=== PATIENT | female | born 1940 | race Caucasian/White ===

== ENCOUNTER 2019-04-06 13:19 | Emergency (ER) | payer MEDICARE, SELFPAY ==
[2019-04-06 13:27] VITALS: BP 136/48; PULSE 87; RESP 18; TEMP 36.9; O2SAT 97
--- NOTE | 2019-04-06 13:52 | ED.SKABFB ---
HPI - Skin/Abscess/Foreign Bdy <Lynsey Matias PA-C - Last Filed: 04/06/19 20:56> General Chief complaint: Skin/Abscess/Foreign Body Stated complaint: 'knot' on back of neck and right ankle Time Seen by Provider: 04/06/19 13:47 Source: patient Mode of arrival: ambulatory Limitations: no limitations History of Present Illness HPI narrative: This 79-year-old female comes to ED secondary to insect bites she believes on her neck and ankle. She states that the ankle has been getting gradually more red and swollen and tender. She has had more itching on the bites on the neck. She states that she was out in the garden working on Friday and saw small spiders and some small bugs, no other exposures known but she did notice the redness and swelling after that. She denies any new fever, facial swelling, difficulty swallowing or other new complaints with this. She did apply mupirocin and tried Epsom salt soaks yesterday. She denies any other complaints on systems review Related Data Previous Rx's Medication Instructions Recorded cephalexin [Keflex] 500 mg PO Q6H 7 Days #28 cap 04/06/19 mupirocin calcium 1 applictn TOP BID #30 gram 04/06/19 Allergies Allergy/AdvReac Type Severity Reaction Status Date / Time ciprofloxacin [From Cipro] Allergy Verified 04/06/19 13:30 cyclobenzaprine Allergy Verified 04/06/19 13:30 hydrocodone Allergy Verified 04/06/19 13:30 Iodine and Iodide Containing Allergy Verified 04/06/19 13:30 Produc oxycodone Allergy Verified 04/06/19 13:30 amoxicillin [From Augmentin] AdvReac Mild Verified 04/06/19 14:28 clavulanic acid AdvReac Mild Verified 04/06/19 14:28 [From Augmentin] Review of Systems <Lynsey Matias PA-C - Last Filed: 04/06/19 20:56> Review of Systems ROS Unobtainable: All systems reviewed & are unremarkable except as noted in HPI and below PFSH <Lynsey Matias PA-C - Last Filed: 04/06/19 20:56> Medical History (Updated 04/06/19 @ 14:34 by Lynsey Matias PA-C) Osteoarthritis (Chronic) History of depression (Chronic) History of TIA (transient ischemic attack) (Chronic) Surgical History (Updated 04/06/19 @ 14:34 by Lynsey Matias PA-C) Status post hysterectomy (Resolved) Status post appendectomy (Resolved) Status post bilateral hip replacements (Resolved) Social History (Updated 04/06/19 @ 14:35 by Lynsey Matias PA-C) Smoking Status: Never smoker Social History (Updated 04/06/19 @ 14:35 by Lynsey Matias PA-C) Smoking Status: Never smoker Exam <Lynsey Matias PA-C - Last Filed: 04/06/19 20:56> Narrative Exam Narrative: GENERAL APPEARANCE: Patient sitting comfortably, in no distress. HEENT: PERRL, EOMI, normal oropharynx NECK: Supple LUNGS: Clear to auscultation bilaterally. HEART: Rate and rhythm regular without murmur, normal S1 and S2, no S3 or S4. EXTREMITIES: Mild right foot and ankle pitting, trace on the left, numerous varicosities, no cyanosis DERMATOLOGIC: There is an indurated papule on the posterior neck with some central scab, no erythema or fluctuance, not warm to touch. Mildly tender. There are several erythematous papules on the right lateral ankle, largest 1 over the malleolus is approximately 5 mm in diameter with surrounding erythema over the proximal lateral ankle and lateral midfoot, mildly tender, no fluctuance or drainage Initial Vital Signs Initial Vital Signs: Vital Signs Temperature 98.4 F 04/06/19 13:27 Pulse Rate 87 04/06/19 13:27 Respiratory Rate 18 04/06/19 13:27 Blood Pressure 136/48 L 04/06/19 13:27 Pulse Oximetry 97 04/06/19 13:27 <Raven Corral MD - Last Filed: 04/08/19 08:59> Initial Vital Signs Initial Vital Signs: Vital Signs Temperature 98.4 F 04/06/19 13:27 Pulse Rate 87 04/06/19 13:27 Respiratory Rate 18 04/06/19 13:27 Blood Pressure 136/48 L 04/06/19 13:27 Pulse Oximetry 97 04/06/19 13:27 Course <Lynsey Matias PA-C - Last Filed: 04/06/19 20:56> Orders Ordered: Discontinued Medications Mupirocin (Bactroban Oint) 1 applic TOP BID PRN PRN Reason: skin infection Vital Signs - 8 hr 04/06/19 13:27 04/06/19 14:42 Temperature 98.4 F Pulse Rate 87 77 Respiratory Rate 18 16 Blood Pressure 136/48 L Blood Pressure [Left Arm] 132/80 Pulse Oximetry 97 98 <Raven Corral MD - Last Filed: 04/08/19 08:59> Orders Ordered: Discontinued Medications Mupirocin (Bactroban Oint) 1 applic TOP BID PRN PRN Reason: skin infection Vital Signs - 8 hr 04/06/19 13:27 04/06/19 14:42 Temperature 98.4 F Pulse Rate 87 77 Respiratory Rate 18 16 Blood Pressure 136/48 L Blood Pressure [Left Arm] 132/80 Pulse Oximetry 97 98 Discharge Plan Departure Patient Disposition: Home Clinical Impression: Cellulitis Qualifiers: Site of cellulitis: extremity Site of cellulitis of extremity: lower extremity Laterality: right Qualified Code(s): L03.115 - Cellulitis of right lower limb Insect bites Qualifiers: Encounter type: initial encounter Site of insect bite: unspecified site Qualified Code(s): W57.XXXA - Bitten or stung by nonvenomous insect and other nonvenomous arthropods, initial encounter Discharge Date/Time: 04/06/19 14:44 Interventions: ED Discharge Assessment Last Done: 04/06/19 14:43 Instructions: DI for Cellulitis -- Adult Activity Restrictions/Additional Instructions: I have prescribed an antibiotic called Keflex or cephalexin as the skin on your ankle may be getting infected due to the insect bites. The skin on your neck does not look infected today. Some of the redness on your skin is likely due to the histamine reaction which should peak in the next 24 hours. As we talked about, you should monitor for rapidly spreading redness or streaking, increasing pain or swelling or new symptoms such as fever, and return to the ED if any of these occur. Otherwise, please start the antibiotic as soon as you pick it up and take 4 times daily. It will take a few days to see the response from this. You can continue topical mupirocin if you wish, you can continue Epsom salt soaks and your Celebrex as well. Please call the [facility] here at the hospital when you leave today and let them know you were seen at the emergency department and we would like to have you follow-up with a primary care provider locally, preferably by early next week. Their number is [phone]. Prescriptions: New cephalexin [Keflex] 500 mg capsule 500 mg PO Q6H 7 Days Qty: 28 RF: 0 mupirocin calcium 2 % cream 1 applictn TOP BID Qty: 30 RF: 0
[2019-04-06 14:42] VITALS: BP 132/80; PULSE 77; RESP 16; O2SAT 98
== END 2019-04-06 14:44 | disposition home or self-care (01) ==
PROVIDERS: Emergency Provider Internal Medicine
DX: L03.115 Cellulitis of right lower limb (principal); W57.XXXA Bitten or stung by nonvenomous insect and other nonvenomous arthropods, initial encounter
CPT/HCPCS: 99282

== ENCOUNTER → 2019-04-10 13:14 | Outpatient (CLI) | payer MEDICARE, SELFPAY | PROVIDERS: Visit Provider Physician Assistant | DX: L03.90 Cellulitis, unspecified (principal); L02.91 Cutaneous abscess, unspecified | CPT/HCPCS: 87070; 87075; 87077; 87147; 87185; 87186; 87205 ==

== ENCOUNTER → 2019-05-01 10:29 | Outpatient (CLI) | payer MEDICARE, SELFPAY ==
--- NOTE | 2019-05-01 10:33 | DI.RAD.S_ITS ---
PROCEDURE: XR TIBIA FUBULA RT 2V INDICATIONS: eval for communication to bone, skinulcer over distal fibula TECHNIQUE: 2 views of the tibia and fibula were acquired. COMPARISON: None. FINDINGS: Bones: No fractures or dislocations. No suspicious bony lesions. Soft tissues: Soft tissue irregularity is seen distally. IMPRESSION: Soft tissue irregularity distally, without bony involvement seen. If there is strong suspicion for developing osteomyelitis, please consider a dedicated MRI without and with contrast for further evaluation (assuming that there is no contraindication to MRI). Dictated by: Joshua Whaley M.D. on 05/01/2019 at 10:17 Approved by: Joshua Whaley M.D. on 05/01/2019 at 10:19
[2019-05-01 11:29] LABS: Erythrocyte Sedimentation Rate 18 MM/HR (0-20)
[2019-05-01 11:30] LABS: C-Reactive Protein Quant < 0.5 mg/dL (<1.0)
== END ==
PROVIDERS: Visit Provider Physician Assistant
DX: L98.499 Non-pressure chronic ulcer of skin of other sites with unspecified severity (principal)
CPT/HCPCS: 36415; 73590; 85651; 86140

== ENCOUNTER → 2019-05-19 13:06 | Outpatient (CLI) | payer MEDICARE, SELFPAY | PROVIDERS: PCP Internal Medicine; Referring Provider Physician Assistant; Visit Provider Family Medicine | DX: S91.001A Unspecified open wound, right ankle, initial encounter (principal); R60.0 Localized edema; Z79.2 Long term (current) use of antibiotics | CPT/HCPCS: 11042; 87070; 87075; 87205; 99203 ==

== ENCOUNTER → 2019-05-26 08:38 | Outpatient (CLI) | payer MEDICARE, SELFPAY | PROVIDERS: PCP Internal Medicine; Visit Provider Family Medicine | DX: L97.311 Non-pressure chronic ulcer of right ankle limited to breakdown of skin (principal); R60.0 Localized edema | CPT/HCPCS: 11042 ==

== ENCOUNTER → 2019-05-28 08:36 | Outpatient (CLI) | payer MEDICARE, SELFPAY | PROVIDERS: PCP Internal Medicine; Visit Provider Family Medicine | DX: S91.001A Unspecified open wound, right ankle, initial encounter (principal) | CPT/HCPCS: 29581 ==

== ENCOUNTER → 2019-06-02 14:00 | Outpatient (CLI) | payer MEDICARE, SELFPAY | PROVIDERS: PCP Internal Medicine; Visit Provider Family Medicine | DX: I87.2 Venous insufficiency (chronic) (peripheral) (principal); S91.001A Unspecified open wound, right ankle, initial encounter; I73.9 Peripheral vascular disease, unspecified | CPT/HCPCS: 97597 ==

== ENCOUNTER → 2019-06-09 09:37 | Outpatient (CLI) | payer MEDICARE, SELFPAY | PROVIDERS: PCP Internal Medicine; Visit Provider Family Medicine | DX: I87.2 Venous insufficiency (chronic) (peripheral) (principal); S91.001A Unspecified open wound, right ankle, initial encounter; S11.90XA Unspecified open wound of unspecified part of neck, initial encounter; I73.9 Peripheral vascular disease, unspecified; L08.9 Local infection of the skin and subcutaneous tissue, unspecified | CPT/HCPCS: 11042; 87070; 87077; 87186; 87205; 97597; 99214 ==

== ENCOUNTER → 2019-06-16 08:37 | Outpatient (CLI) | payer MEDICARE, SELFPAY | PROVIDERS: PCP Internal Medicine; Visit Provider Family Medicine | DX: S91.001A Unspecified open wound, right ankle, initial encounter (principal); I87.2 Venous insufficiency (chronic) (peripheral); I73.9 Peripheral vascular disease, unspecified; S11.90XA Unspecified open wound of unspecified part of neck, initial encounter; L08.9 Local infection of the skin and subcutaneous tissue, unspecified; F42.4 Excoriation (skin-picking) disorder | CPT/HCPCS: 29581; 99213 ==

== ENCOUNTER → 2019-06-23 08:31 | Outpatient (CLI) | payer MEDICARE, SELFPAY | PROVIDERS: PCP Internal Medicine; Visit Provider Family Medicine | DX: S91.001A Unspecified open wound, right ankle, initial encounter (principal); I87.2 Venous insufficiency (chronic) (peripheral); I73.9 Peripheral vascular disease, unspecified; S11.90XA Unspecified open wound of unspecified part of neck, initial encounter; L08.9 Local infection of the skin and subcutaneous tissue, unspecified; F42.4 Excoriation (skin-picking) disorder | CPT/HCPCS: 99212 ==

== ENCOUNTER → 2019-06-29 07:16 | Outpatient (CLI) | payer MEDICARE, SELFPAY ==
[2019-06-29 08:10] LABS: Add Manual Diff / Slide Review NO; Basophils Absolute Auto 0 /uL (0-100); Basophils Percent Auto 0.8 % (0-2); Eosinophils Absolute Auto 200 /uL (0-450); Eosinophils Percent Auto 3.4 % (2-4); Hematocrit 40.9 % (36-46); Lymphocytes Absolute Auto 1200 /uL (1100-4500); Lymphocytes Percent Auto 25.5 % (25-40); Mean Corpuscular HGB Conc 34.3 % (30-36); Mean Corpuscular Hemoglobin 29.8 PG (26-34); Monocytes Absolute Auto 500 /uL (0-900); Monocytes Percent Auto 9.8 % (3-14); Neutrophils Absolute Auto 3000 /uL (1500-7000); Neutrophils Percent Auto 60.5 % (50-75); Platelet Count 196 X10^3/uL (150-400); Red Cell Distribution Width 13.9 % (11.6-14.8); White Blood Cell Count 4.9 X10^3/uL (4.5-11.0)
[2019-06-29 08:20] LABS: Alanine Aminotransferase 36 IU/L (9-52); Albumin 4.4 g/dL (3.5-5.0); Albumin Globulin Ratio 1.5 (1.0-2.8); Alkaline Phosphatase 70 U/L (38-126); Aspartate Aminotransferase 36 IU/L (14-36); Bilirubin Total 0.7 mg/dL (0.2-1.3); Blood Urea Nitrogen 18 mg/dL (7-17); Calcium 9.4 mg/dL (8.4-10.2); Carbon Dioxide 30 mmol/L (22-32); Chloride 102 mmol/L (98-107); Cholesterol 162 mg/dL (140-199); Estimated Glomerular Filt Rate > 60.0 mL/min (>60); Globulin 2.9 g/dL (1.7-4.1); Glucose 97 mg/dL (80-110); HDL Cholesterol 60 mg/dL (40-60); HEMOLYSIS < 15 (0-50); LDL Cholesterol Calculated 91 mg/dL (<100); Potassium 4.6 mmol/L (3.4-5.1); Sodium 140 mmol/L (137-145); Total Protein 7.3 g/dL (6.3-8.2); Triglycerides 54 mg/dL (35-150)
[2019-06-29 08:24] LABS: C-Reactive Protein Quant < 0.5 mg/dL (<1.0)
[2019-06-29 08:38] LABS: Erythrocyte Sedimentation Rate 9 MM/HR (0-20)
[2019-06-29 09:05] LABS: TSH w/ Reflex to FT4 1.23 uIU/mL (0.47-4.68)
== END ==
PROVIDERS: PCP Internal Medicine; Visit Provider Internal Medicine
DX: M45.9 Ankylosing spondylitis of unspecified sites in spine (principal); E78.2 Mixed hyperlipidemia
CPT/HCPCS: 36415; 80053; 80061; 84443; 85025; 85651; 86140

== ENCOUNTER → 2019-08-12 09:01 | Outpatient (CLI) | payer MEDICARE, SELFPAY ==
--- NOTE | 2019-08-12 | DI.MG.S_ITS ---
BILATERAL DIGITAL SCREENING MAMMOGRAM 3D/2D WITH CAD: 08/12/2019 CLINICAL: Routine screening. Comparison is made to exam dated: 09/01/2014 mammogram - [facility] [place]. The tissue of both breasts is heterogeneously dense. This may lower the sensitivity of mammography. Current study was also evaluated with a Computer Aided Detection (CAD) system. No significant masses, calcifications, or other findings are seen in either breast. There has been no significant interval change. IMPRESSION: NEGATIVE There is no mammographic evidence of malignancy. A 1 year screening mammogram is recommended. This exam was interpreted at Station ID: [id number]. NOTE: For mammograms, a report in lay terms will be sent to the patient. Approximately 15% of breast malignancies will not be visualized mammographically. In the management of a palpable breast mass, a negative mammogram must not discourage biopsy of a clinically suspicious lesion. Electronically Signed By: Justin forrest/elise:08/12/2019 12:45:30 letter sent: Normal Exam ACR BI-RADS Category 1: Negative [id number]
== END ==
PROVIDERS: PCP Internal Medicine; Visit Provider Internal Medicine
DX: Z12.31 Encounter for screening mammogram for malignant neoplasm of breast (principal)
CPT/HCPCS: 77063; 77067

== ENCOUNTER → 2019-10-11 15:58 | Outpatient (CLI) | payer MEDICARE, SELFPAY ==
[2019-10-11 17:53] LABS: Add Manual Diff / Slide Review NO; Basophils Absolute Auto 0 /uL (0-100); Basophils Percent Auto 0.7 % (0-2); Eosinophils Absolute Auto 200 /uL (0-450); Eosinophils Percent Auto 3.4 % (2-4); Hematocrit 40.9 % (36-46); Hemoglobin 13.9 g/dL (12.0-16.0); Lymphocytes Absolute Auto 1800 /uL (1100-4500); Lymphocytes Percent Auto 34.4 % (25-40); Mean Corpuscular HGB Conc 33.9 % (30-36); Mean Corpuscular Hemoglobin 29.7 PG (26-34); Mean Corpuscular Volume 87.6 fL (80-100); Monocytes Absolute Auto 500 /uL (0-900); Monocytes Percent Auto 9.7 % (3-14); Neutrophils Absolute Auto 2700 /uL (1500-7000); Neutrophils Percent Auto 51.8 % (50-75); Platelet Count 176 X10^3/uL (150-400); Red Blood Cell Count 4.67 X10^6/uL (4.0-5.2); Red Cell Distribution Width 13.4 % (11.6-14.8); White Blood Cell Count 5.2 X10^3/uL (4.5-11.0)
[2019-10-11 18:48] LABS: Erythrocyte Sedimentation Rate 48 MM/HR (0-20)
== END ==
PROVIDERS: PCP Internal Medicine; Visit Provider Ophthalmology
DX: H53.2 Diplopia (principal)
CPT/HCPCS: 36415; 85025; 85651; 86140

== ENCOUNTER → 2020-04-04 19:06 | Outpatient (ROUT) | payer MEDICARE, SELFPAY ==
[2020-04-04 19:44] LABS: Add Manual Diff / Slide Review NO; Basophils Absolute Auto 0 /uL (0-100); Basophils Percent Auto 0.5 % (0-2); Eosinophils Absolute Auto 200 /uL (0-450); Eosinophils Percent Auto 3.1 % (2-4); Hemoglobin 13.6 g/dL (12.0-16.0); Lymphocytes Absolute Auto 1300 /uL (1100-4500); Lymphocytes Percent Auto 22.1 % (25-40); Mean Corpuscular HGB Conc 33.1 % (30-36); Mean Corpuscular Hemoglobin 29.8 PG (26-34); Mean Corpuscular Volume 90.1 fL (80-100); Monocytes Absolute Auto 500 /uL (0-900); Monocytes Percent Auto 8.9 % (3-14); Neutrophils Absolute Auto 3700 /uL (1500-7000); Neutrophils Percent Auto 65.4 % (50-75); Platelet Count 175 X10^3/uL (150-400); Red Blood Cell Count 4.55 X10^6/uL (4.0-5.2); Red Cell Distribution Width 12.9 % (11.6-14.8); White Blood Cell Count 5.7 X10^3/uL (4.5-11.0)
[2020-04-04 19:59] LABS: Aspartate Aminotransferase 30 IU/L (14-36); BUN Creatinine Ratio 24.6 (6-22); Blood Urea Nitrogen 16 mg/dL (7-17); Calcium 9.3 mg/dL (8.4-10.2); Carbon Dioxide 29 mmol/L (22-32); Chloride 103 mmol/L (98-107); Cholesterol 125 mg/dL (140-199); Estimated Glomerular Filt Rate > 60.0 mL/min (>60); Glucose 130 mg/dL (80-110); HDL Cholesterol 50 mg/dL (40-60); HEMOLYSIS < 15 (0-50); LDL Cholesterol Calculated 51 mg/dL (<100); Potassium 4.1 mmol/L (3.4-5.1); Sodium 139 mmol/L (137-145); Triglycerides 119 mg/dL (35-150)
[2020-04-04 20:21] LABS: C-Reactive Protein Quant < 0.5 mg/dL (<1.0)
[2020-04-04 20:23] LABS: Erythrocyte Sedimentation Rate 16 MM/HR (0-20)
== END ==
PROVIDERS: PCP Internal Medicine; Visit Provider Internal Medicine
DX: M35.3 Polymyalgia rheumatica (principal); E78.2 Mixed hyperlipidemia; I67.89 Other cerebrovascular disease
CPT/HCPCS: 80048; 80061; 84450; 85025; 85651; 86140

== ENCOUNTER 2020-08-04 15:41 | Emergency (ER) | payer MEDICARE, SELFPAY ==
[2020-08-04 15:44] VITALS: BP 158/69; PULSE 80; RESP 18; TEMP 36.7; O2SAT 98
--- NOTE | 2020-08-04 15:47 | DI.RAD.S_ITS ---
PROCEDURE: XR FINGER RT MIN 2V INDICATIONS: fall TECHNIQUE: PA view of the hand and two views of the ring finger acquired. COMPARISON: None. FINDINGS: Bones: There is a mildly displaced small avulsion fracture at the dorsal aspect of the 4th middle phalangeal base. There is generalized osteopenia. Scattered degenerative changes are seen in the interphalangeal joints. Soft tissues: No suspicious soft tissue calcifications. Soft tissue edema is seen dorsal to the fourth proximal interphalangeal joint. IMPRESSION: Mildly displaced small avulsion fracture at the base of 4th middle phalanx dorsally with overlying soft tissue edema. Dictated by: King Traylor M.D. on 08/04/2020 at 15:58 Approved by: King Traylor M.D. on 08/04/2020 at 16:02
--- NOTE | 2020-08-04 18:09 | DI.CT.S_ITS ---
PROCEDURE: CT HEAD/BRAIN WO CON INDICATIONS: s/p rolled down 12 feet after tripped during hiking TECHNIQUE: Noncontrast 4.5 mm thick angled axial sections acquired from the foramen magnum to the vertex, with coronal and sagittal reformats. For radiation dose reduction, the following was used: automated exposure control, adjustment of mA and/or kV according to patient size. COMPARISON: None. FINDINGS: Image quality: Excellent. CSF spaces: Basal cisterns are patent. No extra-axial fluid collections. The ventricles are symmetric in size and shape. Brain: No intracranial bleeds or masses. There is cerebral volume loss for age, with resultant ventricular and sulcal prominence. There are periventricular and deep white matter chronic small vessel ischemic changes. There is intracranial internal carotid artery atherosclerosis. Skull and face: Calvarium and visualized facial bones appear intact, without suspicious lesions. Sinuses: Visualized sinuses and mastoids are clear. IMPRESSION: 1. Volume loss and small vessel ischemic disease. 2. No acute process. Dictated by: Jamie Brian M.D. on 08/04/2020 at 18:43 Approved by: Jamie Brian M.D. on 08/04/2020 at 18:44
--- NOTE | 2020-08-04 18:09 | DI.CT.S_ITS ---
PROCEDURE: CT CERVICAL SPINE WO CON INDICATIONS: s/p rolled down 12 feet after tripped during hiking TECHNIQUE: Noncontrast 3 mm thick sections acquired from the skull base to the T4 level. Sagittal and coronal reformats were then constructed. For radiation dose reduction, the following was used: automated exposure control, adjustment of mA and/or kV according to patient size. COMPARISON: None. FINDINGS: Image quality: Excellent. Bones: No fractures or dislocations. Visualized superior ribs are intact. Soft tissues: Prevertebral soft tissues are normal in thickness. No paravertebral hematomas. No apical pneumothoraces. REFERENCE TEXT DELETE FROM FINAL REPORT Craniocervical Injury Classification: Occipital condyle fractures: * Type I: axial loading with minimal displacement; stable. * Type II: skull base fx extending through condyle; stable. * Type III: alar ligament avulsion fx:; unstable. Windsor fractures (Jason): * Type I: posterior arches; stable. * Type II: anterior arch; stable. * Type III: bilat posterior arch with bilateral/unilateral anterior arch (Jason burst); potentially unstable depending on transverse ligament integrity. * Type IV: lateral mass fx; stable. * Type V: transverse anterior arch avulsion fx; stable. Odontoid fractures: * Type I: alar ligament oblique avulsion fx through tip; stable. * Type II: dens-body junction; unstable. Risk factors for non-union: age >50 years, >6 mm displacement, or comminution at fracture site. * Type III: thru cancellous portion of dens body; can cause canal compromise. Hangman fractures: * Type I: hairline fx with <2 mm translation; stable. * Type II: angulation >11 degrees, > 2 mm translation; can be unstable. * Type IIa: severe angulation w/o translation (intact ALL); unstable. * Type III: bilateral facet dislocation; unstable. Atlantoaxial rotatory subluxation and fixation: * Type I: rotatory fixation with dens as pivot point, intact alar & transverse ligaments. * Type II: transverse ligament torn, center of rotation shifts to lateral mass, <5 mm anterior displacement of atlas; unstable. * Type III: transverse and alar ligaments torn, similar to type II but with >5 mm anterior displacement of atlas; unstable. * Type IV: deficient odontoid, with posterior displacement of atlas; unstable. Subaxial Injury Classification: SLIC Scoring System. Morphology: * No abnormality: 0 * Compression: 1 * Burst: 2 * Distraction: 3 (dislocation in the vertical axis, from hyperextension or hyperflexion). Hyperflexion-distraction criteria: facet overlap <50%, facet diastasis > 2mm, posterior disk spac widening with angulation >11 degrees. * Translation or rotation: 4. Rotation criteria: listhesis >3.5 mm but <50% of caudal vertebral body width. Translation criteria: listhesis >3.5 mm and usually >50% of caudal vertebral body width. Discoligamentous complex: electrical helper from abnormal bony relationships on CT. * Intact: 0 * Indeterminate: 1 * Disrupted: 2 Neurologic status: * Intact: 0 * Root injury: 1 * Complete cord injury: 2 * Incomplete cord injury: 3 * Incomplete cord injury with compression: 4 Total SLIC score: 3 or less is non-surgical, 4 is indeterminate, 5 or more is surgical. IMPRESSION: No fracture. Dictated by: Jamie Brian M.D. on 08/04/2020 at 18:51 Approved by: Jamie Brian M.D. on 08/04/2020 at 18:52
--- NOTE | 2020-08-04 18:24 | ED_ITS ---
HPI - Extremity Injury (Upper) <BENEDICTO Johnson - Last Filed: 08/04/20 20:26> General Chief Complaint: Extremity Injury, Upper Stated Complaint: FALL RIGHT HAND RING FINGER INJURY AND RT SHOULDER Time Seen by Provider: 08/04/20 17:35 Source: patient Mode of arrival: Ambulatory Limitations: no limitations History of Present Illness HPI narrative: This is a 80-year-old female, nonsmoker, who has past medical history significant for ankylosing spondylitis, trigger finger on right ring finger and takes Celebrex daily, depression ,hip replacement and low back surgery presents to ED with chief complain of right shoulder, right ring finger pain, swelling, bruise after she fell today. Patient reports intact sensation on right arm and is able to forward flex, abduct, and adduct right arm at her baseline and reports intact sensation distally.. Patient reports deformity on right 4th finger with flexion which she is not able to extend. Patient reports intact sensation distally on affected finger. Patient reports she [place] and tripped on a rock and rolled down about 12 fit. Patient denies losing consciousness, but heard crunching sound on her neck. Initially she felt bilateral upper extremities numbness but this has been resolved. Patient denies significant mid cervical tenderness but reports limited range of motion of her C-spine. Patient denies losing consciousness, vision change, vomiting, or seizure activities after the injury. Patient states she walked out of the trail and came in to ED. Related Data Home Medications Medication Instructions Recorded Confirmed celecoxib 50 mg capsule 50 mg PO BID 04/10/19 05/13/19 venlafaxine 75 mg capsule,extended 150 mg PO DAILY 04/10/19 05/13/19 release 24 hr atorvastatin 20 mg tablet 20 mg PO DAILY 05/13/19 05/13/19 loratadine 10 mg tablet 10 mg PO DAILY PRN 05/13/19 05/13/19 Previous Rx's Medication Instructions Recorded mupirocin 2 % topical ointment 1 applic TOP BID #30 gram 05/11/19 Allergies Allergy/AdvReac Type Severity Reaction Status Date / Time ciprofloxacin [From Cipro] Allergy Severe Severe Verified 05/13/19 10:29 diarrhea cyclobenzaprine Allergy Severe I Verified 05/13/19 10:29 couldn't get out of bed for days Iodine and Iodide Containing Allergy Mild Hives Verified 05/13/19 10:29 Produc hydrocodone Allergy Unknown Patient Verified 05/13/19 10:29 can't remember oxycodone Allergy Unknown Patient Verified 05/13/19 10:29 can't remember alendronate sodium AdvReac Severe Esophageal Verified 05/13/19 10:29 [From Fosamax] ulcer and severe bleeding amoxicillin [From Augmentin] AdvReac Severe Severe Verified 05/13/19 10:29 diarrhea clavulanic acid AdvReac Severe Severe Verified 05/13/19 10:29 [From Augmentin] diarrhea risedronate sodium AdvReac Severe esophageal Verified 05/13/19 10:29 [From Actonel] ulcer and severe bleeding Review of Systems <BENEDICTO Johnson - Last Filed: 08/04/20 20:26> Review of Systems Narrative: General: Denies fever, chills, fatigue, malaise, sweats. HEENT: Denies sinus pain, ear pain, sore throat, difficulty swallowing, dizziness. Respiratory: Denies dyspnea, cough, wheezing, hemoptysis, sputum. Cardiovascular: Denies chest pain, palpitations, orthopnea, edema. Gastrointestinal: Denies nausea, vomiting, abdominal pain, diarrhea, constipation, melena. : Denies dysuria, frequency, incontinence, hematuria, urinary retention. Musculoskeletal: See HPI Skin: Denies rash, skin lesions, or other. Neurologic: Denies weakness, headache, numbness, change in speech, confusion, seizures, incoordination. Psychiatric: No concerning psychosocial issues. 12-point review of systems is negative except for those stated above. Patient History <BENEDICTO Johnson - Last Filed: 08/04/20 20:26> Medical History Allergies (Inactive) Anemia (Inactive) Ankylosing spondylitis (Inactive) Asthma (Inactive) Carpal tunnel syndrome (Inactive) Chicken pox (Resolved) Endometriosis (Inactive ~1984) Esophageal bleeding (Inactive ~2007) GI bleeding (Inactive ~2007) Heavy menstrual period (Inactive ~1984) History of depression (Chronic) History of TIA (transient ischemic attack) (Chronic ~2017) Keratoacanthoma (Inactive ~2012) Osteoarthritis (Chronic) Surgical History Anesthesia (Resolved) History of ulcer disease (Resolved ~2006) Status post appendectomy (Resolved) Status post bilateral hip replacements (Resolved) Status post hysterectomy (Resolved ~1985) Family History Father Skin cancer Mother Diabetes mellitus History of heart disease Hyperlipidemia Brother Diabetes mellitus Hyperlipidemia Grandfather Diabetes mellitus Social History Smoking Status: Never smoker second hand exposure: Yes (only in public places and I was when I was a child.) alcohol intake: former substance use type: does not use Smoking Status: Never smoker Exam <BENEDICTO Johnson - Last Filed: 08/04/20 20:26> Narrative Exam Narrative: GEN: Alert, oriented x 3, well appearing and nourished, and in no acute distress. Head: Normal cephalic, atraumatic. No scalp or temporal tenderness, palpable mass, step-offs or rash. EYES: Pupils are equal, round, and reactive to light and accommodation. Extraocular muscles are intact bilaterally. There is no subconjunctival hemorrhage, exudate and sclera non-icteric. ENT: Bilateral auditory canals and tympanic membranes clear without drainage or hemotympanum. No Mcdaniel signs. Hearing grossly intact. Nose without bleeding, purulent discharge or deviation. Facial sinuses nontender to palpate. Mucous membrane moist, no mucosal lesion. Throat without erythema, tonsillar hypertrophy or exudate. Uvula in midline, airway patent. Neck: Trachea in midline. No JVD, non-tender without lymphadenopathy. No masses or thyroid megaly. Supple, no step-offs, mid cervical tenderness to palpate and no meningeal signs. CARDIAC: Normal regular rate and rhythm without murmurs, gallops, or rubs. No chest wall tenderness. No peripheral edema, cyanosis or pallor. Capillary refill is less than 2 seconds. RESPIRATORY: Lungs are clear to auscultate bilaterally. No cough, wheezes, rales, or rhonchi. No stridor, respiratory distress, increase work of breathing, or accessary muscle used. ABD: Abdomen soft, nontender and non-distended. No guarding or rebound tenderness to palpate. Bowel sounds are normal in all 4 quadrants. There is no palpable masses or organomegaly. SKIN: Warm, dry, normal color for patient. See Extremity exam. BACK: Nontender without deformity or crepitance. No flank tenderness. NEUROLOGICAL: Alert and oriented to place, time and person. Sensation and motor function intact bilaterally. No facial droops, dysphasia. PSYCHIATRIC: Good judgement and reason, without hallucinations, abnormal affect or abnormal behaviors during the examination. Patient is not suicidal. Initial Vital Signs Initial Vital Signs: Vital Signs Temperature 98.1 F 08/04/20 15:44 Pulse Rate 80 08/04/20 15:44 Respiratory Rate 18 08/04/20 15:44 Blood Pressure 158/69 H 08/04/20 15:44 Pulse Oximetry 98 08/04/20 15:44 Extrem Right upper extremity: shoulder/upper arm Details: normal to inspection, tenderness Location: over the coracoid process, axillary nerve sensory function normal and normal ROM; no swelling, no abrasions, no lacerations, no ecchymosis, no deformity and no unusual warmth, elbow/forearm Details: normal to inspection; no tenderness and no swelling and hand Details: abnormal to inspection, neuromotor exam abnormal, tendon exam abnormal Location: function weak (ring finger), tenderness Location: of the 4th digit Location: at the proximal phalanx and at the middle phalanx, vascular exam Details: radial pulse present, abnormal ROM of finger Details: unable to extend, swelling Location: of the 4th digit, ecchymosis Location: of the 4th digit and other (deformity on 4th finger-flexed) <Bulmaro Caba DO - Last Filed: 08/05/20 04:37> Initial Vital Signs Initial Vital Signs: Vital Signs Temperature 98.1 F 08/04/20 15:44 Pulse Rate 80 08/04/20 15:44 Respiratory Rate 18 08/04/20 15:44 Blood Pressure 158/69 H 08/04/20 15:44 Pulse Oximetry 98 08/04/20 15:44 Procedures <BENEDICTO Johnson - Last Filed: 08/04/20 20:26> Orthopedic Fracture Reduction Fracture #1: Time Out Performed: Yes Side: right Fracture Reduction Location: finger (ring finger) Analgesia: nerve block (Lidocaine with bicarb) Technique: direct manipulation and traction/counter-traction Post-reduction vascular exam: intact Splint Applied: Yes Patient Tolerated Procedure: Well Orthopedic Splinting/Casting Injury #1: Side: right Upper Extremity Injury Location: finger (4th finger) Upper Extremity Immobilizer: aluminum form splint Post splinting neuro exam: intact Post splinting vascular exam: intact Placed by: Provider Scores <BENEDICTO Johsnon - Last Filed: 08/04/20 20:26> GCS Magdi coma scale eye opening: Spontaneous Magdi coma scale verbal response: Orientated Magdi coma scale motor response: Obey commands Magdi coma scale total score: 15 Course <Antony BENEDICTO Shetty - Last Filed: 08/04/20 20:26> Orders Ordered: Discontinued Medications Acetaminophen (Tylenol) 650 mg PO NOW ONE Stop: 08/04/20 18:11 Last Admin: 08/04/20 18:50 Dose: Not Given Documented by: WILLIAM Lidocaine/Sodium Bicarbonate (Buffered Lidocaine 10 Ml Syr) 10 ml INJ NOW ONE Stop: 08/04/20 18:11 Last Admin: 08/04/20 18:49 Dose: 10 ml Documented by: WILLIAM Reevaluation(s) Reevaluation #1: Rigid c collar removed after negative C spine CT test. Patient is able to flex and rotate to right side but slightly limited rotation range of motion to left side. No mid cervical tenderness to palpate. Time: 19:04 Vital Signs Vital signs: Vital Signs - 8 hr 08/04/20 15:44 08/04/20 19:05 08/04/20 19:20 Temperature 98.1 F 97.2 F L Pulse Rate 80 70 Respiratory Rate 18 Blood Pressure 158/69 H 150/70 H Pulse Oximetry 98 98 <Bulmaro Caba DO - Last Filed: 08/05/20 04:37> Orders Ordered: Discontinued Medications Acetaminophen (Tylenol) 650 mg PO NOW ONE Stop: 08/04/20 18:11 Last Admin: 08/04/20 18:50 Dose: Not Given Documented by: WILLIAM Lidocaine/Sodium Bicarbonate (Buffered Lidocaine 10 Ml Syr) 10 ml INJ NOW ONE Stop: 08/04/20 18:11 Last Admin: 08/04/20 18:49 Dose: 10 ml Documented by: WILLIAM Vital Signs Vital signs: Vital Signs - 8 hr 08/04/20 15:44 08/04/20 19:05 08/04/20 19:20 Temperature 98.1 F 97.2 F L Pulse Rate 80 70 Respiratory Rate 18 Blood Pressure 158/69 H 150/70 H Pulse Oximetry 98 98 MDM - Extremity Injury (Upper) <BENEDICTO Johnson - Last Filed: 08/04/20 20:26> Differential Diagnosis Differential diagnosis: Likely other (Finger fracture, ligamentous injury on finger, cervical strain, cervical fracture, closed head injury) Medical Records Attestation: I reviewed the patient's medical records. Imaging Data CT scan - head: Radiologist's Impression: Karen Busch 80 F [address] [address] [address] Scan Report Signed Patient: Karen Busch [facility]#: [id number] : 1940Acct:[id number] Age/Sex: 80 / FDate of Service: 08/04/20 Loc: ED Accession Number: [id number] Procedure: CT head/brain wo con Ordering Provider: Antony Shetty PROCEDURE: CT HEAD/BRAIN WO CON INDICATIONS: s/p rolled down 12 feet after tripped during hiking TECHNIQUE: Noncontrast 4.5 mm thick angled axial sections acquired from the foramen magnum to the vertex, with coronal and sagittal reformats. For radiation dose reduction, the following was used: automated exposure control, adjustment of mA and/or kV according to patient size. COMPARISON: None. FINDINGS: Image quality: Excellent. CSF spaces: Basal cisterns are patent. No extra-axial fluid collections. The ventricles are symmetric in size and shape. Brain: No intracranial bleeds or masses. There is cerebral volume loss for age, with resultant ventricular and sulcal prominence. There are periventricular and deep white matter chronic small vessel ischemic changes. There is intracranial internal carotid artery atherosclerosis. Skull and face: Calvarium and visualized facial bones appear intact, without suspicious lesions. Sinuses: Visualized sinuses and mastoids are clear. IMPRESSION: 1. Volume loss and small vessel ischemic disease. 2. No acute process. Dictated by: Jamie Brian M.D. on 08/04/2020 at 18:43 Approved by: Jamie Brian M.D. on 08/04/2020 at 18:44 CT - cervical spine: Radiologist's Impression: [address] [address] [address] Scan Report Signed Patient: Karen Busch [facility]#: [id number] : 1940Acct:[id number] Age/Sex: 80 / FDate of Service: 08/04/20 Loc: ED Accession Number: [id number] Procedure: CT cervical spine wo con Ordering Provider: Antony Shetty PROCEDURE: CT CERVICAL SPINE WO CON INDICATIONS: s/p rolled down 12 feet after tripped during hiking TECHNIQUE: Noncontrast 3 mm thick sections acquired from the skull base to the T4 level. Sagittal and coronal reformats were then constructed. For radiation dose reduction, the following was used: automated exposure control, adjustment of mA and/or kV according to patient size. COMPARISON: None. FINDINGS: Image quality: Excellent. Bones: No fractures or dislocations. Visualized superior ribs are intact. Soft tissues: Prevertebral soft tissues are normal in thickness. No paravertebral hematomas. No apical pneumothoraces. REFERENCE TEXT DELETE FROM FINAL REPORT Craniocervical Injury Classification: Occipital condyle fractures: * Type I: axial loading with minimal displacement; stable. * Type II: skull base fx extending through condyle; stable. * Type III: alar ligament avulsion fx:; unstable. Wittmann fractures (Jason): * Type I: posterior arches; stable. * Type II: anterior arch; stable. * Type III: bilat posterior arch with bilateral/unilateral anterior arch (Jason burst); potentially unstable depending on transverse ligament integrity. * Type IV: lateral mass fx; stable. * Type V: transverse anterior arch avulsion fx; stable. Odontoid fractures: * Type I: alar ligament oblique avulsion fx through tip; stable. * Type II: dens-body junction; unstable. Risk factors for non-union: age >50 years, >6 mm displacement, or comminution at fracture site. * Type III: thru cancellous portion of dens body; can cause canal compromise. Hangman fractures: * Type I: hairline fx with <2 mm translation; stable. * Type II: angulation >11 degrees, > 2 mm translation; can be unstable. * Type IIa: severe angulation w/o translation (intact ALL); unstable. * Type III: bilateral facet dislocation; unstable. Atlantoaxial rotatory subluxation and fixation: * Type I: rotatory fixation with dens as pivot point, intact alar & transverse ligaments. * Type II: transverse ligament torn, center of rotation shifts to lateral mass, <5 mm anterior displacement of atlas; unstable. * Type III: transverse and alar ligaments torn, similar to type II but with >5 mm anterior displacement of atlas; unstable. * Type IV: deficient odontoid, with posterior displacement of atlas; unstable. Subaxial Injury Classification: SLIC Scoring System. Morphology: * No abnormality: 0 * Compression: 1 * Burst: 2 * Distraction: 3 (dislocation in the vertical axis, from hyperextension or hyperflexion). Hyperflexion-distraction criteria: facet overlap <50%, facet diastasis > 2mm, posterior disk spac widening with angulation >11 degrees. * Translation or rotation: 4. Rotation criteria: listhesis >3.5 mm but <50% of caudal vertebral body width. Translation criteria: listhesis >3.5 mm and usually >50% of caudal vertebral body width. Discoligamentous complex: facilities maintenance engineer from abnormal bony relationships on CT. * Intact: 0 * Indeterminate: 1 * Disrupted: 2 Neurologic status: * Intact: 0 * Root injury: 1 * Complete cord injury: 2 * Incomplete cord injury: 3 * Incomplete cord injury with compression: 4 Total SLIC score: 3 or less is non-surgical, 4 is indeterminate, 5 or more is surgical. IMPRESSION: No fracture. Dictated by: Jamie Brian M.D. on 08/04/2020 at 18:51 Approved by: Jamie Brian M.D. on 08/04/2020 at 18:52 XR-[place] RT: Radiologist's Impression: [address] [address] XRay Report Signed Patient: Karen Busch [facility]#: [id number] : 1940Acct:[id number] Age/Sex: 80 / FDate of Service: 08/04/20 Loc: ED Accession Number: [id number] Procedure: XR finger RT min 2V Ordering Provider: Tomas Qiu MD PROCEDURE: XR FINGER RT MIN 2V INDICATIONS: fall TECHNIQUE: PA view of the hand and two views of the ring finger acquired. COMPARISON: None. FINDINGS: Bones: There is a mildly displaced small avulsion fracture at the dorsal aspect of the 4th middle phalangeal base. There is generalized osteopenia. Scattered degenerative changes are seen in the interphalangeal joints. Soft tissues: No suspicious soft tissue calcifications. Soft tissue edema is seen dorsal to the fourth proximal interphalangeal joint. IMPRESSION: Mildly displaced small avulsion fracture at the base of 4th middle phalanx dorsally with overlying soft tissue edema. Dictated by: King Traylor M.D. on 08/04/2020 at 15:58 Approved by: King Traylor M.D. on 08/04/2020 at 16:02 [facility] Narrative Medical decision making narrative: This is a 80-year-old female who presents to ED after she tripped and fall during a [place] and tumbled down about 12 ft. She reports right ring finger pain, swelling, and ecchymosis with a deformity. Patient was not able to flex or extend affected finger. Patient denies loss of consciousness, vision change, seizures, vomiting but mild headache after the injury and heard cracking sounds in her neck during the fall. Upper extremities exam cintron she is neurological intact. CT test of head and C spine are negative for acute findings and rigid cervical c spine had applied after the exam/HPI obtained but removed after the negative C-spine CT. Finger xray indicates mildly displaced small avulsion fracture at the base of 4th middle phalanx dorsally with overlying soft tissue edema. Affected finger was attempted to reduced but no significant improvement on deformity. It is likely she has tendon/ligamentous injury with the avulsion fracture. See procedure note for closed reduction and splint. Patient advised to follow-up with [facility] orthopedist for the finger fracture. Patient advised to use [id number] Tylenol as needed for discomfort, cool packs for next couple of days, and to elevate affected hand above chest level at rest. She is on daily Celebrex so no additional ibuprofen, or NSAIDs ordered. Return precautions were discussed with patient and she verbalized understanding in agreement with the treatment plan. Discharge Plan Departure Patient Disposition: Home Clinical Impression: Finger fracture, right Qualifiers: Encounter type: initial encounter Finger: ring finger Fracture type: closed Phalanx: proximal Fracture alignment: displaced Qualified Code(s): S62.614A - Displaced fracture of proximal phalanx of right ring finger, initial encounter for closed fracture CHI (closed head injury) Qualifiers: Encounter type: initial encounter Qualified Code(s): S09.90XA - Unspecified in jury of head, initial encounter Neck strain Qualifiers: Encounter type: initial encounter Qualified Code(s): S16.1XXA - Strain of muscle, fascia and tendon at neck level, initial encounter Right shoulder strain Qualifiers: Encounter type: initial encounter Qualified Code(s): S46.911A - Strain of unspecified muscle, fascia and tendon at shoulder and upper arm level, right arm, initial encounter Fall Qualifiers: Encounter type: initial encounter Qualified Code(s): W19.XXXA - Unspecified fall, initial encounter Discharge Date/Time: 08/04/20 19:19 Instructions: DI for Finger Fracture, DI for Closed Head Injury, DI for Shoulder Pain, DI for Neck Pain Activity Restrictions/Additional Instructions: You have been diagnosed with [right 4th finger mildly displaced small a virgin fracture of the base of [place] ring finger and likely ligamentous injury with this. Closed head injury, right shoulder contusion, neck strain from a fall]. What to do: *Take your medications as directed. Please add Tylenol 650 mg to 1000 mg up to 3 times a day as needed for pain in addition to your daily medications. Use finger splint to stabilize the fracture. *Follow up with your primary care provider/[facility] in 2-3 days, call for an appointment. Let them know you were seen in the ED and that we asked you to be seen in follow up. *Return to ED if you have any new, worsening, or concerning symptoms, such as [worsening pain, headache, vision change, weakness to extremities, vomiting, seizure-like activities, tingling/numbness/weakness to affected finger, or any acute concerns]. Prescriptions: No Action venlafaxine 75 mg capsule,extended release 24hr 150 mg PO DAILY RF: 0 celecoxib [Celebrex] 50 mg capsule 50 mg PO BID RF: 0 mupirocin 2 % ointment 1 applic TOP BID Qty: 30 RF: 0 atorvastatin 20 mg tablet 20 mg PO DAILY RF: 0 loratadine [Allergy Relief (loratadine)] 10 mg tablet 10 mg PO DAILY PRNRF: 0 Referrals: [facility] [Provider Group] Kotal,Tomas V, MD [Primary Care Provider] - <Bulmaro Caba DO - Last Filed: 08/05/20 04:37> Cosign ED Attending Costraeature Attestation: I was immediately available in the department for consultation. This documentation has been reviewed and I agree with assessment and plan. Supervised by Bulmaro Caba DO
[2020-08-04] MEDS: LIDO 1%/SOD BICARB 8.4% (10ML) 10 ML SYRINGE INJ (18:49)
[2020-08-04 19:05] VITALS: BP 150/70; PULSE 70; O2SAT 98
[2020-08-04 19:20] VITALS: TEMP 36.2
--- NOTE | 2020-08-05 16:25 | PC.NURSE ---
Pt returned to ED and asked to speak with a nurse. Pt had questions about discharge instructions. D/C instructions reviewed w/ verbalized understanding and no further concerns. Encouraged to f/u as needed and indicated and return for any needs or concerns.
== END 2020-08-04 19:19 | disposition home or self-care (01) ==
PROVIDERS: Emergency Provider Nurse Practitioner Family; PCP Internal Medicine
DX: S62.614A Displaced fracture of proximal phalanx of right ring finger, initial encounter for closed fracture (principal); S09.90XA Unspecified injury of head, initial encounter; S16.1XXA Strain of muscle, fascia and tendon at neck level, initial encounter; S46.911A Strain of unspecified muscle, fascia and tendon at shoulder and upper arm level, right arm, initial encounter; R11.10 Vomiting, unspecified; W19.XXXA Unspecified fall, initial encounter
CPT/HCPCS: 26725; 70450; 72125; 73140; 99284

== ENCOUNTER → 2020-08-10 07:23 | Outpatient (CLI) | payer MEDICARE, SELFPAY | PROVIDERS: PCP Internal Medicine; Referring Provider Internal Medicine; Visit Provider Internal Medicine | DX: E78.2 Mixed hyperlipidemia (principal) | CPT/HCPCS: 36415; 80061; 83704 ==

== ENCOUNTER → 2020-09-20 16:39 | Outpatient (CLI) | payer MEDICARE, SELFPAY ==
--- NOTE | 2020-09-20 16:40 | DI.MG.S_ITS ---
BILATERAL DIGITAL SCREENING MAMMOGRAM 3D/2D WITH CAD: 09/20/2020 CLINICAL: Routine screening. Comparison is made to exams dated: 08/12/2019 mammogram - [facility], 10/11/2015 mammogram, and 09/01/2014 mammogram - [facility]. The tissue of both breasts is heterogeneously dense. This may lower the sensitivity of mammography. Current study was also evaluated with a Computer Aided Detection (CAD) system. There are benign vascular calcifications in both breasts. No significant masses, calcifications, or other findings are seen in either breast. There has been no significant interval change. IMPRESSION: BENIGN There is no mammographic evidence of malignancy. A 1 year screening mammogram is recommended. This exam was interpreted at Station ID: [id number]. NOTE: For mammograms, a report in lay terms will be sent to the patient. Approximately 15% of breast malignancies will not be visualized mammographically. In the management of a palpable breast mass, a negative mammogram must not discourage biopsy of a clinically suspicious lesion. Electronically Signed By: Prabhu Garcia acr/penrad:09/21/2020 08:12:55 letter sent: Normal Exam ACR BI-RADS Category 2: Benign Finding(s) 3342F
== END ==
PROVIDERS: PCP Internal Medicine; Referring Provider Internal Medicine; Visit Provider Internal Medicine
DX: Z12.31 Encounter for screening mammogram for malignant neoplasm of breast (principal)
CPT/HCPCS: 77063; 77067

== ENCOUNTER 2020-10-25 12:32 | Emergency (ER) | payer MEDICARE, SELFPAY ==
[2020-10-25] VITALS (13 sets, daily range): BP systolic 164–223; BP diastolic 71–94; PULSE 63–75; RESP 12–22; TEMP 36.4; O2SAT 96–99; BMI 25.0
--- NOTE | 2020-10-25 12:56 | ED_ITS ---
HPI - General Adult General Chief complaint: Hypertension Stated complaint: Blood Pressure elevated says 196 Time Seen by Provider: 10/25/20 12:37 Source: patient Mode of arrival: Ambulatory Limitations: no limitations History of Present Illness HPI narrative: This is a 80-year-old female comes to the emergency department with complaint of hypertension. Patient states she had a headache on Friday. She states that she noted her blood pressure was 202 systolic on that day. She equates this to switching her antidepressants. She had recently been titrating down on her venlafaxine and started sertraline on Friday and 25 mg. On Friday she contacted her physician service and they had her return to her initial venlafaxine dose and she stopped the sertraline. She denies any additional symptoms other than some headache today. She denies any vision change, no chest pain or shortness of breath, she states she did have nausea on Friday but does not at this time and has not had any vomiting. No issues with bowel movements. No new urinary issues she does have some chronic urinary incontinence. No swelling in her extremities. Patient states she had TIAs about 3 years ago with issues with speech. She states she does not take any medication for blood pressure. She takes venlafaxine at [facility] 2 inhibitor, aspirin 81 mg Friday, Friday and Friday and mirtazapine for sleep. She has had total abdominal hysterectomy. Denies tobacco, alcohol or illicit. She follows with Dr. Qiu as her PCP. Related Data Home Medications Medication Instructions Recorded Confirmed celecoxib 50 mg capsule 50 mg PO BID 04/10/19 05/13/19 venlafaxine 75 mg capsule,extended 150 mg PO DAILY 04/10/19 05/13/19 release 24 hr atorvastatin 20 mg tablet 20 mg PO DAILY 05/13/19 05/13/19 loratadine 10 mg tablet 10 mg PO DAILY PRN 05/13/19 05/13/19 Previous Rx's Medication Instructions Recorded mupirocin 2 % topical ointment 1 applic TOP BID #30 gram 05/11/19 hydrochlorothiazide 12.5 mg PO DAILY #10 tab 10/25/20 Allergies Allergy/AdvReac Type Severity Reaction Status Date / Time ciprofloxacin [From Cipro] Allergy Severe Severe Verified 10/25/20 12:42 diarrhea cyclobenzaprine Allergy Severe I Verified 10/25/20 12:42 couldn't get out of bed for days Iodine and Iodide Containing Allergy Mild Hives Verified 10/25/20 12:42 Produc hydrocodone Allergy Unknown Patient Verified 10/25/20 12:42 can't remember oxycodone Allergy Unknown Patient Verified 10/25/20 12:42 can't remember alendronate sodium AdvReac Severe Esophageal Verified 10/25/20 12:42 [From Fosamax] ulcer and severe bleeding amoxicillin [From Augmentin] AdvReac Severe Severe Verified 10/25/20 12:42 diarrhea clavulanic acid AdvReac Severe Severe Verified 10/25/20 12:42 [From Augmentin] diarrhea risedronate sodium AdvReac Severe esophageal Verified 10/25/20 12:42 [From Actonel] ulcer and severe bleeding Review of Systems Review of Systems ROS Unobtainable: All systems reviewed & are unremarkable except as noted in HPI and below Patient History Medical History (Updated 10/25/20 @ 13:37 by Rosalia Moore DO) Allergies Anemia Ankylosing spondylitis Asthma Carpal tunnel syndrome Chicken pox Endometriosis (~1984) Esophageal bleeding (~2007) GI bleeding (~2007) Heavy menstrual period (~1984) History of depression History of TIA (transient ischemic attack) (~2017) Keratoacanthoma (~2012) Osteoarthritis Surgical History Anesthesia History of ulcer disease (~2006) Status post appendectomy Status post bilateral hip replacements Status post hysterectomy (~1985) Family History Father Skin cancer Mother Diabetes mellitus History of heart disease Hyperlipidemia Brother Diabetes mellitus Hyperlipidemia Grandfather Diabetes mellitus Social History Smoking Status: Never smoker second hand exposure: Yes (only in public places and I was when I was a c hild.) alcohol intake: former substance use type: does not use Smoking Status: Never smoker Substance Use Type: does not use Exam Narrative Exam Narrative: GEN: well nourished, well appearing elderly female, alert and oriented x 3, patient appears to be in mild distress. HEENT: Atraumatic, pupils are equal round reactive to light, extraocular movements are intact, nares are clear, TMs are clear with no fluid, there is no conjunctival pallor. Throat is clear without any exudates, erythema, tonsillar enlargement or uvular deviation, no facial droop. HEART: Regular rate and rhythm without murmur, clicks, rubs. Pulses are equal in upper and lower extremities LUNGS:Lungs clear to auscultation, no wheezes, rales, crackles, chest moves symmetrically ABD:bowel sounds normal, soft, non-tender, no guarding, rebound, rigidity, no masses noted, no hepatosplenomegaly :No CVA tenderness MSCL: Non-tender, no muscle atrophy, muscles strength 5/5 upper and lower extremities, full range of motion, normal gait NEURO:CN 2-12 intact, sensation normal, Initial Vital Signs Initial Vital Signs: Vital Signs Pulse Rate 73 10/25/20 12:41 Pulse Oximetry 98 10/25/20 12:41 Course Orders Ordered: ED Orders 10/25/20 13:11 XR chest 1V Stat 10/25/20 13:43 CT head/brain wo con Stat Complete Blood Count AUTO DIFF Stat Comprehensive Metabolic Panel Stat Lipase Stat NT-proBNP (BNP-Adult 18+) Stat Partial Thromboplastin Time Stat Prothrombin Time INR Stat Troponin & CK Cardiac Panel Stat Discontinued Medications Hydrochlorothiazide (Hydrochlorothiazide 12.5 Mg Capsule) 12.5 mg PO NOW ONE Stop: 10/25/20 14:59 Last Admin: 10/25/20 15:15 Dose: 12.5 mg Documented by: PRAKASH Reevaluation(s) Reevaluation #1: Patient BP is 166/80's in the room. Patient and I reviewed labs, imaging and evaluation today. She is quite concerned and with her recent medication changes may have had elevated pressures secondary to titration of medications. We discussed short course of diuretic and to follow-up with her primary care who may not continue this medication. Time: 15:13 Vital Signs Vital signs: Vital Signs - 8 hr 10/25/20 12:41 10/25/20 12:42 10/25/20 13:00 Temperature 97.6 F Pulse Rate 73 75 63 Respiratory Rate 14 16 Blood Pressure 223/94 H Pulse Oximetry 98 97 98 10/25/20 13:01 10/25/20 13:30 10/25/20 13:31 Temperature Pulse Rate 65 67 66 Respiratory Rate 22 18 Blood Pressure 188/77 H 164/74 H Pulse Oximetry 97 96 97 10/25/20 13:58 10/25/20 14:00 10/25/20 14:11 Temperature Pulse Rate 67 68 72 Respiratory Rate 12 20 20 Blood Pressure 169/71 H 197/80 H 188/86 H Pulse Oximetry 97 97 97 10/25/20 14:30 10/25/20 14:31 10/25/20 15:00 Temperature Pulse Rate 67 68 63 Respiratory Rate 16 Blood Pressure 191/75 H Pulse Oximetry 98 99 97 10/25/20 15:01 Temperature Pulse Rate 64 Respiratory Rate 12 Blood Pressure 166/71 H Pulse Oximetry 98 Medical Decision Making Lab Data Lab results reviewed: Yes I reviewed the patient's lab results. Result diagrams: 10/25/20 13:43 10/25/20 13:43 Labs: Lab Results 10/25/20 10/25/20 10/25/20 Range/Units 13:43 13:43 13:43 WBC 5.0 (4.5-11.0) X10^3/uL RBC 4.76 (4.0-5.2) X10^6/uL Hgb 14.1 (12.0-16.0) g/dL Hct 42.7 (36-46) % MCV 89.8 (80-100) fL MCH 29.7 (26-34) PG MCHC 33.1 (30-36) % RDW 13.0 (11.6-14.8) % Plt Count 155 (150-400) X10^3/uL Neut % (Auto) 55.0 (50-75) % Lymph % (Auto) 32.5 (25-40) % [place] % (Auto) 8.8 (3-14) % Eos % (Auto) 2.8 (2-4) % Baso % (Auto) 0.9 (0-2) % Neut # (Auto) 2800 (4002-4004) /uL Lymph # (Auto) 1600 (1516-7749) /uL [place] # (Auto) 400 (0-900) /uL Eos # (Auto) 100 (0-450) /uL Baso # (Auto) 0 (0-100) /uL PT 11.9 (10.1-12.7) SECONDS INR 1.0 (0.9-1.3) APTT 30 (26.4-36.2) SECONDS Sodium 140 (137-145) mmol/L Potassium 3.9 (3.4-5.1) mmol/L Chloride 105 (98-107) mmol/L Carbon Dioxide 33 H (22-32) mmol/L BUN 12 (7-17) mg/dL Creatinine 0.62 (0.52-1.04) mg/dL Estimated GFR > 60.0 (>60) mL/min BUN/Creatinine Ratio 19.4 (6-22) Glucose 82 (80-110) mg/dL Calcium 9.0 (8.4-10.2) mg/dL Total Bilirubin 0.4 (0.2-1.3) mg/dL AST 31 (14-36) IU/L ALT 24 (<35) IU/L Alkaline Phosphatase 75 (38-126) U/L Total Creatine Kinase 58 (30-135) U/L CK-MB (CK-2) TNP CK-MB (CK-2) Rel Index TNP Troponin I < 0.012 (0.01-0.034) ng/mL NT-Pro-B Natriuret Pep 197 (<450) pg/mL Total Protein 7.0 (6.3-8.2) g/dL Albumin 4.1 (3.5-5.0) g/dL Globulin 2.9 (1.7-4.1) g/dL Albumin/Globulin Ratio 1.4 (1.0-2.8) Lipase 67 (23-300) U/L Urine Dip Bedside Urine Glucose Negative Bedside Urine Bilirubin - Negative Bedside Urine Ketone - Negative Urine Specific [place] 1.015 Bedside Urine Occult Blood - Negative Bedside Urine pH 7.0 Bedside Urine Protein - Negative Bedside Urine Urobilinogen - Negative Bedside Urine Nitrite - Negative Bedside Urine Leukocytes - Negative Esterase Point of care testing: Urine Dip Bedside Urine Glucose Negative Bedside Urine Bilirubin - Negative Bedside Urine Ketone - Negative Urine Specific [place] 1.015 Bedside Urine Occult Blood - Negative Bedside Urine pH 7.0 Bedside Urine Protein - Negative Bedside Urine Urobilinogen - Negative Bedside Urine Nitrite - Negative Bedside Urine Leukocytes - Negative Esterase ECG Data Attestation: I personally reviewed and interpreted this ECG as follows: Prior ECG tracings: not available for review Interpretation: Sinus rhythm with a rate of 63, IA 158 QRS of 96 and QTC of 423. Patient does have some motion artifact in lateral leads. I do not appreciate a sinus tachycardia with second-degree AV block. Patient has some nonspecific change related to artifact likely. Patient does not have priors for comparison. MDM Narrative Medical decision making narrative: 80-year-old female who comes in with complaint of hypertension along with headache. Patient's blood pressure is co nsistently elevated in the department although does slowly improve. She has had titration of her antidepressants and then cessation of the new in her depression and return to her old 1 within the last week. Patient does have a history of TIA in the past. She is not normally on antihypertensives. She is quite concerned and has had elevated pressures over the last several days at home and here in the department. No acute end-organ damage is appreciated on imaging, EKG, lab work or on exam. Discussed with patient plan for short course of antihypertensive and a follow-up with her primary care for further evaluation to see if this medication should be continued. Patient does feel comfortable the plan we did discuss if she has any other new or concerning changes or any neurologic changes concerning for stroke to return for evaluation. Discharge Plan Departure Patient Disposition: Home Clinical Impression: Hypertension Instructions: DI for High Blood Pressure Activity Restrictions/Additional Instructions: Follow-up with your physician in the next week. Your hypertension may be related to your recent medication changes. Take medication as prescribed. Your physician may stop this medication if your blood pressure improves over time. Prescription sent to [facility]. Return to the ER for fevers, lightheadedness or passing out, severe headache, new vision changes, chest pain or shortness of breath, persistent vomiting, black or bloody stools, new difficulty with speech, movement, weakness, loss of sensation or other new or concerning symptoms. Prescriptions: New hydrochlorothiazide 12.5 mg tablet 12.5 mg PO DAILY Qty: 10 RF: 0 No Action venlafaxine 75 mg capsule,extended release 24hr 150 mg PO DAILY RF: 0 celecoxib [Celebrex] 50 mg capsule 50 mg PO BID RF: 0 mupirocin 2 % ointment 1 applic TOP BID Qty: 30 RF: 0 atorvastatin 20 mg tablet 20 mg PO DAILY RF: 0 loratadine [Allergy Relief (loratadine)] 10 mg tablet 10 mg PO DAILY PRNRF: 0 Referrals: Tomas Qiu MD [Primary Care Provider] -
--- NOTE | 2020-10-25 13:11 | DI.RAD.S_ITS ---
PROCEDURE: XR CHEST 1V INDICATIONS: hypertension TECHNIQUE: One view of the chest was acquired. COMPARISON: None. FINDINGS: Surgical changes and devices: None. Lungs and pleura: Lungs are clear. No pleural effusions or pneumothorax. Mediastinum: Mediastinal contours appear normal. Cardiomegaly. Bones and chest wall: No suspicious bony lesions. Overlying soft tissues appear unremarkable. IMPRESSION: Cardiomegaly. No evidence acute pulmonary process. Dictated by: Valerio Salazar M.D. on 10/25/2020 at 13:29 Approved by: Valerio Salazar M.D. on 10/25/2020 at 13:29
--- NOTE | 2020-10-25 13:43 | DI.CT.S_ITS ---
PROCEDURE: CT HEAD/BRAIN WO CON INDICATIONS: hypertension, headache TECHNIQUE: Noncontrast 4.5 mm thick angled axial sections acquired from the foramen magnum to the vertex, with coronal and sagittal reformats. For radiation dose reduction, the following was used: automated exposure control, adjustment of mA and/or kV according to patient size. COMPARISON: [facility], CT, CT HEAD/BRAIN WO CON, 08/04/2020, 18:22. FINDINGS: Image quality: Excellent. CSF spaces: Basal cisterns are patent. No extra-axial fluid collections. There is mild cerebral volume loss, with resultant ventricular and sulcal prominence. Brain: No intracranial hemorrhage, mass, or mass effect. There are subcortical, periventricular and deep white matter hypodensities consistent with mild chronic small vessel ischemic changes. There is intracranial internal carotid artery atherosclerosis. Skull and face: Calvarium and visualized facial bones appear intact, without suspicious lesions. Sinuses: Visualized sinuses and mastoids are clear. IMPRESSION: 1. No acute intracranial abnormality. 2. Mild chronic white matter small vessel ischemic changes and cerebral volume loss. Dictated by: Justin Pham M.D. on 10/25/2020 at 14:02 Approved by: Justin Pham M.D. on 10/25/2020 at 14:04
[2020-10-25 14:17] LABS: Add Manual Diff / Slide Review NO; Basophils Absolute Auto 0 /uL (0-100); Basophils Percent Auto 0.9 % (0-2); Eosinophils Absolute Auto 100 /uL (0-450); Eosinophils Percent Auto 2.8 % (2-4); Hematocrit 42.7 % (36-46); Hemoglobin 14.1 g/dL (12.0-16.0); Lymphocytes Absolute Auto 1600 /uL (1100-4500); Lymphocytes Percent Auto 32.5 % (25-40); Mean Corpuscular HGB Conc 33.1 % (30-36); Mean Corpuscular Hemoglobin 29.7 PG (26-34); Mean Corpuscular Volume 89.8 fL (80-100); Monocytes Absolute Auto 400 /uL (0-900); Monocytes Percent Auto 8.8 % (3-14); Neutrophils Absolute Auto 2800 /uL (1500-7000); Platelet Count 155 X10^3/uL (150-400); Red Blood Cell Count 4.76 X10^6/uL (4.0-5.2)
[2020-10-25 14:23] LABS: Alanine Aminotransferase 24 IU/L (<35); Albumin 4.1 g/dL (3.5-5.0); Albumin Globulin Ratio 1.4 (1.0-2.8); Alkaline Phosphatase 75 U/L (38-126); Aspartate Aminotransferase 31 IU/L (14-36); BUN Creatinine Ratio 19.4 (6-22); Bilirubin Total 0.4 mg/dL (0.2-1.3); Blood Urea Nitrogen 12 mg/dL (7-17); Carbon Dioxide 33 mmol/L (22-32); Chloride 105 mmol/L (98-107); Creatine Kinase 58 U/L (30-135); Estimated Glomerular Filt Rate > 60.0 mL/min (>60); Globulin 2.9 g/dL (1.7-4.1); Glucose 82 mg/dL (80-110); HEMOLYSIS < 15 (0-50); Lipase 67 U/L (23-300); Potassium 3.9 mmol/L (3.4-5.1); Sodium 140 mmol/L (137-145)
[2020-10-25 14:34] LABS: NT-proBNP (BNP-Adult 18+) 197 pg/mL (<450); Troponin I < 0.012 ng/mL (0.01-0.034)
[2020-10-25 14:35] LABS: Prothrombin Time 11.9 SECONDS (10.1-12.7)
[2020-10-25 14:37] LABS: PTT Partial Thromboplastin Tim 30 SECONDS (26.4-36.2)
[2020-10-25] MEDS: hydroCHLOROthiazide 12.5 MG CAPSULE PO (15:15)
== END 2020-10-25 15:25 | disposition home or self-care (01) ==
PROVIDERS: Emergency Provider Emergency Medicine; PCP Internal Medicine
DX: I10 Essential (primary) hypertension (principal); R51.9 Headache, unspecified
CPT/HCPCS: 36415; 70450; 71045; 80053; 81003; 82550; 83690; 83880; 84484; 85025; 85610; 85730; 93005; 99283; 99284

== ENCOUNTER 2020-12-06 14:19 | Emergency (ER) | payer MEDICARE, SELFPAY ==
[2020-12-06] VITALS (33 sets, daily range): BP systolic 119–214; BP diastolic 51–90; PULSE 66–79; RESP 9–24; TEMP 37.3; O2SAT 92–97; BMI 25.4
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
[2020-12-06 14:48] LABS: Add Manual Diff / Slide Review NO; Basophils Absolute Auto 0 /uL (0-100); Basophils Percent Auto 0.7 % (0-2); Eosinophils Absolute Auto 200 /uL (0-450); Eosinophils Percent Auto 3.2 % (2-4); Hematocrit 41.2 % (36-46); Lymphocytes Absolute Auto 1400 /uL (1100-4500); Lymphocytes Percent Auto 28.3 % (25-40); Mean Corpuscular Hemoglobin 29.8 PG (26-34); Mean Corpuscular Volume 87.7 fL (80-100); Monocytes Absolute Auto 400 /uL (0-900); Neutrophils Absolute Auto 3000 /uL (1500-7000); Neutrophils Percent Auto 59.8 % (50-75); Platelet Count 158 X10^3/uL (150-400); White Blood Cell Count 5.1 X10^3/uL (4.5-11.0)
[2020-12-06 14:55] LABS: Prothrombin Time 11.5 SECONDS (10.1-12.7)
[2020-12-06 14:57] LABS: PTT Partial Thromboplastin Tim 27 SECONDS (26.4-36.2)
[2020-12-06 14:59] LABS: Alanine Aminotransferase 27 IU/L (<35); Albumin 4.2 g/dL (3.5-5.0); Albumin Globulin Ratio 1.5 (1.0-2.8); Alkaline Phosphatase 79 U/L (38-126); Aspartate Aminotransferase 34 IU/L (14-36); BUN Creatinine Ratio 19.7 (6-22); Bilirubin Total 0.5 mg/dL (0.2-1.3); Blood Urea Nitrogen 12 mg/dL (7-17); Calcium 9.1 mg/dL (8.4-10.2); Carbon Dioxide 29 mmol/L (22-32); Chloride 104 mmol/L (98-107); Creatine Kinase 75 U/L (30-135); Estimated Glomerular Filt Rate > 60.0 mL/min (>60); Globulin 2.8 g/dL (1.7-4.1); Glucose 90 mg/dL (80-110); HEMOLYSIS < 15 (0-50); Potassium 3.5 mmol/L (3.4-5.1); Sodium 139 mmol/L (137-145)
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
[2020-12-06 15:11] LABS: Troponin I < 0.012 ng/mL (0.01-0.034)
[2020-12-06 15:22] LABS: Appearance Urine UA CLEAR; Bilirubin Urine UA NEGATIVE (NEGATIVE); Color Urine UA YELLOW; Glucose Urine UA NEGATIVE (Negative); Ketones Urine UA NEGATIVE (NEGATIVE); Leukocyte Esterase Urine UA NEGATIVE (NEGATIVE); Nitrite Urine UA NEGATIVE (Negative); Occult Blood Urine UA TRACE-INTACT (Negative); Protein Urine UA NEGATIVE (Negative); Specific Gravity Urine UA 1.015 (1.000-1.035); Urobilinogen Urine UA 0.2 E.U./dL (0.2)
[2020-12-06 15:30] LABS: Ur Creatinine Normal (Normal); Ur Specific Gravity Normal (Normal); Urine Tetrahydrocannabinol Negative (Negative); Urine pH Normal (Normal)
[2020-12-06 15:31] LABS: UR Morphine/Opiate cutoff 300 Negative (Negative); Urine Amphetamines Negative (Negative); Urine Barbiturates Negative (Negative); Urine Benzodiazepines Negative (Negative); Urine Cocaine Negative (Negative); Urine MDMA Negative (Negative); Urine Methadone Negative (Negative); Urine Methamphetamines Negative (Negative); Urine Oxycodone Negative (Negative); Urine Phencyclidine Negative (Negative); Urine Tricyclic Antidepressant Negative (Negative)
[2020-12-06] MEDS: NICARDIPINE 25 MG in SODIUM CHLORIDE 0.9% 240 ML 30 ML IV (16:08)
[2020-12-06 17:13] LABS: COVID19 -Nasal RAPID Negative (Negative)
[2020-12-06] MEDS: ACETAMINOPHEN 325 MG TABLET 650 MG PO (17:30)
--- NOTE | 2020-12-06 18:11 | DI.CT.S_ITS ---
PROCEDURE: CT HEAD/BRAIN WO CON INDICATIONS: repeat head CT for SAH and subdural bleed TECHNIQUE: Noncontrast 4.5 mm thick angled axial sections acquired from the foramen magnum to the vertex, with coronal and sagittal reformats. For radiation dose reduction, the following was used: automated exposure control, adjustment of mA and/or kV according to patient size. COMPARISON: [facility], CT, CT HEAD/BRAIN WO CON, 12/06/2020, 14:56. FINDINGS: Image quality: Excellent. CSF spaces: Basal cisterns are patent. No extra-axial fluid collections. The ventricles are symmetric in size and shape. Brain: No intracranial bleeds or masses. There is cerebral volume loss for age, with resultant ventricular and sulcal prominence. There are periventricular and deep white matter chronic small vessel ischemic changes. There is intracranial internal carotid artery atherosclerosis. Skull and face: Calvarium and visualized facial bones appear intact, without suspicious lesions. Sinuses: Visualized sinuses and mastoids are clear. IMPRESSION: No acute intracranial abnormality. Dictated by: Jamie Brian M.D. on 12/06/2020 at 18:42 Approved by: Jamie Brian M.D. on 12/06/2020 at 18:43
== END 2020-12-06 19:57 | disposition home or self-care (01) ==
PROVIDERS: Emergency Provider Nurse Practitioner Family; PCP Internal Medicine
DX: S06.350A Traumatic hemorrhage of left cerebrum without loss of consciousness, initial encounter (principal); R41.0 Disorientation, unspecified; Z20.822 Contact with and (suspected) exposure to COVID-19; I10 Essential (primary) hypertension
CPT/HCPCS: 36415; 70450; 80053; 80305; 81003; 82550; 84484; 85025; 85610; 85730; 87635; 93005; 96365; 99283; 99284; C9803

== ENCOUNTER → 2020-12-22 19:11 | Outpatient (ROUT) | payer MEDICARE, SELFPAY ==
[2020-12-22 19:32] LABS: BUN Creatinine Ratio 32.1 (6-22); Blood Urea Nitrogen 27 mg/dL (7-17); Calcium 9.6 mg/dL (8.4-10.2); Carbon Dioxide 30 mmol/L (22-32); Chloride 100 mmol/L (98-107); Estimated Glomerular Filt Rate > 60.0 mL/min (>60); Glucose 106 mg/dL (80-110); HEMOLYSIS < 15 (0-50); Potassium 4.7 mmol/L (3.4-5.1); Sodium 137 mmol/L (137-145)
== END ==
PROVIDERS: PCP Internal Medicine; Visit Provider Internal Medicine
DX: I10 Essential (primary) hypertension (principal)
CPT/HCPCS: 80048

== ENCOUNTER → 2021-03-14 09:22 | Outpatient (CLI) | payer MEDICARE, SELFPAY ==
--- NOTE | 2021-03-14 09:24 | DI.RAD.S_ITS ---
PROCEDURE: XR CLAVICLE LT INDICATIONS: pain in clavicle and ant-/posterior shoulder, s/p fall TECHNIQUE: 2 views of the clavicle were acquired. COMPARISON: None. FINDINGS: Bones: No dislocations. No suspicious bony lesions. There is a distal clavicular fracture that is diagonal, without visualized humeral head fracture or neck fracture. AC joint osteoarthritis is mild. Glenohumeral joint osteoarthritis is moderately severe. Soft tissues: No suspicious soft tissue calcifications. IMPRESSION: Osteoarthritic changes as discussed, with superimposed acute diagonal distal left clavicular fracture. Dictated by: Adilson Gramajo M.D. on 03/14/2021 at 9:46 Approved by: Adilson Gramajo M.D. on 03/14/2021 at 9:47
--- NOTE | 2021-03-14 09:24 | DI.RAD.S_ITS ---
PROCEDURE: XR SHOULDER LT MIN 2V INDICATIONS: left shoulder pain TECHNIQUE: 3 views of the shoulder were acquired. COMPARISON: None. FINDINGS: Bones: No dislocations. No suspicious bony lesions. Visualized ribs appear intact. There is a previously identified distal clavicular diagonal fracture, minimally displaced, and no additional fractures seen over the left shoulder. Osteoarthritis is moderate at the glenohumeral joint and mild at the AC joint. No rib fracture found. Soft tissues: No suspicious soft tissue calcifications. IMPRESSION: Distal clavicular fracture previously identified, no new fracture found. Osteoarthritic shoulder changes are most prominent at the glenohumeral joint. Dictated by: Adilson Gramajo M.D. on 03/14/2021 at 9:47 Approved by: Adilson Gramajo M.D. on 03/14/2021 at 9:48
== END ==
PROVIDERS: PCP Family Medicine; Referring Provider Nurse Practitioner Family; Visit Provider Nurse Practitioner Family
DX: M25.512 Pain in left shoulder (principal); S42.032A Displaced fracture of lateral end of left clavicle, initial encounter for closed fracture; M19.012 Primary osteoarthritis, left shoulder; W19.XXXA Unspecified fall, initial encounter
CPT/HCPCS: 73000; 73030

== ENCOUNTER → 2021-04-12 08:36 | Outpatient (CLI) | payer MEDICARE, SELFPAY ==
--- NOTE | 2021-04-12 08:40 | DI.MRI.S_ITS ---
PROCEDURE: MR SHOULDER LT WO CON INDICATIONS: Fall and left shoulder injury. TECHNIQUE: Noncontrast oblique coronal T2 fast spin echo with fat saturation, oblique sagittal T1 spin echo and T2 fast spin echo with fat saturation, axial T1 spin echo and T2 fast spin echo with fat saturation through the shoulder. COMPARISON: [facility], CR, XR SHOULDER LT MIN 2V, 03/14/2021, 9:30. FINDINGS: Image quality: Excellent. Rotator cuff: Mild T2 signal elevation throughout the supraspinatus and infraspinatus tendons at the humeral insertion site. No rotator cuff tear. No rotator cuff atrophy. Bones and bursae: Linear low T1 signal intensity traverses the distal clavicle with severe surrounding ill-defined T2 marrow and soft tissue signal elevation. Mild bony displacement involves the distal clavicle. Moderate periarticular osteophyte formation at the acromioclavicular joint. Moderate degenerative marrow edema within the bony glenoid. The acromion demonstrates conventional anatomy, without an os acromiale. Mild degenerative marrow edema within the humeral head posteriorly. Moderate periarticular osteophyte formation at the glenohumeral joint. No pathologic subacromial-subdeltoid or subcoracoid bursal fluid is present. Capsule and soft tissues: Diffuse glenoid labral tearing. Moderate glenohumeral joint effusion. Mild The long head of the biceps tendon demonstrates normal location and split type tearing, with moderate surrounding fluid. The rotator interval appears normal, without fibrosis. The coracohumeral ligament is normal in thickness. IMPRESSION: 1. Mildly displaced fracture of the distal clavicle with surrounding contusion and soft tissue edema. 2. Osteoarthritis of the acromioclavicular and glenohumeral joint with associated glenohumeral joint effusion. 3. Diffuse glenoid labral tearing. 4. Supraspinatus and infraspinatus tendinopathy. No rotator cuff tear. 5. Split type tearing of biceps tendon. Bicipital tendinitis. Dictated by: Jamie Brian M.D. on 04/12/2021 at 11:05 Approved by: Jamie Brian M.D. on 04/12/2021 at 11:08
== END ==
PROVIDERS: PCP Family Medicine; Referring Provider Orthopaedic Surgery; Visit Provider Family Medicine
DX: S42.032A Displaced fracture of lateral end of left clavicle, initial encounter for closed fracture (principal); M25.512 Pain in left shoulder; M19.012 Primary osteoarthritis, left shoulder; M75.22 Bicipital tendinitis, left shoulder; S43.492A Other sprain of left shoulder joint, initial encounter; S46.112A Strain of muscle, fascia and tendon of long head of biceps, left arm, initial encounter; W19.XXXA Unspecified fall, initial encounter
CPT/HCPCS: 73221

== ENCOUNTER → 2021-05-08 07:59 | Outpatient (CLI) | payer MEDICARE, SELFPAY ==
[2021-05-08 08:24] LABS: COVID19 -Nasal RAPID Negative (Negative)
== END ==
PROVIDERS: PCP Family Medicine; Visit Provider Nurse Practitioner
DX: Z20.822 Contact with and (suspected) exposure to COVID-19 (principal); R05 Cough
CPT/HCPCS: 87635

== ENCOUNTER → 2021-06-08 14:20 | Outpatient (CLI) | payer MEDICARE, SELFPAY ==
[2021-06-08 15:08] LABS: COVID19 -Nasal RAPID Negative (Negative)
[2021-06-08 16:06] LABS: Microalbumin Urine Random < 0.6 mg/dL (0-1.6)
[2021-06-08 16:07] LABS: Creatinine Urine Random 96.2 mg/dL
== END ==
PROVIDERS: PCP Family Medicine; Visit Provider Family Medicine
DX: Z20.822 Contact with and (suspected) exposure to COVID-19 (principal); F32.9 Major depressive disorder, single episode, unspecified; E78.5 Hyperlipidemia, unspecified; I10 Essential (primary) hypertension; E55.9 Vitamin D deficiency, unspecified
CPT/HCPCS: 82043; 82570; 87635

== ENCOUNTER → 2021-06-08 14:41 | Outpatient (CLI) | payer MEDICARE, SELFPAY ==
--- NOTE | 2021-06-08 14:44 | DI.RAD.S_ITS ---
PROCEDURE: XR CHEST 2V INDICATIONS: chronic cough TECHNIQUE: 2 views of the chest were acquired. COMPARISON: [facility], CR, XR CHEST 1V, 10/25/2020, 13:15. FINDINGS: Surgical changes and devices: None. Lungs and pleura: Increased bronchovascular markings in bilateral hilar region are seen with mild bronchial wall thickening. No focal infiltrate. No pleural effusions or pneumothorax. Mediastinum: Mediastinal contours are normal. Heart size is normal. Bones and chest wall: No suspicious bony abnormalities. Soft tissues appear unremarkable. IMPRESSION: Finding is suggestive of reactive airway disease such as bronchitis or asthma. No focal infiltrate. No pleural effusion or pneumothorax. Dictated by: Mumtaz Craig M.D. on 06/08/2021 at 15:06 Approved by: Mumtaz Craig M.D. on 06/08/2021 at 15:14
== END ==
PROVIDERS: PCP Family Medicine; Referring Provider Family Medicine; Visit Provider Family Medicine
DX: R05 Cough (principal); Z20.822 Contact with and (suspected) exposure to COVID-19; F32.9 Major depressive disorder, single episode, unspecified; E78.5 Hyperlipidemia, unspecified; I10 Essential (primary) hypertension; E55.9 Vitamin D deficiency, unspecified
CPT/HCPCS: 71046; 82043; 82570; 87635

== ENCOUNTER → 2021-07-03 12:01 | Outpatient (CLI) | payer MEDICARE, SELFPAY ==
[2021-07-03 13:51] LABS: COVID19 -Nasal RAPID Negative (Negative)
== END ==
PROVIDERS: PCP Family Medicine; Referring Provider Nurse Practitioner Family; Visit Provider Nurse Practitioner Family
DX: Z01.812 Encounter for preprocedural laboratory examination (principal); Z20.822 Contact with and (suspected) exposure to COVID-19
CPT/HCPCS: 87635; C9803

== ENCOUNTER 2021-07-04 08:54 | Day surgery (SDC) | payer MEDICARE, SELFPAY ==
[2021-07-04] VITALS (9 sets, daily range): BP systolic 107–159; BP diastolic 48–74; PULSE 71–86; RESP 12–17; TEMP 36.6–37.6; O2SAT 95–100; BMI 25.0
--- NOTE | 2021-07-04 | PATH_ITS ---
[facility] Accession Number: [id number] . 01 Material submitted: . colon - RANDOM COLON BIOPSIES . 01 Clinical history: . [facility] FULL INCONTINENCE OF FECES GASTRO-ESOPHAGEAL REFLUX DISEASE WITHOUT ESOPHAGIT . 02 Diagnosis: Random Colon, Biopsies: Colonic mucosa with no diagnostic abnormality. Negative for active, chronic, and microscopic colitis. Negative for dysplasia and malignancy. . MRV 07/06/2021 1357 Local . 02 Electronically signed: . Charo Valentin MD, Pathologist NPI- [id number] . 01 Gross description: . RANDOM COLON BIOPSIES: Received in formalin are 4 fragment(s) of mckeon, soft tissue measuring 0.3 x 0.3 x 0.1 cm to 0.2 x 0.2 x 0.1 cm submitted entirely in 1 cassette(s) /MAYA 07/05/2021 0539 Local . 02 Pathologist provided ICD-10: R15.9 . 02 CPT . 160414 Performed at: 01 [facility] [address] [facility] [place], [place], [place] [id number] MD Justin Sweet MD Phone: [phone] Performed at: 02 [facility] [address] [place], [place] [id number] MD Charo Valentin MD Phone: [phone]
--- NOTE | 2021-07-04 09:35 | PM.HP.1 ---
History of Present Illness History of Present Illness Date Patient Seen: 07/04/21 Chief complaint: SDC Narrative: Full fecal incontinence and history of GERD. Patient History Medical History (Updated 06/07/21 @ 10:24 by Justin Arevalo MD) Allergies Anemia Ankylosing spondylitis Asthma Carpal tunnel syndrome Chicken pox Cough Depression Dermatitis Difficulty swallowing liquids Endometriosis (~1984) Esophageal bleeding (~2007) Fractures (~2018) Gastric ulcer (~2000) GI bleeding (~2007) Headache Heavy menstrual period (~1984) History of depression History of TIA (transient ischemic attack) (~2017) Hyperlipidemia (~1962) Keratoacanthoma (~2012) Osteoarthritis Skin cancer (~2000) Subarachnoid hemorrhage Surgical History Anesthesia History of ulcer disease (~2006) History of umbilical hernia repair Status post appendectomy Status post bilateral hip replacements (~2001) Status post hysterectomy (~1985) Family & Social History Family History Father Skin cancer Mother Diabetes mellitus History of heart disease Hyperlipidemia Brother Diabetes mellitus Hyperlipidemia Grandfather Diabetes mellitus Social History: household members friend(s) Tobacco & Substance use: Smoking Status Never smoker alcohol intake former Substance Use Type does not use Meds Home Medications and Allergies Home Medications Medication Instructions Recorded Confirmed Type celecoxib 200 mg capsule (Celebrex) 200 mg PO DAILY #90 cap 02/05/21 06/08/21 Rx venlafaxine 150 mg tablet,extended 150 mg PO DAILY #90 tab 02/05/21 06/08/21 Rx release 24 hr Allergies Allergy/AdvReac Type Severity Reaction Status Date / Time ciprofloxacin [From Cipro] Allergy Severe Severe Verified 07/04/21 09:11 diarrhea cyclobenzaprine Allergy Severe I Verified 07/04/21 09:11 couldn't get out of bed for days Iodine and Iodide Containing Allergy Mild Hives Verified 07/04/21 09:11 Produc hydrocodone Allergy Unknown Patient Verified 07/04/21 09:11 can't remember oxycodone Allergy Unknown Patient Verified 07/04/21 09:11 can't remember alendronate sodium AdvReac Severe Esophageal Verified 07/04/21 09:11 [From Fosamax] ulcer and severe bleeding amoxicillin [From Augmentin] AdvReac Severe Severe Verified 07/04/21 09:11 diarrhea clavulanic acid AdvReac Severe Severe Verified 07/04/21 09:11 [From Augmentin] diarrhea risedronate sodium AdvReac Severe esophageal Verified 07/04/21 09:11 [From Actonel] ulcer and severe bleeding sulfamethoxazole AdvReac Verified 07/04/21 09:12 [From Bactrim] trimethoprim [From Bactrim] AdvReac Verified 07/04/21 09:12 Exam Vital Signs (past 8 hours): - 07/04/21 09:10 Temperature 98 F Pulse Rate 86 Respiratory Rate 16 Blood Pressure 124/68 Pulse Oximetry 97 Oxygen Delivery Method Room Air Narrative Exam Narrative: Oropharynx free of lesions Chest clear to auscultation percussion Cardiac exam reveals no S3 or murmur Assessment & Plan Assessment & Plan narrative: Fecal incontinence and history of GERD. Need for EGD and colonoscopy. Risks, benefits, alternatives have been explained. Time Spent With Patient Critical Care time: I spent a total of [] minutes of critical care time on this patient's care today; this time is exclusive of procedural time.
[2021-07-04] MEDS: SODIUM CHLORIDE 0.9% 1,000 ML 84 ML IV (09:36)
--- NOTE | 2021-07-04 09:36 | P.OP.EGD&C_ITS ---
Operative Date/Time/Diagnoses Date of procedure: 07/04/21 Pre-op diagnosis: See indication Procedure & Clinicians Study performed: EGD and colonoscopy Indications: Fecal incontinence and GERD Surgeon: Dave Hatfield Procedure Notes Procedure in detail: After informed consent was obtained the patient was placed in left lateral decubitus position. The video upper scope was placed into the oropharynx and with the patient's help swallowed into the esophagus. The esophagus stomach duodenum were carefully examined. On withdrawal retroflexed view the GE junction was performed. The scope was removed. The patient tolerated procedure well. At this point the colonoscope substituted the patient turned. The scope was introduced the rectum slowly advanced to the cecum. Preparation was good. On slow withdrawal mucosa was carefully examined. Scope was removed. The patient tolerated procedure well. Blood loss none Complications none Sedation mac Findings EGD 1. Moderately severe esophagitis with 2 columns of ulceration beginning at 33 cm and extending down to the squamocolumnar junction at 38 cm. A 3rd column began between these 2 levels for LA classification C esophagitis. At the squamocolumnar junction there was a confluent superficial ulceration 1 x 3 cm. 2. 3 cm hiatal hernia from 38-41 cm 3. Patchy gastric erythema not biopsied 4. Normal duodenal bulb and sweep Colonoscopy 1. Extensive sigmoid diverticulosis 2. Otherwise negative colonoscopy to cecum. This included a very normal afua earing rectum with a normal palpated sphincter tone. Random biopsies were taken throughout the colon to rule out microscopic colitis I doubt we will find anything on biopsies to really explain her symptoms and she has more solid stool incontinence than liquid. We should go ahead and start arranging for a video defecograhy (without MRI) at [facility] with subsequent FU with me. As concerns for reflux she needs to be on pantoprazole 40 mg daily for 8-12 weeks before repeat endoscopy at [facility]
--- NOTE | 2021-07-04 10:34 | SUR.PHASEI ---
received to PACU at 1016. Report from SAÚL Flores and STEFANIE Hernandez.
== END 2021-07-04 12:04 | disposition home or self-care (01) ==
PROVIDERS: PCP Family Medicine; Referring Provider Internal Medicine Gastroenterology; Visit Provider Internal Medicine Gastroenterology
PROC: 0DJ08ZZ Inspection of Upper Intestinal Tract, Via Natural or Artificial Opening Endoscopic (ICD-10-PCS; CPT 43235; principal; 2021-07-04 10:00)
PROC: 0DJD8ZZ Inspection of Lower Intestinal Tract, Via Natural or Artificial Opening Endoscopic (ICD-10-PCS; CPT 45378; 2021-07-04 10:00)
DX: R15.9 Full incontinence of feces (principal); K21.00 Gastro-esophageal reflux disease with esophagitis, without bleeding; K44.9 Diaphragmatic hernia without obstruction or gangrene; K57.30 Diverticulosis of large intestine without perforation or abscess without bleeding; Z86.73 Personal history of transient ischemic attack (TIA), and cerebral infarction without residual deficits
CPT/HCPCS: 45380; 43235; J2704

== ENCOUNTER → 2021-09-20 10:40 | Outpatient (CLI) | payer MEDICARE, SELFPAY ==
[2021-09-20 12:25] LABS: Appearance Urine UA CLEAR; Bilirubin Urine UA NEGATIVE (NEGATIVE); Color Urine UA YELLOW; Glucose Urine UA NEGATIVE (Negative); Ketones Urine UA NEGATIVE (NEGATIVE); Leukocyte Esterase Urine UA NEGATIVE (NEGATIVE); Nitrite Urine UA NEGATIVE (Negative); Occult Blood Urine UA NEGATIVE (Negative); Protein Urine UA NEGATIVE (Negative); Specific Gravity Urine UA 1.015 (1.000-1.035); Urobilinogen Urine UA 0.2 E.U./dL (0.2); pH Urine UA 6.5 (4.5-8.0)
[2021-09-20 12:37] LABS: Bacteria Urine None Seen; Culture Indicated Urine Cult Not Indicated; RBC Urine None Seen (0-5/HPF); Squamous Epithelial Cell Urine None Seen (0-5/HPF); WBC Urine None Seen (0-5/HPF)
== END ==
PROVIDERS: PCP Family Medicine; Referring Provider Family Medicine; Visit Provider Family Medicine
DX: R05.9 Cough, unspecified (principal); R30.0 Dysuria
CPT/HCPCS: 81001

== ENCOUNTER 2021-12-07 10:41 | Emergency (ER) | payer MEDICARE, SELFPAY ==
[2021-12-07] VITALS (11 sets, daily range): BP systolic 127–170; BP diastolic 60–74; PULSE 63–70; RESP 14–18; TEMP 36.1; O2SAT 96–99
--- NOTE | 2021-12-07 10:53 | DI.CT.S_ITS ---
PROCEDURE: CT HEAD/BRAIN WO CON INDICATIONS: transient left side weakness = 2 falls TECHNIQUE: Noncontrast 4.5 mm thick angled axial sections acquired from the foramen magnum to the vertex, with coronal and sagittal reformats. For radiation dose reduction, the following was used: automated exposure control, adjustment of mA and/or kV according to patient size. COMPARISON: None. FINDINGS: Image quality: Excellent. CSF spaces: Basal cisterns are patent. No extra-axial fluid collections. The ventricles are symmetric in size and shape. Brain: No intracranial bleeds or masses. There is cerebral volume loss for age, with resultant ventricular and sulcal prominence. There are periventricular and deep white matter chronic small vessel ischemic changes. There is intracranial internal carotid artery atherosclerosis. Skull and face: Calvarium and visualized facial bones appear intact, without suspicious lesions. Sinuses: Visualized sinuses and mastoids are clear. IMPRESSION: No acute intracranial abnormality. Dictated by: Erick Theodore M.D. on 12/07/2021 at 11:55 Approved by: Erick Theodore M.D. on 12/07/2021 at 12:02
--- NOTE | 2021-12-07 12:13 | ED.FALL ---
HPI - Fall <Mike Guzman PA-C - Last Filed: 12/07/21 19:55> General Chief Complaint: Fall Stated Complaint: numerous falls Time Seen by Provider: 12/07/21 12:13 Source: patient Mode of arrival: Ambulatory Related Data Home Medications Medication Instructions Recorded Confirmed folic acid 400 mcg tablet 0.4 mg PO DAILY 09/19/21 10/11/21 methotrexate sodium 2.5 mg tablet 10 mg PO QWEEK tab 09/19/21 10/11/21 Previous Rx's Medication Instructions Recorded celecoxib 200 mg capsule (Celebrex) 200 mg PO DAILY #90 cap 02/05/21 venlafaxine 150 mg tablet,extended 150 mg PO DAILY #90 tab 02/05/21 release 24 hr Allergies Allergy/AdvReac Type Severity Reaction Status Date / Time ciprofloxacin [From Cipro] Allergy Severe Severe Verified 10/11/21 10:24 diarrhea cyclobenzaprine Allergy Severe I Verified 10/11/21 10:24 couldn't get out of bed for days Iodine and Iodide Containing Allergy Mild Hives Verified 10/11/21 10:24 Produc hydrocodone Allergy Unknown Patient Verified 10/11/21 10:24 can't remember oxycodone Allergy Unknown Patient Verified 10/11/21 10:24 can't remember alendronate sodium AdvReac Severe Esophageal Verified 10/11/21 10:24 [From Fosamax] ulcer and severe bleeding amoxicillin [From Augmentin] AdvReac Severe Severe Verified 10/11/21 10:24 diarrhea clavulanic acid AdvReac Severe Severe Verified 10/11/21 10:24 [From Augmentin] diarrhea risedronate sodium AdvReac Severe esophageal Verified 10/11/21 10:24 [From Actonel] ulcer and severe bleeding sulfamethoxazole AdvReac Verified 10/11/21 10:24 [From Bactrim] trimethoprim [From Bactrim] AdvReac Verified 10/11/21 10:24 <Jenny Marte DO - Last Filed: 12/10/21 09:03> History of Present Illness HPI Narrative: Patient is a yaritza 81-year-old female who has a history of SAH, hypertension, depression enrolled in [facility], who presents today with falling over. Patient says that twice this week she has bent over she feels some pressure on the left side and then falls to the right. She says this happened to her twice in 2 different scenarios. She does not pass out or lose consciousness. She is not endorsing chest pain or discomfort. She has no palpitations. She has no nausea or vomiting. She says that she is having a little bit more trouble walking this week been she has normally. She denies any dizziness or lightheadedness. She has not had any fever chills or. <Jenny Marte DO - Last Filed: 12/10/21 09:03> Review of Systems Narrative: GENERAL: Denies chills, fatigue, malaise, fever, sweats, travel HEENT: Denies sinus pain, ear pain, sore throat, difficulty swallowing, neck pain RESPIRATORY: Denies dyspnea, cough, wheezing, hemoptysis, sputum. CARDIOVASCULAR: Denies chest pain, palpitations, orthopnea, edema GASTROINTESTINAL: Denies nausea, vomiting, abdominal pain, diarrhea, constipation, melena. : Denies dysuria, frequency, incontinence, hematuria, urinary retention, flank pain. MUSCULOSKELETAL: Denies weakness, joint pain, or bony pain SKIN: No rash, no erythema, no pruritus NEUROLOGIC: See HPI PSYCHIATRIC: No concerning psychosocial issues. 12 point review of systems is negative except for those stated above and HPI Patient History <Mike Guzman PA-C - Last Filed: 12/07/21 19:55> Medical History Allergies Anemia Ankylosing spondylitis Asthma Carpal tunnel syndrome Chicken pox Cough Depression Dermatitis Difficulty swallowing liquids Endometriosis (~1984) Esophageal bleeding (~2007) Fractures (~2018) Gastric ulcer (~2000) GI bleeding (~2007) Headache Heavy menstrual period (~1984) History of depression History of TIA (transient ischemic attack) (~2017) Hyperlipidemia (~1962) Keratoacanthoma (~2012) Lichen sclerosus Osteoarthritis Skin cancer (~2000) Stress incontinence of urine Subarachnoid hemorrhage Surgical History Anesthesia History of ulcer disease (~2006) History of umbilical hernia repair Status post appendectomy Status post bilateral hip replacements (~2001) Status post hysterectomy (~1985) Family History Father Skin cancer Mother Diabetes mellitus History of heart disease Hyperlipidemia Brother Diabetes mellitus Hyperlipidemia Grandfather Diabetes mellitus Social History household members: friend(s) Smoking Status: Never smoker second hand exposure: Yes (only in public places and I was when I was a child.) alcohol intake: former substance use type: does not use Smoking Status: Never smoker alcohol intake frequency: 0-2 drinks per day Substance Use Type: does not use Exam <Mike Guzman PA-C - Last Filed: 12/07/21 19:55> Initial Vital Signs Initial Vital Signs: Vital Signs Temperature 97.0 F L 12/07/21 10:47 Pulse Rate 69 12/07/21 10:47 Respiratory Rate 14 12/07/21 10:47 Blood Pressure 136/64 12/07/21 10:47 Pulse Oximetry 99 12/07/21 10:47 <Jenny Marte DO - Last Filed: 12/10/21 09:03> Initial Vital Signs Initial Vital Signs: Vital Signs Temperature 97.0 F L 12/07/21 10:47 Pulse Rate 69 12/07/21 10:47 Respiratory Rate 14 12/07/21 10:47 Blood Pressure 136/64 12/07/21 10:47 Pulse Oximetry 99 12/07/21 10:47 GENERAL: Alert well-appearing 81-year-old female in no acute distress in no acute distress. HEENT: Head atraumatic,EOMI, pupils reactive, face symmetric, moist mucous membranes CARDIOVASCULAR: Regular rate and rhythm without murmurs, rubs or gallops. RESPIRATORY: Breath sounds equal bilaterally, no wheezes rales or rhonchi. ABDOMEN: Soft, nontender. Normoactive bowel sounds all 4 quadrants. No guarding or rebound. EXTREMITIES: Normal range of motion, no clubbing or edema. Neurovascularly intact NEUROLOGICAL: Alert and oriented x4.Normal gait and speech. Cranial nerves II through XII grossly intact. Good [id number], good [id number], strength equal bilaterally, no dysarthria or aphasia, sensation in tact to soft touch bilaterally, no visual changes, no facial droop SKIN: Warm, dry, no laceration, no petechiae, no rashes or lesions. Course <Mike Guzman PA-C - Last Filed: 12/07/21 19:55> Orders Ordered: Discontinued Medications Sodium Chloride (Normal Saline 0.9%) 1,000 mls @ 1,000 mls/hr IV BOLUS ONE Stop: 12/07/21 15:53 Last Infusion: 12/07/21 16:33 Dose: 0 mls/hr Documented by: Admin: 12/07/21 15:06 Dose: 1,000 mls/hr Documented by: ELIZABETH Vital Signs Vital signs: Vital Signs - 8 hr 12/07/21 12:30 12/07/21 12:31 12/07/21 13:00 Pulse Rate 68 68 63 Respiratory Rate 18 Blood Pressure 170/74 H Pulse Oximetry 98 99 97 12/07/21 13:30 12/07/21 14:00 12/07/21 14:30 Pulse Rate 70 65 67 Respiratory Rate Blood Pressure Pulse Oximetry 99 96 99 12/07/21 15:00 12/07/21 15:18 12/07/21 15:30 Pulse Rate 70 65 68 Respiratory Rate Blood Pressure 127/60 151/65 H Pulse Oximetry 98 99 97 12/07/21 16:00 Pulse Rate 68 Respiratory Rate Blood Pressure 144/67 H Pulse Oximetry 99 <Jenny Marte, DO - Last Filed: 12/10/21 09:03> Orders Ordered: Discontinued Medications Sodium Chloride (Normal Saline 0.9%) 1,000 mls @ 1,000 mls/hr IV BOLUS ONE Stop: 12/07/21 15:53 Last Infusion: 12/07/21 16:33 Dose: 0 mls/hr Documented by: Admin: 12/07/21 15:06 Dose: 1,000 mls/hr Documented by: ELIZABETH Vital Signs Vital signs: Vital Signs - 8 hr 12/07/21 12:30 12/07/21 12:31 12/07/21 13:00 Pulse Rate 68 68 63 Respiratory Rate 18 Blood Pressure 170/74 H Pulse Oximetry 98 99 97 12/07/21 13:30 12/07/21 14:00 12/07/21 14:30 Pulse Rate 70 65 67 Respiratory Rate Blood Pressure Pulse Oximetry 99 96 99 12/07/21 15:00 12/07/21 15:18 12/07/21 15:30 Pulse Rate 70 65 68 Respiratory Rate Blood Pressure 127/60 151/65 H Pulse Oximetry 98 99 97 12/07/21 16:00 Pulse Rate 68 Respiratory Rate Blood Pressure 144/67 H Pulse Oximetry 99 MDM - Fall <Mike Guzman PA-C - Last Filed: 12/07/21 19:55> Lab Data Result diagrams: 12/07/21 13:07 12/07/21 13:07 Labs: Lab Results 12/07/21 12/07/21 12/07/21 Range/Units 13:07 13:07 13:07 WBC 4.6 (4.5-11.0) X10^3/uL RBC 4.31 (4.0-5.2) X10^6/uL Hgb 13.1 (12.0-16.0) g/dL Hct 38.2 (36-46) % MCV 88.7 (80-100) fL MCH 30.3 (26-34) PG MCHC 34.2 (30-36) % RDW 14.4 (11.6-14.8) % Plt Count 180 (150-400) X10^3/uL Neut % (Auto) 59.7 (50-75) % Lymph % (Auto) 25.9 (25-40) % [place] % (Auto) 10.2 (3-14) % Eos % (Auto) 3.2 (2-4) % Baso % (Auto) 1.0 (0-2) % Neut # (Auto) 2700 (4524-1509) /uL Lymph # (Auto) 1200 (7931-9950) /uL [place] # (Auto) 500 (0-900) /uL Eos # (Auto) 100 (0-450) /uL Baso # (Auto) 0 (0-100) /uL PT 12.0 (10.1-12.7) SECONDS INR 1.1 (0.9-1.3) Sodium 137 (137-145) mmol/L Potassium 4.7 (3.4-5.1) mmol/L Chloride 105 (98-107) mmol/L Carbon Dioxide 30 (22-32) mmol/L BUN 15 (7-17) mg/dL Creatinine 0.67 (0.52-1.04) mg/dL Estimated GFR > 60.0 (>60) mL/min BUN/Creatinine Ratio 22.4 H (6-22) Glucose 93 (80-110) mg/dL Calcium 9.0 (8.4-10.2) mg/dL Total Bilirubin 0.6 (0.2-1.3) mg/dL AST 27 (14-36) IU/L ALT 16 (<35) IU/L Alkaline Phosphatase 72 (38-126) U/L Total Creatine Kinase (30-135) U/L CK-MB (CK-2) CK-MB (CK-2) Rel Index Troponin I (0.01-0.034) ng/mL Total Protein 6.8 (6.3-8.2) g/dL Albumin 4.0 (3.5-5.0) g/dL Globulin 2.8 (1.7-4.1) g/dL Albumin/Globulin Ratio 1.4 (1.0-2.8) 12/07/21 Range/Units 13:07 WBC (4.5-11.0) X10^3/uL RBC (4.0-5.2) X10^6/uL Hgb (12.0-16.0) g/dL Hct (36-46) % MCV (80-100) fL MCH (26-34) PG MCHC (30-36) % RDW (11.6-14.8) % Plt Count (150-400) X10^3/uL Neut % (Auto) (50-75) % Lymph % (Auto) (25-40) % [place] % (Auto) (3-14) % Eos % (Auto) (2-4) % Baso % (Auto) (0-2) % Neut # (Auto) (0035-9533) /uL Lymph # (Auto) (0756-5845) /uL [place] # (Auto) (0-900) /uL Eos # (Auto) (0-450) /uL Baso # (Auto) (0-100) /uL PT (10.1-12.7) SECONDS INR (0.9-1.3) Sodium (137-145) mmol/L Potassium (3.4-5.1) mmol/L Chloride (98-107) mmol/L Carbon Dioxide (22-32) mmol/L BUN (7-17) mg/dL Creatinine (0.52-1.04) mg/dL Estimated GFR (>60) mL/min BUN/Creatinine Ratio (6-22) Glucose (80-110) mg/dL Calcium (8.4-10.2) mg/dL Total Bilirubin (0.2-1.3) mg/dL AST (14-36) IU/L ALT (<35) IU/L Alkaline Phosphatase (38-126) U/L Total Creatine Kinase 73 (30-135) U/L CK-MB (CK-2) TNP CK-MB (CK-2) Rel Index TNP Troponin I < 0.012 (0.01-0.034) ng/mL Total Protein (6.3-8.2) g/dL Albumin (3.5-5.0) g/dL Globulin (1.7-4.1) g/dL Albumin/Globulin Ratio (1.0-2.8) Urine Dip Bedside Urine Glucose Negative Bedside Urine Bilirubin - Negative Bedside Urine Ketone - Negative Urine Specific [place] 1.015 Bedside Urine Occult Blood - Negative Bedside Urine pH 6.0 Bedside Urine Protein - Negative Bedside Urine Urobilinogen - Negative Bedside Urine Nitrite - Negative Bedside Urine Leukocytes - Negative Esterase MDM Narrative Medical decision making narrative: Addendum: Note was mistakenly opened in myself, Mike Guzman's name. Entirety of encounter was performed by Dr. Estuardo DO. <Jenny Marte DO - Last Filed: 12/10/21 09:03> Lab Data Labs: Lab Results 12/07/21 12/07/21 12/07/21 Range/Units 13:07 13:07 13:07 WBC 4.6 (4.5-11.0) X10^3/uL RBC 4.31 (4.0-5.2) X10^6/uL Hgb 13.1 (12.0-16.0) g/dL Hct 38.2 (36-46) % MCV 88.7 (80-100) fL MCH 30.3 (26-34) PG MCHC 34.2 (30-36) % RDW 14.4 (11.6-14.8) % Plt Count 180 (150-400) X10^3/uL Neut % (Auto) 59.7 (50-75) % Lymph % (Auto) 25.9 (25-40) % [place] % (Auto) 10.2 (3-14) % Eos % (Auto) 3.2 (2-4) % Baso % (Auto) 1.0 (0-2) % Neut # (Auto) 2700 (0371-5362) /uL Lymph # (Auto) 1200 (7734-2845) /uL [place] # (Auto) 500 (0-900) /uL Eos # (Auto) 100 (0-450) /uL Baso # (Auto) 0 (0-100) /uL PT 12.0 (10.1-12.7) SECONDS INR 1.1 (0.9-1.3) Sodium 137 (137-145) mmol/L Potassium 4.7 (3.4-5.1) mmol/L Chloride 105 (98-107) mmol/L Carbon Dioxide 30 (22-32) mmol/L BUN 15 (7-17) mg/dL Creatinine 0.67 (0.52-1.04) mg/dL Estimated GFR > 60.0 (>60) mL/min BUN/Creatinine Ratio 22.4 H (6-22) Glucose 93 (80-110) mg/dL Calcium 9.0 (8.4-10.2) mg/dL Total Bilirubin 0.6 (0.2-1.3) mg/dL AST 27 (14-36) IU/L ALT 16 (<35) IU/L Alkaline Phosphatase 72 (38-126) U/L Total Creatine Kinase (30-135) U/L CK-MB (CK-2) CK-MB (CK-2) Rel Index Troponin I (0.01-0.034) ng/mL Total Protein 6.8 (6.3-8.2) g/dL Albumin 4.0 (3.5-5.0) g/dL Globulin 2.8 (1.7-4.1) g/dL Albumin/Globulin Ratio 1.4 (1.0-2.8) 12/07/21 Range/Units 13:07 WBC (4.5-11.0) X10^3/uL RBC (4.0-5.2) X10^6/uL Hgb (12.0-16.0) g/dL Hct (36-46) % MCV (80-100) fL MCH (26-34) PG MCHC (30-36) % RDW (11.6-14.8) % Plt Count (150-400) X10^3/uL Neut % (Auto) (50-75) % Lymph % (Auto) (25-40) % [place] % (Auto) (3-14) % Eos % (Auto) (2-4) % Baso % (Auto) (0-2) % Neut # (Auto) (5955-1162) /uL Lymph # (Auto) (0926-3888) /uL [place] # (Auto) (0-900) /uL Eos # (Auto) (0-450) /uL Baso # (Auto) (0-100) /uL PT (10.1-12.7) SECONDS INR (0.9-1.3) Sodium (137-145) mmol/L Potassium (3.4-5.1) mmol/L Chloride (98-107) mmol/L Carbon Dioxide (22-32) mmol/L BUN (7-17) mg/dL Creatinine (0.52-1.04) mg/dL Estimated GFR (>60) mL/min BUN/Creatinine Ratio (6-22) Glucose (80-110) mg/dL Calcium (8.4-10.2) mg/dL Total Bilirubin (0.2-1.3) mg/dL AST (14-36) IU/L ALT (<35) IU/L Alkaline Phosphatase (38-126) U/L Total Creatine Kinase 73 (30-135) U/L CK-MB (CK-2) TNP CK-MB (CK-2) Rel Index TNP Troponin I < 0.012 (0.01-0.034) ng/mL Total Protein (6.3-8.2) g/dL Albumin (3.5-5.0) g/dL Globulin (1.7-4.1) g/dL Albumin/Globulin Ratio (1.0-2.8) Urine Dip Bedside Urine Glucose Negative Bedside Urine Bilirubin - Negative Bedside Urine Ketone - Negative Urine Specific [place] 1.015 Bedside Urine Occult Blood - Negative Bedside Urine pH 6.0 Bedside Urine Protein - Negative Bedside Urine Urobilinogen - Negative Bedside Urine Nitrite - Negative Bedside Urine Leukocytes - Negative Esterase Discharge Plan Departure Patient Disposition: Home Clinical Impression: Fall Instructions: How to Prevent Falls Activity Restrictions/Additional Instructions: *You have been diagnosed with fall *What to do: Please continue to be careful. If you need a walker or cane please use it. Increase your fluid intake. *Continue to take medications as directed *Follow up with your primary care provider in 2-3 days or call [phone] *Return to ER if you should have recurrent falls chest discomfort weakness numbness tingling or any new, worsening or concerning symptoms Prescriptions: No Action folic acid 400 mcg tablet 0.4 mg PO DAILY 0RF methotrexate sodium 2.5 mg tablet 10 mg PO QWEEK 0RF celecoxib [Celebrex] 200 mg capsule 200 mg PO DAILY Qty: 90 3RF venlafaxine 150 mg tablet extended release 24hr 150 mg PO DAILY Qty: 90 3RF Referrals: Justin Arevalo MD [Primary Care Provider] -
[2021-12-07 13:18] LABS: Add Manual Diff / Slide Review NO; Basophils Absolute Auto 0 /uL (0-100); Eosinophils Absolute Auto 100 /uL (0-450); Eosinophils Percent Auto 3.2 % (2-4); Hematocrit 38.2 % (36-46); Hemoglobin 13.1 g/dL (12.0-16.0); Lymphocytes Absolute Auto 1200 /uL (1100-4500); Lymphocytes Percent Auto 25.9 % (25-40); Mean Corpuscular HGB Conc 34.2 % (30-36); Mean Corpuscular Hemoglobin 30.3 PG (26-34); Mean Corpuscular Volume 88.7 fL (80-100); Monocytes Absolute Auto 500 /uL (0-900); Monocytes Percent Auto 10.2 % (3-14); Neutrophils Absolute Auto 2700 /uL (1500-7000); Neutrophils Percent Auto 59.7 % (50-75); Platelet Count 180 X10^3/uL (150-400); Red Blood Cell Count 4.31 X10^6/uL (4.0-5.2); Red Cell Distribution Width 14.4 % (11.6-14.8); White Blood Cell Count 4.6 X10^3/uL (4.5-11.0)
[2021-12-07 13:25] LABS: INR 1.1 (0.9-1.3)
[2021-12-07 13:37] LABS: Creatine Kinase 73 U/L (30-135)
[2021-12-07 13:39] LABS: Alanine Aminotransferase 16 IU/L (<35); Albumin Globulin Ratio 1.4 (1.0-2.8); Alkaline Phosphatase 72 U/L (38-126); Aspartate Aminotransferase 27 IU/L (14-36); BUN Creatinine Ratio 22.4 (6-22); Bilirubin Total 0.6 mg/dL (0.2-1.3); Blood Urea Nitrogen 15 mg/dL (7-17); Carbon Dioxide 30 mmol/L (22-32); Chloride 105 mmol/L (98-107); Estimated Glomerular Filt Rate > 60.0 mL/min (>60); Globulin 2.8 g/dL (1.7-4.1); Glucose 93 mg/dL (80-110); HEMOLYSIS 15 (0-50); Potassium 4.7 mmol/L (3.4-5.1); Sodium 137 mmol/L (137-145); Total Protein 6.8 g/dL (6.3-8.2)
[2021-12-07 13:49] LABS: Troponin I < 0.012 ng/mL (0.01-0.034)
[2021-12-07] MEDS: SODIUM CHLORIDE 0.9% 1,000 ML 1000 ML IV (15:06)
== END 2021-12-07 17:17 | disposition home or self-care (01) ==
PROVIDERS: Emergency Provider Emergency Medicine; PCP Family Medicine
DX: R29.6 Repeated falls (principal)
CPT/HCPCS: 36415; 70450; 80053; 81003; 82550; 84484; 85025; 85610; 96360; 99284

== ENCOUNTER → 2021-12-26 08:44 | Outpatient (CLI) | payer MEDICARE, SELFPAY ==
[2021-12-26 10:41] LABS: Add Manual Diff / Slide Review NO; Basophils Absolute Auto 0 /uL (0-100); Basophils Percent Auto 0.8 % (0-2); Eosinophils Absolute Auto 100 /uL (0-450); Hematocrit 40.4 % (36-46); Hemoglobin 13.5 g/dL (12.0-16.0); Lymphocytes Absolute Auto 900 /uL (1100-4500); Lymphocytes Percent Auto 22.4 % (25-40); Mean Corpuscular HGB Conc 33.5 % (30-36); Mean Corpuscular Hemoglobin 30.4 PG (26-34); Mean Corpuscular Volume 90.7 fL (80-100); Monocytes Absolute Auto 300 /uL (0-900); Monocytes Percent Auto 8.2 % (3-14); Neutrophils Absolute Auto 2600 /uL (1500-7000); Neutrophils Percent Auto 65.6 % (50-75); Platelet Count 190 X10^3/uL (150-400); Red Blood Cell Count 4.45 X10^6/uL (4.0-5.2); Red Cell Distribution Width 14.4 % (11.6-14.8); White Blood Cell Count 3.9 X10^3/uL (4.5-11.0)
[2021-12-26 11:21] LABS: Alanine Aminotransferase 20 IU/L (<35); Albumin Globulin Ratio 1.5 (1.0-2.8); Alkaline Phosphatase 72 U/L (38-126); Aspartate Aminotransferase 31 IU/L (14-36); BUN Creatinine Ratio 17.6 (6-22); Bilirubin Total 1.1 mg/dL (0.2-1.3); Blood Urea Nitrogen 13 mg/dL (7-17); Calcium 9.3 mg/dL (8.4-10.2); Carbon Dioxide 29 mmol/L (22-32); Chloride 106 mmol/L (98-107); Cholesterol 212 mg/dL (140-199); Estimated Glomerular Filt Rate > 60.0 mL/min (>60); Globulin 2.7 g/dL (1.7-4.1); Glucose 92 mg/dL (80-110); HDL Cholesterol 65 mg/dL (40-60); HEMOLYSIS < 15 (0-50); LDL Cholesterol Calculated 131 mg/dL (<100); Sodium 139 mmol/L (137-145); Total Protein 6.7 g/dL (6.3-8.2); Triglycerides 78 mg/dL (35-150)
[2021-12-26 15:53] LABS: Vitamin D 25 Hydroxy (D3) 25.8 ng/mL (30.0-100.0)
== END ==
PROVIDERS: PCP Family Medicine; Referring Provider Family Medicine; Visit Provider Family Medicine
DX: E55.9 Vitamin D deficiency, unspecified (principal); E78.5 Hyperlipidemia, unspecified; F32.9 Major depressive disorder, single episode, unspecified; I10 Essential (primary) hypertension; Z86.73 Personal history of transient ischemic attack (TIA), and cerebral infarction without residual deficits
CPT/HCPCS: 36415; 80053; 80061; 82306; 85025

== ENCOUNTER 2021-12-26 16:00 | Observation (INO) | payer MEDICARE, SELFPAY ==
[2021-12-26] VITALS (14 sets, daily range): BP systolic 120–165; BP diastolic 57–72; PULSE 68–75; RESP 11–22; TEMP 36.6–37; O2SAT 91–99; BMI 25.0
--- NOTE | 2021-12-26 16:25 | ED_ITS ---
HPI - Neuro Symptoms/Deficit <Hebert Hernández MD - Last Filed: 12/27/21 07:31> General Chief Complaint: Neuro Symptoms/Deficit Stated Complaint: falls, thinks she has had strokes Time Seen by Provider: 12/26/21 16:16 Source: patient Mode of arrival: Ambulatory History of Present Illness HPI Narrative: Patient with history of TIA/intracranial hemorrhage in the past. Brain bleed in the past due to medications according the patient. Patient is not on any blood thinners. Patient states similar symptoms with mini strokes, she got dizzy yesterday and weak on the right side while she was trying to take out the trash. Had a hard time getting back up. Denies any injury from falling. Patient recently seen here on December [address] head without contrast. Patient denies any symptoms at this time. No recent echocardiogram. On Anticoagulants: No Related Data Home Medications Medication Instructions Recorded Confirmed folic acid 400 mcg tablet 0.4 mg PO BEDTIME 09/19/21 12/26/21 methotrexate sodium 2.5 mg tablet 10 mg PO QWEEK tab 09/19/21 12/26/21 celecoxib 200 mg capsule (Celebrex) 200 mg PO BEDTIME 12/26/21 12/26/21 pantoprazole 40 mg tablet,delayed 40 mg PO BEDTIME 12/26/21 12/26/21 release venlafaxine 150 mg tablet,extended 150 mg PO BEDTIME 12/26/21 12/26/21 release 24 hr Allergies Allergy/AdvReac Type Severity Reaction Status Date / Time ciprofloxacin [From Cipro] Allergy Severe Severe Verified 10/11/21 10:24 diarrhea cyclobenzaprine Allergy Severe I Verified 10/11/21 10:24 couldn't get out of bed for days Iodine and Iodide Containing Allergy Mild Hives Verified 10/11/21 10:24 Produc hydrocodone Allergy Unknown Patient Verified 10/11/21 10:24 can't remember oxycodone Allergy Unknown Patient Verified 10/11/21 10:24 can't remember alendronate sodium AdvReac Severe Esophageal Verified 10/11/21 10:24 [From Fosamax] ulcer and severe bleeding amoxicillin [From Augmentin] AdvReac Severe Severe Verified 10/11/21 10:24 diarrhea clavulanic acid AdvReac Severe Severe Verified 10/11/21 10:24 [From Augmentin] diarrhea risedronate sodium AdvReac Severe esophageal Verified 10/11/21 10:24 [From Actonel] ulcer and severe bleeding sulfamethoxazole AdvReac Verified 10/11/21 10:24 [From Bactrim] trimethoprim [From Bactrim] AdvReac Verified 10/11/21 10:24 Review of Systems <Hebert Hernández MD - Last Filed: 12/27/21 07:31> Review of Systems Narrative: GENERAL: Denies chills, fatigue, malaise, fever, sweats. HEENT: Denies sinus pain, ear pain, sore throat RESPIRATORY: Denies dyspnea, cough CARDIOVASCULAR: Denies chest pain, palpitations GASTROINTESTINAL: Denies nausea, vomiting, abdominal pain : Denies dysuria, frequency, hematuria MUSCULOSKELETAL: denies muscle or bony pain SKIN: Denies rash, skin lesions NEUROLOGIC: Positive for weakness and dizziness, negative for aphasia/numbness ROS Unobtainable: All systems reviewed & are unremarkable except as noted in HPI and below Hematologic/Lymphatic On Anticoagulants: No Patient History <Hebert Hernández MD - Last Filed: 12/27/21 07:31> Medical History Allergies Anemia Ankylosing spondylitis Asthma Carpal tunnel syndrome Chicken pox Cough Depression Dermatitis Difficulty swallowing liquids Endometriosis (~1984) Esophageal bleeding (~2007) Fractures (~2018) Gastric ulcer (~2000) GI bleeding (~2007) Headache Heavy menstrual period (~1984) History of depression History of TIA (transient ischemic attack) (~2017) Hyperlipidemia (~1962) Keratoacanthoma (~2012) Lichen sclerosus Osteoarthritis Skin cancer (~2000) Stress incontinence of urine Subarachnoid hemorrhage Surgical History Anesthesia History of ulcer disease (~2006) History of umbilical hernia repair Status post appendectomy Status post bilateral hip replacements (~2001) Status post hysterectomy (~1985) Family History Father Skin cancer Mother Diabetes mellitus History of heart disease Hyperlipidemia Brother Diabetes mellitus Hyperlipidemia Grandfather Diabetes mellitus Social History household members: none Smoking Status: Never smoker second hand exposure: Yes (only in public places and I was when I was a child.) alcohol intake: former substance use type: does not use Smoking Status: Never smoker alcohol intake frequency: 0-2 drinks per day Substance Use Type: does not use Exam <Hebert Hernández MD - Last Filed: 12/27/21 07:31> Narrative Exam Narrative: GENERAL: in no distress, not toxic not dyspneic HEAD: Normocephalic. EYES: Pupils equal round No scleral icterus. ENT: Mucous membranes moist. NECK: Trachea midline. CARDIOVASCULAR: Regular rate and rhythm without murmurs RESPIRATORY: Clear to auscultation. Breath sounds equal bilaterally. No wheezes, rales, or rhonchi. GASTROINTESTINAL: Abdomen soft, non-tender EXTREMITIES: No gross deformities. BACK: No flank tenderness. NEURO: AOx4. Clear speech no facial droop. Light touch intact to bilateral face hands and feet. Strong equal guide escort bilaterally and ankle flexion hip flex ion and knee flexion. Strong bilateral patellar reflexes. No pronator drift. SKIN: Warm and dry PSYCH: Not anxious, is cooperative Initial Vital Signs Initial Vital Signs: Vital Signs Temperature 98.6 F 12/26/21 16:11 Pulse Rate 75 12/26/21 16:11 Respiratory Rate 16 12/26/21 16:11 Blood Pressure 145/64 H 12/26/21 16:11 Pulse Oximetry 97 12/26/21 16:11 <Andie Elias MD - Last Filed: 12/27/21 03:41> Initial Vital Signs Initial Vital Signs: Vital Signs Temperature 98.6 F 12/26/21 16:11 Pulse Rate 75 12/26/21 16:11 Respiratory Rate 16 12/26/21 16:11 Blood Pressure 145/64 H 12/26/21 16:11 Pulse Oximetry 97 12/26/21 16:11 Scores <Hebert Hernández MD - Last Filed: 12/27/21 07:31> NIH Stroke Scale Level of Conciousness: Alert, keenly responsive Ask month/age: Answers both questions correctly. Open/close eyes, close hand: Performs both tasks correctly Best gaze horizontal: Normal Visual ortiz: No visual loss Facial palsy: Normal symetrical movement Left arm drift: No drift for full 10 sec Right arm drift: No drift for full 10 sec Left leg drift: No drift for full 5 sec Right leg drift: No drift for full 5 sec Limb ataxia: Absent Sensory on face/arms/legs: Normal, no sensory loss Best language: No aphasia, normal Dysarthria: Normal Extinction or inattention: No abnormality Total NIH Stroke scale score: 0 <Andie Elias MD - Last Filed: 12/27/21 03:41> NIH Stroke Scale Total NIH Stroke scale score: 0 Course <Hebert Hernández MD - Last Filed: 12/27/21 07:31> Orders Ordered: Acetaminophen (Acetaminophen 325 Mg Tablet) 650 mg PO Q6HR PRN PRN Reason: pain Last Admin: 12/26/21 21:15 Dose: 650 mg Documented by: DANE Folic Acid (Folic Acid 0.4 Mg Tablet) 0.4 mg PO BEDTIME LC Ondansetron HCl (Ondansetron 4 Mg/2 Ml Inj) 4 mg IV Q8HR PRN PRN Reason: Nausea And Vomiting Sodium Chloride (Sodium Chloride 0.9% Flush) 10 ml IV PRN PRN PRN Reason: Flush Last Admin: 12/26/21 22:55 Dose: 10 ml Documented by: HAMMAD Sodium Chloride (Sodium Chloride 0.9% Flush) 10 ml IV BID LC Venlafaxine HCl (Venlafaxine Er 75 Mg Cap) 150 mg PO BEDTIME LC Verapamil HCl (Verapamil Sr 120 Mg Tablet) 120 mg PO DAILY LC Discontinued Medications Atorvastatin Calcium (Atorvastatin 20 Mg Tablet) 40 mg PO BEDTIME LC Last Admin: 12/26/21 21:16 Dose: Not Given Documented by: DANE Reevaluation(s) Reevaluation #1: Reviewed results with patient. Informed at this time MRI is pending results. However but not changed admission for echocardiogram and observation. She agrees for admit Time: 18:19 Consultations Consultation #1: Spoke with hospitalist, Dr. Ugalde, will admit Time: 18:19 Vital Signs Vital signs: Vital Signs - 8 hr 12/26/21 20:00 Pulse Rate 68 Respiratory Rate 11 L Blood Pressure 143/64 H Pulse Oximetry 99 <Andie Elias MD - Last Filed: 12/27/21 03:41> Orders Ordered: Acetaminophen (Acetaminophen 325 Mg Tablet) 650 mg PO Q6HR PRN PRN Reason: pain Last Admin: 03/30/22 21:15 Dose: 650 mg Documented by: DANE Folic Acid (Folic Acid 0.4 Mg Tablet) 0.4 mg PO BEDTIME LC Ondansetron HCl (Ondansetron 4 Mg/2 Ml Inj) 4 mg IV Q8HR PRN PRN Reason: Nausea And Vomiting Sodium Chloride (Sodium Chloride 0.9% Flush) 10 ml IV PRN PRN PRN Reason: Flush Last Admin: 12/26/21 22:55 Dose: 10 ml Documented by: HAMMAD Sodium Chloride (Sodium Chloride 0.9% Flush) 10 ml IV BID LC Venlafaxine HCl (Venlafaxine Er 75 Mg Cap) 150 mg PO BEDTIME LC Verapamil HCl (Verapamil Sr 120 Mg Tablet) 120 mg PO DAILY LC Discontinued Medications Atorvastatin Calcium (Atorvastatin 20 Mg Tablet) 40 mg PO BEDTIME LC Last Admin: 12/26/21 21:16 Dose: Not Given Documented by: DANE Vital Signs Vital signs: Vital Signs - 8 hr 12/26/21 20:00 Pulse Rate 68 Respiratory Rate 11 L Blood Pressure 143/64 H Pulse Oximetry 99 MDM - Neuro Symptoms/Deficit <Hebert Hernández MD - Last Filed: 12/27/21 07:31> Differential Diagnosis Differential diagnosis: Likely subarachnoid hemorrhage, cerebrovascular accident and transient cerebral ischemia Lab Data Result diagrams: 12/26/21 16:20 Labs: Lab Results 12/26/21 12/26/21 12/26/21 Range/Units 16:20 16:20 16:20 WBC 5.7 (4.5-11.0) X10^3/uL RBC 4.29 (4.0-5.2) X10^6/uL Hgb 12.8 (12.0-16.0) g/dL Hct 38.5 (36-46) % MCV 89.8 (80-100) fL MCH 29.8 (26-34) PG MCHC 33.1 (30-36) % RDW 14.2 (11.6-14.8) % Plt Count 196 (150-400) X10^3/uL Neut % (Auto) 68.1 (50-75) % Lymph % (Auto) 19.4 L (25-40) % [place] % (Auto) 9.5 (3-14) % Eos % (Auto) 2.3 (2-4) % Baso % (Auto) 0.7 (0-2) % Neut # (Auto) 3900 (1249-6028) /uL Lymph # (Auto) 1100 (4692-1306) /uL [place] # (Auto) 500 (0-900) /uL Eos # (Auto) 100 (0-450) /uL Baso # (Auto) 0 (0-100) /uL PT 11.3 (10.1-12.7) SECONDS INR 1.0 (0.9-1.3) APTT 29 (26.4-36.2) SECONDS Hemoglobin A1c (4.0-6.0) % Urine RBC (0-5/HPF) Urine WBC (0-5/HPF) Ur Squamous Epith Cells (0-5/HPF) Urine Bacteria (None) Ur Culture Indicated? SARS-CoV-2 (PCR) Negative (Negative) 12/26/21 12/26/21 Range/Units 16:20 16:45 WBC (4.5-11.0) X10^3/uL RBC (4.0-5.2) X10^6/uL Hgb (12.0-16.0) g/dL Hct (36-46) % MCV (80-100) fL MCH (26-34) PG MCHC (30-36) % RDW (11.6-14.8) % Plt Count (150-400) X10^3/uL Neut % (Auto) (50-75) % Lymph % (Auto) (25-40) % [place] % (Auto) (3-14) % Eos % (Auto) (2-4) % Baso % (Auto) (0-2) % Neut # (Auto) (9745-0368) /uL Lymph # (Auto) (6834-9180) /uL [place] # (Auto) (0-900) /uL Eos # (Auto) (0-450) /uL Baso # (Auto) (0-100) /uL PT (10.1-12.7) SECONDS INR (0.9-1.3) APTT (26.4-36.2) SECONDS Hemoglobin A1c 5.3 (4.0-6.0) % Urine RBC None seen (0-5/HPF) Urine WBC None seen (0-5/HPF) Ur Squamous Epith Cells 0-1 /hpf (0-5/HPF) Urine Bacteria None seen (None) Ur Culture Indicated? Cult not indicated SARS-CoV-2 (PCR) (Negative) Point of Care Testing Glucose POC 98 Urine Dip Bedside Urine Glucose Negative Bedside Urine Bilirubin - Negative Bedside Urine Ketone - Negative Urine Specific [place] 1.020 Bedside Urine Occult Blood - Negative Bedside Urine pH 6.0 Bedside Urine Protein - Negative Bedside Urine Urobilinogen +/- 1mg Bedside Urine Nitrite - Negative Bedside Urine Leukocytes - Negative Esterase Imaging Data CT scan - head: Radiologist's Impression: [address] [address] [address] Scan Report Signed Patient: Karen Busch MR#: [id number] : 1940 Acct:[id number] Age/Sex: 81 / F Date of Service: 12/26/21 Loc: ED Accession Number: [id number] ?? Procedure: CT head/brain wo con Ordering Provider: Hebert Hernández MD PROCEDURE:? CT HEAD/BRAIN WO CON ? INDICATIONS:? Right-sided weakness/ataxia ? TECHNIQUE:? Noncontrast 4.5 mm thick angled axial sections acquired from the foramen magnum to the vertex, with coronal and sagittal reformats.? For radiation dose reduction, the following was used:? automated exposure control, adjustment of mA and/or kV according to patient size.? ? COMPARISON:? [facility], CT, CT HEAD/BRAIN WO CON, 12/07/2021, 11:05. ? FINDINGS:? Image quality:? Excellent.? ? CSF spaces:? Basal cisterns are patent.? No extra-axial fluid collections.? The ventricles are symmetric in size and shape.? ? Brain:? No intracranial bleeds or masses.? There is cerebral volume loss for age, with resultant ventricular and sulcal prominence.? There are periventricular and deep white matter chronic small vessel ischemic changes.? There is intracranial internal carotid artery atherosclerosis.? ? Skull and face:? Calvarium and visualized facial bones appear intact, without suspicious lesions.? ? Sinuses:? Visualized sinuses and mastoids are clear.? ? IMPRESSION:? 1. Volume loss and small vessel ischemic disease. 2. No acute process.? ? ? Dictated by: Jamie Brian M.D. on 12/26/2021 at 16:42 ? ? Approved by: Jamie Brian M.D. on 12/26/2021 at 16:43 ? ECG Data Interpretation: Normal sinus rhythm rate [address] elevation or depression MDM Narrative Medical decision making narrative: Appropriate for admission for TIA workup. At this time patient outside window for any intervention. Patient has contrast dye allergy. MRI was completed here. Hospitalist will admit. No consult with Neurology indicated this time. Will not oil changer. <Andie Elias MD - Last Filed: 12/27/21 03:41> Lab Data Labs: Lab Results 12/26/21 12/26/21 12/26/21 Range/Units 16:20 16:20 16:20 WBC 5.7 (4.5-11.0) X10^3/uL RBC 4.29 (4.0-5.2) X10^6/uL Hgb 12.8 (12.0-16.0) g/dL Hct 38.5 (36-46) % MCV 89.8 (80-100) fL MCH 29.8 (26-34) PG MCHC 33.1 (30-36) % RDW 14.2 (11.6-14.8) % Plt Count 196 (150-400) X10^3/uL Neut % (Auto) 68.1 (50-75) % Lymph % (Auto) 19.4 L (25-40) % [place] % (Auto) 9.5 (3-14) % Eos % (Auto) 2.3 (2-4) % Baso % (Auto) 0.7 (0-2) % Neut # (Auto) 3900 (9191-4416) /uL Lymph # (Auto) 1100 (9145-5677) /uL [place] # (Auto) 500 (0-900) /uL Eos # (Auto) 100 (0-450) /uL Baso # (Auto) 0 (0-100) /uL PT 11.3 (10.1-12.7) SECONDS INR 1.0 (0.9-1.3) APTT 29 (26.4-36.2) SECONDS Hemoglobin A1c (4.0-6.0) % Urine RBC (0-5/HPF) Urine WBC (0-5/HPF) Ur Squamous Epith Cells (0-5/HPF) Urine Bacteria (None) Ur Culture Indicated? SARS-CoV-2 (PCR) Negative (Negative) 12/26/21 12/26/21 Range/Units 16:20 16:45 WBC (4.5-11.0) X10^3/uL RBC (4.0-5.2) X10^6/uL Hgb (12.0-16.0) g/dL Hct (36-46) % MCV (80-100) fL MCH (26-34) PG MCHC (30-36) % RDW (11.6-14.8) % Plt Count (150-400) X10^3/uL Neut % (Auto) (50-75) % Lymph % (Auto) (25-40) % [place] % (Auto) (3-14) % Eos % (Auto) (2-4) % Baso % (Auto) (0-2) % Neut # (Auto) (1197-1638) /uL Lymph # (Auto) (5349-0017) /uL [place] # (Auto) (0-900) /uL Eos # (Auto) (0-450) /uL Baso # (Auto) (0-100) /uL PT (10.1-12.7) SECONDS INR (0.9-1.3) APTT (26.4-36.2) SECONDS Hemoglobin A1c 5.3 (4.0-6.0) % Urine RBC None seen (0-5/HPF) Urine WBC None seen (0-5/HPF) Ur Squamous Epith Cells 0-1 /hpf (0-5/HPF) Urine Bacteria None seen (None) Ur Culture Indicated? Cult not indicated SARS-CoV-2 (PCR) (Negative) Point of Care Testing Glucose POC 98 Urine Dip Bedside Urine Glucose Negative Bedside Urine Bilirubin - Negative Bedside Urine Ketone - Negative Urine Specific [place] 1.020 Bedside Urine Occult Blood - Negative Bedside Urine pH 6.0 Bedside Urine Protein - Negative Bedside Urine Urobilinogen +/- 1mg Bedside Urine Nitrite - Negative Bedside Urine Leukocytes - Negative Esterase Discharge Plan Departure Patient Disposition: Admitted as Observation Clinical Impression: Transient cerebral ischemia Admit Date/Time: 12/26/21 20:29 Admit Provider: Joni Ray
--- NOTE | 2021-12-26 16:29 | DI.CT.S_ITS ---
PROCEDURE: CT HEAD/BRAIN WO CON INDICATIONS: Right-sided weakness/ataxia TECHNIQUE: Noncontrast 4.5 mm thick angled axial sections acquired from the foramen magnum to the vertex, with coronal and sagittal reformats. For radiation dose reduction, the following was used: automated exposure control, adjustment of mA and/or kV according to patient size. COMPARISON: [facility], CT, CT HEAD/BRAIN WO CON, 12/07/2021, 11:05. FINDINGS: Image quality: Excellent. CSF spaces: Basal cisterns are patent. No extra-axial fluid collections. The ventricles are symmetric in size and shape. Brain: No intracranial bleeds or masses. There is cerebral volume loss for age, with resultant ventricular and sulcal prominence. There are periventricular and deep white matter chronic small vessel ischemic changes. There is intracranial internal carotid artery atherosclerosis. Skull and face: Calvarium and visualized facial bones appear intact, without suspicious lesions. Sinuses: Visualized sinuses and mastoids are clear. IMPRESSION: 1. Volume loss and small vessel ischemic disease. 2. No acute process. Dictated by: Jamie Brian M.D. on 12/26/2021 at 16:42 Approved by: Jamie Brian M.D. on 12/26/2021 at 16:43
--- NOTE | 2021-12-26 16:29 | DI.MRI.S_ITS ---
PROCEDURE: MR STROKE Pre- and post-contrast brain MRI, non-contrast brain MR angiogram, pre- and postcontrast neck MR angiogram INDICATIONS: Right-sided weakness TECHNIQUE: Brain: Noncontrast axial T1 spin echo, axial T2 fast spin echo, sagittal and axial FLAIR, coronal T2 fast spin echo, axial gradient echo, axial diffusion and ADC through the brain. After the administration of contrast, axial 3D VIBE of the cranial vasculature and brain. Brain MRA: Non-contrast 3-D time of flight MR angiogram, with multiple yacaukd-mivituuri-gnzrbglqkw (MIP) reformats performed. Neck MRA: Axial and sagittal TruFISP through the neck. Coronal dynamic MR angiogram during administration of contrast in the arterial and venous phases, with 3-dimenstional hzrarst-ypmyqgrnc-sdtuwbrfrc (MIP) reformats constructed from subtraction images. COMPARISON: [facility], CT, CT HEAD/BRAIN WO CON, 12/06/2020, 14:56. FINDINGS: Image quality: Excellent. BRAIN: CSF spaces: Ventricles are normal in size and shape. Basal cisterns are patent. No extra-axial fluid collections. Brain: Moderate atrophy and multifocal white matter chronic ischemic change noted. No intracranial bleeds or mass effects. [place]-white matter interface is normal. Diffusion weighted images show no acute ischemic insults. Brainstem appears normal. Normal intravascular flow voids are present. No abnormal intracranial enhancement. Gradient sequence shows superficial siderosis in the left frontal and high right parietal lobe, consistent with prior subarachnoid hemorrhage Skull and face: Calvarial marrow signal is normal. Bilateral intraocular lens replacements noted. Sinuses: Sinuses and mastoids are clear. BRAIN MR ANGIOGRAM: Anterior circulation: Intracranial internal carotid arteries are normal in size and enhancement. The flow within the paired anterior cerebral arteries is normal and symmetric. The flow within the middle cerebral arteries is normal and symmetric. The anterior communicating artery is seen. No stenoses, occlusions, or aneurysms. Posterior circulation: The visualized portions of the vertebral arteries demonstrate normal caliber, and join to form a normal appearing basilar artery. The flow within the posterior cerebral arteries is normal and symmetric. No stenoses, occlusions, or aneurysms. NECK MR ANGIOGRAM: Carotids: Great vessels demonstrate a conventional anatomy as they arise from the aortic arch. The origins of the common carotid arteries appear patent. The calibers and courses of both common carotid arteries are normal. The bifurcation regions appear normal bilaterally. The internal carotid arteries demonstrate normal course and caliber. Posterior circulation: The origins of the vertebral arteries appear patent. More superior portions of both vertebral arteries demonstrate normal course and caliber, and join to form a normal appearing basilar artery. Miscellaneous: Subclavian arteries appear patent. Pre-contrast images through the neck show no soft tissue abnormalities. IMPRESSION: 1. Atrophy and chronic ischemic change without acute hemorrhage, infarct or mass lesion. 2. Superficial siderosis noted involving the left frontal and high right parietal lobes consistent with sequelae of prior subarachnoid hemorrhage. 3. No intracranial large vessel occlusion, aneurysm or vascular malformation. 4. Both proximal ICA widely patent without stenosis Approved by: Jeyson Sam M.D. on 12/26/2021 at 17:40
[2021-12-26 16:32] LABS: Add Manual Diff / Slide Review NO; Basophils Absolute Auto 0 /uL (0-100); Basophils Percent Auto 0.7 % (0-2); Eosinophils Absolute Auto 100 /uL (0-450); Eosinophils Percent Auto 2.3 % (2-4); Hematocrit 38.5 % (36-46); Hemoglobin 12.8 g/dL (12.0-16.0); Lymphocytes Absolute Auto 1100 /uL (1100-4500); Lymphocytes Percent Auto 19.4 % (25-40); Mean Corpuscular HGB Conc 33.1 % (30-36); Mean Corpuscular Hemoglobin 29.8 PG (26-34); Mean Corpuscular Volume 89.8 fL (80-100); Monocytes Absolute Auto 500 /uL (0-900); Monocytes Percent Auto 9.5 % (3-14); Neutrophils Absolute Auto 3900 /uL (1500-7000); Neutrophils Percent Auto 68.1 % (50-75); Platelet Count 196 X10^3/uL (150-400); Red Blood Cell Count 4.29 X10^6/uL (4.0-5.2); Red Cell Distribution Width 14.2 % (11.6-14.8); White Blood Cell Count 5.7 X10^3/uL (4.5-11.0)
[2021-12-26 16:42] LABS: Prothrombin Time 11.3 SECONDS (10.1-12.7)
[2021-12-26 16:45] LABS: PTT Partial Thromboplastin Tim 29 SECONDS (26.4-36.2)
[2021-12-26 17:15] LABS: COVID19 -Nasal RAPID Negative (Negative)
[2021-12-26 17:29] LABS: Bacteria Urine None Seen; Culture Indicated Urine Cult Not Indicated; RBC Urine None Seen (0-5/HPF); Squamous Epithelial Cell Urine 0-1 /HPF (0-5/HPF); WBC Urine None Seen (0-5/HPF)
--- NOTE | 2021-12-26 20:35 | DI.ECHO.S_ITS ---
[facility]---------+ [facility] +---------+ : : [address] : : : : [id number] : : : : Phone: [phone] Echocardiogram Report + + :Name: ELLIS FIELDS Study Date: 12/27/2021 Height: 65 in : :[facility] ReadingLocation: Weight: 150 lb : : Gender: Female BSA: 1.8 m2 : :: 1940 Age: 81 yrs BP: 143/64 mmHg: :Reason For Study: TIA : :Ordering Physician: VANDANA, : :DARLIN Performed By: Sara Hernandez : :Referring: DARLIN ROSS : + + Interpretation Summary The ejection fraction is estimated to be 60-65%. There is mild mitral regurgitation. There is mild tricuspid regurgitation. The right ventricular systolic pressure is estimated to be at least 31 mmHg based on an estimated right atrial pressure of 3 mm Hg. There is mild to moderate aortic regurgitation. There is no Doppler evidence for an interatrial shunt. Procedure: A two-dimensional transthoracic echocardiogram with color flow and Doppler was performed. The study quality was technically adequate. There is no prior echocardiogram noted for this patient. The patient was in sinus rhythm with heart rates between 73-76 bpm during the exam. Left Ventricle: The left ventricle is normal in size and wall thickness. Proximal septal thickening is noted. The ejection fraction is estimated to be 60-65%. Left ventricular wall motion is normal. Right Ventricle: The right ventricle is normal in size and function. Atria: The left atrial size is normal. Right atrial size is normal. There is no Doppler evidence for an interatrial shunt. Mitral Valve: The mitral valve leaflets appear normal. There is no evidence of stenosis, fluttering, or prolapse. There is mild mitral annular calcification. There is mild mitral regurgitation. Aortic Valve: The aortic valve is trileaflet. The aortic valve opens well. There is no aortic valve stenosis. There is mild to moderate aortic regurgitation. Tricuspid Valve: The tricuspid valve is normal in structure and function. There is mild tricuspid regurgitation. The right ventricular systolic pressure is estimated to be at least 31 mmHg based on an estimated right atrial pressure of 3 mm Hg. Pulmonic Valve: The pulmonic valve is not well visualized. There is mild pulmonic regurgitation. Great Vessels: The aortic root is normal size. The dimensions of the ascending aorta are normal. The IVC is of normal diameter and collapses greater than 50% with a sniff. This suggests a low right atrial pressure of 3 mm Hg. Pericardium/ Pleura There is no pericardial effusion. There is no pleural effusion. MMode/2D Measurements & Calculations LVIDd: 4.5 cm LVOT diam: 2.3 cm LVIDs: 2.8 cm Ao root diam: 3.1 cm FS: 36.5 % asc Aorta Diam: 3.1 cm IVSd: 0.80 cm Ao Arch Diam (Prox Trans): 2.7 cm LVPWd: 0.88 cm LV ellis. diameter/BSA (cm/m^2): 2.6 LV sys. diameter/BSA (cm/m^2): 1.6 LA A2 area: 18.3 cm2 RA long axis: 5.5 cm LA A4 area: 16.6 cm2 RA area: 15.6 cm2 LA length (vol): 5.0 cm RA vol: 37.4 ml LA vol: 51.1 ml RA : 21.4 ml/m2 LA vol index: 29.2 ml/m2 IVC diam: 1.4 cm RVD1 (basal): 3.1 cm TAPSE: 2.1 cm Doppler Measurements & Calculations Ao V2 max: 137.8 cm/sec LVOT Max Milo: 118.6 cm/sec Ao V2 mean: 93.8 cm/sec LV V1 max P.6 mmHg Ao max P.6 mmHg LV V1 VTI: 29.6 cm Ao mean P.0 mmHg MAYA(I,D): 3.6 cm2 Ao V2 VTI: 36.1 cm MAYA(V,D): 3.7 cm2 sev ratio: 0.82 MAYA indexed to BSA (cm^2/m^2): 2.0 MV E max milo: 91.7 cm/sec TR max milo: 263.8 cm/sec MV A max milo: 104.2 cm/sec TR max P.8 mmHg MV E/A: 0.88 PA V2 max: 91.1 cm/sec Med Peak E' Milo: 4.2 cm/sec PA V2 mean: 63.3 cm/sec E/E' med: 21.9 PA mean P.8 mmHg Lat Peak E' Milo: 6.4 cm/sec E/E' lat: 14.3 E/e' average: 18.1 MV dec time: 0.25 sec SV(LVOT): 128.4 ml Reading Physician:11:37 AM
[2021-12-26] MEDS: ACETAMINOPHEN 325 MG TABLET 650 MG PO (21:15)
--- NOTE | 2021-12-26 21:49 | P.HP_ITS ---
History of Present Illness History of Present Illness Date Patient Seen: 12/26/21 Time Patient Seen: 21:00 Chief complaint: falls, thinks she has had strokes Narrative: Ms. Busch is an 81W with PMH lacunar CVA, ICH, ankylosing spondylitis, history of TIA who presents with multiple falls and leg weakness. She says she used to be on aspirin but this has been stopped due to an episode of ICH one year ago. She has also taken atorvastatin and pravastatin in the past but had muscle weakness secondary to this. She has noticed increasingly frequent auras, which she has seen neurology for, and been diagnosed with migraine with aura. In the past she has not had other symptoms of headaches, or focal deficits with her auras. Yesterday she noted having aura and had along with this what felt to be right sided leg weakness. Her symptoms have all resolved. After her ICH, she has had speech difficulty, but but has not noted any changes in the last day. She has no blurry vision, headaches, new swallowing difficulties, no new sensory deficits. No chest pain, palpitations, shortness of breath, fevers/chills. In the ED workup was done, vitals notable for blood pressure being slightly elevated 145/64. NIH 0. Labs notable for WBC 5.7, hgb 12.8, plts 196, INR 1.0, creatinine 0.74. Cholesterol 212, LDL 131. UA negative. CT head with no acute process. MRI with no acute process with MRA showing no large vessel thrombus/occlusion. She was admitted for further treatment. Family history: Brother with MS Patient History Medical History Allergies Anemia Ankylosing spondylitis Asthma Carpal tunnel syndrome Chicken pox Cough Depression Dermatitis Difficulty swallowing liquids Endometriosis (~1984) Esophageal bleeding (~2007) Fractures (~2018) Gastric ulcer (~2000) GI bleeding (~2007) Headache Heavy menstrual period (~1984) History of depression History of TIA (transient ischemic attack) (~2017) Hyperlipidemia (~1962) Keratoacanthoma (~2012) Lichen sclerosus Osteoarthritis Skin cancer (~2000) Stress incontinence of urine Subarachnoid hemorrhage Surgical History Anesthesia History of ulcer disease (~2006) History of umbilical hernia repair Status post appendectomy Status post bilateral hip replacements (~2001) Status post hysterectomy (~1985) Family & Social History Family History Father Skin cancer Mother Diabetes mellitus History of heart disease Hyperlipidemia Brother Diabetes mellitus Hyperlipidemia Grandfather Diabetes mellitus Social History: household members none Prior Living Arrangements House Safety & Behavioral: Feels Safe in Current Yes Environment Been Physically Hurt or No Threatened By a Person Suicidal Ideation Description None Tobacco & Substance use: Smoking Status Never smoker alcohol intake former alcohol intake frequency 0-2 drinks per day Substance Use Type does not use Meds Home Medications and Allergies Home Medications Medication Instructions Recorded Confirmed Type folic acid 400 mcg tablet 0.4 mg PO BEDTIME 09/19/21 12/26/21 History methotrexate sodium 2.5 mg tablet 10 mg PO QWEEK tab 09/19/21 12/26/21 History celecoxib 200 mg capsule (Celebrex) 200 mg PO BEDTIME 12/26/21 12/26/21 History pantoprazole 40 mg tablet,delayed 40 mg PO BEDTIME 12/26/21 12/26/21 History release venlafaxine 150 mg tablet,extended 150 mg PO BEDTIME 12/26/21 12/26/21 History release 24 hr Allergies Allergy/AdvReac Type Severity Reaction Status Date / Time ciprofloxacin [From Cipro] Allergy Severe Severe Verified 10/11/21 10:24 diarrhea cyclobenzaprine Allergy Severe I Verified 10/11/21 10:24 couldn't get out of bed for days Iodine and Iodide Containing Allergy Mild Hives Verified 10/11/21 10:24 Produc hydrocodone Allergy Unknown Patient Verified 10/11/21 10:24 can't remember oxycodone Allergy Unknown Patient Verified 10/11/21 10:24 can't remember alendronate sodium AdvReac Severe Esophageal Verified 10/11/21 10:24 [From Fosamax] ulcer and severe bleeding amoxicillin [From Augmentin] AdvReac Severe Severe Verified 10/11/21 10:24 diarrhea clavulanic acid AdvReac Severe Severe Verified 10/11/21 10:24 [From Augmentin] diarrhea risedronate sodium AdvReac Severe esophageal Verified 10/11/21 10:24 [From Actonel] ulcer and severe bleeding sulfamethoxazole AdvReac Verified 10/11/21 10:24 [From Bactrim] trimethoprim [From Bactrim] AdvReac Verified 10/11/21 10:24 Review of Systems Review of Systems Narrative: 14 systems reviewed and negative aside from what is noted in HPI Exam Vital Signs (past 8 hours): - 12/26/21 16:11 12/26/21 16:23 12/26/21 16:53 Temperature 98.6 F Pulse Rate 75 71 75 Respiratory Rate 16 22 Blood Pressure 145/64 H 142/62 H Pulse Oximetry 97 97 91 12/26/21 16:55 12/26/21 17:00 12/26/21 18:16 Temperature Pulse Rate 75 70 72 Respiratory Rate 16 Blood Pressure 120/60 124/58 L Pulse Oximetry 97 99 98 12/26/21 18:18 12/26/21 18:22 12/26/21 18:30 Temperature Pulse Rate 70 71 73 Respiratory Rate 18 18 Blood Pressure 165/72 H 134/64 137/61 Pulse Oximetry 97 98 99 12/26/21 19:00 12/26/21 19:30 12/26/21 20:00 Temperature Pulse Rate 71 68 68 Respiratory Rate 16 16 11 L Blood Pressure 146/67 H 133/61 143/64 H Pulse Oximetry 99 98 99 12/26/21 20:33 Temperature 98.0 F Pulse Rate 71 Respiratory Rate 16 Blood Pressure 151/57 H Pulse Oximetry 99 Oxygen Delivery Method Room Air Oxygen Flow Rate 0 Narrative Exam Narrative: GEN: no acute distress HEENT: moist mucous membranes, PERRL NECK: trachea midline, no JVD CV: regular rate and rhythm, no murmurs PULM: clear bilaterally, no wheezes, rhonchi, rales ABD: soft, nontender, nondistended, no organomegaly EXT: warm and well perfused with no edema NEURO: halting speech (patient says this is chronic), no facial droop, 5/5 str ength bilaterally, no sensory deficits PSYCH: pleasant, cooperative Objective Labs Result Diagrams: 12/26/21 16:20 Labs: Laboratory Results - last 24 hr 12/26/21 12/26/21 12/26/21 16:20 16:20 16:20 WBC 5.7 RBC 4.29 Hgb 12.8 Hct 38.5 MCV 89.8 MCH 29.8 MCHC 33.1 RDW 14.2 Plt Count 196 Neut % (Auto) 68.1 Lymph % (Auto) 19.4 L [place] % (Auto) 9.5 Eos % (Auto) 2.3 Baso % (Auto) 0.7 Neut # (Auto) 3900 Lymph # (Auto) 1100 [place] # (Auto) 500 Eos # (Auto) 100 Baso # (Auto) 0 PT 11.3 INR 1.0 APTT 29 Urine RBC Urine WBC Ur Squamous Epith Cells Urine Bacteria Ur Culture Indicated? SARS-CoV-2 (PCR) Negative 12/26/21 16:45 WBC RBC Hgb Hct MCV MCH MCHC RDW Plt Count Neut % (Auto) Lymph % (Auto) [place] % (Auto) Eos % (Auto) Baso % (Auto) Neut # (Auto) Lymph # (Auto) [place] # (Auto) Eos # (Auto) Baso # (Auto) PT INR APTT Urine RBC None seen Urine WBC None seen Ur Squamous Epith Cells 0-1 /hpf Urine Bacteria None seen Ur Culture Indicated? Cult not indicated SARS-CoV-2 (PCR) Assessment & Plan Assessment & Plan narrative: Ms. Busch is an 81W with PMH ICH, lacunar CVA, migraine with auras, ankylosing spondilitis who was admitted with transient neurologic changes with right leg weakness. 1. Right leg weakness -CT head and MRI head with no acute process -most likely etiology is complex migraine, but possibly a TIA as well -order NIH q shift -order echo -lipids mildly elevated -check a1c -order PT/OT and speech therapy -will hold on aspirin administration currently given ICH last year -will hold on statin currently given side effects of weakness described by patient, and she is already having frequent falls 2. Ankylosing spondilitis -continue methotrecate as outpatient 3. History of GI bleeding -continue PPI 4. Depression -continue venlafaxine CODE: DNR Proxy: Tosin Busch, daughter I have utilized all available resources to reconcile the patient's home medications. Time Spent With Patient Critical Care time: I spent a total of [] minutes of critical care time on this patient's care today; this time is exclusive of procedural time. Quality MIPS - Admit I confirm the patient?s Advance Care Plan is present, Code status is documented, Surrogate decision maker is in patient?s record [If Yes, STOP here]: Yes
[2021-12-26] MEDS: SODIUM CHLORIDE 0.9% FLUSH 10 ML IV (22:55)
[2021-12-26 23:38] LABS: Hemoglobin A1C% w Est Avg Glu 5.3 % (4.0-6.0)
[2021-12-27 05:37] VITALS: BP 122/52; PULSE 57; RESP 16; TEMP 36.2; O2SAT 96
[2021-12-27 09:11] VITALS: BP 143/62; PULSE 74; RESP 15; TEMP 36.5; O2SAT 96
--- NOTE | 2021-12-27 09:18 | DI.RAD.S_ITS ---
PROCEDURE: XR LUMBAR SPINE 2-3V INDICATIONS: Back pain TECHNIQUE: 2 views of the lumbar spine were acquired. COMPARISON: None. FINDINGS: Bones: 5 [id number] vertebrae are present. There is grade 1 anterolisthesis of L4 on L5. Degenerative endplate changes are noted throughout lumbar spine. No vertebral body compression fractures. No suspicious bony lesions. Patient is status post bilateral total hip arthroplasty. Soft tissues: Overlying bowel gas pattern is normal. No suspicious soft tissue calcifications. IMPRESSION: Grade 1 anterolisthesis of L4 on L5. No acute lumbar spine compression fracture. Degenerative disc disease throughout lumbar spine. Dictated by: Mumtaz Craig M.D. on 12/27/2021 at 10:08 Approved by: Mumtaz Craig M.D. on 12/27/2021 at 10:08
--- NOTE | 2021-12-27 09:19 | DI.RAD.S_ITS ---
PROCEDURE: XR CERVICAL SPINE 2V OR 3V INDICATIONS: Back pain TECHNIQUE: 2 view(s) of the cervical spine were acquired. COMPARISON: [facility], CR, XR CLAVICLE LT, 03/14/2021, 9:30. FINDINGS: Bones: No fractures or dislocations to the C7-T1 level. Grade 1 anterolisthesis of C4 on C5 and C3 on C4 is seen. Degenerative endplate changes and loss of disc height with bilateral facet hypertrophic changes are noted throughout cervical spine. The lateral masses of C1 appear intact on the odontoid view. No suspicious bony lesions. Soft tissues: No prevertebral soft tissue swelling. IMPRESSION: Degenerative disc disease throughout cervical spine. No acute fracture or dislocation. Dictated by: Mumtaz Craig M.D. on 12/27/2021 at 10:00 Approved by: Mumtaz Craig M.D. on 12/27/2021 at 10:07
--- NOTE | 2021-12-27 09:19 | DI.RAD.S_ITS ---
PROCEDURE: XR THORACIC SPINE 2V INDICATIONS: Back pain TECHNIQUE: 2 views of the thoracic spine were acquired. COMPARISON: None. FINDINGS: Bones: No acute fractures or dislocations. Mild levoscoliosis of lower thoracic spine centered at T10 level is seen. Chronic appearing anterior wedge compression deformity involving T7 and T8 vertebral bodies are seen. Degenerative disc disease throughout thoracic spine. No suspicious bony lesions. 12 pairs of ribs are noted, and appear intact where visualized. Soft tissues: No paravertebral stripe thickening. IMPRESSION: Mild scoliosis. Chronic appearing anterior wedge compression deformity involving T7 and T8 vertebral bodies. No acute compression fracture or spondylolisthesis. Degenerative disc disease throughout thoracic spine. Dictated by: Mumtaz Craig M.D. on 12/27/2021 at 10:08 Approved by: Mumtaz Craig M.D. on 12/27/2021 at 10:12
[2021-12-27] MEDS: VERAPAMIL SR 120 MG TABLET PO (09:40)
--- NOTE | 2021-12-27 09:40 | CM.DANOTE ---
Discharge Assmt Note: Patient is 81yo Female admitted for stroke r/o secondary to weakness and falls w/o explanation. Patient resides at home alone and is fully independent at baseline with no adaptive devices. Patient anticipates discharging home today with no identified discharge planning needs. PCP Irina SANDERSON Medicare [employer] Discharge Planning/Care Management Advanced directive, confirm from FAMILY Start: 12/26/21 21:06 Freq: Q24H Status: Active Protocol: Document 12/26/21 22:51 MP (Rec: 12/26/21 22:52 MP [id number]) Advance Directive, confirm on record Time 22:50 Person contacted Pt. Copy received No Copy received No Advanced directive available on record No CM Discharge Assessment Start: 12/27/21 09:30 Freq: Status: Active Protocol: Document 12/27/21 09:31 (Rec: 12/27/21 09:40 [id number]) Discharge Planning Assessment Assigned Packaging Designer Carlos Douglas [employer]OCKSTITCH [employer]UP [employer]TER DPOA/Assigned Designee Name Tosin Busch daughter Contact Information [phone] Advance Directives? Yes Advance Directives on File No History Provided By Patient,Medical Record Has Patient been admitted in last 30 No days? Prior Living Arrangements House Household Members none Type of transporation used prior to Drives own vehicle admit Independent with ADL's Yes Is patient alert and oriented? Yes Caregiver for Another No Barriers to Discharge No Discharge Plan Home Transportation Arrangement friend via POV Referrals Initiated None needed Whiteboard Updated in Patient Room with Yes name and ext. # of Packaging Designer Review Status In Process Next Review Type Continued Stay Review
[2021-12-27] MEDS: SODIUM CHLORIDE 0.9% FLUSH 10 ML IV (09:41)
--- NOTE | 2021-12-27 09:42 | PM.PN.1 ---
Subjective Subjective Interval history: The patient denies any issues with her speech or memory. She denies ever being prescribed a Holter monitor in the past to look for any potentially contributing arrhythmias. 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 She's been told she has ankylosing spondylitis in the past. She is unsure if she's ever been worked-up for myasthenia gravis, but she says her neurologist has looked at everything. She does complain of back pain, after her fall, and is requesting X-rays. Exam Vital Signs (past 8 hours): - 12/27/21 05:37 12/27/21 09:11 Temperature 97.1 F L 97.7 F Pulse Rate 57 L 74 Respiratory Rate 16 15 Blood Pressure 122/52 L 143/62 H Pulse Oximetry 96 96 Oxygen Delivery Method Room Air Oxygen Flow Rate 0 Const Other: Patient laying in bed comfortably upon my entering the room, in no apparent acute distress Eyes Other: No scleral icterus noted Resp Other: Lungs clear to auscultation bilaterally Cardio Other: RRR, S1 and S2 heart sounds normal, with no extra heart sounds or murmurs appreciated GI Other: Soft, non-distended, non-tender, bowel sounds present Back/Spine/Pelvis Other: No focal spinous tenderness elicited, with slight paraspinal muscle tenderness with palpation Skin Other: No grossly abnormal skin lesions noted Neuro Other: CN II-XII grossly intact, no focal neurological deficits appreciated grossly Extrem Other: Palpable dorsalis pedis pulses bilaterally Objective Labs Result Diagrams: 12/26/21 16:20 Labs: Laboratory Results - last 24 hr 12/26/21 12/26/21 12/26/21 16:20 16:20 16:20 WBC 5.7 RBC 4.29 Hgb 12.8 Hct 38.5 MCV 89.8 MCH 29.8 MCHC 33.1 RDW 14.2 Plt Count 196 Neut % (Auto) 68.1 Lymph % (Auto) 19.4 L [place] % (Auto) 9.5 Eos % (Auto) 2.3 Baso % (Auto) 0.7 Neut # (Auto) 3900 Lymph # (Auto) 1100 [place] # (Auto) 500 Eos # (Auto) 100 Baso # (Auto) 0 PT 11.3 INR 1.0 APTT 29 Hemoglobin A1c Urine RBC Urine WBC Ur Squamous Epith Cells Urine Bacteria Ur Culture Indicated? SARS-CoV-2 (PCR) Negative 12/26/21 12/26/21 16:20 16:45 WBC RBC Hgb Hct MCV MCH MCHC RDW Plt Count Neut % (Auto) Lymph % (Auto) [place] % (Auto) Eos % (Auto) Baso % (Auto) Neut # (Auto) Lymph # (Auto) [place] # (Auto) Eos # (Auto) Baso # (Auto) PT INR APTT Hemoglobin A1c 5.3 Urine RBC None seen Urine WBC None seen Ur Squamous Epith Cells 0-1 /hpf Urine Bacteria None seen Ur Culture Indicated? Cult not indicated SARS-CoV-2 (PCR) PFSH Medical History Allergies Anemia Ankylosing spondylitis Asthma Carpal tunnel syndrome Chicken pox Cough Depression Dermatitis Difficulty swallowing liquids Endometriosis (~1984) Esophageal bleeding (~2007) Fractures (~2018) Gastric ulcer (~2000) GI bleeding (~2007) Headache Heavy menstrual period (~1984) History of depression History of TIA (transient ischemic attack) (~2017) Hyperlipidemia (~1962) Keratoacanthoma (~2012) Lichen sclerosus Osteoarthritis Skin cancer (~2000) Stress incontinence of urine Subarachnoid hemorrhage Surgical History Anesthesia History of ulcer disease (~2006) History of umbilical hernia repair Status post appendectomy Status post bilateral hip replacements (~2001) Status post hysterectomy (~1985) Family History Father Skin cancer Mother Diabetes mellitus History of heart disease Hyperlipidemia Brother Diabetes mellitus Hyperlipidemia Grandfather Diabetes mellitus Social History household members: none Smoking Status: Never smoker second hand exposure: Yes (only in public places and I was when I was a child.) alcohol intake: former substance use type: does not use Assessment & Plan Assessment & Plan narrative: Ms. Busch is an 81W with a hx of ICH, lacunar CVA, migraine with auras, ankylosing spondilitis who was admitted with transient neurologic changes with right leg weakness. 1. Right leg weakness - CT head and MRI head with no acute process - Most likely etiology is complex migraine, but possibly a TIA as well - Pending echocardiogram with bubble study - Holding aspirin given recent hx of ICH, and holding statin due to hx of myalgias 2. Ankylosing spondilitis - Contiue methotrexate as outpatient 3. History of GI bleeding - Continue home PPI 4. Depression - Continue home venlafaxine Code: DNR Proxy: Tosin Busch, daughter I have utilized all available immediate resources to update, review, or confirm the patient's current medications. Time Spent With Patient Critical Care time: I spent a total of [] minutes of critical care time on this patient's care today; this time is exclusive of procedural time. Quality MIPS - Admit I confirm the patient?s Advance Care Plan is present, Code status is documented, Surrogate decision maker is in patient?s record [If Yes, STOP here]: Yes
[2021-12-27 09:44] VITALS: O2SAT 96
[2021-12-27 10:00] VITALS: O2SAT 96
--- NOTE | 2021-12-27 11:35 | OT.IP.EVAL ---
Past Medical History (Last Reviewed 12/26/21 @ 21:50 by Joni Ray MD) Allergies Anemia Ankylosing spondylitis Asthma Carpal tunnel syndrome Chicken pox Cough Depression Dermatitis Difficulty swallowing liquids Endometriosis (~1984) Esophageal bleeding (~2007) Fractures (~2018) Gastric ulcer (~2000) GI bleeding (~2007) Headache Heavy menstrual period (~1984) History of depression History of TIA (transient ischemic attack) (~2017) History of umbilical hernia repair Hyperlipidemia (~1962) Keratoacanthoma (~2012) Lichen sclerosus Osteoarthritis Skin cancer (~2000) Status post appendectomy Status post bilateral hip replacements (~2001) Status post hysterectomy (~1985) Stress incontinence of urine Subarachnoid hemorrhage Surgical History (Last Reviewed 12/26/21 @ 21:50 by Joni Ray MD) Anesthesia History of ulcer disease (~2006) History of umbilical hernia repair Status post appendectomy Status post bilateral hip replacements (~2001) Status post hysterectomy (~1985) Occupational Therapy Inpatient Evaluation/Re-Eval M1 PT/OT-IP Prior Functional Status Start: 12/27/21 12:37 Freq: NEEDED Status: Discharge Protocol: Document 12/27/21 11:41 AB (Rec: 12/27/21 12:53 [id number]) Medical Review Prior Functional Status Medical History Reviewed Yes Communication able to make needs known Mobility and Gait pt stated that she is independent with all mobilities and ambulation without AD. Pt stated that she is very active and walks ~ 3 miles a day. 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 also stated aura like vision prior to falling Social History Household Members none Living Arrangements House Number of Floors (Floors) Two Floors Number of Stairs To Enter/Railing? pt stays on main level of the house 2 steps without rails to enter with R side wall Home Environment Standard Height Toilet,Walk in Shower,Built-In Shower Seat Home Equipment Hand Held Shower Employment Status Retired M1 PT/OT-IP Prior Functional Status Start: 12/27/21 17:05 Freq: NEEDED Status: Active Protocol: Document 12/27/21 10:30 [facility] (Rec: 12/27/21 17:24 [facility] [id number]) Medical Review Prior Functional Status Medical History Reviewed Yes Communication able to make needs known Mobility and Gait pt stated that she is independent with all mobilities and ambulation without AD. pt stated that she is very active and walks ~ 3 miles a day. 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 Prior Functional Level (Other details) pt stated that she had 3 falls in a day with RLE giving out. also stated aura like vision prior to falling Social History Household Members none Living Arrangements House Number of Floors (Floors) Two Floors Number of Stairs To Enter/Railing? pt stays on main level of the house 2 steps without rails to enter with R side wall Home Environment Standard Height Toilet,Walk in Shower,Built-In Shower Seat Home Equipment Hand Held Shower Employment Status Retired M2 OT-IP Current Condition Start: 12/27/21 17:05 Freq: Status: Active Protocol: Document 12/27/21 10:30 [facility] (Rec: 12/27/21 17:24 [facility] [id number]) Occupational Therapy Current Condition Current Condition Evaluation Date 12/27/21 Treatment Diagnosis RLE weakness due to complex migraines Diagnosis Onset Date 12/26/21 M3 OT- IP Subjective and Pain Start: 12/27/21 17:05 Freq: Status: Active Protocol: Document 12/27/21 10:30 [facility] (Rec: 12/27/21 17:24 [facility] [id number]) OT- Subjective Occupational Therapy Visit Type Type Initial Evaluation Visit Start Time 10:30 Visit Stop Time 11:35 Total Visit Minutes 65 Occupational Therapy Visit Comments Patient Comments Pt agreed to work with OT. Patient/Caregiver Goals TO go home. OT Pain Assessment Pain When Pain Assessed At Rest Pain Present Pain Present Denied Pain M4 OT- IP ADL's Start: 12/27/21 17:05 Freq: Status: Active Protocol: Document 12/27/21 10:30 [facility] (Rec: 12/27/21 17:24 [facility] [id number]) OT ADL-Grooming General Evaluation Grooming Ability Independent OT ADL-Oral Care General Eval Oral Care Ability Independent OT ADL-Dressing General Eval Lower Body Dressing Ability Standby Assistance Comments OT Dressing Comments Increased time to bend over to luis/off her socks while seated. OT ADL-Toileting General Evaluation Toileting Ability Independent OT ADL-Bathing Comments OT Bathing Comments At this time best for pt to use a shower chair for safety for showering needs. M5 OT- IP IADL's Start: 12/27/21 17:05 Freq: Status: Active Protocol: Document 12/27/21 10:30 [facility] (Rec: 12/27/21 17:24 [facility] [id number]) OT-Instrumental Activities of Daily Living Home Safety Awareness Home Safety Comments Pt a times a bit forgetful and needing assist for problem solving and would be best at this time to have / available assist to assist with her needs- especially for chores, driving, medications, and finance needs. M6 OT- IP Functional Cognition Start: 12/27/21 17:05 Freq: Status: Active Protocol: Document 12/27/21 10:30 [facility] (Rec: 12/27/21 17:24 [facility] [id number]) Cognitive Factors Limiting Selfcare Function Cognitive Ability Level of Alertness Alert Patient Orientation Name,Age,Birthday,Month,Date, Year,Day of Week,Place, Situation Attention Span Ability Capable of Focused Attention, Capable of Sustained Attention Ability to Follow Commands Able to Follow One Step Commands Memory Description Short Term Impaired,Working Impaired Problem Solving Ability Needs Assist to Identify Solutions Executive Function Ability Unable to Make Plans,Unable to Organize Plans,Unable to Remember Details Cognitive Comments Cognitive Assessment Comments Pt scored 185 seconds on [place] [employer] which implies per [employer] a greater risk for car accident. Pt's score implies severe impairments for executive problem solving, speed of processing, task switching, mental flexibility, and visual attention. Pt states prior considered giving up driving as she often drives to [place] to see her family. It was strongly suggested that pt not drive at this time. Pt also states that she has been trying to get the direct support professional caregiver completed in her home since April and has been sleeping on the couch for sometime now. Pt states is now considering staying the day light basement of her daughter's house in [place]. Pt has trouble to figure out a 4 variable chart for 9 Hole Peg Test to figure out her percentile for right and left hands and needing assist to understand the chart. Pt admits that is the past year that she has memory and thinking issues and at times hard to get the words out. Pt also has history of lacunar CVA. OT- Vision and Hearing OT- Hearing Assessment OT- Hearing Assessment WFL M7 OT- IP Mobility and Balance Start: 12/27/21 17:05 Freq: Status: Active Protocol: Document 12/27/21 10:30 [facility] (Rec: 12/27/21 17:24 [facility] [id number]) OT- Bed Mobility Assessment Rolling Type of Rolling Roll to Left Supine to Sit Supine to Sit Assist Standby Assistance Scooting Scooting to Edge of Bed Standby Assistance Scooting Up and Down in Bed Standby Assistance OT-Transfer Assessment Sit to and From Stand Sit to and from Stand Standby Assistance Transfers Transfer Ability Standby Assistance Technique Transfer Destination Bed,Chair,Toilet Transfer Technique Stand Step Pivot Devices Transfer Assistive Devices Gait Belt Comments Mobility Comments close SBA OT- Balance Assessment Sitting Balance and Reactions Static Sitting Balance Ability Good Dynamic Sitting Balance Ability Fair Standing Balance and Reactions Static Standing Balance Ability Fair Dynamic Standing Balance Ability Fair M8 OT- IP Objective Assessments Start: 12/27/21 17:05 Freq: Status: Active Protocol: Document 12/27/21 10:30 [facility] (Rec: 12/27/21 17:24 [facility] [id number]) OT Gross Range of Motion Upper Extremity Range of Motion ROM Impairments grossly WFL OT Strength Upper Extremity Strength Assessment Bilaterally Impaired OT- Coordination Assessment Comments Coordination Comments Pt scored at 75% for left hand and above 50% for right hand for 9 hole peg test. OT-Muscle Tone Assessment Muscle Tone WNL Yes M9 OT- IP Assessment and Plan Start: 12/27/21 17:05 Freq: Status: Active Protocol: Document 12/27/21 10:30 [facility] (Rec: 12/27/21 17:24 [facility] [id number]) OT Summary Assessment and Plan Potential Rehabilitation Potential Good Analytic Complexity at Evaluation Low Summary OT Impairments Pain,Range of Motion,Balance, Functional Cognition, Functional Mobility,Dressing, Toileting,Bathing,Activity Tolerance Progress Towards Goals Progressing Toward Goals Assessment Summary Pt low complexity and main barriers are decreased executive thinking, a little unsteady on her feet, and at this time would be best to have 24/7 available assist to help her with medications, finances, and driving needs. Pt now considering going to stay with her daughter in [place]. Goals Self-Feeding Goal Independent Grooming Goal Independent Dressing Goal Independent Toileting Goal Independent Bathing Goal Independent Toilet Transfer Goal Independent Shower Transfer Goal Independent Days to Meet Goals 5 Frequency of Treatment Frequency Of Treatment Once a Day Treatment Plan OT Treatment Plan ADL Training,Functional Cognition Training,Functional Mobility,Patient/Family Education,Discharge Planning Discharge Recommendations OT Discharge Recommendations Home with 24/7 Assist Available,Home Health Home Equipment Needs shower chair Transportation Needs at Discharge Private Vehicle
--- NOTE | 2021-12-27 11:41 | PT.IIE ---
Surgical History (Last Reviewed 12/26/21 @ 21:50 by Joni Ray MD) Anesthesia History of ulcer disease (~2006) Medical History (Last Reviewed 12/26/21 @ 21:50 by Joni Ray MD) Allergies Anemia Ankylosing spondylitis Asthma Carpal tunnel syndrome Chicken pox Cough Depression Dermatitis Difficulty swallowing liquids Endometriosis (~1984) Esophageal bleeding (~2007) Fractures (~2018) Gastric ulcer (~2000) GI bleeding (~2007) Headache Heavy menstrual period (~1984) History of depression History of TIA (transient ischemic attack) (~2017) Hyperlipidemia (~1962) Keratoacanthoma (~2012) Lichen sclerosus Osteoarthritis Skin cancer (~2000) Stress incontinence of urine Subarachnoid hemorrhage Physical Therapy Inpatient Evaluation/Re-Eval M1 PT/OT-IP Prior Functional Status Start: 12/27/21 12:37 Freq: NEEDED Status: Active Protocol: Document 12/27/21 11:41 AB (Rec: 12/27/21 12:53 AB [id number]) Medical Review Prior Functional Status Medical History Reviewed Yes Communication able to make needs known Mobility and Gait pt stated that she is independent with all mobilities and ambulation without AD. pt stated that she is very active and walks ~ 3 miles a day. 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 also stated aura like vision prior to falling Social History Household Members none Living Arrangements House Number of Floors (Floors) Two Floors Number of Stairs To Enter/Railing? pt stays on main level of the house 2 steps without rails to enterwith R side wall Home Environment Standard Height Toilet,Walk in Shower,Built-In Shower Seat Home Equipment Hand Held Shower Employment Status Retired M2 PT-IP Current Condition Start: 12/27/21 12:37 Freq: NEEDED Status: Active Protocol: Document 12/27/21 11:41 AB (Rec: 12/27/21 12:53 AB [id number]) Physical Therapy Current Condition Current Condition Evaluation Date 12/27/21 Treatment Diagnosis TIA; difficulty in walking Onset Date 12/26/20 M3 PT-IP Subjective Start: 12/27/21 12:37 Freq: NEEDED Status: Active Protocol: Document 12/27/21 11:41 AB (Rec: 12/27/21 12:53 AB [id number]) Subjective Physical Therapy Visit Type Type Initial Evaluation Visit Start Time 11:41 Visit Stop Time 12:25 Total Visit Minutes 44 Number of LIBRARY ATTENDANT Visits 0 Physical Therapy Visit Comments Patient Comments agreeable to do PT Therapy Pain Assessment Pain When Pain Assessed At Rest Pain Present Pain Present Pain Reported Location Lower Back Intensity 4 Scale Used Numeric (0 - 10) Pain Management Techniques Modification of Treatment,Re- positioning M4 PT-IP Mobility and Gait Start: 12/27/21 12:37 Freq: NEEDED Status: Active Protocol: Document 12/27/21 11:41 AB (Rec: 12/27/21 12:53 [id number]) PT-Bed Mobility Assessment Rolling Type of Rolling Log Rolling Level of Assist Standby Assistance Supine to Sit Supine to Sit Standby Assistance Sit to Supine Sit to Supine Standby Assistance PT-Transfer Assessment Sit to and From Stand Sit to and from Stand Standby Assistance,1 Person Assistance Equipment Transfer Assistive Device None,Gait Belt Orthotic/Prosthetic Devices or Brace: No Transfers Transfer Destination Bed,Chair Transfer Technique ambulated Transfer Ability Level of Assist Standby Assistance,Contact Guard Assistance Comments Mobility Comments pt sitting on chair and agreed to do PT. BP in sittin /69. completed sit to stand SBA and able to stand without AD CGA. BP in standin/50 . pt able to tolerate a few more minutes of standing and BP checked again: 119/46. ambulated in room without AD initial CGA but SBA after a few feet of walking. completed ~ 50 ft. sat on EOB. BP checked: 125/56. completed bed mobility SBA. educated pt on safety, pacing and pausing in between change in position (supine to sit to stand). pt understood. pt completed step transfer to chair without AD SBA. rested. agreed to do steps. completed up/down step stool touching R wall for balance and completed min A and cues. pt educated on stair cliimbing techniques. completed again and completed CGA. pt sat back on chair. positioned on chair. set up for lunch. call light within reach. Gait Assessment Gait Gait Assistance Required: Standby Assistance,Contact Guard Assist Distance (Feet) 50 Able to Maintain Weight Bearing Status Yes During Gait Assistive Devices Assistive Device None,Gait Belt Orthotic/Prosthetic Devices or Brace: No Gait Deviations General Gait Pattern Decreased Stride Length, Decreased Feet Clearance Factors Limiting Gait Function Factors Limiting Gait Function Decreased Activity Tolerance, Pain Stair Climbing Assessment Evaluation Level of Assist On Stairs Contact Guard Assistance, Minimal Assistance Technique/Endurance Stair Climbing Direction Ascend and Descend Stair Climbing Technique Step to Step Number of Steps Climbed 1 Query Text: Stair Climbing Set # Repetitions (reps) 3 PT-Balance Assessment Sitting Balance and Reactions Static Sitting Balance Ability Normal Dynamic Sitting Balance Ability Normal Standing Balance and Reactions Static Standing Balance Ability Good Dynamic Standing Balance Ability Good Device Used without AD M5 PT-IP Objective Assessments Start: 12/27/21 12:37 Freq: NEEDED Status: Active Protocol: Document 12/27/21 11:41 AB (Rec: 12/27/21 12:53 AB [id number]) Orientation Orientation/Cognition Level of Alertness Alert Orientation Name,Age,Birthday,Month,Date, Year,Day of Week,Place, Situation Language Function Ability No Deficits Noted Safety Awareness Understands Safety Issues Memory Description No Deficits Noted Gross Range of Motion Lower Extremity ROM Assessment Within Functional Limits Strength Lower Extremity Strength Assessment Within Functional Limits Sensation Assessment Sensation Gross Sensation WNL Muscle Tone Muscle Tone WNL Yes M6 PT-IP Treatment Start: 12/27/21 12:37 Freq: NEEDED Status: Active Protocol: Document 12/27/21 11:41 AB (Rec: 12/27/21 12:53 AB [id number]) Physical Therapy Treatment Education Education Provided Safety M7 PT-IP Assessment and Plan Start: 12/27/21 12:37 Freq: NEEDED Status: Active Protocol: Document 12/27/21 11:41 AB (Rec: 12/27/21 12:[email or web address] [facility] PT Summary Assessment and Plan Potential Rehabilitation Potential Good Status of Condition at Evaluation Stable Summary Impairments Transfers,Gait,Activity Tolerance Assessment Summary pt requiring SBA with mobility without AD. presents with decrease activity tolerance and c/o low back pain with recent GLF. Pt lives alone and educated on safety and pacing self. also recommending life alert. pt understood and agreed. Goals Bed Mobility Goal Independent Transfer Goal Independent Gait Goal Independent Gait Distance 200 Other Goals up/down 2 steps without rails mod I Days to Meet Goals 5 Frequency of Treatment Frequency Of Treatment Once a Day Treatment Plan Physical Therapy Treatment Plan Bed Mobility Training,Transfer Training,Gait Training, Therapeutic Exercise,Balance Retraining,Discharge Planning, Hot or Cold Pack,Neuromuscular Re-ed,Coordination Retraining Recommendations To Nursing Amount of Assist Needed 1 Person Assist Discharge Recommendations PT Discharge Recommendations Home with Assistance Transportation Needs at Discharge Private Vehicle
--- NOTE | 2021-12-27 12:25 | PM.DS.1 ---
History of Present Illness History of Present Illness Chief complaint: falls, thinks she has had strokes Narrative: Ms. Busch is an 81W with PMH lacunar CVA, ICH, ankylosing spondylitis, history of TIA who presents with multiple falls and leg weakness. She says she used to be on aspirin but this has been stopped due to an episode of ICH one year ago. She has also taken atorvastatin and pravastatin in the past but had muscle weakness secondary to this. She has noticed increasingly frequent auras, which she has seen neurology for, and been diagnosed with migraine with aura. In the past she has not had other symptoms of headaches, or focal deficits with her auras. Yesterday she noted having aura and had along with this what felt to be right sided leg weakness. Her symptoms have all resolved. After her ICH, she has had speech difficulty, but but has not noted any changes in the last day. She has no blurry vision, headaches, new swallowing difficulties, no new sensory deficits. No chest pain, palpitations, shortness of breath, fevers/chills. In the ED workup was done, vitals notable for blood pressure being slightly elevated 145/64. NIH 0. Labs notable for WBC 5.7, hgb 12.8, plts 196, INR 1.0, creatinine 0.74. Cholesterol 212, LDL 131. UA negative. CT head with no acute process. MRI with no acute process with MRA showing no large vessel thrombus/occlusion. She was admitted for further treatment. Family history: Brother with MS Written by admitting provider. Discharge Providers Provider Date of admission: 12/26/21 20:29 Discharge Date: 12/27/21 Primary care physician: Justin Arevalo MD Consults: 12/26/21 20:34 Consult to Discharge Planning Routine Comment: Consult to Occupational Therapy Evaluate & Treat Comment: Physician Instructions: Evaluate and treat Consult to Physical Therapy Evaluate & Treat Comment: Physician Instructions: Evaluate and Treat Consult to Speech Therapy Evaluate & Treat Comment: Physician Instructions: Evaluate and treat Discharge provider: Hillary Ugalde MD Summary Hospital Course Discharge Diagnosis: Ms. Busch is an 81W with a hx of ICH, lacunar CVA, migraine with auras, ankylosing spondilitis who was admitted with transient neurologic changes with right leg weakness. 1. Right leg weakness, likely due to complex migraine - CT head and MRI head with no acute process - Most likely etiology is complex migraine, but possibly a TIA as well - Holding aspirin given recent hx of ICH, and holding statin due to hx of myalgias - Echocardiogram fairly unremarkable, with negative PFO 2. Ankylosing spondilitis - Contiue methotrexate as outpatient 3. History of GI bleeding - Continue home PPI 4. Depression - Continue home venlafaxine Exam Vital Signs (past 8 hours): - 12/27/21 05:37 12/27/21 09:11 12/27/21 09:44 Temperature 97.1 F L 97.7 F Pulse Rate 57 L 74 Respiratory Rate 16 15 Blood Pressure 122/52 L 143/62 H Pulse Oximetry 96 96 96 12/27/21 10:00 Temperature Pulse Rate Respiratory Rate Blood Pressure Pulse Oximetry 96 Oxygen Delivery Method Room Air Oxygen Flow Rate 0 Objective Labs Result Diagrams: 12/26/21 16:20 Labs: Laboratory Results - last 24 hr 12/26/21 12/26/21 12/26/21 16:20 16:20 16:20 WBC 5.7 RBC 4.29 Hgb 12.8 Hct 38.5 MCV 89.8 MCH 29.8 MCHC 33.1 RDW 14.2 Plt Count 196 Neut % (Auto) 68.1 Lymph % (Auto) 19.4 L [place] % (Auto) 9.5 Eos % (Auto) 2.3 Baso % (Auto) 0.7 Neut # (Auto) 3900 Lymph # (Auto) 1100 [place] # (Auto) 500 Eos # (Auto) 100 Baso # (Auto) 0 PT 11.3 INR 1.0 APTT 29 Hemoglobin A1c Urine RBC Urine WBC Ur Squamous Epith Cells Urine Bacteria Ur Culture Indicated? SARS-CoV-2 (PCR) Negative 12/26/21 12/26/21 16:20 16:45 WBC RBC Hgb Hct MCV MCH MCHC RDW Plt Count Neut % (Auto) Lymph % (Auto) [place] % (Auto) Eos % (Auto) Baso % (Auto) Neut # (Auto) Lymph # (Auto) [place] # (Auto) Eos # (Auto) Baso # (Auto) PT INR APTT Hemoglobin A1c 5.3 Urine RBC None seen Urine WBC None seen Ur Squamous Epith Cells 0-1 /hpf Urine Bacteria None seen Ur Culture Indicated? Cult not indicated SARS-CoV-2 (PCR) [facility] Medical History Allergies Anemia Ankylosing spondylitis Asthma Carpal tunnel syndrome Chicken pox Cough Depression Dermatitis Difficulty swallowing liquids Endometriosis (~1984) Esophageal bleeding (~2007) Fractures (~2018) Gastric ulcer (~2000) GI bleeding (~2007) Headache Heavy menstrual period (~1984) History of depression History of TIA (transient ischemic attack) (~2017) Hyperlipidemia (~1962) Keratoacanthoma (~2012) Lichen sclerosus Osteoarthritis Skin cancer (~2000) Stress incontinence of urine Subarachnoid hemorrhage Surgical History Anesthesia History of ulcer disease (~2006) History of umbilical hernia repair Status post appendectomy Status post bilateral hip replacements (~2001) Status post hysterectomy (~1985) Family History Father Skin cancer Mother Diabetes mellitus History of heart disease Hyperlipidemia Brother Diabetes mellitus Hyperlipidemia Grandfather Diabetes mellitus Social History household members: none Smoking Status: Never smoker second hand exposure: Yes (only in public places and I was when I was a child.) alcohol intake: former substance use type: does not use Discharge Assessment & Plan Assessment and Plan Assessment: Ms. Busch is an 81W with a hx of ICH, lacunar CVA, migraine with auras, ankylosing spondilitis who was admitted with transient neurologic changes with right leg weakness. 1. Right leg weakness, likely due to complex migraine - CT head and MRI head with no acute process - Most likely etiology is complex migraine, but possibly a TIA as well - Holding aspirin given recent hx of ICH, and holding statin due to hx of myalgias - Echocardiogram fairly unremarkable, with negative PFO 2. Ankylosing spondilitis - Contiue methotrexate as outpatient 3. History of GI bleeding - Continue home PPI 4. Depression - Continue home venlafaxine Discharge Plan Discharge Plan Patient Disposition: Home Discharge orders & Medications Prescriptions: Continued folic acid 400 mcg tablet 0.4 mg PO BEDTIME 0RF methotrexate sodium 2.5 mg tablet 10 mg PO QWEEK 0RF pantoprazole 40 mg tablet,delayed release (DR/EC) 40 mg PO BEDTIME 0RF Label Comments: TAKE ONE TABLET BY MOUTH ONE TIME DAILY celecoxib [Celebrex] 200 mg capsule 200 mg PO BEDTIME 0RF venlafaxine 150 mg tablet extended release 24 hr 150 mg PO BEDTIME 0RF Follow up/Referrals: Justin Arevalo MD [Primary Care Provider] - Discharge Data Primary Care Provider: Justin Arevalo Attending Provider: Joni Ray
[2021-12-27 13:00] VITALS: RESP 18
--- NOTE | 2021-12-27 13:27 | PC.NURSE ---
Pt denies any discomfort . Had x-rays of spine ECHO completed Orders for D/C received. Tele & SL discontinued intact. Home instructions given w/understanding. Pt escorted by staff via W/C to private vehicle per MD RUIZ.
== END 2021-12-27 13:06 | disposition home or self-care (01) ==
LOC: ED 18:21 → AC 20:30
PROVIDERS: Admitting Provider Internal Medicine; Emergency Provider Emergency Medicine; PCP Family Medicine; Referring Provider Emergency Medicine; Visit Provider Internal Medicine
DX: R42 Dizziness and giddiness (principal); R53.1 Weakness; W18.39XA Other fall on same level, initial encounter; G43.109 Migraine with aura, not intractable, without status migrainosus; Z91.81 History of falling; R29.700 NIHSS score 0; Z86.73 Personal history of transient ischemic attack (TIA), and cerebral infarction without residual deficits; M45.9 Ankylosing spondylitis of unspecified sites in spine; F32.9 Major depressive disorder, single episode, unspecified; Z20.822 Contact with and (suspected) exposure to COVID-19; E55.9 Vitamin D deficiency, unspecified; E78.5 Hyperlipidemia, unspecified; I10 Essential (primary) hypertension
CPT/HCPCS: 36415; 70450; 70548; 70553; 72040; 72070; 72100; 80053; 80061; 81003; 81015; 82306; 82962; 83036; 85025; 85610; 85730; 87635; 93005; 93306; 94760; 97116; 97161; 97165; 97530; 99285; C9803; G0378; A9579

== ENCOUNTER → 2021-12-31 13:48 | Outpatient (CLI) | payer MEDICARE, SELFPAY ==
[2021-12-26 20:41] VITALS: BMI 25.0
[2021-12-31 14:55] LABS: COVID19 -Nasal RAPID Negative (Negative)
== END ==
PROVIDERS: PCP Family Medicine; Visit Provider Family Medicine Sleep Medicine
DX: Z20.822 Contact with and (suspected) exposure to COVID-19 (principal)
CPT/HCPCS: 87635; C9803

== ENCOUNTER 2022-01-02 07:49 | Day surgery (SDC) | payer MEDICARE, SELFPAY ==
[2021-12-26 20:41] VITALS: BMI 25.0
[2022-01-02 08:08] VITALS: BP 132/73; PULSE 58; RESP 16; TEMP 36.2; O2SAT 100; BMI 25.0
[2022-01-02] MEDS: SODIUM CHLORIDE 0.9% 1,000 ML 84 ML IV (08:18)
--- NOTE | 2022-01-02 08:25 | PM.HP.1 ---
History of Present Illness History of Present Illness Date Patient Seen: 01/02/22 Chief complaint: SDC Narrative: History of severe esophagitis now on medications for 12 weeks need to check for complete healing. Patient History Medical History Allergies Anemia Ankylosing spondylitis Asthma Carpal tunnel syndrome Chicken pox Cough Depression Dermatitis Difficulty swallowing liquids Endometriosis (~1984) Esophageal bleeding (~2007) Fractures (~2018) Gastric ulcer (~2000) GI bleeding (~2007) Headache Heavy menstrual period (~1984) History of depression History of TIA (transient ischemic attack) (~2017) Hyperlipidemia (~1962) Keratoacanthoma (~2012) Lichen sclerosus Osteoarthritis Skin cancer (~2000) Stress incontinence of urine Subarachnoid hemorrhage Surgical History Anesthesia History of ulcer disease (~2006) History of umbilical hernia repair Status post appendectomy Status post bilateral hip replacements (~2001) Status post hysterectomy (~1985) Family & Social History Family History Father Skin cancer Mother Diabetes mellitus History of heart disease Hyperlipidemia Brother Diabetes mellitus Hyperlipidemia Grandfather Diabetes mellitus Social History: household members none Tobacco & Substance use: Smoking Status Never smoker alcohol intake current alcohol intake frequency holiday/special occasion Substance Use Type does not use Meds Home Medications and Allergies Home Medications Medication Instructions Recorded Confirmed Type folic acid 400 mcg tablet 0.4 mg PO BEDTIME 09/19/21 01/02/22 History methotrexate sodium 2.5 mg tablet 10 mg PO QWEEK tab 09/19/21 01/02/22 History celecoxib 200 mg capsule (Celebrex) 200 mg PO BEDTIME 12/26/21 01/02/22 History pantoprazole 40 mg tablet,delayed 40 mg PO BEDTIME 12/26/21 01/02/22 History release venlafaxine 150 mg tablet,extended 150 mg PO BEDTIME 12/26/21 01/02/22 History release 24 hr Allergies Allergy/AdvReac Type Severity Reaction Status Date / Time ciprofloxacin [From Cipro] Allergy Severe Severe Verified 10/11/21 10:24 diarrhea cyclobenzaprine Allergy Severe I Verified 10/11/21 10:24 couldn't get out of bed for days Iodine and Iodide Containing Allergy Mild Hives Verified 10/11/21 10:24 Produc hydrocodone Allergy Unknown Patient Verified 10/11/21 10:24 can't remember oxycodone Allergy Unknown Patient Verified 10/11/21 10:24 can't remember alendronate sodium AdvReac Severe Esophageal Verified 10/11/21 10:24 [From Fosamax] ulcer and severe bleeding amoxicillin [From Augmentin] AdvReac Severe Severe Verified 10/11/21 10:24 diarrhea clavulanic acid AdvReac Severe Severe Verified 10/11/21 10:24 [From Augmentin] diarrhea risedronate sodium AdvReac Severe esophageal Verified 10/11/21 10:24 [From Actonel] ulcer and severe bleeding sulfamethoxazole AdvReac Verified 10/11/21 10:24 [From Bactrim] trimethoprim [From Bactrim] AdvReac Verified 10/11/21 10:24 Exam Vital Signs (past 8 hours): - 01/02/22 08:08 Temperature 97.1 F L Pulse Rate 58 L Respiratory Rate 16 Blood Pressure 132/73 Pulse Oximetry 100 Oxygen Delivery Method Room Air Narrative Exam Narrative: Oropharynx free of lesions Chest clear to auscultation percussion Cardiac exam reveals no S3 or murmur Assessment & Plan Assessment & Plan narrative: History of severe esophagitis need to check for complete healing. Risks, benefits, alternatives have been explained for EGD. Further recommendations for medication adjustment will follow-up results of the study. Time Spent With Patient Critical Care time: I spent a total of [] minutes of critical care time on this patient's care today; this time is exclusive of procedural time.
--- NOTE | 2022-01-02 08:27 | PM.OP.EGD ---
Operative Date/Time/Diagnoses Date of procedure: 01/02/22 Pre-op diagnosis: See indication and findings Procedure & Clinicians Study performed: EGD Indications: Severe esophagitis to check for complete healing Surgeon: Dave Hatfield Procedure Notes Procedure in detail: After informed consent was obtained the patient was placed in left lateral decubitus position. The video upper scope placed into the oropharynx and with the patient's help swelled into the esophagus. The esophagus stomach and duodenum were carefully examined. On withdrawal, retroflexed view the GE junction was performed. The scope was removed. The patient tolerated procedure well. Blood loss none Complications none Sedation mac Findings 1. Severe esophagitis grade C to D beginning at 33 cm to 35 cm. There were hence of erythema and possible early erosions between 31 and 33 cm. 2. 3 cm hiatal hernia from 35-38 cm 3. Striped gastric erythema previously biopsied in the antrum 4. Normal duodenal bulb and sweep Karen is a on a in just pantoprazole once per day. This is made apparently no difference at all it and her esophageal endoscopic findings. I suggest we increase her pantoprazole to 40 mg b.i.d. and take famotidine 40 mg p.o. q.h.s.. We then should repeat another upper endoscopy in 8-12 weeks.
[2022-01-02 09:25] VITALS: BP 100/49; PULSE 70; RESP 16; TEMP 36.6; O2SAT 97
[2022-01-02 09:30] VITALS: BP 103/46; PULSE 70; RESP 14
[2022-01-02 09:35] VITALS: BP 138/78; PULSE 70; RESP 16; O2SAT 97
[2022-01-02 09:40] VITALS: BP 138/74; PULSE 70; RESP 16; O2SAT 97
[2022-01-02 09:45] VITALS: BP 101/59; PULSE 70; RESP 16; TEMP 36.6; O2SAT 97
== END 2022-01-02 09:56 | disposition home or self-care (01) ==
PROVIDERS: PCP Family Medicine; Referring Provider Internal Medicine Gastroenterology; Visit Provider Internal Medicine Gastroenterology
PROC: 0DJ08ZZ Inspection of Upper Intestinal Tract, Via Natural or Artificial Opening Endoscopic (ICD-10-PCS; CPT 43235; principal; 2022-01-02 09:00)
DX: K20.80 Other esophagitis without bleeding (principal); K44.9 Diaphragmatic hernia without obstruction or gangrene
CPT/HCPCS: 43235; J2704

== ENCOUNTER 2022-01-03 09:50 | Emergency (ER) | payer MEDICARE, SELFPAY ==
[2021-12-26 20:41] VITALS: BMI 25.0
[2022-01-03 10:13] VITALS: BP 117/56; PULSE 76; RESP 18; TEMP 36.6; O2SAT 98; BMI 207.9
[2022-01-03 10:53] LABS: Add Manual Diff / Slide Review NO; Basophils Absolute Auto 0 /uL (0-100); Basophils Percent Auto 0.9 % (0-2); Eosinophils Absolute Auto 100 /uL (0-450); Eosinophils Percent Auto 2.6 % (2-4); Hematocrit 38.3 % (36-46); Hemoglobin 13.3 g/dL (12.0-16.0); Lymphocytes Absolute Auto 900 /uL (1100-4500); Lymphocytes Percent Auto 18.5 % (25-40); Mean Corpuscular HGB Conc 34.7 % (30-36); Mean Corpuscular Hemoglobin 30.6 PG (26-34); Mean Corpuscular Volume 88.2 fL (80-100); Monocytes Absolute Auto 400 /uL (0-900); Monocytes Percent Auto 7.9 % (3-14); Neutrophils Absolute Auto 3400 /uL (1500-7000); Neutrophils Percent Auto 70.1 % (50-75); Platelet Count 198 X10^3/uL (150-400); Red Blood Cell Count 4.35 X10^6/uL (4.0-5.2); Red Cell Distribution Width 14.1 % (11.6-14.8); White Blood Cell Count 4.8 X10^3/uL (4.5-11.0)
--- NOTE | 2022-01-03 11:01 | ED.ABDPAIN ---
HPI - Abdominal Pain General Chief Complaint: Abdominal Pain Stated Complaint: Has not had a bowel movement in a week Time Seen by Provider: 01/03/22 11:01 Source: patient Mode of arrival: Ambulatory History of Present Illness HPI narrative: Patient is a yaritza 81-year-old female with history of SAH, hypertension, depression, recent TIA presenting today with abdominal pain. She says she has not had a bowel movement in over 5 days she has taken MiraLax and saline enemas at home without any relief. She feels nauseous and has a decrease in appetite. She has not had any fever or chills. She denies any chest pain. She was admitted December 26 for TIA and discharged the following day. She has not had any fall since then. She denies any new medication Related Data Home Medications Medication Instructions Recorded Confirmed folic acid 400 mcg tablet 0.4 mg PO BEDTIME 09/19/21 01/02/22 methotrexate sodium 2.5 mg tablet 10 mg PO QWEEK tab 09/19/21 01/02/22 celecoxib 200 mg capsule (Celebrex) 200 mg PO BEDTIME 12/26/21 01/02/22 pantoprazole 40 mg tablet,delayed 40 mg PO BEDTIME 12/26/21 01/02/22 release venlafaxine 150 mg tablet,extended 150 mg PO BEDTIME 12/26/21 01/02/22 release 24 hr Previous Rx's Medication Instructions Recorded lactulose 10 gram/15 mL oral 10 g (15 mL) PO DAILY PRN #237 ml 01/03/22 solution Allergies Allergy/AdvReac Type Severity Reaction Status Date / Time ciprofloxacin [From Cipro] Allergy Severe Severe Verified 10/11/21 10:24 diarrhea cyclobenzaprine Allergy Severe I Verified 10/11/21 10:24 couldn't get out of bed for days Iodine and Iodide Containing Allergy Mild Hives Verified 10/11/21 10:24 Produc hydrocodone Allergy Unknown Patient Verified 10/11/21 10:24 can't remember oxycodone Allergy Unknown Patient Verified 10/11/21 10:24 can't remember alendronate sodium AdvReac Severe Esophageal Verified 10/11/21 10:24 [From Fosamax] ulcer and severe bleeding amoxicillin [From Augmentin] AdvReac Severe Severe Verified 10/11/21 10:24 diarrhea clavulanic acid AdvReac Severe Severe Verified 10/11/21 10:24 [From Augmentin] diarrhea risedronate sodium AdvReac Severe esophageal Verified 10/11/21 10:24 [From Actonel] ulcer and severe bleeding sulfamethoxazole AdvReac Verified 10/11/21 10:24 [From Bactrim] trimethoprim [From Bactrim] AdvReac Verified 10/11/21 10:24 Review of Systems Review of Systems Narrative: GENERAL: Denies chills, fatigue, malaise, fever, sweats, travel HEENT: Denies sinus pain, ear pain, sore throat, difficulty swallowing, neck pain RESPIRATORY: Denies dyspnea, cough, wheezing, hemoptysis, sputum. CARDIOVASCULAR: Denies chest pain, palpitations, orthopnea, edema GASTROINTESTINAL: See HPI : Denies dysuria, frequency, incontinence, hematuria, urinary retention, flank pain. MUSCULOSKELETAL: Denies weakness, joint pain, or bony pain SKIN: No rash, no erythema, no pruritus NEUROLOGIC: Denies weakness, dizziness, headache, numbness, change in speech, confusion PSYCHIATRIC: No concerning psychosocial issues. 12 point review of systems is negative except for those stated above and HPI Patient History Medical History Allergies Anemia Ankylosing spondylitis Asthma Carpal tunnel syndrome Chicken pox Cough Depression Dermatitis Difficulty swallowing liquids Endometriosis (~1984) Esophageal bleeding (~2007) Fractures (~2018) Gastric ulcer (~2000) GI bleeding (~2007) Headache Heavy menstrual period (~1984) History of depression History of TIA (transient ischemic attack) (~2017) Hyperlipidemia (~1962) Keratoacanthoma (~2012) Lichen sclerosus Osteoarthritis Skin cancer (~2000) Stress incontinence of urine Subarachnoid hemorrhage Surgical History Anesthesia History of ulcer disease (~2006) History of umbilical hernia repair Status post appendectomy Status post bilateral hip replacements (~2001) Status post hysterectomy (~1985) Family History Father Skin cancer Mother Diabetes mellitus History of heart disease Hyperlipidemia Brother Diabetes mellitus Hyperlipidemia Grandfather Diabetes mellitus Social History household members: none Smoking Status: Never smoker second hand exposure: Yes (only in public places and I was when I was a child.) alcohol intake: current substance use type: does not use Smoking Status: Never smoker alcohol intake frequency: holidays/special occasions only Substance Use Type: does not use Exam Initial Vital Signs Initial Vital Signs: Vital Signs Temperature 97.9 F 01/03/22 10:13 Pulse Rate 76 01/03/22 10:13 Respiratory Rate 18 01/03/22 10:13 Blood Pressure 117/56 L 01/03/22 10:13 Pulse Oximetry 98 01/03/22 10:13 GENERAL: Alert pleasant 81-year-old female HEENT: Head atraumatic,EOMI, pupils reactive, face symmetric, moist mucous membranes CARDIOVASCULAR: Regular rate and rhythm without murmurs, rubs or gallops. RESPIRATORY: Breath sounds equal bilaterally, no wheezes rales or rhonchi. ABDOMEN: Soft, nontender. Some mild periumbilical pain no distension no guarding no rebound EXTREMITIES: Normal range of motion, no clubbing or edema. Neurovascularly intact NEUROLOGICAL: Alert and oriented x4.Normal gait and speech. SKIN: Warm, dry, no laceration, no petechiae, no rashes or lesions. Course Orders Ordered: ED Orders 01/03/22 10:19 EKG-12 Lead Stat 01/03/22 10:46 Alpha Fetoprotein Stat CEA [Carcinoembryonic Antigen] Stat Complete Blood Count AUTO DIFF Stat Comprehensive Metabolic Panel Stat Lipase Stat 01/03/22 11:25 CT abdomen pelvis w con Stat Vital Signs Vital signs: Vital Signs - 8 hr 01/03/22 11:55 01/03/22 11:58 01/03/22 12:00 Pulse Rate 72 71 70 Respiratory Rate 21 24 Blood Pressure 142/65 H 133/60 Pulse Oximetry 98 99 01/03/22 12:30 Pulse Rate 70 Respiratory Rate 24 Blood Pressure 152/67 H Pulse Oximetry 96 MDM - Abdominal Pain Lab Data Result diagrams: 01/03/22 10:46 01/03/22 10:46 Labs: Lab Results 01/03/22 01/03/22 01/03/22 Range/Units 10:46 10:46 10:46 WBC 4.8 (4.5-11.0) X10^3/uL RBC 4.35 (4.0-5.2) X10^6/uL Hgb 13.3 (12.0-16.0) g/dL Hct 38.3 (36-46) % MCV 88.2 (80-100) fL MCH 30.6 (26-34) PG MCHC 34.7 (30-36) % RDW 14.1 (11.6-14.8) % Plt Count 198 (150-400) X10^3/uL Neut % (Auto) 70.1 (50-75) % Lymph % (Auto) 18.5 L (25-40) % [place] % (Auto) 7.9 (3-14) % Eos % (Auto) 2.6 (2-4) % Baso % (Auto) 0.9 (0-2) % Neut # (Auto) 3400 (2620-0708) /uL Lymph # (Auto) 900 L (0646-1438) /uL [place] # (Auto) 400 (0-900) /uL Eos # (Auto) 100 (0-450) /uL Baso # (Auto) 0 (0-100) /uL Sodium 137 (137-145) mmol/L Potassium 4.4 (3.4-5.1) mmol/L Chloride 106 (98-107) mmol/L Carbon Dioxide 24 (22-32) mmol/L BUN 11 (7-17) mg/dL Creatinine 0.64 (0.52-1.04) mg/dL Estimated GFR > 60.0 (>60) mL/min BUN/Creatinine Ratio 17.2 (6-22) Glucose 89 (80-110) mg/dL Calcium 8.8 (8.4-10.2) mg/dL Total Bilirubin 0.6 (0.2-1.3) mg/dL AST 24 (14-36) IU/L ALT 16 (<35) IU/L Alkaline Phosphatase 73 (38-126) U/L Total Protein 7.2 (6.3-8.2) g/dL Albumin 4.2 (3.5-5.0) g/dL Globulin 3.0 (1.7-4.1) g/dL Albumin/Globulin Ratio 1.4 (1.0-2.8) Lipase 37 (23-300) U/L Carcinoembryonic Ag 1.0 (0.1-3.0) ng/mL Point of care testing: Urine Dip Bedside Urine Glucose Negative Bedside Urine Bilirubin - Negative Bedside Urine Ketone - Negative Urine Specific [place] 1.010 Bedside Urine Occult Blood - Negative Bedside Urine pH 6.5 Bedside Urine Protein - Negative Bedside Urine Urobilinogen +/- 1mg Bedside Urine Nitrite - Negative Bedside Urine Leukocytes - Negative Esterase Imaging Data CT scan - abdomen/pelvis: Radiologist's Impression: PROCEDURE:? CT ABDOMEN PELVIS W CON ? INDICATIONS:? pain no BM nausous ? TECHNIQUE:? After the administration of oral and intravenous contrast, axial sections were acquired from the lung bases to the pubic symphysis.? Coronal and sagittal reformats were performed.? For radiation dose reduction, the following was used:? automated exposure control, adjustment of mA and/or kV according to patient size.? ? COMPARISON:[facility], CR, XR LUMBAR SPINE 2-3V, 12/27/2021, 9:28. ? FINDINGS:? Image quality:? Excellent.? ? Lung bases:? Unremarkable.? ? Heart:? No significant findings. ? ? ABDOMEN: Liver:? The liver has innumerable tiny cysts, consistent with polycystic liver.? Cannot exclude an ill-defined infiltrative mass at the hepatic dome along segment 7 of the posterior segment of the right lobe of the liver.? This area measures approximately 3.5 cm.? Reference image 13/2, image 30/5, and image 57/6.? ? Gallbladder:? Unremarkable. Biliary ducts:? Unremarkable.? ? Pancreas:? Unremarkable.? ? Spleen:? Normal size.? Calcified splenic granulomata. Adrenal Glands:? Unremarkable.? ? Kidneys and Ureters:? Unremarkable.? ? ? Stomach and Bowel:? Stomach, small bowel loops, and colon are unremarkable.? Large fecal load.? Sigmoid diverticulosis. Peritoneum:? No abnormal intraperitoneal fluid.? No free air.? ? Ventral Wall: ? No hernia.? Abdominal Nodes:? No retroperitoneal or mesenteric adenopathy by size criteria.? Vessels:? Aorta and inferior vena cava are normal in size.? ? PELVIS: Pelvic Organs:? Unremarkable.? ? Bladder:? Unremarkable.? ? Pelvic Nodes: No enlarged lymph nodes.? Miscellaneous: No inguinal hernias are seen. ? ? ? Bones:? Lumbar degenerative change.? No lytic or blastic bony lesions.? There is a mild superior endplate compression fracture of L1, which may potentially be subacute.? There is canal stenosis at L4-L5.? Bilateral total hip arthroplasties result in significant metallic artifact in the pelvis. ? IMPRESSION:? ? 1. Polycystic liver. ? 2. Cannot exclude a ill-defined infiltrative mass at the hepatic dome in segment 7 of the right lobe of the liver. ? 3. Large fecal load.? Sigmoid diverticulosis.? ? 4. A superior endplate compression fracture of L1 may potentially be subacute. ? Comment:? Recommend multiphase liver MRI to exclude a infiltrative right lobe liver mass. ?Consider lumbar spine MRI if clinically suspect a subacute symptomatic compression fracture of L1.? ? Dictated by: Valerio Salazar M.D. on 01/03/2022 at 11:46 ? ? MDM Narrative Medical decision making narrative: The patient initially complaining of constipation and no bowel movement over the last [address] does confirm large amount of fecal loading but does also show a a liver mass. Possible cancer. I did discuss with her primary care provider Dr. Arevalo, about the liver mass. He will be sure to have her follow up. Patient has tried multiple [id number] medications for constipation without any success. Will give her prescription for lactulose to use as an as needed basis. Discharge Plan Departure Patient Disposition: Home Clinical Impression: Constipation Instructions: DI for Constipation Activity Restrictions/Additional Instructions: *You have been diagnosed with constipation *What to do: At this time you do have constipation blood work is overall reassuring. I recommend that you increase vegetables fruits and water along with movement. Light walking will help move your bowels. You were also found to have a mass on your liver, please follow up with Dr. Arevalo for further evaluation *Continue to take medications as directed--> SENT TO [facility] [place] Lactulose 15 mL once a day to help with constipation. 1 to have a bowel movement you do not need to take any longer *Follow up with your primary care provider in 2-3 days or call [phone] *Return to ER if you should have [such as] [or] any new, worsening or concerning symptoms Prescriptions: New lactulose 10 gram/15 mL solution 10 g PO DAILY PRN (Reason: constipation) Qty: 237 0RF No Action folic acid 400 mcg tablet 0.4 mg PO BEDTIME 0RF methotrexate sodium 2.5 mg tablet 10 mg PO QWEEK 0RF pantoprazole 40 mg tablet,delayed release (DR/EC) 40 mg PO BEDTIME 0RF Label Comments: TAKE ONE TABLET BY MOUTH ONE TIME DAILY celecoxib [Celebrex] 200 mg capsule 200 mg PO BEDTIME 0RF venlafaxine 150 mg tablet extended release 24 hr 150 mg PO BEDTIME 0RF Referrals: Justin Arevalo MD [Primary Care Provider] -
[2022-01-03 11:05] LABS: Alanine Aminotransferase 16 IU/L (<35); Albumin 4.2 g/dL (3.5-5.0); Albumin Globulin Ratio 1.4 (1.0-2.8); Alkaline Phosphatase 73 U/L (38-126); Aspartate Aminotransferase 24 IU/L (14-36); BUN Creatinine Ratio 17.2 (6-22); Bilirubin Total 0.6 mg/dL (0.2-1.3); Blood Urea Nitrogen 11 mg/dL (7-17); Calcium 8.8 mg/dL (8.4-10.2); Carbon Dioxide 24 mmol/L (22-32); Chloride 106 mmol/L (98-107); Estimated Glomerular Filt Rate > 60.0 mL/min (>60); Glucose 89 mg/dL (80-110); HEMOLYSIS < 15 (0-50); Lipase 37 U/L (23-300); Potassium 4.4 mmol/L (3.4-5.1); Sodium 137 mmol/L (137-145); Total Protein 7.2 g/dL (6.3-8.2)
--- NOTE | 2022-01-03 11:25 | DI.CT.S_ITS ---
PROCEDURE: CT ABDOMEN PELVIS W CON INDICATIONS: pain no BM nausous TECHNIQUE: After the administration of oral and intravenous contrast, axial sections were acquired from the lung bases to the pubic symphysis. Coronal and sagittal reformats were performed. For radiation dose reduction, the following was used: automated exposure control, adjustment of mA and/or kV according to patient size. COMPARISON:[facility], CR, XR LUMBAR SPINE 2-3V, 12/27/2021, 9:28. FINDINGS: Image quality: Excellent. Lung bases: Unremarkable. Heart: No significant findings. ABDOMEN: Liver: The liver has innumerable tiny cysts, consistent with polycystic liver. Cannot exclude an ill-defined infiltrative mass at the hepatic dome along segment 7 of the posterior segment of the right lobe of the liver. This area measures approximately 3.5 cm. Reference image 13/2, image 30/5, and image 57/6. Gallbladder: Unremarkable. Biliary ducts: Unremarkable. Pancreas: Unremarkable. Spleen: Normal size. Calcified splenic granulomata. Adrenal Glands: Unremarkable. Kidneys and Ureters: Unremarkable. Stomach and Bowel: Stomach, small bowel loops, and colon are unremarkable. Large fecal load. Sigmoid diverticulosis. Peritoneum: No abnormal intraperitoneal fluid. No free air. Ventral Wall: No hernia. Abdominal Nodes: No retroperitoneal or mesenteric adenopathy by size criteria. Vessels: Aorta and inferior vena cava are normal in size. PELVIS: Pelvic Organs: Unremarkable. Bladder: Unremarkable. Pelvic Nodes: No enlarged lymph nodes. Miscellaneous: No inguinal hernias are seen. Bones: Lumbar degenerative change. No lytic or blastic bony lesions. There is a mild superior endplate compression fracture of L1, which may potentially be subacute. There is canal stenosis at L4-L5. Bilateral total hip arthroplasties result in significant metallic artifact in the pelvis. IMPRESSION: 1. Polycystic liver. 2. Cannot exclude a ill-defined infiltrative mass at the hepatic dome in segment 7 of the right lobe of the liver. 3. Large fecal load. Sigmoid diverticulosis. 4. A superior endplate compression fracture of L1 may potentially be subacute. Comment: Recommend multiphase liver MRI to exclude a infiltrative right lobe liver mass. Consider lumbar spine MRI if clinically suspect a subacute symptomatic compression fracture of L1. Dictated by: Valerio Salazar M.D. on 01/03/2022 at 11:46 Approved by: Valerio Salazar M.D. on 01/03/2022 at 11:59
[2022-01-03 11:55] VITALS: PULSE 72; RESP 21
[2022-01-03 11:58] VITALS: BP 142/65; PULSE 71; O2SAT 98
[2022-01-03 12:00] VITALS: BP 133/60; PULSE 70; RESP 24; O2SAT 99
[2022-01-03 12:30] VITALS: BP 152/67; PULSE 70; RESP 24; O2SAT 96
[2022-01-04 06:15] LABS: Alpha Fetoprotein 3.1 ng/mL (0.0-8.7)
== END 2022-01-03 13:08 | disposition home or self-care (01) ==
PROVIDERS: Emergency Provider Emergency Medicine; PCP Family Medicine
DX: K59.00 Constipation, unspecified (principal)
CPT/HCPCS: 36415; 74177; 80053; 81003; 82105; 82378; 83690; 85025; 99283; 99284

== ENCOUNTER → 2022-01-05 12:26 | Outpatient (CLI) | payer MEDICARE, SELFPAY ==
[2021-12-26 20:41] VITALS: BMI 25.0
--- NOTE | 2022-01-05 12:27 | DI.MRI.S_ITS ---
PROCEDURE: MR ABDOMEN WO/W CON INDICATIONS: liver mass TECHNIQUE: Coronal HASTE, axial 2D FLASH in- and [id number]; axial breath-hold T2 FSE. Dynamic axial VIBE during the administration of contrast; post-contrast coronal VIBE or 2D FLASH with fat saturation from the hepatic dome to the iliac crests. Optional diffusion weighted imaging and ADC may be performed. COMPARISON: [facility], CR, XR LUMBAR SPINE 2-3V, 12/27/2021, 9:28. [facility], CT, CT ABDOMEN PELVIS W CON, 01/03/2022, 11:28. FINDINGS: Image quality: Excellent. Lung bases: No basal pleural effusions. Heart size is normal. Solid organs: Liver is within normal limits in size. There are innumerable small T2 hyperintense hepatic cysts. No suspicious enhancement or restricted diffusion. There are a few larger hepatic cysts. A larger cyst in the right lobe of the liver measures 5.6 cm. A larger cyst in segment 4 measures 3.3 cm. Gallbladder is not distended. No gallstones seen. Biliary system is non dilated. Pancreas is normal in morphology. Spleen is normal in size and enhancement. No adrenal nodules. Both kidneys demonstrate normal size and enhancement, without hydronephrosis. No significant renal cysts. Nodes and vessels: No retroperitoneal or mesenteric adenopathy by size criteria. Aorta and inferior vena cava are normal in size. Bowel and peritoneum: Unenhanced bowel loops are normal in caliber. No free fluid. Bones and soft tissues: No ventral hernias. Mild scoliosis. Prior L1 compression fractures better seen on prior CT. No edema signal appreciated on the coronal T2 images. Bone marrow is normal in overall signal. IMPRESSION: 1. Innumerable small hepatic cysts. These could represent biliary hamartomas/[place] complexes. No suspicious enhancement or restricted diffusion to suggest underlying neoplasm. 2. Several additional benign hepatic cysts. Largest measuring 5.6 cm in the right lobe of the liver. 3. No biliary ductal dilatation. 4. No edema signal appreciated at the prior L1 compression fracture Dictated by: Adolph Mojica M.D. on 01/07/2022 at 8:19 Approved by: Adolph Mojica M.D. on 01/07/2022 at 8:31
== END ==
PROVIDERS: PCP Family Medicine; Referring Provider Family Medicine; Visit Provider Family Medicine
DX: K76.89 Other specified diseases of liver (principal); R16.0 Hepatomegaly, not elsewhere classified
CPT/HCPCS: 74183

== ENCOUNTER 2022-01-17 18:50 | Emergency (ER) | payer MEDICARE, SELFPAY ==
[2021-12-26 20:41] VITALS: BMI 25.0
[2022-01-17 18:59] VITALS: BP 155/68; PULSE 79; RESP 16; TEMP 36; O2SAT 97; BMI 25.7
[2022-01-17 19:36] LABS: Add Manual Diff / Slide Review NO; Basophils Absolute Auto 100 /uL (0-100); Eosinophils Absolute Auto 200 /uL (0-450); Eosinophils Percent Auto 4.6 % (2-4); Hematocrit 39.1 % (36-46); Hemoglobin 13.3 g/dL (12.0-16.0); Lymphocytes Absolute Auto 1500 /uL (1100-4500); Lymphocytes Percent Auto 30.9 % (25-40); Mean Corpuscular HGB Conc 34.1 % (30-36); Mean Corpuscular Hemoglobin 30.4 PG (26-34); Mean Corpuscular Volume 89.1 fL (80-100); Monocytes Absolute Auto 500 /uL (0-900); Monocytes Percent Auto 9.4 % (3-14); Neutrophils Absolute Auto 2700 /uL (1500-7000); Neutrophils Percent Auto 54.1 % (50-75); Platelet Count 232 X10^3/uL (150-400); Red Blood Cell Count 4.39 X10^6/uL (4.0-5.2); Red Cell Distribution Width 14.2 % (11.6-14.8)
[2022-01-17 19:51] LABS: Alanine Aminotransferase 16 IU/L (<35); Albumin 4.1 g/dL (3.5-5.0); Albumin Globulin Ratio 1.3 (1.0-2.8); Alkaline Phosphatase 92 U/L (38-126); Aspartate Aminotransferase 23 IU/L (14-36); BUN Creatinine Ratio 20.6 (6-22); Bilirubin Total 0.4 mg/dL (0.2-1.3); Blood Urea Nitrogen 14 mg/dL (7-17); Calcium 8.9 mg/dL (8.4-10.2); Carbon Dioxide 26 mmol/L (22-32); Chloride 103 mmol/L (98-107); Estimated Glomerular Filt Rate > 60 mL/min (>60); Globulin 3.1 g/dL (1.7-4.1); Glucose 110 mg/dL (80-110); HEMOLYSIS 16 (0-50); Lipase 63 U/L (23-300); Potassium 4.4 mmol/L (3.4-5.1); Sodium 139 mmol/L (137-145); Total Protein 7.2 g/dL (6.3-8.2)
--- NOTE | 2022-01-17 21:30 | PC.NURSE ---
pt c/o lower back pain since 12/03 has been told in the past she has a compression fx, but the pain has continued.
--- NOTE | 2022-01-17 22:55 | ED.GENADULT ---
HPI - General Adult General Chief complaint: Abdominal Pain Stated complaint: back pain s/p fall 2 weeks ago Time Seen by Provider: 01/17/22 22:20 Source: patient Mode of arrival: Ambulatory History of Present Illness HPI narrative: Patient is a 82-year-old female here for evaluation of 2 issues. She states she is having back discomfort. Over the course of the past month or so she has had multiple falls and after having his CT scan has a known compression fracture of the L1 vertebrae. She is not currently on any pain medication for this. She states she does not want to take pain medication although she states she continues to be in fairly extreme discomfort. She states she was told that she needs to go see physical therapy but she feels like she is strong and does not need physical therapy. There has been no discussion about a follow-up with Orthopedics. She was told that she potentially needs a MRI of her spine. She is also here for which she states is constipation. She has had constipation issues in the past. She is on MiraLax and Dulcolax. She feels like her abdomen is distended. She is still passing flatus. She is concerned that the compression of the L1 vertebrae in the discomfort that she is having is causing neurologic issues which in turn is causing her to have constipation. Related Data Home Medications Medication Instructions Recorded Confirmed folic acid 400 mcg tablet 0.4 mg PO BEDTIME 09/19/21 01/10/22 methotrexate sodium 2.5 mg tablet 10 mg PO QWEEK tab 09/19/21 01/10/22 celecoxib 200 mg capsule (Celebrex) 200 mg PO BEDTIME 12/26/21 01/10/22 pantoprazole 40 mg tablet,delayed 40 mg PO BEDTIME 12/26/21 01/10/22 release venlafaxine 150 mg tablet,extended 150 mg PO BEDTIME 12/26/21 01/10/22 release 24 hr Previous Rx's Medication Instructions Recorded lactulose 10 gram/15 mL oral 10 g (15 mL) PO DAILY PRN #237 ml 01/10/22 solution Allergies Allergy/AdvReac Type Severity Reaction Status Date / Time ciprofloxacin [From Cipro] Allergy Severe Severe Verified 10/11/21 10:24 diarrhea cyclobenzaprine Allergy Severe I Verified 10/11/21 10:24 couldn't get out of bed for days Iodine and Iodide Containing Allergy Mild Hives Verified 10/11/21 10:24 Produc hydrocodone Allergy Unknown Patient Verified 10/11/21 10:24 can't remember oxycodone Allergy Unknown Patient Verified 10/11/21 10:24 can't remember alendronate sodium AdvReac Severe Esophageal Verified 10/11/21 10:24 [From Fosamax] ulcer and severe bleeding amoxicillin [From Augmentin] AdvReac Severe Severe Verified 10/11/21 10:24 diarrhea clavulanic acid AdvReac Severe Severe Verified 10/11/21 10:24 [From Augmentin] diarrhea risedronate sodium AdvReac Severe esophageal Verified 10/11/21 10:24 [From Actonel] ulcer and severe bleeding sulfamethoxazole AdvReac Verified 10/11/21 10:24 [From Bactrim] trimethoprim [From Bactrim] AdvReac Verified 10/11/21 10:24 Review of Systems Constitutional Constitutional: Denies fever(s) Gastrointestinal Gastrointestinal: Reports as per HPI and Reports system reviewed and no additional complaints, except as documented Genitourinary Genitourinary: Reports system reviewed and no additional complaints, except as documented Musculoskeletal Musculoskeletal: Reports system reviewed and no additional complaints, except as documented and Reports as per HPI Neurologic Neurologic: Reports system reviewed and no additional complaints, except as documented Hematologic/Lymphatic On Anticoagulants: No Patient History Medical History Allergies Anemia Ankylosing spondylitis Asthma Carpal tunnel syndrome Chicken pox Cough Depression Dermatitis Difficulty swallowing liquids Endometriosis (~1984) Esophageal bleeding (~2007) Fractures (~2018) Gastric ulcer (~2000) GI bleeding (~2007) Headache Heavy menstrual period (~1984) History of depression History of TIA (transient ischemic attack) (~2017) Hyperlipidemia (~1962) Keratoacanthoma (~2012) Lichen sclerosus Osteoarthritis Skin cancer (~2000) Stress incontinence of urine Subarachnoid hemorrhage Surgical History (Updated 01/10/22 @ 12:48 by Justin Arevalo MD) Anesthesia History of ulcer disease (~2006) History of umbilical hernia repair Status post appendectomy Status post bilateral hip replacements (~2001) Family History Father Skin cancer Mother Diabetes mellitus History of heart disease Hyperlipidemia Brother Diabetes mellitus Hyperlipidemia Grandfather Diabetes mellitus Social History household members: none Smoking Status: Never smoker second hand exposure: Yes (only in public places and I was when I was a child.) alcohol intake: current substance use type: does not use Smoking Status: Never smoker alcohol intake frequency: holidays/special occasions only Substance Use Type: does not use Exam Initial Vital Signs Initial Vital Signs: Vital Signs Temperature 96.8 F L 01/17/22 18:59 Pulse Rate 79 01/17/22 18:59 Respiratory Rate 16 01/17/22 18:59 Blood Pressure 155/68 H 01/17/22 18:59 Pulse Oximetry 97 01/17/22 18:59 HENMT Head: normal to inspection and normocephalic Resp Effort & Inspection: normal respiratory effort Cardio Rate: regular rate GI Inspection: non-distended Neuro General: patient alert and patient awake Gait: normal gait Motor: muscle tone normal throughout Extrem General: normal to inspection and capillary refill normal Course Orders Ordered: ED Orders 01/17/22 19:12 EKG-12 Lead Stat 01/17/22 19:20 Complete Blood Count AUTO DIFF Stat Comprehensive Metabolic Panel Stat Lipase Stat Vital Signs Vital signs: Vital Signs - 8 hr 01/17/22 18:59 Temperature 96.8 F L Pulse Rate 79 Respiratory Rate 16 Blood Pressure 155/68 H Pulse Oximetry 97 Medical Decision Making Lab Data Result diagrams: 01/17/22 19:20 01/17/22 19:20 Labs: Lab Results 01/17/22 01/17/22 Range/Units 19:20 19:20 WBC 5.0 (4.5-11.0) X10^3/uL RBC 4.39 (4.0-5.2) X10^6/uL Hgb 13.3 (12.0-16.0) g/dL Hct 39.1 (36-46) % MCV 89.1 (80-100) fL MCH 30.4 (26-34) PG MCHC 34.1 (30-36) % RDW 14.2 (11.6-14.8) % Plt Count 232 (150-400) X10^3/uL Neut % (Auto) 54.1 (50-75) % Lymph % (Auto) 30.9 (25-40) % Divide % (Auto) 9.4 (3-14) % Eos % (Auto) 4.6 H (2-4) % Baso % (Auto) 1.0 (0-2) % Neut # (Auto) 2700 (1319-4466) /uL Lymph # (Auto) 1500 (3916-1018) /uL Divide # (Auto) 500 (0-900) /uL Eos # (Auto) 200 (0-450) /uL Baso # (Auto) 100 (0-100) /uL Sodium 139 (137-145) mmol/L Potassium 4.4 (3.4-5.1) mmol/L Chloride 103 (98-107) mmol/L Carbon Dioxide 26 (22-32) mmol/L BUN 14 (7-17) mg/dL Creatinine 0.68 (0.52-1.04) mg/dL Estimated GFR > 60 (>60) mL/min BUN/Creatinine Ratio 20.6 (6-22) Glucose 110 (80-110) mg/dL Calcium 8.9 (8.4-10.2) mg/dL Total Bilirubin 0.4 (0.2-1.3) mg/dL AST 23 (14-36) IU/L ALT 16 (<35) IU/L Alkaline Phosphatase 92 (38-126) U/L Total Protein 7.2 (6.3-8.2) g/dL Albumin 4.1 (3.5-5.0) g/dL Globulin 3.1 (1.7-4.1) g/dL Albumin/Globulin Ratio 1.3 (1.0-2.8) Lipase 63 (23-300) U/L [facility] Narrative Medical decision making narrative: I do not think that the L1 compression fracture is directly causing that her constipation issues. She is not on any opioids and states she does not want any opioids and does not want to take Tylenol and ibuprofen despite having the discomfort in her back. I did inform her that physical therapy is most likely the next step in her workup of this. Informed her that physical therapy or potentially even Orthopedics could order a special brace for her back which unfortunately would not be able to obtain here out of the emergency department. She was given information that she can contact the local spine surgeon to discuss her fracture. Regard to her constipation she has been having constipation in the past. I discussed radiologic studies to further evaluate her constipation however the patient declined. I do not feel that an enema would be helpful as she states she does not feel like there is stool in the rectum. I did discuss her current bowel regiment. Former that she could try another form of laxative such as magnesium citrate to see if this does not work better for her. Patient did seem upset about not being able to obtain an MRI here in the emergency department however I do not feel that this is necessary based on her presentation today. I have no doubt that she is having back discomfort as she does have tenderness over the area where the fracture is located however patient does not want to take any pain medication despite saying that she is having a difficult time ambulating and getting around. Unsure what more we could provide for her out of the emergency department she is declined both pain medication and also radiologic studies of her abdomen issues. Will discharge home with instructions for laxatives and also information for specialist follow-up. She was given return precautions. She expressed understanding and agreement. Discharge Plan Departure Patient Disposition: Home Clinical Impression: Back pain, Constipation Instructions: Low Back Pain, DI for Constipation Activity Restrictions/Additional Instructions: Continue to take all of your medications as directed. You can try other laxatives that she can purchase [id number] to include magnesium citrate and Fleet's. Please take them as directed. You can contact the orthopedic providers at the number provided below. Contact your primary doctor for a follow-up. Prescriptions: No Action folic acid 400 mcg tablet 0.4 mg PO BEDTIME 0RF methotrexate sodium 2.5 mg tablet 10 mg PO QWEEK 0RF lactulose 10 gram/15 mL solution 10 g PO DAILY PRN (Reason: constipation) Qty: 237 0RF pantoprazole 40 mg tablet,delayed release (DR/EC) 40 mg PO BEDTIME 0RF Label Comments: TAKE ONE TABLET BY MOUTH ONE TIME DAILY celecoxib [Celebrex] 200 mg capsule 200 mg PO BEDTIME 0RF venlafaxine 150 mg tablet extended release 24 hr 150 mg PO BEDTIME 0RF Referrals: Justin Arevalo MD [Primary Care Provider] - Hebert Ya MD [Physician] -
== END 2022-01-17 23:06 | disposition home or self-care (01) ==
PROVIDERS: Emergency Provider Emergency Medicine; PCP Family Medicine
DX: M54.9 Dorsalgia, unspecified (principal); K59.00 Constipation, unspecified
CPT/HCPCS: 80053; 83690; 85025; 99281; 99283

== ENCOUNTER → 2022-02-04 15:30 | Outpatient (CLI) | payer MEDICARE, SELFPAY ==
[2021-12-26 20:41] VITALS: BMI 25.0
--- NOTE | 2022-02-04 15:33 | DI.MRI.S_ITS ---
PROCEDURE: MR LUMBAR SPINE WO CON INDICATIONS: back pain, fall, lumbar fracture TECHNIQUE: Noncontrast sagittal T1 spin echo and T2 fast echo, sagittal STIR, and T2 fast spin echo through the lumbar spine. In cases with scoliosis, additional coronal T2 fast spin echo may be performed. COMPARISON: [facility], CT, CT ABDOMEN PELVIS W CON, 01/03/2022, 11:28. FINDINGS: Image quality: Excellent. Alignment and Curvature: Mild straightening of normal lumbar lordosis is seen. 6 mm anterolisthesis of L4 on L5 is seen. Bone Marrow: Subacute appearing compression fracture involving L1 vertebral body is again noted with up to 40 percent loss of L1 vertebral body height anteriorly not significantly changed from prior study. Slight retropulsion of posterior wall of L1 is seen causing [id number] central canal stenosis at this level. No new area of marrow signal abnormality. Spinal Cord: Conus medullaris terminates at the L1-2 level. Visualized cord demonstrates normal signal and size. Paraspinous Soft Tissues: No paravertebral masses. T12-L1: There is loss of disc height and disc signal. Mild diffuse disc bulge is seen. No significant canal stenosis or neural foraminal narrowing. L1-L2: There is loss of disc signal and disc height. Mild disc bulge and bilateral facet arthrosis is seen, no significant central canal stenosis or neural foraminal narrowing.. L2-L3: There is loss of disc height and disc signal. Broad-based disc bulge and bilateral facet arthrosis is seen. There is mild central canal stenosis and left worse than right bilateral neural foraminal narrowing. L3-L4: Loss of disc height and disc signal is seen. Broad-based disc bulge and bilateral facet arthrosis with hypertrophy of ligamentum flavum is seen causing moderate central canal stenosis and moderate to severe bilateral neural foraminal narrowing worse on the left side. Bulging disc likely contacting exiting bilateral L3 nerve roots. L4-L5: There is loss of disc height and disc signal. Broad-based disc bulge and bilateral facet arthrosis with hypertrophy of ligamentum flavum is seen with moderate central canal stenosis and moderate right worse than left bilateral neural foraminal narrowing. Bulging disc is seen contacting bilateral L4 and L5 nerve roots. L5-S1: Loss of disc height and disc signal is seen. Mild diffuse disc bulge and bilateral facet arthrosis is noted. No significant canal stenosis or neural foraminal narrowing. IMPRESSION: 1. Subacute appearing anterior wedge compression deformity at L1 level with up to 40 percent loss of L1 vertebral body height anteriorly. There is slight retropulsion of L1 posterior wall causing moderate central canal stenosis at this level. 2. 6 mm anterolisthesis of L4 on L5. No other compression fracture or marrow edema. 3. Degenerative disc bulge and bilateral facet arthrosis throughout lumbar spine more prominent at L3-4 and L4-5 levels as described above. Dictated by: Mumtaz Craig M.D. on 02/04/2022 at 16:48 Approved by: Mumtaz Craig M.D. on 02/04/2022 at 17:10
== END ==
PROVIDERS: PCP Family Medicine; Referring Provider Family Medicine; Visit Provider Family Medicine
DX: M48.061 Spinal stenosis, lumbar region without neurogenic claudication (principal); M48.56XA Collapsed vertebra, not elsewhere classified, lumbar region, initial encounter for fracture; M47.816 Spondylosis without myelopathy or radiculopathy, lumbar region; M43.16 Spondylolisthesis, lumbar region; M51.36 Other intervertebral disc degeneration, lumbar region; M54.50 Low back pain, unspecified
CPT/HCPCS: 72148

== ENCOUNTER 2022-03-27 12:15 | Emergency (ER) | payer MEDICARE, SELFPAY ==
[2021-12-26 20:41] VITALS: BMI 25.0
[2022-03-27 12:19] VITALS: BP 152/65; PULSE 75; RESP 15; TEMP 36.3; O2SAT 98; BMI 24.7
--- NOTE | 2022-03-27 12:22 | DI.RAD.S_ITS ---
PROCEDURE: XR RIBS RT MIN 3V W CXR 1V INDICATIONS: fall with rib pain TECHNIQUE: 2 views of the right ribs were acquired, along with a single view chest. COMPARISON: None. FINDINGS: Surgical changes and devices: None. Bones and chest wall: Mildly displaced right 6th rib fracture. No suspicious bony lesions. Overlying soft tissues appear unremarkable. Lungs and pleura: No pleural effusions or pneumothorax. Interstitial prominence. Mediastinum: Mediastinal contours appear normal. Heart size is normal. IMPRESSION: Mildly displaced right 6th rib fracture. Dictated by: Tomi Vegas M.D. on 03/27/2022 at 12:55 Approved by: Tomi Vegas M.D. on 03/27/2022 at 12:57
[2022-03-27] MEDS: ACETAMINOPHEN 325 MG TABLET 650 MG PO (13:39)
[2022-03-27] MEDS: LIDOCAINE PATCH 1 EACH ADH..PATCH TOP (13:40)
--- NOTE | 2022-03-27 13:46 | ED_ITS ---
HPI - Fall <Charo Gabriele Lazo [facility] - Last Filed: 03/27/22 13:54> General Chief Complaint: Fall Stated Complaint: FALL HARD TO BREATH Time Seen by Provider: 03/27/22 13:31 Source: patient Mode of arrival: Wheelchair History of Present Illness HPI Narrative: This is an 82-year-old female who presents to the emergency department after she states she had a sleep walking episode last night which is happened and she fell down onto her right side and states that it is painful when she takes a deep breath, painful when she pushes over the area on her right middle rib space. Patient denies any shortness of breath or chest tightness, states that it is painful when she takes a deep breath, if she coughs, moves, and most movements. She denies any wound, denies being on any anticoagulants, states she has a physical therapy appointment at 1400 hours for an L1 injury in her back. She states that she has supposed to be wearing a TLSO brace but it is too painful to put on due to her rib pain at this time. Patient denies hitting her head, denies any headache, complains of pain in her ribs but denies any other injury or pain. Related Data Home Medications Medication Instructions Recorded Confirmed folic acid 400 mcg tablet 0.4 mg PO BEDTIME 09/19/21 01/10/22 methotrexate sodium 2.5 mg tablet 10 mg PO QWEEK 09/19/21 01/10/22 celecoxib 200 mg capsule (Celebrex) 200 mg PO BEDTIME 12/26/21 01/10/22 pantoprazole 40 mg tablet,delayed 40 mg PO BEDTIME 12/26/21 01/10/22 release Previous Rx's Medication Instructions Recorded lactulose 10 gram/15 mL oral 10 g (15 mL) PO DAILY PRN 01/10/22 solution constipation #237 mL venlafaxine 150 mg See Rx Instructions .Route 02/11/22 capsule,extended release 24 hr .COMPLEX #90 caps Oral Appliance for Mild RUSS #1 ea 03/06/22 diclofenac sodium 1 % topical gel 2 g topical QID PRN pain #100 grams 03/27/22 lidocaine 5 % topical patch 1 patch topical DAILY PRN pain #15 03/27/22 (Lidoderm) ea Allergies Allergy/AdvReac Type Severity Reaction Status Date / Time ciprofloxacin [From Cipro] Allergy Severe Severe Verified 03/27/22 12:19 diarrhea cyclobenzaprine Allergy Severe I Verified 03/27/22 12:19 couldn't get out of bed for days Iodine and Iodide Containing Allergy Mild Hives Verified 03/27/22 12:19 Produc hydrocodone Allergy Unknown Patient Verified 03/27/22 12:19 can't remember oxycodone Allergy Unknown Patient Verified 03/27/22 12:19 can't remember alendronate sodium AdvReac Severe Esophageal Verified 03/27/22 12:19 [From Fosamax] ulcer and severe bleeding amoxicillin [From Augmentin] AdvReac Severe Severe Verified 03/27/22 12:19 diarrhea clavulanic acid AdvReac Severe Severe Verified 03/27/22 12:19 [From Augmentin] diarrhea risedronate sodium AdvReac Severe esophageal Verified 03/27/22 12:19 [From Actonel] ulcer and severe bleeding sulfamethoxazole AdvReac Verified 03/27/22 12:19 [From Bactrim] trimethoprim [From Bactrim] AdvReac Verified 03/27/22 12:19 Review of Systems <BENEDICTO Amaro - Last Filed: 03/27/22 13:54> Review of Systems Narrative: General: denies fever, chills, malaise, sweats, fatigue Head/Neck: denies headache, neck pain, dizziness Eyes: denies visual changes, eye pain Cardio: denies chest pain, palpitations, edema Respiratory: denies dyspnea, cough, orthopnea, endorses right-sided mid rib pain on the lateral aspect GI: denies abdominal pain, nausea, vomiting, or diarrhea : denies dysuria, hematuria, urinary retention, frequency or incontinence MSK: denies joint pain, muscle weakness Skin: denies rash, itching, skin lesions or other Neuro: denies numbness, tingling Patient History <BENEDICTO Amaro - Last Filed: 03/27/22 13:54> Medical History Allergies Anemia Ankylosing spondylitis Asthma Carpal tunnel syndrome Chicken pox Cough Depression Dermatitis Difficulty swallowing liquids Endometriosis (~1984) Esophageal bleeding (~2007) Fractures (~2018) Gastric ulcer (~2000) GI bleeding (~2007) Headache Heavy menstrual period (~1984) History of depression History of TIA (transient ischemic attack) (~2017) Hyperlipidemia (~1962) Keratoacanthoma (~2012) Lichen sclerosus Osteoarthritis Skin cancer (~2000) Stress incontinence of urine Subarachnoid hemorrhage Surgical History Anesthesia History of ulcer disease (~2006) History of umbilical hernia repair Status post appendectomy Status post bilateral hip replacements (~2001) Family History Father Skin cancer Mother Diabetes mellitus History of heart disease Hyperlipidemia Brother Diabetes mellitus Hyperlipidemia Grandfather Diabetes mellitus Social History household members: none Smoking Status: Never smoker second hand exposure: Yes (only in public places and I was when I was a child.) alcohol intake: current substance use type: does not use Smoking Status: Never smoker alcohol intake frequency: holidays/special occasions only Substance Use Type: does not use Exam <BENEDICTO Amaro - Last Filed: 03/27/22 13:54> Narrative Exam Narrative: Independently reviewed vitals signs and nursing notes. General: cooperative, comfortable, in no acute distress, well groomed Head: atraumatic, symmetrical facial expressions Neck: supple Eyes: equal round and reactive, EOMI, conjunctiva normal Nose: nares patent, no rhinorrhea Mouth/Throat: moist mucus membranes Cardiovascular: regular rate and rhythm, no peripheral edema, warm extremities Respiratory: normal effort, able to speak in complete sentences, no audible wheezing, stridor, or rales. No retractions or tachypnea. Mild guarding with deep inspiration, incentive spirometry was thought and patient tolerated well pulling 2000 volumes for >five breaths. No diminished breath sounds on the right, no tachypnea, no crepitus. GI: abdomen soft, nontender to palpation, nondistended, no masses, no exquisite tenderness with exam, without guarding or rebound. MSK: moves all extremities, neurovascularly intact, no weakness, normal tone Skin: brisk capillary refill, no rash, no erythema Neuro: normal speech and cognition, A&O x3 Psych: mental status is grossly normal, congruent mood, normal affect, pleasant and cooperative Initial Vital Signs Initial Vital Signs: Vital Signs Temperature 97.3 F L 03/27/22 12:19 Pulse Rate 75 03/27/22 12:19 Respiratory Rate 15 03/27/22 12:19 Blood Pressure 152/65 H 03/27/22 12:19 Pulse Oximetry 98 03/27/22 12:19 Oxygen Delivery Method 03/27/22 12:19 <Jenny Marte DO - Last Filed: 03/28/22 07:07> Initial Vital Signs Initial Vital Signs: Vital Signs Temperature 97.3 F L 03/27/22 12:19 Pulse Rate 75 03/27/22 12:19 Respiratory Rate 15 03/27/22 12:19 Blood Pressure 152/65 H 03/27/22 12:19 Pulse Oximetry 98 03/27/22 12:19 Oxygen Delivery Method 03/27/22 12:19 Course <EMERY AmaroP - Last Filed: 03/27/22 13:54> Orders Ordered: Discontinued Medications Acetaminophen (Acetaminophen 325 Mg Tablet) 650 mg PO NOW ONE Stop: 03/27/22 13:35 Last Admin: 03/27/22 13:39 Dose: 650 mg Documented By: SANDY Ibuprofen (Ibuprofen 400 Mg Tablet) 400 mg PO NOW ONE Stop: 03/27/22 13:28 Last Admin: 03/27/22 13:33 Dose: Not Given Documented By: SANDY Lidocaine (Lidocaine Patch 1 Each Adh..Patch) 1 each TOP NOW ONE Stop: 03/27/22 13:39 Last Admin: 03/27/22 13:40 Dose: 1 each Documented By: SANDY Vital Signs Vital signs: Vital Signs - 8 hr 03/27/22 12:19 Temperature 97.3 F L Pulse Rate 75 Respiratory Rate 15 Blood Pressure 152/65 H Pulse Oximetry 98 Oxygen Delivery Method Room Air <Jenny Marte DO - Last Filed: 03/28/22 07:07> Orders Ordered: Discontinued Medications Acetaminophen (Acetaminophen 325 Mg Tablet) 650 mg PO NOW ONE Stop: 03/27/22 13:35 Last Admin: 03/27/22 13:39 Dose: 650 mg Documented By: SANDY Ibuprofen (Ibuprofen 400 Mg Tablet) 400 mg PO NOW ONE Stop: 03/27/22 13:28 Last Admin: 03/27/22 13:33 Dose: Not Given Documented By: SANDY Lidocaine (Lidocaine Patch 1 Each Adh..Patch) 1 each TOP NOW ONE Stop: 03/27/22 13:39 Last Admin: 03/27/22 13:40 Dose: 1 each Documented By: SANDY Vital Signs Vital signs: Vital Signs - 8 hr 03/27/22 12:19 Temperature 97.3 F L Pulse Rate 75 Respiratory Rate 15 Blood Pressure 152/65 H Pulse Oximetry 98 Oxygen Delivery Method Room Air MDM - Fall <Charo Lazo, [facility] - Last Filed: 03/27/22 13:54> Imaging Data Chest x-ray: Radiologist's Impression: PROCEDURE:? XR RIBS RT MIN 3V W CXR 1V ? INDICATIONS:? fall with rib pain ? TECHNIQUE:? 2 views of the right ribs were acquired, along with a single view chest.? ? COMPARISON:? None. ? FINDINGS:? ? Surgical changes and devices:? None.? ? Bones and chest wall:? Mildly displaced right 6th rib fracture.? No suspicious bony lesions.? Overlying soft tissues appear unremarkable.? ? Lungs and pleura:? No pleural effusions or pneumothorax.? Interstitial prominence.? ? Mediastinum:? Mediastinal contours appear normal.? Heart size is normal.? ? IMPRESSION:? Mildly displaced right 6th rib fracture. ? ? Dictated by: Tomi Vegas M.D. on 03/27/2022 at 12:55 ? ? Approved by: Tomi Vegas M.D. on 03/27/2022 at 12:57 ? [facility] Narrative Medical decision making narrative: This is a pleasant 82-year-old female presents emergency department complaining of right-sided rib pain after she fell last night during a sleep working incident. Patient states she has a history of this in the past but denies having a fall with rib pain in the past. Patient denies being on anticoagulants, denies any headache, vision changes, head injury, neck pain, pain anywhere other than her right anterior/lateral rib space. Right rib three- view x-ray shows mildly displaced right 6th rib fracture. Breath sounds are clear throughout all ortiz without any diminished areas, x-ray does not show any pleural effusion or pneumothorax, patient was given an incentive spirometer, educated on how to use it, she was pulling volumes of 2000 and showing how to use it appropriately. She was also given a walker and taught how to ambulate with it for safety at home with this new injury. She has a previous L1 fracture and was supposed to be wearing a TLSO brace but states that it is too painful over her rib space to wear this time. She has a physical therapy appointment in 15 minutes, we have discharged her [place] time for her to make it to this appointment with a copy of her x-ray so that she has exercises to help herself at home with this new injury. Patient was alert and oriented without any neuro deficits, ambulatory steadily with a walker, did not have any vision changes, speech changes, neuro deficits of any kind on my exam. She did not have any tachypnea, lightheadedness, difficulty breathing, or shortness of breath. She was given lidocaine patch, 650 mg of Tylenol, prescribed Voltaren gel and lidocaine patches and encouraged to follow-up with her primary care provider as needed, go to her physical therapy appointment, return to the emergency department for any worsening of her symptoms, shortness of breath, chest pain, difficulty breathing or other concern. Patient is appropriate and amenable to discharge home. Vital signs are stable on repeat examination is unremarkable. Patient has been informed of results. Patient has been given strict return to ER precautions for any new or worsening symptoms. Patient understands to follow up closely with outpatient providers as instructed. Patient understands plan and agrees to discharge home. All questions and concerns answered at this time. Discharge Plan Departure Patient Disposition: Home Clinical Impression: Fall Qualifiers: Encounter type: initial encounter Qualified Code(s): W19.XXXA - Unspecified fall, initial encounter Closed rib fracture Qualifiers: Encounter type: initial encounter Rib fracture type: single rib Laterality: right Qualified Code(s): S22.31XA - Fracture of one rib, right side, initial encounter for closed fracture Instructions: DI for Rib Fracture Activity Restrictions/Additional Instructions: *You have been diagnosed with a fall from a sleep walking incident and a right 6th rib fracture which is mildly displaced. There is no pneumothorax or pleural effusion. Please follow-up at physical therapy at 1400 hours today for supportive exercises and help with this new injury for you. His practice your incentive spirometer every hour while awake at least two or three inhalers. Please take Tylenol 650 mg every 6-8 hours during the daytime as needed for pain, you may apply lidocaine patch every 12 hours and changes, you can use topical Voltaren gel if you are not allergic to it, follow-up with Dr. Fowler as needed and return to the emergency department if you have any worsening shortness of breath, pain, or difficulty breathing. You may use a pillow to hug while coughing or using the incentive spirometer if this helps with pain. *What to do: *Please continue to take your regular medications as directed. [x ] New medication prescriptions sent to your pharmacy: [ [facility]] [ ] New medication written as a paper prescription [ ] No new medications given *Please follow up with your primary care provider in 2-3 days, call for an appointment. Let them know you were seen in the Emergency Department and that we asked that you be seen for follow-up. We will electronically transmit a record of today's note if your PCP is in our system *If you do not have a primary care provider please contact [phone] to establish care with one of the [facility] primary care providers. *Return to Emergency Department if you should have any new, worsening or concerning symptoms, such as [fever greater than 101F, chills, worsening pain, persistent vomiting or other bothersome symptoms] Prescriptions: New lidocaine [Lidoderm] 5 % adhesive patch,medicated 1 patch topical DAILY PRN (Reason: pain) Qty: 15 0RF Rx Instructions: leave on most painful area for up to 12 hrs diclofenac sodium 1 % gel 2 g topical QID PRN (Reason: pain) Qty: 100 0RF Rx Instructions: apply to single elbow, wrist or hand; for hand includes palm/fingers/back of hand No Action venlafaxine 150 mg capsule,extended release 24hr See Rx Instructions .ROUTE .COMPLEX Qty: 90 1RF Dose Instruction: TAKE ONE CAPSULE BY MOUTH ONE TIME DAILY Rx Instructions: TAKE ONE CAPSULE BY MOUTH ONE TIME DAILY (DME) Oral Appliance for Mild RUSS See Rx Instructions .Route .MEDSUPPLY Qty: 1 0RF Rx Instructions: As directed folic acid 400 mcg tablet 0.4 mg PO BEDTIME methotrexate sodium 2.5 mg tablet 10 mg PO QWEEK lactulose 10 gram/15 mL solution 10 g PO DAILY PRN (Reason: constipation) Qty: 237 0RF pantoprazole 40 mg tablet,delayed release (DR/EC) 40 mg PO BEDTIME Label Comments: TAKE ONE TABLET BY MOUTH ONE TIME DAILY celecoxib [Celebrex] 200 mg capsule 200 mg PO BEDTIME Referrals: Justin Arevalo MD [Primary Care Provider] - Visit Report Forms: Patient Portal/API <Jenny Marte DO - Last Filed: 03/28/22 07:07> Cosign ED Attending Lyndsey Attestation: I was immediately available in the department for consultation. Documentation has been reviewed. I agree with assessment and plan.
[2022-03-27 13:49] VITALS: BP 157/70; PULSE 70; RESP 20; O2SAT 98
== END 2022-03-27 13:47 | disposition home or self-care (01) ==
PROVIDERS: Emergency Provider Nurse Practitioner Critical Care Medicine; PCP Family Medicine
DX: S22.31XA Fracture of one rib, right side, initial encounter for closed fracture (principal); W19.XXXA Unspecified fall, initial encounter
CPT/HCPCS: 71101; 99283; 99284

== ENCOUNTER 2022-04-09 10:30 | Emergency (ER) | payer MEDICARE, SELFPAY ==
[2021-12-26 20:41] VITALS: BMI 25.0
[2022-04-09 10:36] VITALS: BP 149/70; PULSE 70; RESP 15; TEMP 36.6; O2SAT 97
--- NOTE | 2022-04-09 10:41 | DI.RAD.S_ITS ---
PROCEDURE: XR SHOULDER LT MIN 2V INDICATIONS: shoulder pain TECHNIQUE: Three views of the shoulder were acquired. COMPARISON: [facility], CR, XR SHOULDER LT MIN 2V, 03/14/2021, 9:30. FINDINGS: Bones: Decreased mineralization. There is been interval healing of the distal clavicle fracture and widening of the acromioclavicular joint up to 8 mm. The coracoclavicular interval is normal. There is probable glenohumeral joint space loss and a large marginal spur along the inferior humeral head. No acute fractures or dislocations. No suspicious bony lesions. Visualized ribs appear intact. Soft tissues: No suspicious soft tissue calcifications. IMPRESSION: 1. Advanced osteoarthritic change in the glenohumeral joint. 1. Healed distal clavicle fracture with slight AC joint widening. Dictated by: Reva Owusu M.D. on 04/09/2022 at 11:43 Approved by: Reva Owusu M.D. on 04/09/2022 at 11:45
--- NOTE | 2022-04-09 12:20 | ED.EXTPRO ---
HPI - Extremity Problem <Charo Lazo, [facility] [place] - Last Filed: 04/09/22 13:26> General Chief complaint: Extremity Injury, Upper Stated complaint: Possible dislocated shoulder- left Time Seen by Provider: 04/09/22 12:04 Source: patient Mode of arrival: Ambulatory History of Present Illness HPI Narrative: This is an 82-year-old female with history of osteopenia, osteoarthritis, TIA with a mechanical fall two weeks ago with reported rib fracture on the right side and chief complaint today of waking up with left shoulder pain. She denies any recent trauma other than her fall two weeks ago. She endorses a history of arthritis in her left shoulder, states that she took Tylenol this morning and it did not improve her pain. She states that Tylenol usually works best for her, she otherwise take Celebrex, methotrexate, venlafaxine, and Protonix daily. Patient endorses she also use a lidocaine patch this morning and it has not fully improved her pain. She states that she is had a muscle relaxer long going states that she can get out of bed for days. She endorses quite sensitive to medications states she is never tried tramadol in the past. States that hydrocodone and oxycodone never really worked well for her. Patient denies being allergic to morphine. Patient states that it hurts constantly, the pain is dull, she denies any other associated symptoms including numbness and tingling, reduce strength, states that usually when she moves her shoulder it is clicking and popping but now it is just painful when she moves it. She denies any rib pain, chest pain, back pain, shortness of breath, dizziness, altered balance, dysuria, abdominal pain, recent fever or other symptoms. Related Data Home Medications Medication Instructions Recorded Confirmed folic acid 400 mcg tablet 0.4 mg PO BEDTIME 09/19/21 01/10/22 methotrexate sodium 2.5 mg tablet 10 mg PO QWEEK 09/19/21 01/10/22 celecoxib 200 mg capsule (Celebrex) 200 mg PO BEDTIME 12/26/21 01/10/22 pantoprazole 40 mg tablet,delayed 40 mg PO BEDTIME 12/26/21 01/10/22 release Previous Rx's Medication Instructions Recorded lactulose 10 gram/15 mL oral 10 g (15 mL) PO DAILY PRN 01/10/22 solution constipation #237 mL venlafaxine 150 mg See Rx Instructions .Route 02/11/22 capsule,extended release 24 hr .COMPLEX #90 caps Oral Appliance for Mild RUSS #1 ea 03/06/22 diclofenac sodium 1 % topical gel 2 g topical QID PRN pain #100 grams 03/27/22 lidocaine 5 % topical patch 1 patch topical DAILY PRN pain #15 03/27/22 (Lidoderm) ea methocarbamol 500 mg tablet 250 mg PO BEDTIME PRN muscle spasm 04/09/22 #10 tabs tramadol 50 mg tablet 50 mg PO DAILY PRN pain #12 tabs 04/09/22 Allergies Allergy/AdvReac Type Severity Reaction Status Date / Time ciprofloxacin [From Cipro] Allergy Severe Severe Verified 04/09/22 10:42 diarrhea cyclobenzaprine Allergy Severe I Verified 04/09/22 10:42 couldn't get out of bed for days Iodine and Iodide Containing Allergy Mild Hives Verified 04/09/22 10:42 Produc hydrocodone Allergy Unknown Patient Verified 04/09/22 10:42 can't remember oxycodone Allergy Unknown Patient Verified 04/09/22 10:42 can't remember alendronate sodium AdvReac Severe Esophageal Verified 04/09/22 10:42 [From Fosamax] ulcer and severe bleeding amoxicillin [From Augmentin] AdvReac Severe Severe Verified 04/09/22 10:42 diarrhea clavulanic acid AdvReac Severe Severe Verified 04/09/22 10:42 [From Augmentin] diarrhea risedronate sodium AdvReac Severe esophageal Verified 04/09/22 10:42 [From Actonel] ulcer and severe bleeding sulfamethoxazole AdvReac Verified 04/09/22 10:42 [From Bactrim] trimethoprim [From Bactrim] AdvReac Verified 04/09/22 10:42 Review of Systems <Charo Lazo [employer] - Last Filed: 04/09/22 13:26> Review of Systems Narrative: General: denies fever, chills, malaise, sweats, fatigue Head/Neck: denies headache, neck pain, dizziness Eyes: denies visual changes, eye pain Cardio: denies chest pain, palpitations, edema Respiratory: denies dyspnea, cough, orthopnea GI: denies abdominal pain, nausea, vomiting, or diarrhea : denies dysuria, hematuria, urinary retention, frequency or incontinence MSK: denies joint pain, muscle weakness Skin: denies rash, itching, skin lesions or other Neuro: denies numbness, tingling Patient History <BENEDICTO Amaro - Last Filed: 04/09/22 13:26> Medical History Allergies Anemia Ankylosing spondylitis Asthma Carpal tunnel syndrome Chicken pox Cough Depression Dermatitis Difficulty swallowing liquids Endometriosis (~1984) Esophageal bleeding (~2007) Fractures (~2018) Gastric ulcer (~2000) GI bleeding (~2007) Headache Heavy menstrual period (~1984) History of depression History of TIA (transient ischemic attack) (~2017) Hyperlipidemia (~1962) Keratoacanthoma (~2012) Lichen sclerosus Osteoarthritis Skin cancer (~2000) Stress incontinence of urine Subarachnoid hemorrhage Surgical History Anesthesia History of ulcer disease (~2006) History of umbilical hernia repair Status post appendectomy Status post bilateral hip replacements (~2001) Family History Father Skin cancer Mother Diabetes mellitus History of heart disease Hyperlipidemia Brother Diabetes mellitus Hyperlipidemia Grandfather Diabetes mellitus Social History household members: none Smoking Status: Never smoker second hand exposure: Yes (only in public places and I was when I was a child.) alcohol intake: current substance use type: does not use Smoking Status: Never smoker alcohol intake frequency: holidays/special occasions only Substance Use Type: does not use Exam <BENEDICTO Amaro - Last Filed: 04/09/22 13:26> Narrative Exam Narrative: Independently reviewed vitals signs and nursing notes. General: Awake, alert, nontoxic, no cardiorespiratory distress, lying on right side complaining of left shoulder pain with a pillow underneath it Head/Neck: Atraumatic, neck supple Eyes: EOMI, conjunctiva normal Nose: nares patent, no rhinorrhea Mouth/Throat: moist mucus membranes Cardio: Regular rate and rhythm, no peripheral edema, WARM EXTREMITIES Respiratory: respirations unlabored without wheezing, stridor, or rales. No retractions, hypoxia or tachypnea GI: Abdomen soft, nontender, no guarding or rebound tenderness MSK: Moves all extremities, neurovascularly intact, range of motion without deficit, HER PAIN IMPROVED ON RE-EVALUATION, FULL RANGE OF MOTION OF HER LEFT SHOULDER, NEUROVASCULARLY INTACT, RADIAL PULSE IS 2 +, HAND IS WARM, Skin: Normal capillary refill, no rash Neuro: Normal speech and cognition, normal gait Initial Vital Signs Initial Vital Signs: Vital Signs Temperature 97.8 F 04/09/22 10:36 Pulse Rate 70 04/09/22 10:36 Respiratory Rate 15 04/09/22 10:36 Blood Pressure 149/70 H 04/09/22 10:36 Pulse Oximetry 97 04/09/22 10:36 Oxygen Delivery Method 04/09/22 10:36 <Jenny Marte DO - Last Filed: 04/15/22 09:01> Initial Vital Signs Initial Vital Signs: Vital Signs Temperature 97.8 F 04/09/22 10:36 Pulse Rate 70 04/09/22 10:36 Respiratory Rate 15 04/09/22 10:36 Blood Pressure 149/70 H 04/09/22 10:36 Pulse Oximetry 97 04/09/22 10:36 Oxygen Delivery Method 04/09/22 10:36 Procedures <BENEDICTO Amaro - Last Filed: 04/09/22 13:26> Orthopedic Splinting/Casting Injury #1: Side: left Upper Extremity Injury Location: shoulder Upper Extremity Immobilizer: sling/shoulder immobilizer Post splinting neuro exam: intact Post splinting vascular exam: intact Placed by: Nursing Course <BENEDICTO Amaro - Last Filed: 04/09/22 13:26> Orders Ordered: Discontinued Medications Diclofenac Sodium (Diclofenac 1% Gel 100 Gm) 1 applic TOP NOW ONE Stop: 04/09/22 12:21 Last Admin: 04/09/22 12:43 Dose: 1 applic Documented By: CANDY Methocarbamol (Methocarbamol 500 Mg Tablet) 250 mg PO NOW ONE Stop: 04/09/22 12:17 Last Admin: 04/09/22 12:42 Dose: 250 mg Documented By: CANDY Tramadol HCl (Tramadol 50 Mg Tablet) 50 mg PO NOW ONE Stop: 04/09/22 12:17 Last Admin: 04/09/22 12:43 Dose: 50 mg Documented By: CANDY Vital Signs Vital signs: Vital Signs - 8 hr 04/09/22 10:36 Temperature 97.8 F Pulse Rate 70 Respiratory Rate 15 Blood Pressure 149/70 H Pulse Oximetry 97 Oxygen Delivery Method Room Air <Jenny aMrte DO - Last Filed: 04/15/22 09:01> Orders Ordered: Discontinued Medications Diclofenac Sodium (Diclofenac 1% Gel 100 Gm) 1 applic TOP NOW ONE Stop: 04/09/22 12:21 Last Admin: 04/09/22 12:43 Dose: 1 applic Documented By: CANDY Methocarbamol (Methocarbamol 500 Mg Tablet) 250 mg PO NOW ONE Stop: 04/09/22 12:17 Last Admin: 04/09/22 12:42 Dose: 250 mg Documented By: CANDY Tramadol HCl (Tramadol 50 Mg Tablet) 50 mg PO NOW ONE Stop: 04/09/22 12:17 Last Admin: 04/09/22 12:43 Dose: 50 mg Documented By: CANDY Vital Signs Vital signs: Vital Signs - 8 hr 04/09/22 10:36 Temperature 97.8 F Pulse Rate 70 Respiratory Rate 15 Blood Pressure 149/70 H Pulse Oximetry 97 Oxygen Delivery Method Room Air MDM - Extremity (Nontraumatic) <Charo Lazo [facility] [place] - Last Filed: 04/09/22 13:26> Imaging Data Extremity x-ray #1: Radiologist's Impression: PROCEDURE:? XR SHOULDER LT MIN 2V ? INDICATIONS:? shoulder pain ? TECHNIQUE:? Three views of the shoulder were acquired.? ? COMPARISON:? [facility], CR, XR SHOULDER LT MIN 2V, 03/14/2021, 9:30. ? FINDINGS:? ? Bones:? Decreased mineralization.? There is been interval healing of the distal clavicle fracture and widening of the acromioclavicular joint up to 8 mm.? The coracoclavicular interval is normal.? There is probable glenohumeral joint space loss and a large marginal spur along the inferior humeral head.? No acute fractures or dislocations.? No suspicious bony lesions.? Visualized ribs appear intact.? ? Soft tissues:? No suspicious soft tissue calcifications.? ? IMPRESSION:? ? 1. Advanced osteoarthritic change in the glenohumeral joint. ? 1. Healed distal clavicle fracture with slight AC joint widening.? ? ? Dictated by: Reva Owusu M.D. on 04/09/2022 at 11:43 ? ? Approved by: Reva Owusu M.D. on 04/09/2022 at 11:45 ? MDM Narrative Medical decision making narrative: 82-YEAR-OLD FEMALE PRESENTS TO EMERGENCY DEPARTMENT COMPLAINING OF LEFT SHOULDER PAIN THAT SHE WOKE UP WITH TODAY WITHOUT ANY RECENT INJURY. X-RAY OF HER LEFT SHOULDER SHOWS ADVANCED OSTEOARTHRITIC CHANGES IN THE GLENOHUMERAL JOINT, A HEALED DISTAL CLAVICLE FRACTURE WITH SLIGHT AC JOINT WIDENING. SHE HAS A HISTORY OF OSTEOARTHRITIS, OSTEOPENIA, HAD A FALL TWO WEEKS AGO AND SUSTAINED A 6TH RIB FRACTURE ON THE RIGHT BUT DENIES ANY NEW PAIN RELATED TO THIS, SHORTNESS OF BREATH, CHEST PAIN, OR ANY NEW INJURY. Patient states that she ambulates at home without any assistive devices, she is in an otherwise good state of health. No tenderness to shoulder, no limited flexion and abduction of shoulder secondary to pain, rotator cuff tests negative, able to touch opposite shoulder, neurovascularly intact with good sensation, distal pulses and cap refill. No scapular tenderness she sensation no pain or limitation to range of motion of elbow, wrist intact motor distal but limited range of motion of the shoulder due to pain. Encouraged patient to follow-up with Dr. Arevalo, she was given a prescription of tramadol and Robaxin. Encouraged to use the tramadol for daytime pain, and 1/2 of the Robaxin at night for muscle spasm. She was given a sling in the emergency department, tramadol and this same dosing of tramadol Robaxin with a lidocaine patch and topical diclofenac gel and she reports good improvement in her pain, and she states she is ready to go home. Patient is appropriate and amenable to discharge home. Vital signs are stable on repeat examination is unremarkable. Patient has been informed of results. Patient has been given strict return to ER precautions for any new or worsening symptoms. Patient understands to follow up closely with outpatient providers as instructed. Patient understands plan and agrees to discharge home. All questions and concerns answered at this time. Discharge Plan Departure Patient Disposition: Home Clinical Impression: Left shoulder strain Qualifiers: Encounter type: initial encounter Qualified Code(s): S46.912A - Strain of unspecified muscle, fascia and tendon at shoulder and upper arm level, left arm, initial encounter Arthralgia Qualifiers: Joint pain location: shoulder Laterality: left Qualified Code(s): M25.512 - Pain in left shoulder Instructions: DI for Osteoarthritis, DI for Arthralgia, DI for Shoulder Pain Activity Restrictions/Additional Instructions: *You have been diagnosed with advanced osteoarthritic changes in your left shoulder joint, the clavicle fracture has healed and shows some joint widening which may be related to arthritic changes as well. This is quite painful and long healing injury. Please continue to ice it when it flares up, use the topical diclofenac gel up to 4 times daily for pain in this area or in other arthritic areas. Take your Tylenol, 650 mg every 6 hours as needed for pain, drink plenty of water, if you need additional pain medicine, please take one tramadol. I also prescribed you some muscle relaxers called methocarbamol. Please try half a tab before bed because they will make you sleepy. Please use the sling while you are out walking or out of the house if it improves her pain. Please follow-up with Dr. Arevalo about this pain if it does not improve. I hope you feel better soon *What to do: *Please continue to take your regular medications as directed. [x ] New medication prescriptions sent to your pharmacy: [ [facility]] [ ] New medication written as a paper prescription [ ] No new medications given *Please follow up with your primary care provider in 2-3 days, call for an appointment. Let them know you were seen in the Emergency Department and that we asked that you be seen for follow-up. We will electronically transmit a record of today's note if your PCP is in our system *If you do not have a primary care provider please contact [phone] to establish care with one of [facility] primary care providers. *Return to Emergency Department if you should have any new, worsening or concerning symptoms, such as [fever greater than 101F, chills, worsening pain, persistent vomiting or other bothersome symptoms] Prescriptions: New tramadol 50 mg tablet 50 mg PO DAILY PRN (Reason: pain) Qty: 12 0RF methocarbamol 500 mg tablet 250 mg PO BEDTIME PRN (Reason: muscle spasm) Qty: 10 0RF No Action venlafaxine 150 mg capsule,extended release 24hr See Rx Instructions .ROUTE .COMPLEX Qty: 90 1RF Dose Instruction: TAKE ONE CAPSULE BY MOUTH ONE TIME DAILY Rx Instructions: TAKE ONE CAPSULE BY MOUTH ONE TIME DAILY (DME) Oral Appliance for Mild RUSS See Rx Instructions .Route .MEDSUPPLY Qty: 1 0RF Rx Instructions: As directed folic acid 400 mcg tablet 0.4 mg PO BEDTIME methotrexate sodium 2.5 mg tablet 10 mg PO QWEEK lactulose 10 gram/15 mL solution 10 g PO DAILY PRN (Reason: constipation) Qty: 237 0RF pantoprazole 40 mg tablet,delayed release (DR/EC) 40 mg PO BEDTIME Label Comments: TAKE ONE TABLET BY MOUTH ONE TIME DAILY celecoxib [Celebrex] 200 mg capsule 200 mg PO BEDTIME lidocaine [Lidoderm] 5 % adhesive patch,medicated 1 patch topical DAILY PRN (Reason: pain) Qty: 15 0RF Rx Instructions: leave on most painful area for up to 12 hrs diclofenac sodium 1 % gel 2 g topical QID PRN (Reason: pain) Qty: 100 0RF Rx Instructions: apply to single elbow, wrist or hand; for hand includes palm/fingers/back of hand Referrals: Justin Arevalo MD [Primary Care Provider] - Visit Report Forms: Patient Portal/API <Jenny Marte DO - Last Filed: 04/15/22 09:01> Cosign ED Attending Costraeature Attestation: I was immediately available in the department for consultation. Documentation has been reviewed. I agree with assessment and plan.
[2022-04-09] MEDS: methocarbamoL 500 MG TABLET 250 MG PO (12:42)
[2022-04-09] MEDS: DICLOFENAC 1% GEL 100 GM 1 APPLIC TOP (12:43)
[2022-04-09] MEDS: TRAMADOL 50 MG TABLET PO (12:43)
[2022-04-09 13:26] VITALS: BP 138/63; PULSE 76; O2SAT 97
== END 2022-04-09 13:26 | disposition home or self-care (01) ==
PROVIDERS: Emergency Provider Nurse Practitioner Critical Care Medicine; PCP Family Medicine
DX: S46.912A Strain of unspecified muscle, fascia and tendon at shoulder and upper arm level, left arm, initial encounter (principal); M25.512 Pain in left shoulder
CPT/HCPCS: 73030; 99283

== ENCOUNTER → 2022-06-18 10:59 | Outpatient (CLI) | payer MEDICARE, SELFPAY ==
[2021-12-26 20:41] VITALS: BMI 25.0
[2022-06-18 12:28] LABS: Add Manual Diff / Slide Review NO; Basophils Absolute Auto 0 /uL (0-100); Basophils Percent Auto 0.7 % (0-2); Eosinophils Absolute Auto 100 /uL (0-450); Eosinophils Percent Auto 2.2 % (2-4); Hematocrit 40.2 % (36-46); Lymphocytes Absolute Auto 1200 /uL (1100-4500); Lymphocytes Percent Auto 27.1 % (25-40); Mean Corpuscular HGB Conc 34.8 % (30-36); Mean Corpuscular Hemoglobin 30.8 PG (26-34); Mean Corpuscular Volume 88.7 fL (80-100); Monocytes Absolute Auto 400 /uL (0-900); Neutrophils Absolute Auto 2600 /uL (1500-7000); Platelet Count 179 X10^3/uL (150-400); Red Blood Cell Count 4.53 X10^6/uL (4.0-5.2); Red Cell Distribution Width 14.6 % (11.6-14.8); White Blood Cell Count 4.3 X10^3/uL (4.5-11.0)
[2022-06-18 12:40] LABS: PTT Partial Thromboplastin Tim 29 SECONDS (26-36)
== END ==
PROVIDERS: PCP Family Medicine; Referring Provider Family Medicine; Visit Provider Family Medicine
DX: T14.8XXA Other injury of unspecified body region, initial encounter (principal)
CPT/HCPCS: 36415; 85025; 85610; 85730

== ENCOUNTER → 2022-06-20 14:24 | Outpatient (CLI) | payer MEDICARE, SELFPAY ==
[2021-12-26 20:41] VITALS: BMI 25.0
--- NOTE | 2022-06-20 14:42 | DI.MG.S_ITS ---
At the request of: RICARDO MARTINEZ Procedure: MM screening mammo BI BILATERAL DIGITAL SCREENING MAMMOGRAM 3D/2D WITH CAD: 06/20/2022 CLINICAL: Routine screening. Comparison is made to exams dated: 09/20/2020 mammogram, 08/12/2019 mammogram - [facility], and 10/11/2015 mammogram - [facility]. Both breasts are heterogeneously dense, which may obscure small masses (category c / 51-75% glandular tissue). Current study was also evaluated with a Computer Aided Detection (CAD) system. There are benign vascular calcifications in both breasts. No significant masses, calcifications, or other findings are seen in either breast. There has been no significant interval change. IMPRESSION: BENIGN There is no mammographic evidence of malignancy. A 1 year screening mammogram is recommended. Based on the Tyrer Cuzick model (a risk assessment model) the patient?s lifetime risk is 0.7% and her 10 year risk is 0.0%. According to the ACR, ACS, and NCCN guidelines, an annual breast MRI exam along with mammogram is recommended if the patient?s lifetime risk is 20% or greate This exam was interpreted at Station ID: [id number]. Continued Report - Page 2 of 2 Patient Name: ELLIS FIELDS date: 1940 Sex: F Attending Physician: Irina Indications: Date: 06/20/2022 14:38 At the request of: RICARDO MARTINEZ Procedure: MM screening mammo BI NOTE: For mammograms, a report in lay terms will be sent to the patient. Approximately 15% of breast malignancies will not be visualized mammographically. In the management of a palpable breast mass, a negative mammogram must not discourage biopsy of a clinically suspicious lesion. Electronically Signed By: Erick Theodore M.D., jr/elise:06/20/2022 15:01:02 letter sent: Normal Exam ACR BI-RADS Category 2: Benign Finding(s) 3342F
== END ==
PROVIDERS: PCP Family Medicine; Referring Provider Family Medicine; Visit Provider Family Medicine
DX: Z12.31 Encounter for screening mammogram for malignant neoplasm of breast (principal); Z78.0 Asymptomatic menopausal state; Z13.820 Encounter for screening for osteoporosis; M85.88 Other specified disorders of bone density and structure, other site; Z90.710 Acquired absence of both cervix and uterus
CPT/HCPCS: 77063; 77067; 77080; 77081

== ENCOUNTER → 2022-11-21 15:52 | Outpatient (CLI) | payer MEDICARE, SELFPAY ==
[2021-12-26 20:41] VITALS: BMI 25.0
[2022-11-21 17:11] LABS: Add Manual Diff / Slide Review NO; Basophils Absolute Auto 0 /uL (0-100); Basophils Percent Auto 0.8 % (0-2); Eosinophils Absolute Auto 100 /uL (0-450); Eosinophils Percent Auto 2.6 % (2-4); Hematocrit 40.2 % (36-46); Hemoglobin 13.3 g/dL (12.0-16.0); Lymphocytes Absolute Auto 1500 /uL (1100-4500); Lymphocytes Percent Auto 28.3 % (25-40); Mean Corpuscular HGB Conc 33.1 % (30-36); Mean Corpuscular Hemoglobin 29.2 PG (26-34); Mean Corpuscular Volume 88.4 fL (80-100); Monocytes Absolute Auto 600 /uL (0-900); Monocytes Percent Auto 10.3 % (3-14); Neutrophils Absolute Auto 3200 /uL (1500-7000); Platelet Count 212 X10^3/uL (150-400); Red Blood Cell Count 4.55 X10^6/uL (4.0-5.2); Red Cell Distribution Width 14.4 % (11.6-14.8); White Blood Cell Count 5.5 X10^3/uL (4.5-11.0)
[2022-11-21 17:52] LABS: Alanine Aminotransferase 22 IU/L (<35); Albumin 4.3 g/dL (3.5-5.0); Albumin Globulin Ratio 1.3 (1.0-2.8); Alkaline Phosphatase 85 U/L (38-126); Aspartate Aminotransferase 27 IU/L (14-36); BUN Creatinine Ratio 19.5 (6-22); Bilirubin Total 0.4 mg/dL (0.2-1.3); Blood Urea Nitrogen 15 mg/dL (7-17); Calcium 9.2 mg/dL (8.4-10.2); Carbon Dioxide 30 mmol/L (22-32); Chloride 102 mmol/L (98-107); Estimated Glomerular Filt Rate > 60 mL/min (>60); Globulin 3.3 g/dL (1.7-4.1); Glucose 95 mg/dL (80-110); HEMOLYSIS < 15 (0-50); Potassium 4.5 mmol/L (3.4-5.1); Sodium 141 mmol/L (137-145); Total Protein 7.6 g/dL (6.3-8.2)
== END ==
PROVIDERS: PCP Family Medicine; Referring Provider Dermatology; Visit Provider Dermatology
DX: L28.0 Lichen simplex chronicus (principal); L30.9 Dermatitis, unspecified; Z79.899 Other long term (current) drug therapy
CPT/HCPCS: 36415; 80053; 85025

== ENCOUNTER → 2023-01-21 15:03 | Outpatient (CLI) | payer MEDICARE, SELFPAY ==
[2021-12-26 20:41] VITALS: BMI 25.0
[2023-01-21 17:10] LABS: Vitamin B12 281 pg/mL (239-931)
== END ==
PROVIDERS: Family Provider Family Medicine; PCP Family Medicine; Referring Provider Family Medicine; Visit Provider Family Medicine
DX: E53.8 Deficiency of other specified B group vitamins (principal)
CPT/HCPCS: 36415; 82607

== ENCOUNTER → 2023-02-20 09:17 | Outpatient (CLI) | payer MEDICARE, SELFPAY ==
[2021-12-26 20:41] VITALS: BMI 25.0
[2023-02-20 10:25] LABS: Alanine Aminotransferase 23 IU/L (<35); Albumin 4.1 g/dL (3.5-5.0); Albumin Globulin Ratio 1.4 (1.0-2.8); Alkaline Phosphatase 92 U/L (38-126); Aspartate Aminotransferase 24 IU/L (14-36); BUN Creatinine Ratio 21.1 (6-22); Bilirubin Total 0.7 mg/dL (0.2-1.3); Blood Urea Nitrogen 15 mg/dL (7-17); Calcium 9.3 mg/dL (8.4-10.2); Carbon Dioxide 29 mmol/L (22-32); Chloride 102 mmol/L (98-107); Estimated Glomerular Filt Rate > 60 mL/min (>60); Globulin 2.9 g/dL (1.7-4.1); Glucose 94 mg/dL (80-110); HEMOLYSIS < 15 (0-50); Potassium 4.7 mmol/L (3.4-5.1); Sodium 135 mmol/L (137-145)
[2023-02-20 10:26] LABS: Add Manual Diff / Slide Review NO; Basophils Absolute Auto 0 /uL (0-100); Basophils Percent Auto 0.8 % (0-2); Eosinophils Absolute Auto 200 /uL (0-450); Eosinophils Percent Auto 2.8 % (2-4); Hematocrit 39.2 % (36-46); Hemoglobin 13.1 g/dL (12.0-16.0); Lymphocytes Absolute Auto 1300 /uL (1100-4500); Lymphocytes Percent Auto 23.7 % (25-40); Mean Corpuscular HGB Conc 33.3 % (30-36); Mean Corpuscular Hemoglobin 30.5 PG (26-34); Mean Corpuscular Volume 91.6 fL (80-100); Monocytes Absolute Auto 400 /uL (0-900); Monocytes Percent Auto 8.3 % (3-14); Neutrophils Absolute Auto 3400 /uL (1500-7000); Neutrophils Percent Auto 64.4 % (50-75); Platelet Count 200 X10^3/uL (150-400); Red Blood Cell Count 4.28 X10^6/uL (4.0-5.2); Red Cell Distribution Width 16.6 % (11.6-14.8); White Blood Cell Count 5.3 X10^3/uL (4.5-11.0)
== END ==
PROVIDERS: Family Provider Family Medicine; PCP Family Medicine; Referring Provider Massage Therapist; Visit Provider Dermatology
DX: Z79.899 Other long term (current) drug therapy (principal); L30.9 Dermatitis, unspecified; L28.0 Lichen simplex chronicus
CPT/HCPCS: 36415; 80053; 85025

== ENCOUNTER → 2023-03-03 14:33 | Outpatient (CLI) | payer MEDICARE, SELFPAY ==
[2021-12-26 20:41] VITALS: BMI 25.0
--- NOTE | 2023-03-03 14:34 | DI.RAD.S_ITS ---
PROCEDURE: XR LUMBAR SPINE 2-3V INDICATIONS: Back pain, fall TECHNIQUE: 3 views of the lumbar spine were acquired. COMPARISON: [facility], CR, XR LUMBAR SPINE WITH FLEXION EXTENSION 5 VIEWS, 02/06/2022, 10:08. Located Within [facility], MR, MR LUMBAR SPINE WO CON, 02/04/2022, 15:35. Located Within [facility], CR, XR LUMBAR SPINE 2-3V, 12/27/2021, 9:28. FINDINGS: Bones: 5 [id number] vertebrae are present. Mild scoliosis. There is normal bony alignment. No vertebral body compression fractures. No suspicious bony lesions. Grade 1 anterolisthesis of L4 on L5. Degenerative disc disease, moderate at L4-L5 and L5-S1, mild at other levels. Moderate facet arthropathy at L3-L4, L4-L5 and L5-S1. Bilateral hip arthroplasties. Soft tissues: Overlying bowel gas pattern is normal. No suspicious soft tissue calcifications. IMPRESSION: 1. Degenerative disc and facet disease as described. Dictated by: Tomi Vegas M.D. on 03/03/2023 at 17:19 Approved by: Tomi Vegas M.D. on 03/03/2023 at 17:20
== END ==
PROVIDERS: Family Provider Family Medicine; PCP Family Medicine; Referring Provider Family Medicine; Visit Provider Family Medicine
DX: M51.37 Other intervertebral disc degeneration, lumbosacral region (principal); M51.36 Other intervertebral disc degeneration, lumbar region; M47.816 Spondylosis without myelopathy or radiculopathy, lumbar region; M47.817 Spondylosis without myelopathy or radiculopathy, lumbosacral region; M54.50 Low back pain, unspecified; M85.80 Other specified disorders of bone density and structure, unspecified site; Z96.643 Presence of artificial hip joint, bilateral
CPT/HCPCS: 72100

== ENCOUNTER → 2023-03-14 12:30 | Outpatient (CLI) | payer MEDICARE, SELFPAY ==
[2021-12-26 20:41] VITALS: BMI 25.0
--- NOTE | 2023-03-14 | DI.RAD.S_ITS ---
PROCEDURE: XR LUMBAR SPINE 2-3V INDICATIONS: LUMBAR COMPRESSION FRACTURE TECHNIQUE: 2 views of the lumbar spine were acquired. COMPARISON: [facility], MR, MR LUMBAR SPINE WO CON, 02/04/2022, 15:35. [facility], CR, XR LUMBAR SPINE WITH FLEXION EXTENSION 5 VIEWS, 02/06/2022, 10:08. [facility], CR, XR LUMBAR SPINE 2-3V, 03/03/2023, 14:31. FINDINGS: Bones: 5 [id number] vertebrae are present. Unchanged chronic L1 compression fracture. No other compression fractures noted. Anterolisthesis of L4 on L5 measures 7 mm. Lower lumbar facet arthropathy. No suspicious bony lesions. Soft tissues: Overlying bowel gas pattern is normal. No suspicious soft tissue calcifications. IMPRESSION: 1. Old L1 compression fracture. 2. Degenerative change. Dictated by: Valerio Salazar M.D. on 03/14/2023 at 14:36 Approved by: Valerio Salazar M.D. on 03/14/2023 at 14:38
--- NOTE | 2023-03-14 12:35 | DI.RAD.S_ITS ---
PROCEDURE: XR SHOULDER LT MIN 2V INDICATIONS: left shoulder pain after fall TECHNIQUE: 3 views of the shoulder were acquired. COMPARISON: [facility], CR, XR SHOULDER LT MIN 2V, 04/09/2022, 10:45. FINDINGS: Bones: Expected appearance of left shoulder arthroplasty. No evidence of hardware failure or loosening. No fractures or dislocations. No suspicious bony lesions. Visualized ribs appear intact. Soft tissues: No suspicious soft tissue calcifications. IMPRESSION: Expected appearance of left shoulder arthroplasty. No evidence acute bony abnormality. Dictated by: Valerio Salazar M.D. on 03/14/2023 at 14:28 Approved by: Valerio Salazar M.D. on 03/14/2023 at 14:29
--- NOTE | 2023-03-14 12:35 | DI.RAD.S_ITS ---
PROCEDURE: XR CHEST 2V INDICATIONS: fall and left-chest wall pain TECHNIQUE: 2 views of the chest were acquired. COMPARISON: [facility], , XR CHEST 2V, 06/08/2021, 14:43. FINDINGS: Surgical changes and devices: Left shoulder arthroplasty Lungs and pleura: Lungs are clear. No pleural effusions or pneumothorax. Mediastinum: Mediastinal contours are normal. Heart size is normal. Bones and chest wall: No suspicious bony abnormalities. Soft tissues appear unremarkable. IMPRESSION: No evidence acute pulmonary process. Dictated by: Valerio Salazar M.D. on 03/14/2023 at 14:27 Approved by: Valerio Salazar M.D. on 03/14/2023 at 14:28
== END ==
PROVIDERS: Family Provider Family Medicine; PCP Family Medicine; Referring Provider Neurological Surgery; Visit Provider Family Medicine
DX: S32.011A Stable burst fracture of first lumbar vertebra, initial encounter for closed fracture (principal); R07.89 Other chest pain; M25.512 Pain in left shoulder; W19.XXXA Unspecified fall, initial encounter; Z96.612 Presence of left artificial shoulder joint; M47.816 Spondylosis without myelopathy or radiculopathy, lumbar region
CPT/HCPCS: 71046; 72100; 73030

== ENCOUNTER 2023-04-14 12:46 | Emergency (ER) | payer MEDICARE, SELFPAY ==
[2021-12-26 20:41] VITALS: BMI 25.0
[2023-04-14] VITALS (8 sets, daily range): BP systolic 124–134; BP diastolic 59–60; PULSE 64–85; RESP 12–24; TEMP 36.9; O2SAT 91–97; BMI 25.0
--- NOTE | 2023-04-14 12:59 | DI.RAD.S_ITS ---
PROCEDURE: XR RIBS LT MIN 3V W CXR1V INDICATIONS: fall onto left side TECHNIQUE: 2 views of the left ribs were acquired, along with a single view chest. COMPARISON: None. FINDINGS: Surgical changes and devices: Remote left shoulder arthroplasty. Bones and chest wall: Question nondisplaced fracture of the posterior lateral left 6th rib. However, this is at a distance from the marker. No suspicious bony lesions. Overlying soft tissues appear unremarkable. Lungs and pleura: No pleural effusions or pneumothorax. Lungs appear clear. Mediastinum: Mediastinal contours appear normal. Heart size is normal. IMPRESSION: Question posterior lateral left 6th rib fracture. No acute pulmonary process. Dictated by: Valerio Salazar M.D. on 04/14/2023 at 14:07 Approved by: Valerio Salazar M.D. on 04/14/2023 at 14:17
--- NOTE | 2023-04-14 13:00 | DI.RAD.S_ITS ---
PROCEDURE: XR SHOULDER LT MIN 2V INDICATIONS: fall onto left side TECHNIQUE: 3 views of the shoulder were acquired. COMPARISON: [facility], CR, XR SHOULDER LT MIN 2V, 03/14/2023, 12:44. FINDINGS: Bones: Expected appearance of left shoulder arthroplasty. No evidence of hardware failure or loosening. No fractures or dislocations. No suspicious bony lesions. Visualized ribs appear intact. Soft tissues: No suspicious soft tissue calcifications. IMPRESSION: Expected appearance of left shoulder arthroplasty. No acute bony abnormality. Dictated by: Valerio Salazar M.D. on 04/14/2023 at 14:17 Approved by: Valerio Salazar M.D. on 04/14/2023 at 14:18
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
--- NOTE | 2023-04-14 13:16 | PC.NURSE ---
Lung sounds clear bilaterally. Pt denies SOB. Ecchymoses noted on L abdomen/flank and L arm
--- NOTE | 2023-04-14 14:48 | PC.NURSE ---
Provided incentive spirometer and education. Gave ice water. Pt. continues to decline pain medication.
== END 2023-04-14 14:54 | disposition home or self-care (01) ==
PROVIDERS: Emergency Provider Emergency Medicine; Family Provider Family Medicine; PCP Family Medicine
DX: S22.32XA Fracture of one rib, left side, initial encounter for closed fracture (principal); W18.00XA Striking against unspecified object with subsequent fall, initial encounter
CPT/HCPCS: 71101; 73030; 99283

== ENCOUNTER 2023-04-17 09:45 | Emergency (ER) | payer MEDICARE, SELFPAY ==
[2021-12-26 20:41] VITALS: BMI 25.0
[2023-04-17 09:47] VITALS: BP 149/65; PULSE 80; RESP 15; TEMP 37.4; O2SAT 96; BMI 25.0
--- NOTE | 2023-04-17 09:59 | DI.RAD.S_ITS ---
PROCEDURE: XR RIBS LT MIN 3V W CXR1V INDICATIONS: pain post fall, known rib fx X 1 TECHNIQUE: 2 views of the left ribs were acquired, along with a single view chest. COMPARISON: [facility], CR, XR RIBS LT MIN 3V W CXR1V, 04/14/2023, 13:09. FINDINGS: Surgical changes and devices: None. Bones and chest wall: Similar left posterior 6th rib fracture. Lungs and pleura: No pleural effusions or pneumothorax. Lungs appear clear. Mediastinum: Mediastinal contours appear normal. Heart size is normal. IMPRESSION: Similar left posterior 6th rib fracture. No pneumothorax. Dictated by: Jeremiah Light M.D. on 04/17/2023 at 10:26 Approved by: Jeremiah Light M.D. on 04/17/2023 at 10:27
--- NOTE | 2023-04-17 09:59 | DI.RAD.S_ITS ---
PROCEDURE: XR THORACIC SPINE 2V INDICATIONS: increased L rib pain TECHNIQUE: 2 views of the thoracic spine were acquired. COMPARISON: None. FINDINGS: Bones: Age indeterminate compression deformities of the T8 and L1 vertebral bodies, without endplate retropulsion. No suspicious bony lesions. 12 pairs of ribs are noted, and appear intact where visualized. Soft tissues: No paravertebral stripe thickening. IMPRESSION: Age indeterminate compression deformities of the T8 and L1 vertebral bodies. Dictated by: Jeremiah Light M.D. on 04/17/2023 at 10:24 Approved by: Jeremiah Light M.D. on 04/17/2023 at 10:25
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
[2023-04-17] MEDS: LIDOCAINE PATCH 1 EACH ADH..PATCH TOP (10:20)
[2023-04-17] MEDS: IBUPROFEN 400 MG TABLET PO (10:20)
== END 2023-04-17 12:18 | disposition home or self-care (01) ==
PROVIDERS: Emergency Provider Emergency Medicine; Family Provider Family Medicine; PCP Family Medicine
DX: S22.32XA Fracture of one rib, left side, initial encounter for closed fracture (principal); R29.6 Repeated falls; W18.30XA Fall on same level, unspecified, initial encounter
CPT/HCPCS: 71101; 72070; 99283; 99284

== ENCOUNTER → 2023-05-12 18:40 | Outpatient (CLI) | payer MEDICARE, SELFPAY ==
[2021-12-26 20:41] VITALS: BMI 25.0
--- NOTE | 2023-05-12 18:42 | DI.MRI.S_ITS ---
PROCEDURE: MR LUMBAR SPINE WO CON INDICATIONS: pain s/p fall and incontinence/fecal TECHNIQUE: Noncontrast sagittal T1 spin echo and T2 fast echo, sagittal STIR, and T2 fast spin echo through the lumbar spine. In cases with scoliosis, additional coronal T2 fast spin echo may be performed. COMPARISON: [facility], CR, XR LUMBAR SPINE 2-3V, 03/03/2023, 14:31. [facility], CR, XR CHEST 2V, 03/14/2023, 12:41. [facility], MR, MR LUMBAR SPINE WO CON, 02/04/2022, 15:35. [facility], CR, XR LUMBAR SPINE 2-3V, 03/14/2023, 13:20. FINDINGS: Image quality: Excellent. Alignment and Curvature: Mild grade 1 anterolisthesis can be seen at the L4-L5 level. No associated pars defects are seen. Minimal retrolisthesis can be seen at L5-S1. Mild dextroconvex scoliotic curvature is seen. Bone Marrow: Marrow is of normal overall signal. No acute vertebral body compression fractures. There is an L1 compression deformity again seen, with approximately 50% loss of height anteriorly, which appears slightly progressed compared to the 02/04/2022 examination. The previously seen vertebral body edema has resolved. Note is made of fatty metaplasia within the sacrum and the iliac bones. Spinal Cord: Conus medullaris terminates at the L1 level. Visualized cord demonstrates normal signal and size. Paraspinous Soft Tissues: No paravertebral masses. T12-L1: The disc height is well-preserved. Loss of disc signal is seen at this level. No significant disc bulge is seen. Mild facet joint hypertrophy is seen. Moderate bilateral neural foraminal narrowing is seen. Mild central canal narrowing is seen. When comparison is made with the prior images, these findings are similar. L1-L2: The disc height and disk signal are relatively well-preserved. Mild generalized disc bulge is seen. Mild facet joint hypertrophy is seen. There is [id number] right-sided and moderate left-sided neural foraminal narrowing. No central canal narrowing is seen. When comparison is made with the prior images, these findings are similar. L2-L3: The disc height is well-preserved. Loss of disc signal is seen at this level. Reactive marrow endplate changes are seen which are hypointense on T1-weighted imaging and hyperintense on T2 weighted imaging posteriorly, which is most consistent with edema (Modic type I changes). Moderate disc bulge is seen, which is eccentric to the left. There is a superimposed central disc protrusion. Mild to moderate facet hypertrophy can be seen. There is moderate right-sided and moderate to severe left-sided neural foraminal narrowing. There is a degree of compression seen upon the exiting left L2 nerve root. Moderate central canal narrowing is seen. These imaging findings have progressed compared to the prior study. L3-L4: Moderate loss of disc height is seen. Loss of disc signal is seen. Moderate disc bulge is seen at this level. There is a superimposed central disc protrusion. Moderate facet joint hypertrophy is seen. There is at least moderate left-sided and moderate right-sided neural foraminal narrowing. Moderate central canal narrowing is seen. When comparison is made with the prior images, these findings are similar. L4-L5: Moderate loss of disc height is seen. Loss of disc signal is seen. Moderate generalized disc bulge is seen, which is eccentric to the right. There is a superimposed central disc protrusion. Moderate facet joint hypertrophy is seen. Associated hypertrophy of the ligamentum flavum can be seen. There is at least moderate right-sided and moderate left-sided neural foraminal narrowing. Moderate central canal narrowing is seen. When comparison is made with the prior images, these findings are similar. L5-S1: At least moderate loss of disc height and disc signal can be seen. Moderate generalized disc bulge is seen. Moderate facet joint hypertrophy is seen. Mild to moderate bilateral neural foraminal narrowing is seen. No central canal narrowing can be seen. When comparison is made with the prior images, these findings are similar. IMPRESSION: Multiple levels of significant lumbar spine degenerative change can be seen, which are similar to the 2021 examination, although slightly progressed at the L2-L3 level. Remote L1 anterior wedge deformity, with slight progression in the degree of compression, now 50% anteriorly. Dictated by: Joshua Whaley M.D. on 05/13/2023 at 11:46 Approved by: Joshua Whaley M.D. on 05/13/2023 at 11:53
== END ==
PROVIDERS: Family Provider Family Medicine; PCP Family Medicine; Referring Provider Family Medicine; Visit Provider Family Medicine
DX: M47.816 Spondylosis without myelopathy or radiculopathy, lumbar region (principal); M47.817 Spondylosis without myelopathy or radiculopathy, lumbosacral region; M54.50 Low back pain, unspecified; R15.9 Full incontinence of feces; M43.8X6 Other specified deforming dorsopathies, lumbar region
CPT/HCPCS: 72148

== ENCOUNTER 2023-07-15 14:58 | Emergency (ER) | payer MEDICARE, SELFPAY ==
[2021-12-26 20:41] VITALS: BMI 25.0
[2023-07-15 15:32] VITALS: BP 132/62; PULSE 75; RESP 18; TEMP 36.8; O2SAT 97; BMI 25.7
--- NOTE | 2023-07-15 15:37 | DI.RAD.S_ITS ---
PROCEDURE: XR HIP W PEL IF DONE RT 2V INDICATIONS: Fall with right hip injury. TECHNIQUE: AP pelvis with lateral view(s) of the right hip(s). COMPARISON: [facility], CR, XR LUMBAR SPINE 2-3V, 03/03/2023, 14:31. FINDINGS: Bones: Status post bilateral total hip arthroplasties in grossly stable alignment. No evidence for hardware failure or loosening. No definite fractures or dislocations. Pelvic ring appears intact. No suspicious bony lesions. Soft tissues: The visualized bowel gas pattern is normal. No suspicious soft tissue calcifications. IMPRESSION: Status post bilateral total hip arthroplasties without evidence for hardware complication. No definite fracture or dislocation identified. If there is persistent clinical concern for occult fracture given adequate mechanism of injury, consider repeat imaging in 10-14 days versus cross-sectional imaging. Dictated by: Gilmar Badillo M.D. on 07/15/2023 at 17:07 Approved by: Gilmar Badillo M.D. on 07/15/2023 at 17:11
[2023-07-15 17:50] VITALS: BP 140/63; PULSE 77; RESP 18; TEMP 36.7; O2SAT 98
--- NOTE | 2023-07-15 17:59 | ED.LOWEXIN ---
HPI - Extremity Injury (Lower) <Ramesh Viera PA-C - Last Filed: 07/15/23 18:37> General Chief Complaint: Extremity Injury, Lower Stated Complaint: fell/rt hip pain Time Seen by Provider: 07/15/23 17:49 Source: patient Mode of arrival: Ambulatory History of Present Illness HPI Narrative: 83-year-old female with past medical history hypertension, hyperlipidemia, osteopenia, tinnitus, glaucoma, osteoarthritis presents to the ED status post a mechanical fall sustained just prior to arrival. Patient states that she slipped on some gravel falling forward. Patient complains of right elbow and right hip pain. Patient denies numbness, tingling, weakness. Patient states she has found it too difficult to bear weight and walk on the right hip. Patient is status post bilateral hip arthroplasties. Related Data Home Medications Medication Instructions Recorded Confirmed folic acid 400 mcg tablet 0.4 mg PO BEDTIME 09/19/21 07/15/23 methotrexate sodium 2.5 mg tablet 10 mg PO QWEEK 09/19/21 07/15/23 famotidine 20 mg tablet 20 mg PO DAILY 06/10/23 07/15/23 Previous Rx's Medication Instructions Recorded diclofenac sodium 1 % topical gel 2 g topical QID PRN pain #100 grams 03/27/22 mupirocin 2 % topical ointment 1 applic topical BID #22 grams 05/30/22 cyanocobalamin (vitamin B-12) 1,000 mcg IM QWEEK #1 mL 03/13/23 1,000 mcg/mL injection solution lidocaine 5 % topical patch 1 patch topical DAILY #15 ea 04/17/23 venlafaxine 150 mg 150 mg PO BEDTIME #90 caps 04/28/23 capsule,extended release 24 hr venlafaxine 37.5 mg 37.5 mg PO BEDTIME #90 caps 06/12/23 capsule,extended release 24 hr Allergies Allergy/AdvReac Type Severity Reaction Status Date / Time ciprofloxacin [From Cipro] Allergy Severe Severe Verified 07/15/23 15:32 diarrhea cyclobenzaprine Allergy Severe I Verified 07/15/23 15:32 couldn't get out of bed for days hydrocodone Allergy Unknown Patient Verified 07/15/23 15:32 can't remember oxycodone Allergy Unknown Patient Verified 07/15/23 15:32 can't remember alendronate sodium AdvReac Severe Esophageal Verified 07/15/23 15:32 [From Fosamax] ulcer and severe bleeding amoxicillin [From Augmentin] AdvReac Severe Severe Verified 07/15/23 15:32 diarrhea clavulanic acid AdvReac Severe Severe Verified 07/15/23 15:32 [From Augmentin] diarrhea risedronate sodium AdvReac Severe esophageal Verified 07/15/23 15:32 [From Actonel] ulcer and severe bleeding sulfamethoxazole AdvReac Verified 07/15/23 15:32 [From Bactrim] trimethoprim [From Bactrim] AdvReac Verified 07/15/23 15:32 Review of Systems <Ramesh Viera PA-C - Last Filed: 07/15/23 18:37> Constitutional Constitutional: Denies chills, Denies fatigue, Denies fever(s), Denies frequent falls, Denies lethargy and Denies weakness Eyes Eyes: Denies change in vision, Denies eye discharge, Denies irritation and Denies loss of vision ENT Ears, Nose, Mouth, and Throat: Denies change in voice, Denies dizziness, Denies neck pain, Denies sore throat and Denies throat swelling Cardiovascular Cardiovascular: Denies chest pain, Denies irregular heart rhythm, Denies lightheadedness, Denies palpitations, Denies dyspnea, Denies dyspnea on exertion and Denies orthopnea Respiratory Respiratory: Denies cough, Denies dyspnea, Denies dyspnea on exertion and Denies wheezing Gastrointestinal Gastrointestinal: Denies abdominal pain, Denies change in bowel habits, Denies diarrhea, Denies nausea and Denies vomiting Musculoskeletal Musculoskeletal: Denies neck pain and Denies numbness Comments: Right hip pain, right elbow pain Integumentary/Breasts Skin/Breast: Denies pruritus, Denies erythema, Denies rash and Denies wounds Neurologic Neurologic: Denies behavioral changes, Denies confusion, Denies dizziness, Denies frequent falls, Denies loss of vision, Denies numbness and Denies weakness Psychiatric Psychiatric: Denies anxiety, Denies behavioral changes, Denies confusion, Denies depression, Denies homicidal ideation and Denies suicidal ideation Endocrine Endocrine: Denies fatigue, Denies flushing and Denies palpitations Hematologic/Lymphatic Hematologic/Lymphatic: Denies easy bruising Allergic/Immunologic Allergic/Immunologic: Denies urticaria, Denies throat swelling and Denies wheezing Patient History <Ramesh Viera PA-C - Last Filed: 07/15/23 18:37> Medical History Lumbar degenerative disc disease Lumbar facet arthropathy Lumbar spondylosis Obstructive sleep apnea Stress incontinence of urine Lichen sclerosus Cough Difficulty swallowing liquids Dermatitis Headache Fractures (~2018) Gastric ulcer (~2000) Skin cancer (~2000) Subarachnoid hemorrhage Hyperlipidemia (~1962) Depression Ankylosing spondylitis Asthma Allergies Carpal tunnel syndrome Chicken pox Anemia Heavy menstrual period (~1984) Endometriosis (~1984) Esophageal bleeding (~2007) GI bleeding (~2007) Keratoacanthoma (~2012) Osteoarthritis History of depression History of TIA (transient ischemic attack) (~2017) Surgical History History of umbilical hernia repair Anesthesia History of ulcer disease (~2006) Status post appendectomy Status post bilateral hip replacements (~2001) Family History Father Skin cancer Mother Diabetes mellitus History of heart disease Hyperlipidemia Brother Diabetes mellitus Hyperlipidemia Grandfather Diabetes mellitus Social History household members: none Smoking Status: Never smoker second hand exposure: Yes (only in public places and I was when I was a child.) alcohol intake: current substance use type: does not use Smoking Status: Never smoker alcohol intake frequency: holidays/special occasions only Substance Use Type: does not use Exam <Ramesh Viera PA-C - Last Filed: 07/15/23 18:37> Narrative Exam Narrative: Const General:?cooperative, healthy appearing and comfortable [facility] Head:?normal to inspection Ears:?hearing grossly normal bilaterally Nose:?external nose normal Face and sinus:?normal facial exam and sinuses nontender Mouth:?oral mucosae normal Throat:?posterior oropharynx normal Eyes General:?appearance normal, both eyes and all related structures Neck Neck:?normal visual inspection and no lymphadenopathy noted Resp Effort & Inspection:?normal respiratory effort Auscultation:?clear to auscultation bilaterally Cardio Rate:?regular rate Rhythm:?regular rhythm Musculoskeletal No deformities. Patient unable to bear weight and walk due to pain. Right elbow with small abrasion but no deformities or tenderness to palpation. Neuro General:?patient alert, patient awake and patient oriented x3 Initial Vital Signs Initial Vital Signs: Vital Signs Temperature 98.2 F 07/15/23 15:32 Pulse Rate 75 07/15/23 15:32 Respiratory Rate 18 07/15/23 15:32 Blood Pressure 132/62 07/15/23 15:32 Pulse Oximetry 97 07/15/23 15:32 Oxygen Delivery Method Room Air 07/15/23 15:32 <Hebert Hernández MD - Last Filed: 07/16/23 08:10> Initial Vital Signs Initial Vital Signs: Vital Signs Temperature 98.2 F 07/15/23 15:32 Pulse Rate 75 07/15/23 15:32 Respiratory Rate 18 07/15/23 15:32 Blood Pressure 132/62 07/15/23 15:32 Pulse Oximetry 97 07/15/23 15:32 Oxygen Delivery Method Room Air 07/15/23 15:32 Course <Ramesh Viera PA-C - Last Filed: 07/15/23 18:37> Orders Ordered: ED Orders 07/15/23 15:37 XR hip w pel if done RT 2V Stat Vital Signs Vital signs: Vital Signs - 8 hr 07/15/23 15:32 07/15/23 17:50 Temperature 98.2 F 98.1 F Pulse Rate 75 77 Respiratory Rate 18 18 Blood Pressure 132/62 140/63 Pulse Oximetry 97 98 Oxygen Delivery Method Room Air Room Air <Hebert Hernández MD - Last Filed: 07/16/23 08:10> Orders Ordered: ED Orders 07/15/23 15:37 XR hip w pel if done RT 2V Stat Vital Signs Vital signs: Vital Signs - 8 hr 07/15/23 15:32 07/15/23 17:50 Temperature 98.2 F 98.1 F Pulse Rate 75 77 Respiratory Rate 18 18 Blood Pressure 132/62 140/63 Pulse Oximetry 97 98 Oxygen Delivery Method Room Air Room Air MDM - Extremity Injury (Lower) <Ramesh Viera PA-C - Last Filed: 07/15/23 18:37> MDM Narrative Medical decision making narrative: 83-year-old female with past medical history hypertension, hyperlipidemia, osteopenia, tinnitus, glaucoma, osteoarthritis presents to the ED status post a mechanical fall sustained just prior to arrival. Concern for fracture/dislocation versus musculoskeletal sprain/strain versus other. Obtained hip x-ray which showed no fractures or dislocations. Patient's symptoms likely due to a musculoskeletal sprain/strain. Recommend supportive care with rest, ice, heat packs, topical numbing creams, lidocaine patches, Tylenol. Recommend follow-up with PCP as soon as possible. ED return precautions discussed with patient. Patient verbalized understanding. Medical records reviewed: Yes Discharge Plan Departure Patient Disposition: Home Clinical Impression: Hip pain Qualifiers: Laterality: right Qualified Code(s): M25.551 - Pain in right hip Instructions: DI for Hip Pain Activity Restrictions/Additional Instructions: You were evaluated in the ED for hip pain. Your xray did not show any fractures or dislocations. Your symptoms are likely due to a sprain/strain. You may apply lidocaine patches, numbing cream, ice, heat packs, take Tylenol for your symptoms. Please follow-up with your PCP as soon as possible. Return to the ED if you experience worsening symptoms, numbness, tingling, weakness. Prescriptions: No Action venlafaxine 150 mg capsule,extended release 24hr 150 mg PO BEDTIME Qty: 90 1RF venlafaxine 37.5 mg capsule,extended release 24hr 37.5 mg PO BEDTIME Qty: 90 1RF Rx Instructions: take with 150mg folic acid 400 mcg tablet 0.4 mg PO BEDTIME methotrexate sodium 2.5 mg tablet 10 mg PO QWEEK mupirocin 2 % ointment 1 applic topical BID Qty: 22 1RF cyanocobalamin (vitamin B-12) 1,000 mcg/mL solution 1,000 mcg IM QWEEK Qty: 1 0RF diclofenac sodium 1 % gel 2 g topical QID PRN (Reason: pain) Qty: 100 0RF Rx Instructions: apply to single elbow, wrist or hand; for hand includes palm/fingers/back of hand lidocaine 5 % adhesive patch,medicated 1 patch topical DAILY Qty: 15 1RF Rx Instructions: leave on most painful area for up to 12 hrs famotidine 20 mg tablet 20 mg PO DAILY Referrals: Justin Arevalo MD [Primary Care Provider] - Stand Alone Forms: Patient Portal/API ED Sign-out <Hebert Hernández MD - Last Filed: 07/16/23 08:10> Cosign ED Attending Cosignature Attestation: I was immediately available in the department for consultation. ?This documentation has been reviewed and I agree with assessment and plan. Supervised by Hebert Hernández MD
== END 2023-07-15 18:41 | disposition home or self-care (01) ==
PROVIDERS: Emergency Provider Student in an Organized Health Care Education/Training Program; Family Provider Family Medicine; PCP Family Medicine
DX: M25.551 Pain in right hip (principal); M25.521 Pain in right elbow; W01.0XXA Fall on same level from slipping, tripping and stumbling without subsequent striking against object, initial encounter
CPT/HCPCS: 73502; 99281; 99283

== ENCOUNTER → 2023-07-22 16:25 | Outpatient (CLI) | payer MEDICARE, SELFPAY ==
[2021-12-26 20:41] VITALS: BMI 25.0
--- NOTE | 2023-07-22 16:32 | DI.RAD.S_ITS ---
PROCEDURE: XR HIP W PEL IF DONE RT 2V INDICATIONS: Worsening severe R hip pain TECHNIQUE: Two views of the hip were acquired. COMPARISON: [facility], [facility], XR HIP W PEL IF DONE RT 2V, 07/15/2023, 15:39. FINDINGS: Bones: A subtle radiolucency is present at the greater trochanter of the right femur. This appears new when compared with the prior plain film dated July 15, 2023. No other fracture or dislocation. Soft tissues: No suspicious soft tissue calcifications or masses. IMPRESSION: Findings suspicious for minimally displaced fracture at the right greater trochanter. Dictated by: Ailyn Lal M.D. on 07/22/2023 at 17:31 Approved by: Ailyn Lal M.D. on 07/22/2023 at 17:37
== END ==
PROVIDERS: Family Provider Family Medicine; PCP Family Medicine; Referring Provider Family Medicine; Visit Provider Family Medicine
DX: M25.551 Pain in right hip (principal)
CPT/HCPCS: 73502

== ENCOUNTER → 2023-08-16 09:53 | Outpatient (CLI) | payer MEDICARE, SELFPAY ==
[2021-12-26 20:41] VITALS: BMI 25.0
--- NOTE | 2023-08-16 09:55 | DI.CT.S_ITS ---
PROCEDURE: CT FEMUR RIGHT WITHOUT CON INDICATIONS: PERIPROSTHETIC FRACTURE OF HIP TECHNIQUE: Noncontrast 3 mm axial sections acquired of the right femur , with coronal and sagittal reformats. COMPARISON: [facility], CT, CT HIP RIGHT WITHOUT CON, 08/16/2023, 10:01. FINDINGS: Image quality: Excellent. Bones: Unchanged alignment of mildly comminuted greater trochanteric fracture with fracture lines extending to the intertrochanteric region. Mild periosteal reaction and osseous bridging suggestive of interval healing. Bilateral hip prosthesis. Soft tissues: Prominent stool otherwise normal appearance of the visualized abdominal pelvic organs. IMPRESSION: Evidence of healing comminuted right trochanteric fracture involving the right hip prosthesis. Dictated by: Hebert Theodore M.D. on 08/16/2023 at 10:10 Approved by: Hebert Theodore M.D. on 08/16/2023 at 10:13
--- NOTE | 2023-08-16 09:56 | DI.CT.S_ITS ---
PROCEDURE: CT HIP RIGHT WITHOUT CON INDICATIONS: PERIPROSTHETIC FRACTURE OF HIP TECHNIQUE: Noncontrast 3 mm axial sections acquired through the bony pelvis. Additional 3 mm axial sections acquired through the symptomatic hip joint, with coronal and sagittal reformats. COMPARISON: [facility], RG, CT PELVIS W/O CONTRAST, 07/24/2023, 15:57. [facility], CT, CT FEMUR RIGHT WITHOUT CON, 08/16/2023, 10:01. FINDINGS: Image quality: Excellent. Bones: Bilateral hip prostheses. Sequela of prior comminuted fracture of the right femur extending along the greater trochanter to the intertrochanteric region. There is some periosteal reaction and osseous bridging indicating interval healing Soft tissues: Prominent stool throughout the visualized colon. The remaining visualized abdominal pelvic structures are otherwise unremarkable. IMPRESSION: Healing left greater trochanteric fracture with right hip prosthesis. Dictated by: Hebert Theodore M.D. on 08/16/2023 at 10:04 Approved by: Hebert Theodore M.D. on 08/16/2023 at 10:10
== END ==
PROVIDERS: Family Provider Family Medicine; PCP Family Medicine; Referring Provider Family Medicine; Visit Provider Family Medicine
DX: S72.111D Displaced fracture of greater trochanter of right femur, subsequent encounter for closed fracture with routine healing (principal); M97.01XD Periprosthetic fracture around internal prosthetic right hip joint, subsequent encounter; Z96.643 Presence of artificial hip joint, bilateral
CPT/HCPCS: 73700; 73701

== ENCOUNTER → 2023-09-02 14:57 | Outpatient (CLI) | payer MEDICARE, SELFPAY ==
[2021-12-26 20:41] VITALS: BMI 25.0
[2023-09-02 16:25] LABS: Vitamin D 25 Hydroxy (D3) 93.7 ng/mL (30.0-100.0)
== END ==
PROVIDERS: Family Provider Family Medicine; PCP Family Medicine; Referring Provider Physician Assistant; Visit Provider Physician Assistant
DX: K22.70 Barrett's esophagus without dysplasia (principal); E55.9 Vitamin D deficiency, unspecified
CPT/HCPCS: 36415; 82306

== ENCOUNTER → 2023-10-10 17:17 | Outpatient (CLI) | payer MEDICARE, SELFPAY ==
[2021-12-26 20:41] VITALS: BMI 25.0
--- NOTE | 2023-10-10 17:18 | DI.MG.S_ITS ---
BILATERAL DIGITAL SCREENING MAMMOGRAM 3D/2D WITH CAD: 10/10/2023 CLINICAL: Routine screening. Comparison is made to exams dated: 06/20/2022 mammogram, 09/20/2020 mammogram, and 08/12/2019 mammogram - [facility]. Both breasts are heterogeneously dense, which may obscure small masses (category c / 51-75% glandular tissue). Current study was also evaluated with a Computer Aided Detection (CAD) system. There is a developing irregular asymmetry with an indistinct margin and punctate calcifications in the right breast at 12 o'clock posterior depth. There is architectural distortion associated with the asymmetry. No other significant masses, calcifications, or other findings are seen in either breast. IMPRESSION: INCOMPLETE: NEEDS ADDITIONAL IMAGING EVALUATION The developing irregular asymmetry in the right breast is indeterminate. Additional views with possible ultrasound are recommended. Based on the Tyrer Cuzick model (a risk assessment model) the patient's lifetime risk is 0.5% and her 10 year risk is 0.0%. According to the ACR, ACS, and NCCN guidelines, an annual breast MRI exam along with mammogram is recommended if the patient's lifetime risk is 20% or greater. This exam was interpreted at Station ID: [id number]. NOTE: For mammograms, a report in lay terms will be sent to the patient. Approximately 15% of breast malignancies will not be visualized mammographically. In the management of a palpable breast mass, a negative mammogram must not discourage biopsy of a clinically suspicious lesion. Electronically Signed By: Reva clements/elise:10/13/2023 09:20:12 letter sent: Additional Imaging Needed ACR BI-RADS Category 0: Incomplete 3340F
== END ==
PROVIDERS: Family Provider Family Medicine; PCP Family Medicine; Referring Provider Family Medicine; Visit Provider Family Medicine
DX: Z12.31 Encounter for screening mammogram for malignant neoplasm of breast (principal); R92.333 Mammographic heterogeneous density, bilateral breasts
CPT/HCPCS: 77063; 77067

== ENCOUNTER → 2023-10-29 10:34 | Outpatient (CLI) | payer MEDICARE, SELFPAY ==
[2023-10-13 15:21] VITALS: BMI 25.0
[2023-10-29 11:01] LABS: Add Manual Diff / Slide Review NO; Basophils Absolute Auto 100 /uL (0-100); Eosinophils Absolute Auto 100 /uL (0-450); Eosinophils Percent Auto 2.2 % (2-4); Hematocrit 38.5 % (36-46); Hemoglobin 12.9 g/dL (12.0-16.0); Lymphocytes Absolute Auto 1100 /uL (1100-4500); Lymphocytes Percent Auto 19.9 % (25-40); Mean Corpuscular HGB Conc 33.5 % (30-36); Mean Corpuscular Hemoglobin 28.3 PG (26-34); Mean Corpuscular Volume 84.3 fL (80-100); Monocytes Absolute Auto 400 /uL (0-900); Monocytes Percent Auto 7.5 % (3-14); Neutrophils Absolute Auto 3700 /uL (1500-7000); Neutrophils Percent Auto 69.4 % (50-75); Platelet Count 199 X10^3/uL (150-400); Red Blood Cell Count 4.56 X10^6/uL (4.0-5.2); Red Cell Distribution Width 15.4 % (11.6-14.8); White Blood Cell Count 5.4 X10^3/uL (4.5-11.0)
[2023-10-29 11:21] LABS: Alanine Aminotransferase 19 IU/L (<35); Albumin 3.9 g/dL (3.5-5.0); Albumin Globulin Ratio 1.3 (1.0-2.8); Alkaline Phosphatase 85 U/L (38-126); Aspartate Aminotransferase 25 IU/L (14-36); BUN Creatinine Ratio 14.7 (6-22); Bilirubin Total 0.9 mg/dL (0.2-1.3); Blood Urea Nitrogen 10 mg/dL (7-17); Calcium 8.9 mg/dL (8.4-10.2); Carbon Dioxide 24 mmol/L (22-32); Chloride 106 mmol/L (98-107); Cholesterol 193 mg/dL (140-199); Estimated Glomerular Filt Rate > 60 mL/min (>60); Glucose 94 mg/dL (80-110); HDL Cholesterol 63 mg/dL (40-60); HEMOLYSIS < 15 (0-50); LDL Cholesterol Calculated 112 mg/dL (<100); Magnesium 1.9 mg/dL (1.6-2.3); Potassium 4.1 mmol/L (3.4-5.1); Sodium 138 mmol/L (137-145); Total Protein 6.9 g/dL (6.3-8.2); Triglycerides 89 mg/dL (35-150)
[2023-10-30 08:55] LABS: Apolipoprotein B 79 mg/dL (<90)
== END ==
PROVIDERS: Family Provider Family Medicine; PCP Family Medicine; Referring Provider Family Medicine; Visit Provider Family Medicine
DX: K22.70 Barrett's esophagus without dysplasia (principal); I10 Essential (primary) hypertension; K59.00 Constipation, unspecified; K22.10 Ulcer of esophagus without bleeding; E55.9 Vitamin D deficiency, unspecified; E78.5 Hyperlipidemia, unspecified
CPT/HCPCS: 36415; 80053; 80061; 82172; 83735; 85025

== ENCOUNTER → 2023-10-31 | Outpatient (CLI) | payer MEDICARE, SELFPAY ==
[2023-10-13 15:21] VITALS: BMI 25.0
--- NOTE | 2023-10-31 | DI.MG.S_ITS ---
UNILATERAL RIGHT DIGITAL DIAGNOSTIC MAMMOGRAM 3D/2D WITH ADDITIONAL VIEWS: 10/31/2023 CLINICAL: Additional evaluation requested from prior study. Comparison is made to exams dated: 10/10/2023 mammogram, 06/20/2022 mammogram, and 09/20/2020 mammogram - [facility]. The right breast is heterogeneously dense, which may obscure small masses (category c / 51-75% glandular tissue). There is a 0.7 cm irregular mass with a spiculated margin in the right breast at 12 o'clock posterior depth. There is a closely adjacent 0.3 cm spiculated mass located 0.8 cm anterolateral. Total mammographic span is 1.5 cm mediolaterally. These findings correspond to focal asymmetry on recent screening mammogram. No other significant masses or calcifications are seen in the breast. IMPRESSION: INCOMPLETE: NEEDS ADDITIONAL IMAGING EVALUATION Right breast adjacent spiculated masses measuring 0.7 and 0.3 cm at 12 o'clock posterior depth. Total mammographic span 1.5 cm mediolaterally. An ultrasound is recommended for further evaluation and is scheduled to immediately follow this examination. Based on the Tyrer Cuzick model (a risk assessment model) the patient's lifetime risk is 0.5% and her 10 year risk is 0.0%. According to the ACR, ACS, and NCCN guidelines, an annual breast MRI exam along with mammogram is recommended if the patient's lifetime risk is 20% or greater. This exam was interpreted at Station ID: [id number]. NOTE: For mammograms, a report in lay terms will be sent to the patient. Approximately 15% of breast malignancies will not be visualized mammographically. In the management of a palpable breast mass, a negative mammogram must not discourage biopsy of a clinically suspicious lesion. Electronically Signed By: Annalisa Berger M.D., PH.D eb/:10/31/2023 23:58:30 ACR BI-RADS Category 0: Incomplete 3340F
--- NOTE | 2023-10-31 12:19 | DI.US.S_ITS ---
LIMITED ULTRASOUND OF RIGHT BREAST AND AXILLA: 10/31/2023 CLINICAL: Patient returns today to evaluate a focal asymmetry in the right breast. Comparison is made to exams dated: 10/31/2023 mammogram, 10/10/2023 mammogram, 06/20/2022 mammogram, and 09/20/2020 mammogram - [facility]. Color flow and real-time ultrasound of the right breast 11-12 o'clock, and axilla regions were performed. There is a 0.7 cm x 0.4 cm x 0.4 cm irregular mass with a spiculated margin in the right breast at 12 o'clock, 8 cm from the nipple. There is a closely adjacent 0.4 cm spiculated mass located 0.8 cm laterally at 11:30 o'clock, 8 cm from the nipple. This correlates with mammography findings. No abnormal lymph nodes are seen in the right axilla. IMPRESSION: SUSPICIOUS OF MALIGNANCY Right breast 0.7 cm spiculated mass at 12 o'clock and 0.4 cm closely adjacent spiculated mass at 11:30 o'clock. Total sonographic span is 1.7 cm, similar to mammographic span. Findings are suspicious. Recommend ultrasound guided biopsy of 12 o'clock mass. Findings and recommendations were discussed with the patient by Dr. Vegas at time of imaging completion. This exam was interpreted at Station ID: [id number]. Electronically Signed By: Annalisa Berger M.D., PH.D eb/:11/01/2023 01:17:09 letter sent: Biopsy Required Ultrasound BI-RADS: 4 Suspicious for malignancy
== END ==
LOC: MAMMO 12:19
PROVIDERS: Family Provider Family Medicine; PCP Family Medicine; Referring Provider Family Medicine; Visit Provider Family Medicine
DX: R92.8 Other abnormal and inconclusive findings on diagnostic imaging of breast (principal); N63.15 Unspecified lump in the right breast, overlapping quadrants; R92.331 Mammographic heterogeneous density, right breast; N63.11 Unspecified lump in the right breast, upper outer quadrant
CPT/HCPCS: 76642; 77065; G0279

== ENCOUNTER → 2023-11-13 07:36 | Outpatient (CLI) | payer MEDICARE, SELFPAY ==
[2023-10-13 15:21] VITALS: BMI 25.0
--- NOTE | 2023-11-13 | PATH_ITS ---
[facility] Accession Number: [id number] No. of containers..01 Tissue . 01 Material submitted: . breast - RIGHT BREAST MASS 12:00 8 CMFN . 01 Diagnosis: RIGHT BREAST, 12 O'CLOCK, 8 CM FROM NIPPLE, IMAGE-GUIDED CORE BIOPSY: Invasive ductal carcinoma, well-differentiated. - [place] score: 5 out of 9 possible (histologic=2, nuclear=2, mitotic rate=1). - In situ carcinoma: Not identified. - Lymphovascular invasion: Not identified. - Microcalcifications: Present, associated with carcinoma. - Greatest linear extent of invasive carcinoma: 3 mm, as measured from the glass slide. - Predictive markers: Estrogen and progesterone receptors and HER2 by immunohistochemistry pending (reported as an addendum). MRV 11/17/2023 1251 Local . 01 Comment: The results of this case are verbally provided by Dr. Weeks to Nurse Samanta Shahid on 11/17/2023 at 12:30 p.m. . 01 Electronically signed: . Karen Weeks MD, Pathologist NPI- [id number] . 01 Gross description: . Received one formalin-filled container labeled with the patient's name labeled right breast 12 o'clock 8 cm FN, are multiple fragments of tissue and blood which range in size from less than 0.1 cm to 0.8 x 0.2 x 0.2 cm. All fragments are totally submitted in cassette A1. Possible collection date and time per requisition 11/13/2023 at 0900 hours. Total fixation time approximately 18 hours. ([id number]) /REDD 11/14/2023 0537 Local . 01 Pathologist provided ICD-10: C50.911 . 01 CPT . 736930, 766843, [id number], [id number] Specimen Comment: A courtesy copy of this report has been sent to [facility] Performed at: 01 [facility] Cyt[facility] [address] [place] [id number] MD Justin Sweet MD Phone: [phone]
--- NOTE | 2023-11-13 07:38 | DI.MG.S_ITS ---
UNILATERAL RIGHT DIGITAL DIAGNOSTIC MAMMOGRAM 3D/2D - RIGHT BREAST POST-PROCEDURE IMAGING FOR MARKER PLACEMENT: 11/13/2023 CLINICAL: Post right breast ultrasound biopsy, clip placement imaging. Comparison is made to exams dated: 10/31/2023 ultrasound, 10/31/2023 mammogram, 10/10/2023 mammogram, 06/20/2022 mammogram, and 09/20/2020 mammogram - [facility]. The right breast is heterogeneously dense, which may obscure small masses (category c / 51-75% glandular tissue). There is a biopsy marker in the area of biospy. IMPRESSION: POST PROCEDURE MAMMOGRAM FOR MARKER PLACEMENT The biopsy marker is in the area of biospy. This exam was interpreted at Station ID: [id number]. NOTE: For mammograms, a report in lay terms will be sent to the patient. Approximately 15% of breast malignancies will not be visualized mammographically. In the management of a palpable breast mass, a negative mammogram must not discourage biopsy of a clinically suspicious lesion. Electronically Signed By: Tomi Vegas M.D. fx/:11/13/2023 14:26:21 ACR BI-RADS Category Post-procedure mammogram for marker placement
--- NOTE | 2023-11-13 07:39 | DI.US.S_ITS ---
ULTRASOUND GUIDED BIOPSY RIGHT BREAST USING VACUUM DEVICE WITH POST MAMMOGRAPHIC AND ULTRASOUND IMAGIN11/13/2023 CLINICAL: Right breast mass. PATIENT CONSENT: Risks (minor bleeding, infection, vasovagal reaction and repeat procedure), benefits and alternatives were explained to the patient and written informed consent was obtained. Correlation is made to exams dated: 11/13/2023 mammogram, 10/31/2023 ultrasound, 10/31/2023 mammogram, 10/10/2023 mammogram, 06/20/2022 mammogram, and 09/20/2020 mammogram - . An ultrasound guided biopsy using real-time ultrasound was performed for the oval mass located in the right breast at 12 o'clock posterior depth 8 cm from the nipple. This was described on the previous ultrasound report. The skin was prepped in the usual manner. Local anesthetic was administered to the access site. The abnormality was approached from the lateral aspect. A 13 gauge biopsy needle was placed adjacent to the abnormality under ultrasound guidance. Once the needle was documented to be in the correct location, five specimens were obtained using the Mammotome biopsy system. Post procedure mammographic and ultrasound imaging demonstrates the clip at the targeted area. The specimens were sent to the laboratory for pathological analysis. IMPRESSION: ULTRASOUND GUIDED BIOPSY MALIGNANT Ultrasound guided biopsy of the mass in the right breast posterior depth was successful. Pathology indicates malignant invasive ductal carcinoma (ID). Pathology results are concordant with imaging findings. A surgical/oncologic consultation is recommended. This exam was interpreted at Station ID: [id number]. Tomi Mojica M.D. fx,slc/:11/20/2023 10:20:42
== END ==
PROVIDERS: Family Provider Family Medicine; PCP Family Medicine; Referring Provider Family Medicine; Visit Provider Family Medicine
DX: C50.811 Malignant neoplasm of overlapping sites of right female breast (principal)
CPT/HCPCS: 19083; 77065

== ENCOUNTER → 2024-02-17 11:02 | Outpatient (RCR) | payer MEDICARE, SELFPAY ==
[2021-12-26 20:41] VITALS: BMI 25.0
--- NOTE | 2022-12-13 14:29 | ST.OPIE ---
Visit Care Team Role Provider Type Justin Arevalo MD Attending Provider Physician Family Provider Primary Care Provider Referring Provider Specialty: Family Practice Address: [address] [place] [address], [facility] Email: [email or web address] Speech-Language Pathology Initial Evaluation LEAF STRIPPER Adult Cognitive Linguistic Eval Start: 12/13/22 09:27 Freq: Status: Active Protocol: Document 12/13/22 13:26 CG (Rec: 12/13/22 14:29 CG [id number]) Adult Cognitive Linguistic Evaluation Session Time Visit Start Time 10:30 Visit Stop Time 11:15 Total Visit Minutes 45 Visit Information Visit Number 1 Plan of Care Dates POC to begin after MBSS completion Referral Referring Provider Justin Arevalo Reason for Referral dysphagia and aphasia Setting Assessment Location Outpatient Care Visit Type Note Type Initial evaluation Next Note Type Next Note Type Treatment Note Patient Information Identification Type Name Patient History Karen Busch is a pleasant, independently mobile 82-year- old female with an educational history of a PhD in 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 She was referred to this clinic due to difficulty with word-finding and occasional coughing/ choking on saliva. 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 Additionally, she has a history of GI bleed in the upper GI tract (pt describes this as a throat bleed) and upper endoscopy that revealed moderate damage to the upper GI tract. She was on a PPI, but states she discontinued it because she felt it made her condition worse. She now takes Pepsid 40mg one time/day . She states she previously went to speech therapy to treat dysphagia, years ago in [place]. Karen states that since her RCVS, she has felt that her word-finding abilities have progressively declined. She states that this affects her ability to have conversations, and causes her embarassment. She most frequently has difficulty remembering names. In the past, she has tried making language flashcards of problem words. She feels that her memory skills are decreasing and that she now must write down information/ appointments in order to remember their exact dates. Additionally, the patient states that she has episodes of aspiration about once per day, usually on her saliva when she is not eating or drinking and is not expecting it. She denies history of aspiration pneumonia. Language(s) Spoken in the Home Slovenian Education Level PhD Occupation Status Retired Hearing Hearing Level Normal Previous Therapy Previous Speech-Language Therapy Yes: For dysphagia History of Therapy Pt states she had previous speech therapy for dysphagia and learned to utilize a chin tuck to reduce coughing/ choking. She notes that this therapy occured before her recent RCVS episodes and hospitalization. Subjective Patient Report Pt is independently ambulatory , alert, oriented, and cooperative. She answered all LEAF STRIPPER questions appropriately throughout the evaluation. Mental Status Alert,Responsive,Cooperative Assessment Oral Motor Examination Completed Yes: WFL Results Labial ROM was WFL. Labial coordination was mildly impaired during pucker-smile exercise, in which pt demonstrated decreased rate ( though not abnormal for age). Lingual elevation, protrusion , and lateralization were intact. Mandibular strength and coordination were intact. Pt has all original dentition which is in good condition. She states she does not have any sores or lesions in her mouth. Pt reports occasional mild anterior labial spillage from the right side due to scar tissue from a fall from long ago. Mild wheeze was observed upon inhalation. Informal Assessment Receptive Language Normal Yes Receptive Language Impairment(s) Comprehension of simple yes/no questions,Comprehension of complex yes/no questions, Following 1-step commands, Following 2-step commands Expressive Language Normal Yes: Functional but causing distress Expressive Language Impairment(s) Confrontation naming Pragmatic Language Normal Yes Speech Normal Yes Cognition Normal Yes Formal Assessment Standardized Test/Screener Type [facility] Mental Status (UMS) Administration Complete Results LEAF STRIPPER administered both the [facility] Mental Status Examination (SLUMS) and the [place] Naming Test (BNT). SLUMS: 28/30 - Normal. BNT: 56/60 Correct. Norms are only listed up to age 79. However, pt scored greater than one standard deviation above the mean for the oldest age group available (70-79), indicating her expressive language skills are well within functional limits. Findings/Results Language Function Within functional limits Cognitive Function Within normal limits Findings The patient presented with cognitive and language skills within normal limits for her age during this evaluation. She did present with difficulty recalling certain higher-level vocabulary words during the [place] Naming Test; however, she scored well within normal limits for her age. The pt does inidicate that her word-finding difficulties, although mild, do cause her distress and embarassment. She stated she would be interested in learning memory and word- finding strategies. Cognitive Communication Deficits Self-awareness of Cognitive- Predictive awareness (able to Communication Deficits predict problem; impact of impairments) Impact on Functioning Activity Limits/Particip.Rest. Mild: Interpersonal Interactions Community Prognosis Prognosis Good Based on Cognitive status Plan of Care Speech-Language Treatment Yes Frequency 1x/week Duration 4 weeks, beginning after MBSS completion Patient/Caregiver Education Described results of evaluation,Patient expressed understanding of evaluation, Patient expressed agreement with goals and treatment plans ,Patient requires further education/training Short Term Goals Pt will benefit from education regarding compensatory strategies for word-finding. Pt will benefit from education regarding compensatory strategies for memory. [facility] Goals Pt will demonstrate accurate understanding and use of compensatory strategies for word-finding and memory in 80% of trials. Discharge Recommendations Home LEAF STRIPPER Clinical Swallow Evaluation Start: 12/13/22 09:27 Freq: Status: Active Protocol: Document 12/13/22 13:26 CG (Rec: 12/13/22 14:29 CG [id number]) Clinical Swallow Evaluation Session Time Visit Start Time 11:15 Visit Stop Time 11:45 Total Visit Minutes 30 Visit Information Visit Number 1 Plan of Care Dates POC to begin after MBSS completion Referral Referring Provider Justin Arevalo Reason for Referral dysphagia and aphasia Setting Assessment Location Outpatient Care Visit Type Note Type Initial evaluation Next Note Type Next Note Type Treatment Note Patient Information Identification Type Name History Karen Busch is a pleasant, independently mobile 82-year- old female with an educational history of a PhD in 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 She was referred to this clinic due to difficulty with word-finding and occasional coughing/ choking on saliva. 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 Additionally, she has a history of GI bleed in the upper GI tract (pt describes this as a throat bleed) and upper endoscopy that revealed moderate damage to the upper GI tract. She was on a PPI, but states she discontinued it because she felt it made her condition worse. She now takes Pepsid 40mg one time/day . She states she previously went to speech therapy to treat dysphagia, years ago in [place]. Karen states that since her RCVS, she has felt that her word-finding abilities have progressively declined. She states that this affects her ability to have conversations, and causes her embarassment. She most frequently has difficulty remembering names. In the past, she has tried making language flashcards of problem words. She feels that her memory skills are decreasing and that she now must write down information/ appointments in order to remember their exact dates. Additionally, the patient states that she has episodes of aspiration about once per day, usually on her saliva when she is not eating or drinking and is not expecting it. She denies history of aspiration pneumonia. Subjective Observations Pt is independently ambulatory , alert, oriented, and cooperative. She answered all LEAF STRIPPER questions appropriately throughout the evaluation. Reported by Patient Other Symptoms Coughing Comment Pt states she occasionally experiences feeling like she is aspirating on saliva/post- nasal secretions. She denies any coughing/choking on foods, and states she usually does not have difficulty drinking liquids. She states that these coughing/choking events only happen when she is not expecting them (not actively eating/drinking). Current Diet Regular,Thin liquids Baseline Feeding Method Independent in self-feeding Patient Questionnaire No Objective Assessment Mental Status Alert,Responsive,Cooperative Oral Integrity WFL Dentition Within normal limits Lip Function Mild impairment Observation of Lips at Rest Symmetrical Pucker Within normal limits Lip Retraction Within normal limits Alternating Pucker/Lip Retraction Incoordination Tongue Function Within normal limits Observations of Tongue at Rest Within normal limits Tongue Protrusion Within normal limits Tongue Retraction Within normal limits Tongue Lateralization Within normal limits Jaw Function Within normal limits Observations of Jaw at Rest Within normal limits Jaw Opening Within normal limits Jaw Closing Within normal limits Jaw Lateralization Within normal limits Hard/Soft Palate Function Within normal limits Observations of Hard/Soft Palate Within normal limits Nasality Within normal limits Phonation Within normal limits Respiratory Sufficiency Within normal limits,Mild impairment Comment Labial ROM was WFL. Labial coordination was mildly impaired during pucker-smile exercise, in which pt demonstrated decreased rate ( though not abnormal for age). Lingual elevation, protrusion , and lateralization were intact. Mandibular strength and coordination were intact. Pt has all original dentition which is in good condition. She states she does not have any sores or lesions in her mouth. Pt reports occasional mild anterior labial spillage from the right side due to scar tissue from a fall from long ago. Mild wheeze was observed upon inhalation. Food and Liquid Trials Position During Assessment Upright (90 degrees) Liquids Trialed Thin Administration Type Cup consecutive sips Oral Impairment Within normal limits Oral Phase Comments Note: solids not assessed due to pt stating no difficulty with solids. Pharyngeal Impairment Within normal limits Pharyngeal Phase Comments Note: solids not assessed due to pt stating no difficulty with solids. Fatigue/Endurance Endurance WNL [place] Swallow Protocol Yes Results Patient passed [place] Protocol/ 3oz water challenge. Findings Swallowing Function Within functional limits Swallowing Function Comments No overt s/s dysphagia this date, but pt states hx aspirating saliva Severity of Swallow Impairment Within functional limits Prognosis Good Based on Cognitive status Impact on Safety and Functioning No limitations Recommendations Instrumental Assessment Yes Swallowing Treatment Yes Frequency POC to be determined after MBSS Duration POC to be determined after MBSS Recommended Solids Regular Recommended Liquids Thin Other Recommendations LEAF STRIPPER Recommends: 1. Order and complete MBSS to determine what physiological deficits may be present and contributing to frequent aspiration on saliva/ secretions. Patient should come in for ST treatment following MBSS so that effective treatment plan can be developed based on results of imaging. 2. Consider referral to GI to follow up on upper GI tract status. 3. Consider discussing post- nasal secretions to determine if pt is appropriate for medication. 4. Consider assessing lung function due to mild wheeze noted on inhalation and pt reporting hx of scarring of the lungs. Safety Precautions/Swallowing Upright position at least 30 Recommendations minutes after meals Medication Recommendations As Tolerated Discharge Recommendations Home Referrals Recommended Referrals Gastroenterology,Pulmonology Education Patient/Caregiver Education Described results of evaluation,Patient expressed understanding of evaluation, Patient expressed agreement with goals & treatment plans, Patient requires further education/training Goals Short-term Goals 1. Pt will benefit from MBSS to objectively assess for physiological deficits r/t dysphagia. 2. Swallowing exercise plan will be developed as needed given results of MBSS. 3. Pt will benefit from education regarding compensatory strategies/ precautions for swallowing. Long-term Goals 1. Pt will complete swallowing exercises as prescribed with 80% accuracy independently. 2. Pt will demonstrate understanding and recall of compensatory strategies/ precautions for swallowing as assessed by LEAF STRIPPER.
--- NOTE | 2022-12-13 14:30 | ST.OPPOC ---
Physical, Occupational & Speech Therapy At [facility] Visit Care Team Role Provider Type Justin Arevalo MD Attending Provider Physician Family Provider Primary Care Provider Referring Provider Address: [address] [place] [address], [id number] Speech Pathology Plan of Care Plan of Care Dates POC to begin after MBSS completion Referring Provider Justin Arevalo Patient History Karen Busch is a pleasant, independently mobile 82-year-old female with an educational history of a PhD in 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 She was referred to this clinic due to difficulty with word-finding and occasional coughing/choking on saliva. 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 Additionally, she has a history of GI bleed in the upper GI tract (pt describes this as a throat bleed) and upper endoscopy that revealed moderate damage to the upper GI tract. She was on a PPI, but states she discontinued it because she felt it made her condition worse. She now takes Pepsid 40mg one time/day. She states she previously went to speech therapy to treat dysphagia, years ago in [place]. Karen states that since her RCVS, she has felt that her word-finding abilities have progressively declined. She states that this affects her ability to have conversations, and causes her embarassment. She most frequently has difficulty remembering names. In the past, she has tried making language flashcards of problem words. She feels that her memory skills are decreasing and that she now must write down information/appointments in order to remember their exact dates. Additionally, the patient states that she has episodes of aspiration about once per day, usually on her saliva when she is not eating or drinking and is not expecting it. She denies history of aspiration pneumonia. Self-awareness of Cognitive- Predictive awareness (abl Communication Deficits Interpersonal Interactions Mild Community Mild Short Term Goals Pt will benefit from education regarding compensatory strategies for word-finding. Pt will benefit from education regarding compensatory strategies for memory. Short-term Goals 1. Pt will benefit from MBSS to objectively assess for physiological deficits r/t dysphagia. 2. Swallowing exercise plan will be developed as needed given results of MBSS. 3. Pt will benefit from education regarding compensatory strategies/precautions for swallowing. [facility] Goals Pt will demonstrate accurate understanding and use of compensatory strategies for word-finding and memory in 80% of trials. Long-term Goals 1. Pt will complete swallowing exercises as prescribed with 80% accuracy independently. 2. Pt will demonstrate understanding and recall of compensatory strategies/precautions for swallowing as assessed by CIVIL PROCESS SERVER. Comment: Electronically Signed by: YANA Lou 12/13/22 0168 If you are in agreement with this Plan of Care, please return a signed and dated copy. Please note CIVIL PROCESS SERVER recommendations for referrals/orders listed on initial evaluation. I have reviewed this Plan of Care and certify that the skilled therapy services above are required to meet the patient?s needs. Physician Signature Date Printed Name and Credentials Clinical Instructor Signature Printed Name and Credentials
--- NOTE | 2024-02-16 12:00 | ST.OPDS ---
Visit Care Team Role Provider Type Justin Arevalo MD Attending Provider Physician Family Provider Primary Care Provider Referring Provider Address: [address] [place] [address], [id number] TEXTILE STYLIST Discharge Summary TEXTILE STYLIST Discharge Summary Start: 02/16/24 11:54 Freq: Status: Active Protocol: Document 02/16/24 11:54 CG (Rec: 02/16/24 11:59 CG [id number]) Speech Pathology Treatment Note Visit Information Plan of Care Dates POC was to begin after MBSS completion Setting Treatment Setting Outpatient Care Visit Type Note Type Discharge Summary Next Note Type Next Note Type Treatment Note General Information Patient History Karen Busch is a pleasant, independently mobile 82-year- old female with an educational history of a PhD in 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 She was referred to this clinic due to difficulty with word-finding and occasional coughing/ choking on saliva. 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 Additionally, she has a history of GI bleed in the upper GI tract (pt describes this as a throat bleed) and upper endoscopy that revealed moderate damage to the upper GI tract. She was on a PPI, but states she discontinued it because she felt it made her condition worse. She now takes Pepsid 40mg one time/day . She states she previously went to speech therapy to treat dysphagia, years ago in [place]. Karen states that since her RCVS, she has felt that her word-finding abilities have progressively declined. She states that this affects her ability to have conversations, and causes her embarassment. She most frequently has difficulty remembering names. In the past, she has tried making language flashcards of problem words. She feels that her memory skills are decreasing and that she now must write down information/ appointments in order to remember their exact dates. Additionally, the patient states that she has episodes of aspiration about once per day, usually on her saliva when she is not eating or drinking and is not expecting it. She denies history of aspiration pneumonia. Objective Short Term Goals Pt will benefit from education regarding compensatory strategies for word-finding. Pt will benefit from education regarding compensatory strategies for memory. Pt will benefit from MBSS to objectively assess for physiological deficits r/t dysphagia. Swallowing exercise plan will be developed as needed given results of MBSS. Pt will benefit from education regarding compensatory strategies/precautions for swallowing. Coat Baster Goals Pt will demonstrate accurate understanding and use of compensatory strategies for word-finding and memory in 80% of trials. Pt will complete swallowing exercises as prescribed with 80% accuracy independently. Pt will demonstrate understanding and recall of compensatory strategies/ precautions for swallowing as assessed by TEXTILE STYLIST. Treatment Activities Tx was not initiated. Pt was to follow up with tx after completing a Modified Barium Swallow Study. However, unable to find record of this being completed at this hospital and pt did not follow up after initial evaluation. Discharge account due to inactivity. Assessment Assessment of Improvement N/A, tx did not continue after initial evaluation. D/c acct due to inactivity.
== END | disposition home or self-care (01) ==
LOC: SP 12-13 09:02
PROVIDERS: Family Provider Family Medicine; PCP Family Medicine; Referring Provider Family Medicine; Visit Provider Family Medicine
DX: R13.10 Dysphagia, unspecified (principal); K21.9 Gastro-esophageal reflux disease without esophagitis; R47.89 Other speech disturbances
CPT/HCPCS: 92610; 96105

== ENCOUNTER → 2024-04-21 13:37 | Outpatient (CLI) | payer MEDICARE, SELFPAY ==
[2023-10-13 15:21] VITALS: BMI 25.0
[2024-04-21 14:17] LABS: Add Manual Diff / Slide Review NO; Basophils Absolute Auto 0 /uL (0-100); Basophils Percent Auto 0.9 % (0-2); Eosinophils Absolute Auto 200 /uL (0-450); Eosinophils Percent Auto 3.8 % (2-4); Hematocrit 37.2 % (36-46); Hemoglobin 12.4 g/dL (12.0-16.0); Lymphocytes Absolute Auto 1000 /uL (1100-4500); Lymphocytes Percent Auto 24.6 % (25-40); Mean Corpuscular HGB Conc 33.3 % (30-36); Mean Corpuscular Hemoglobin 27.8 PG (26-34); Mean Corpuscular Volume 83.4 fL (80-100); Monocytes Absolute Auto 400 /uL (0-900); Monocytes Percent Auto 10.6 % (3-14); Neutrophils Absolute Auto 2500 /uL (1500-7000); Neutrophils Percent Auto 60.1 % (50-75); Platelet Count 182 X10^3/uL (150-400); Red Blood Cell Count 4.45 X10^6/uL (4.0-5.2); White Blood Cell Count 4.2 X10^3/uL (4.5-11.0)
[2024-04-21 14:40] LABS: Alanine Aminotransferase 23 IU/L (<35); Albumin 3.9 g/dL (3.5-5.0); Albumin Globulin Ratio 1.6 (1.0-2.8); Alkaline Phosphatase 71 U/L (38-126); Aspartate Aminotransferase 26 IU/L (14-36); BUN Creatinine Ratio 17.6 (6-22); Bilirubin Total 0.5 mg/dL (0.2-1.3); Blood Urea Nitrogen 15 mg/dL (7-17); Calcium 8.8 mg/dL (8.4-10.2); Carbon Dioxide 26 mmol/L (22-32); Chloride 106 mmol/L (98-107); Estimated Glomerular Filt Rate > 60 mL/min (>60); Globulin 2.5 g/dL (1.7-4.1); Glucose 104 mg/dL (80-110); HEMOLYSIS < 15 (0-50); Potassium 4.4 mmol/L (3.4-5.1); Sodium 137 mmol/L (137-145); Total Protein 6.4 g/dL (6.3-8.2)
[2024-04-21 14:43] LABS: Appearance Urine UA CLEAR; Bilirubin Urine UA NEGATIVE (NEGATIVE); Color Urine UA YELLOW; Glucose Urine UA NEGATIVE (Negative); Ketones Urine UA NEGATIVE (NEGATIVE); Leukocyte Esterase Urine UA NEGATIVE (NEGATIVE); Nitrite Urine UA NEGATIVE (Negative); Occult Blood Urine UA NEGATIVE (Negative); Protein Urine UA NEGATIVE (Negative); Specific Gravity Urine UA 1.015 (1.000-1.035); Urobilinogen Urine UA 0.2 E.U./dL (0.2)
[2024-04-21 14:44] LABS: pH Urine UA 5.5 (4.5-8.0)
[2024-04-21 14:47] LABS: Bacteria Urine None Seen; Culture Indicated Urine Cult Not Indicated; RBC Urine None Seen (0-5/HPF); Squamous Epithelial Cell Urine None Seen (0-5/HPF); Urine Volume 10mL (spun); WBC Urine None Seen (0-5/HPF)
[2024-04-21 15:06] LABS: TSH w/ Reflex to FT4 0.73 uIU/mL (0.47-4.68)
== END ==
PROVIDERS: Family Provider Family Medicine; PCP Family Medicine; Referring Provider Family Medicine; Visit Provider Family Medicine
DX: R35.0 Frequency of micturition (principal); K59.00 Constipation, unspecified; M54.50 Low back pain, unspecified; G89.29 Other chronic pain; I10 Essential (primary) hypertension; E78.5 Hyperlipidemia, unspecified; K31.84 Gastroparesis
CPT/HCPCS: 36415; 80053; 81001; 84443; 85025

== ENCOUNTER → 2024-06-09 16:49 | Outpatient (CLI) | payer MEDICARE, SELFPAY ==
[2023-10-13 15:21] VITALS: BMI 25.0
[2024-06-09 23:52] LABS: MRSA (Nasal) PCR NOT DETECTED (Not Detect)
== END ==
PROVIDERS: Family Provider Family Medicine; PCP Family Medicine; Visit Provider Physician Assistant
DX: A49.02 Methicillin resistant Staphylococcus aureus infection, unspecified site (principal); S20.412A Abrasion of left back wall of thorax, initial encounter; S20.411A Abrasion of right back wall of thorax, initial encounter; T07.XXXA Unspecified multiple injuries, initial encounter
CPT/HCPCS: 87070; 87075; 87077; 87147; 87205; 87797

== ENCOUNTER → 2024-07-30 07:54 | Outpatient (CLI) | payer MEDICARE, SELFPAY ==
[2023-10-13 15:21] VITALS: BMI 25.0
== END ==
LOC: WC 09:15
PROVIDERS: Family Provider Family Medicine; PCP Family Medicine; Referring Provider Family Medicine; Visit Provider Surgery
DX: L98.8 Other specified disorders of the skin and subcutaneous tissue (principal); R21 Rash and other nonspecific skin eruption; L53.9 Erythematous condition, unspecified; L29.89 Other pruritus; G62.9 Polyneuropathy, unspecified
CPT/HCPCS: 11042; 87070; 87075; 87205; 99204; 99213

== ENCOUNTER → 2024-08-06 08:54 | Outpatient (CLI) | payer MEDICARE, SELFPAY ==
[2023-10-13 15:21] VITALS: BMI 25.0
== END ==
PROVIDERS: Family Provider Family Medicine; PCP Family Medicine; Referring Provider Physician Assistant; Visit Provider Surgery
DX: Z85.3 Personal history of malignant neoplasm of breast (principal); L30.9 Dermatitis, unspecified; G63 Polyneuropathy in diseases classified elsewhere; L53.8 Other specified erythematous conditions; R23.4 Changes in skin texture; L98.8 Other specified disorders of the skin and subcutaneous tissue; S31.000A Unspecified open wound of lower back and pelvis without penetration into retroperitoneum, initial encounter; L53.9 Erythematous condition, unspecified; R21 Rash and other nonspecific skin eruption
CPT/HCPCS: 97597

== ENCOUNTER → 2024-08-13 08:42 | Outpatient (CLI) | payer MEDICARE, SELFPAY ==
[2024-08-11 15:35] VITALS: BMI 25.0
== END ==
PROVIDERS: Family Provider Family Medicine; PCP Family Medicine; Referring Provider Family Medicine; Visit Provider Physician Assistant
DX: L29.9 Pruritus, unspecified (principal); L30.9 Dermatitis, unspecified; G62.9 Polyneuropathy, unspecified
CPT/HCPCS: 99212; 99213

== ENCOUNTER → 2024-08-13 09:25 | Outpatient (CLI) | payer MEDICARE, SELFPAY ==
[2024-08-11 15:35] VITALS: BMI 25.0
[2024-08-13 10:15] LABS: Add Manual Diff / Slide Review NO; Basophils Absolute Auto 0 /uL (0-100); Eosinophils Absolute Auto 200 /uL (0-450); Eosinophils Percent Auto 3.8 % (2-4); Hematocrit 38.2 % (36-46); Hemoglobin 12.6 g/dL (12.0-16.0); Lymphocytes Absolute Auto 1100 /uL (1100-4500); Lymphocytes Percent Auto 24.5 % (25-40); Mean Corpuscular HGB Conc 32.9 % (30-36); Mean Corpuscular Hemoglobin 26.7 PG (26-34); Mean Corpuscular Volume 81.1 fL (80-100); Monocytes Absolute Auto 500 /uL (0-900); Monocytes Percent Auto 11.1 % (3-14); Neutrophils Absolute Auto 2600 /uL (1500-7000); Neutrophils Percent Auto 59.6 % (50-75); Platelet Count 191 X10^3/uL (150-400); White Blood Cell Count 4.4 X10^3/uL (4.5-11.0)
[2024-08-13 10:41] LABS: Alanine Aminotransferase 33 IU/L (<35); Albumin 3.8 g/dL (3.5-5.0); Albumin Globulin Ratio 1.4 (1.0-2.8); Alkaline Phosphatase 69 U/L (38-126); Aspartate Aminotransferase 34 IU/L (14-36); BUN Creatinine Ratio 16.7 (6-22); Bilirubin Total 0.5 mg/dL (0.2-1.3); Blood Urea Nitrogen 12 mg/dL (7-17); Calcium 8.8 mg/dL (8.4-10.2); Carbon Dioxide 26 mmol/L (22-32); Chloride 106 mmol/L (98-107); Estimated Glomerular Filt Rate > 60 mL/min (>60); Globulin 2.7 g/dL (1.7-4.1); Glucose 102 mg/dL (80-110); HEMOLYSIS < 15 (0-50); Potassium 4.2 mmol/L (3.4-5.1); Sodium 139 mmol/L (137-145); Total Protein 6.5 g/dL (6.3-8.2)
[2024-08-13 11:25] LABS: Vitamin B12 404 pg/mL (239-931)
== END ==
PROVIDERS: Family Provider Family Medicine; PCP Family Medicine; Referring Provider Physician Assistant; Visit Provider Physician Assistant
DX: E53.8 Deficiency of other specified B group vitamins (principal); L29.9 Pruritus, unspecified
CPT/HCPCS: 36415; 80053; 82607; 85025

== ENCOUNTER → 2024-09-18 08:46 | Outpatient (CLI) | payer MEDICARE, SELFPAY ==
[2024-08-11 15:35] VITALS: BMI 25.0
== END ==
PROVIDERS: Family Provider Family Medicine; PCP Family Medicine; Visit Provider Physician Assistant Medical
DX: R30.0 Dysuria (principal)
CPT/HCPCS: 87077; 87086; 87186

== ENCOUNTER → 2024-09-25 08:30 | Outpatient (CLI) | payer MEDICARE, SELFPAY ==
[2024-08-11 15:35] VITALS: BMI 25.0
--- NOTE | 2024-09-25 08:31 | DI.RAD.S_ITS ---
PROCEDURE: XR CHEST 2V INDICATIONS: Cough TECHNIQUE: 2 views of the chest were acquired. COMPARISON: [facility], CR, XR CHEST 2V, 03/14/2023, 12:41. [facility], CR, XR CHEST 2V, 06/08/2021, 14:43. FINDINGS: Surgical changes and devices: Right breast clips. Left shoulder arthroplasty. Lungs and pleura: No consolidation. Prominent markings which appear similar to prior exams. No pleural effusions or pneumothorax. Mediastinum: Mediastinal contours are normal. Heart size is normal. Bones and chest wall: No suspicious bony abnormalities. Soft tissues appear unremarkable. IMPRESSION: No acute airspace opacity is identified. Prominent pulmonary markings similar to prior exams. This could represent interstitial lung disease or pulmonary vasculature engorgement or artifact. If symptoms persist consider CT chest or high-resolution chest CT. Dictated by: Adolph Mojica M.D. on 09/25/2024 at 20:03 Approved by: Adolph Mojica M.D. on 09/25/2024 at 20:05
== END ==
PROVIDERS: Family Provider Family Medicine; PCP Family Medicine; Referring Provider Nurse Practitioner Family; Visit Provider Nurse Practitioner Family
DX: R05.9 Cough, unspecified (principal)
CPT/HCPCS: 71046

== ENCOUNTER → 2024-11-11 08:55 | Outpatient (CLI) | payer MEDICARE, SELFPAY ==
[2024-08-11 15:35] VITALS: BMI 25.0
--- NOTE | 2024-11-11 13:19 | ST.SWALLOW ---
Visit Care Team Role Provider Type Justin Arevalo MD Family Provider Physician Primary Care Provider Specialty: Family Practice Address: [address] [place] [address], [address] Email: [email or web address] Francesco Bautista MD Attending Provider Physician Referring Provider Specialty: Ear, Nose, Throat Address: [address] [place] [address], [address] Email: [email or web address] ST Modified Barium Swallow Study SET UP INSPECTOR Modified Barium Swallow Study Start: 11/11/24 11:53 Freq: Status: Active Protocol: Document 11/11/24 11:56 LNK (Rec: 11/11/24 13:19 LNK [id number]) Modified Barium Swallow Study Total Time Visit Start Time 09:00 Visit Stop Time 09:45 Total Visit Minutes [address] Arevalo, PCP; LEIGHANN Gil, [facility] Reason for Referral Dysphagia Setting Setting Outpatient Care Patient Information Identification Type Name,Date of Patient History Pt seen for a Modified Barium Swallow Study. Pt is an 84y F with PMH thant includes TIA and CVA, depression, osteoarthritis, hyperlipidemia , hiatal hernia and Jackson's esophagus and GERD. Pt takes Pantoprazole. Pt sees LEIGHANN Gil in the [facility] in [place]. Pt described her swallowing as needing to force a swallow as her throat is thick. Further, she stated she feels like she is choking, noting that if she tucks her chin down, she can't breathe, . She noted difficulty with liquids and solids (mixed textures like vegetable or beans in thin soup (i.e., mixed textures). Subjective Observations Pt was seated in the fluoroscopy chair with directions and procedures described for her. She indicated she understood and agreed to proceed. Patient Positioning Position View Lat-A/P Imaging Lateral View Textures Administered Trials Presented Thin Liquid via Spoon (IDDSI 0 ),Thin Liquid via Cup (IDDSI 0 ),Extremely Thick Liquid via Spoon (IDDSI 4),Regular (IDDSI 7) Barium Tablet Yes The IDDSI Framework Protocol: IDDSI.1 Oral Impairment Source: The Modified Barium Swallow Impairment Profile (MBSImP??) Lip Closure Interlabial escape; no progression to anterior lip Tongue Control During Bolus Hold Cohesive bolus between tongue to palatal seal Bolus Preparation/Mastication Timely & efficient chewing & mashing Bolus Transport/Lingual Motion Delayed initiation of tongue motion Oral Residue Trace residue lining oral structures Location Tongue Initiation of Pharyngeal Swallow Bolus head at posterior laryngeal surface of epiglottis Additional Oral Impairment Observations *OME and DKS were observed to be WNL. *Dentition natural and in good hygiene *Mastication observed with rotary chew pattern. *Good bolus formation, control and AP transition. *Mild delay of AP tongue movement Oral phase of swallow WFL Pharyngeal Impairment Source: The Modified Barium Swallow Impairment Profile (MBSImP??) Soft Palate Elevation No bolus between soft palate & pharyngeal wall Laryngeal Elevation Part.sup.move.thyroid cart/ part.approx.arytenoids to epiglot.petiole Anterior Hyoid Excursion No anterior movement Epiglottic Movement Partial inversion Laryngeal Vestibular Closure Incomplete; narrow column air/ contrast in laryngeal vestibule Pharyngeal Stripping Wave Present - complete Pharyngoesophageal Segment Opening Complete distention & complete duration; no obstruction of flow Tongue Base Retraction Narrow column of contrast/air betwn tongue base & post. pharyngeal wall Pharyngeal Residue Collection of residue within/ on pharyngeal structures Location Valleculae Additional Pharyngeal Impairment *Weak base of tongue retraction Observations strength *Adequate hyolaryngeal elevation *No anterior movement of the hyoid, and *Inconsistent epiglottic inversion *Laryngeal penetration observed x4 with single swallow and consecutive swallows of thin liquid. *Chin tuck strategy not effective in reducing penetration *No tracheal aspiration observed *Valecullar pooling of semi- solid and solid trials A/P View Textures Administered Trials Presented Thin Liquid via Cup (IDDSI 0) The IDDSI Framework Protocol: IDDSI.1 A/P View Observations Pharyngeal Contraction Complete Esophageal Clearance Upright Position Esophageal retention Vocal Fold Function Good Esophageal Function Reverse Peristalsis,Narrowing Additional A-P Observations *Thin barium and calibrated barium tablet used in AP trials *In AP view with thin liquid trial, a large lateral bulge of tissue was noted at the level of the clavicles on the pt's left side (5:05 minutes into the MBSS). The pt was given a CD copy of this MBS to bring to Dr. Yañez for review. If this is soft tissue, it may be related to pt's report of thickness and being unable to breathe with her chin down. *Other observations include narrowing of the esophagus to the stomach below pt's hiatal hernia. Clinical Impressions Dysphagia Type Esophageal Findings Pt's oropharyngeal swallow phases appear to be WFL for pt's age In AP view with thin liquid trial, a large lateral bulge of tissue was noted at the level of the clavicles on the pt's left side (5:05 minutes into the MBSS). The pt was given a CD copy of this MBS to bring to Dr. Yañez for review. If this is soft tissue, it may be related to pt's report of thickness and being unable to breathe with her chin down. Other observations include narrowing of the esophagus to the stomach below pt's hiatal hernia. Patient Appropriate for Therapy Yes: Base of tongue exercises may be indicated Recommendations Diet Comments No change in diet recommended Aspiration Precautions Recommended Precautions Upright at 90 Degrees,Frequent Rest Periods,Small Bites/Sips Treatment Plan Therapy Recommendations Outpatient Speech Therapy,Base of Tongue Exercises Recommended Referrals GI Consult
== END ==
PROVIDERS: Family Provider Family Medicine; PCP Family Medicine; Referring Provider Otolaryngology; Visit Provider Otolaryngology
DX: R13.13 Dysphagia, pharyngeal phase (principal); K21.9 Gastro-esophageal reflux disease without esophagitis
CPT/HCPCS: 74230; 92611

== ENCOUNTER → 2024-11-16 10:18 | Outpatient (CLI) | payer MEDICARE, SELFPAY ==
[2024-08-11 15:35] VITALS: BMI 25.0
== END ==
LOC: WC 10:20
PROVIDERS: Family Provider Family Medicine; PCP Family Medicine; Referring Provider Family Medicine; Visit Provider Surgery
DX: L98.8 Other specified disorders of the skin and subcutaneous tissue (principal); L29.9 Pruritus, unspecified
CPT/HCPCS: 99213

== ENCOUNTER → 2024-11-18 15:12 | Outpatient (CLI) | payer MEDICARE, SELFPAY ==
[2024-08-11 15:35] VITALS: BMI 25.0
--- NOTE | 2024-11-18 15:17 | DI.CT.S_ITS ---
PROCEDURE: CT SOFT TISSUE NECK WO CON INDICATIONS: NECK MASS SEEN ON MBS STUDY TECHNIQUE: Non-contrast 3.0 mm axial sections acquired from the sella to the aortic arch. Additional oblique axial 3.0 mm sections acquired through the pharynx. 3 mm thick coronal and sagittal reformats were generated. For radiation dose reduction, the following was used: automated exposure control. COMPARISON: Correlation is made with modified barium swallow report dated 11/11/2014. (No images are available at the time of this dictation.) FINDINGS: Image quality: There is artifact associated with the metallic hardware. Artifact from the metallic hardware is reduced by metal reconstruction algorithm. Lymph nodes: No enlarged lymph nodes seen throughout the neck. Vessels: Non-opacified vessels appear normal in caliber. Atherosclerotic calcification is noted. Neck spaces: The oropharynx, nasopharynx, and pharynx demonstrate no mucosal lesions. The vocal cords, false vocal cords, pyriform sinuses, epiglottis, vallecula, and tongue base all appear normal. Extramucosal spaces appear unremarkable. Glands: The thyroid is enlarged, particularly on the left side, with multiple left-sided nodules, measuring up to 3.6 cm. Mass effect is seen, including mild deviation of the trachea to the right. The parotid and submandibular glands appear normal, without stones. Bones: No aggressive osseous abnormality. No displaced fractures. At least moderate cervical spine degenerative change can be seen. Remote cervical thoracic anterior wedge deformities are seen. There is left shoulder arthroplasty hardware, with associated streak artifact. Miscellaneous: Visualized brain and orbits appear normal. Lung apices appear clear. Superficial soft tissues appear normal. IMPRESSION: Enlarged thyroid, with multiple left-sided nodules. There is mild mass effect seen upon the trachea. This is believed to be the cause of the previously seen left-sided neck mass. - Please now consider a follow-up thyroid ultrasound for further evaluation. Additional findings: At least moderate cervical spine degenerative change Dictated by: Joshua Whaley M.D. on 11/19/2024 at 21:15 Approved by: Joshua Whaley M.D. on 11/19/2024 at 21:18
[2024-11-18 16:35] LABS: Alanine Aminotransferase 22 IU/L (<35); Albumin 4.3 g/dL (3.5-5.0); Albumin Globulin Ratio 1.5 (1.0-2.8); Alkaline Phosphatase 71 U/L (38-126); Aspartate Aminotransferase 28 IU/L (14-36); Bilirubin Total 0.4 mg/dL (0.2-1.3); Blood Urea Nitrogen 14 mg/dL (7-17); Calcium 9.3 mg/dL (8.4-10.2); Carbon Dioxide 25 mmol/L (22-32); Chloride 105 mmol/L (98-107); Estimated Glomerular Filt Rate > 60 mL/min (>60); Globulin 2.9 g/dL (1.7-4.1); Glucose 85 mg/dL (80-110); HEMOLYSIS < 15 (0-50); Potassium 3.9 mmol/L (3.4-5.1); Sodium 138 mmol/L (137-145); Total Protein 7.2 g/dL (6.3-8.2)
== END ==
PROVIDERS: Family Provider Family Medicine; PCP Family Medicine; Referring Provider Internal Medicine Gastroenterology; Visit Provider Internal Medicine Gastroenterology
DX: E04.2 Nontoxic multinodular goiter (principal); R22.1 Localized swelling, mass and lump, neck; M47.812 Spondylosis without myelopathy or radiculopathy, cervical region
CPT/HCPCS: 36415; 70490; 80053

== ENCOUNTER → 2024-11-23 09:07 | Outpatient (CLI) | payer MEDICARE, SELFPAY ==
[2024-08-11 15:35] VITALS: BMI 25.0
== END ==
PROVIDERS: Family Provider Family Medicine; PCP Family Medicine; Referring Provider Family Medicine; Visit Provider Surgery
DX: L29.9 Pruritus, unspecified (principal); Z85.3 Personal history of malignant neoplasm of breast
CPT/HCPCS: 99213

== ENCOUNTER → 2024-11-25 15:35 | Outpatient (CLI) | payer MEDICARE, SELFPAY ==
[2024-08-11 15:35] VITALS: BMI 25.0
--- NOTE | 2024-11-25 15:36 | DI.US.S_ITS ---
PROCEDURE: US THYROID INDICATIONS: thyroid nodules TECHNIQUE: Real-time scanning was performed of the thyroid gland, with image documentation. COMPARISON: None. FINDINGS: Thyroid: Right lobe measures 6.6 by 2.2 x 3.1 cm. Left lobe measures 7.0 x 2.3 x 3.8 cm. Isthmus is 2.0 cm thick. Echotexture is heterogenous. Nodule number: 1 Location: Right inferior deep Size: 3.6 x 1.9 x 1.7 cm. Composition: Predominantly solid Echogenicity: Hypoechoic Shape: wider than tall. Margins: Smooth Echogenic foci: Punctate Total points: 6 ACR TI-RADS category: 4 Nodule number: 2 Location: Left-sided isthmus Size: 3.3 x 2.7 x 2.4 cm. Composition: Predominantly solid Echogenicity: Hypoechoic Shape: wider than tall. Margins: Smooth Echogenic foci: Punctate Total points: 6 ACR TI-RADS category: 4 Nodule number: 3 Location: Left inferior deep Size: 4.8 x 2.7 x 3.2 cm. Composition: Predominantly solid Echogenicity: Hypoechoic Shape: wider than tall. Margins: Smooth Echogenic foci: Punctate Total points: 6 ACR TI-RADS category: 4 IMPRESSION: Bilateral category 4 nodules. ACR guidelines recommend FNA ACR TI-RADS definitions and recommendations: TI-RADS 1 (benign): 0 points. FNA not needed. TI-RADS 2 (not suspicious): 2 points. FNA not needed. TI-RADS 3: 3 points. * FNA if 2.5 cm or larger, follow up if 1.5 cm or larger (at 1, 3, and 5 years). TI-RADS 4: 4-6 points. * FNA if 1.5 cm or larger, follow up if 1 cm or larger (at 1, 2, 3, and 5 years). TI-RADS 5: 7 points or more. * FNA if 1 cm or larger, follow up if 0.5 cm or larger (every year for 5 years). Dictated by: Jeyson Sam M.D. on 11/26/2024 at 10:03 Approved by: Jeyson Sam M.D. on 11/26/2024 at 10:06
== END ==
PROVIDERS: Family Provider Family Medicine; PCP Family Medicine; Referring Provider Registered Nurse Diabetes Educator; Visit Provider Registered Nurse Diabetes Educator
DX: E04.2 Nontoxic multinodular goiter (principal)
CPT/HCPCS: 76536

== ENCOUNTER → 2024-12-01 10:24 | Outpatient (CLI) | payer MEDICARE, SELFPAY ==
[2024-08-11 15:35] VITALS: BMI 25.0
[2024-12-01 12:21] LABS: TSH w/ Reflex to FT4 0.43 uIU/mL (0.47-4.68)
[2024-12-01 13:13] LABS: Free T4, Direct Thyroxine 1.04 ng/dL (0.78-2.19)
== END ==
PROVIDERS: Family Provider Family Medicine; PCP Family Medicine; Referring Provider Otolaryngology; Visit Provider Otolaryngology
DX: E04.1 Nontoxic single thyroid nodule (principal)
CPT/HCPCS: 36415; 84439; 84443

== ENCOUNTER → 2024-12-14 14:44 | Outpatient (CLI) | payer MEDICARE, SELFPAY ==
[2024-08-11 15:35] VITALS: BMI 25.0
[2024-12-14 15:20] LABS: Add Manual Diff / Slide Review NO; Basophils Absolute Auto 100 /uL (0-100); Basophils Percent Auto 0.9 % (0-2); Eosinophils Absolute Auto 300 /uL (0-450); Hematocrit 42.1 % (36-46); Hemoglobin 13.7 g/dL (12.0-16.0); Lymphocytes Absolute Auto 1400 /uL (1100-4500); Lymphocytes Percent Auto 17.2 % (25-40); Mean Corpuscular HGB Conc 32.5 % (30-36); Mean Corpuscular Hemoglobin 26.4 PG (26-34); Mean Corpuscular Volume 81.4 fL (80-100); Monocytes Absolute Auto 700 /uL (0-900); Monocytes Percent Auto 9.4 % (3-14); Neutrophils Absolute Auto 5400 /uL (1500-7000); Neutrophils Percent Auto 68.5 % (50-75); Platelet Count 221 X10^3/uL (150-400); Red Blood Cell Count 5.17 X10^6/uL (4.0-5.2); Red Cell Distribution Width 15.8 % (11.6-14.8); White Blood Cell Count 7.9 X10^3/uL (4.5-11.0)
== END ==
PROVIDERS: Family Provider Family Medicine; PCP Family Medicine; Referring Provider Family Medicine; Visit Provider Family Medicine
DX: I10 Essential (primary) hypertension (principal); E78.5 Hyperlipidemia, unspecified; K22.70 Barrett's esophagus without dysplasia; E04.9 Nontoxic goiter, unspecified
CPT/HCPCS: 36415; 85025

== ENCOUNTER → 2024-12-15 14:17 | Outpatient (CLI) | payer MEDICARE, SELFPAY ==
[2024-08-11 15:35] VITALS: BMI 25.0
== END ==
PROVIDERS: Family Provider Family Medicine; PCP Family Medicine; Referring Provider Podiatrist; Visit Provider Surgery
DX: L98.429 Non-pressure chronic ulcer of back with unspecified severity (principal); L29.9 Pruritus, unspecified; S21.211A Laceration without foreign body of right back wall of thorax without penetration into thoracic cavity, initial encounter
CPT/HCPCS: 99213

== ENCOUNTER → 2024-12-23 14:04 | Outpatient (CLI) | payer MEDICARE, SELFPAY ==
[2024-08-11 15:35] VITALS: BMI 25.0
--- NOTE | 2024-12-23 | OV.WND_ITS ---
PROGRESS NOTE DETAILS PATIENT NAME: ELLIS FIELDS PATIENT NUMBER: [id number] CLINICIAN: GERARD ARDON RN PATIENT DATE OF : 1940 PHYSICIAN / FUSE CUP EXPANDER: JADEN VILLANUEVA PATIENT SUBJECTIVE CHIEF COMPLAINT THIS INFORMATION WAS OBTAINED FROM THE PATIENT. RIGHT BACK, AND SAME WOUNDS ON MY LEG ALLERGIES CIPROFLOXACIN (SEVERITY: SEVERE, REACTION: SEVERE DIARRHEA), CYCLOBENZAPRINE (SEVERITY: SEVERE, REACTION: VERY SENSITIVE TO THIS MEDICATION), HYDROCODONE (SEVERITY: MODERATE, REACTION: VERY SENSITIVE TO THIS MEDICATION), IODINE (SEVERITY: SEVERE, REACTION: HIVES- ONE TIME OCCURENCE. CONSUMES IODIZED SALT.), OXYCODONE (SEVERITY: MODERATE, REACTION: VERY SENSITIVE TO THIS MEDICATION), AMOXICILLIN (SEVERITY: SEVERE, REACTION: SEVERE DIARRHEA), CLAVULANIC ACID (SEVERITY: SEVERE, REACTION: SEVERE DIARRHEA), ALENDRONATE SODIUM (SEVERITY: SEVERE), ACTONEL, BACTRIM HPI THIS INFORMATION WAS OBTAINED FROM THE PATIENT. THE FOLLOWING HPI ELEMENTS WERE DOCUMENTED FOR THE PATIENT'S WOUND: LOCATION: BACK DURATION: 11/02/24 CONTEXT: DERMATOLOGIC THE PATIENT IS AN 84-YEAR-OLD FEMALE WITH A HISTORY OF NEUROPATHY AND BREAST CANCER WHO RETURNS TODAY FOR EVALUATION OF ULCERS ON HER BACK THAT WERE CAUSED BY ITCHING. THE PATIENT HAS CHRONIC PRURITIS AND DEVELOPED ULCERS WHEN SHE WAS SCRATCHING HER BACK. SHE HAS BEEN RECEIVING DRESSING CHANGES WITH DUODERM HOWEVER IT CAME OFF A COUPLE OF DAYS AGO. SHE UNDERWENT RADIAL ABLATION OF LUMBAR SPINE ON November. SHE STILL HAS SEVERE ITCHING BUT IS GETTING SOME RELIEF WITH CLOBETASOL. THE BURNING PAIN IN HER BACK IS MUCH BETTER. THE PATIENT WAS PREVIOUSLY SEEN FOR THE SAME PROBLEM AND THE ULCERS HEALED UP WITH THE USE OF DUODERM HOWEVER THE PATIENT CAN NOT APPLY THE DUODERM BECAUSE OF THE LOCATION AND REQUIRES ASSISTANCE. SHE REPORTS A GOOD APPETITE AND DENIES HAVING ANY FEVER OR CHILLS. THE PATIENT DENIES HAVING ANY OTHER CHANGES IN HER OVERALL HEALTH. ON EXAM TODAY THE 2 SMALL ESCHARS ON THE RIGHT LOWER BACK ARE UNCHANGED, NO SIGN OF INFECTION. LABS: 08/13/24: WBC 4.4, HEMOGLOBIN 12.6, HCT 38.2, ELECTROLYTES NORMAL, GFR GREATER THAN 60, LFTS NORMAL MEDICAL HISTORY THIS INFORMATION WAS OBTAINED FROM THE PATIENT. 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 YES? COMPLETE ALL QUESTIONS.: YES LOCATION OF CANCER: BREAST, SKIN LIST TREATING ONCOLOGIST: GUERITA MADDEN (DR. ZAMBRANO) PATIENT UNDERWENT RADIATION TREATMENT? IF YES, ANSWER QUESTION BELOW.: YES DATE OF RADIATION MONTH/YEAR: 03/2024 SURGICAL HISTORY THIS INFORMATION WAS OBTAINED FROM THE PATIENT. PATIENT HAS A SURGICAL HISTORY OF: BILATERAL EMY- APPENDECTOMY- HYSTERECTOMY- UMBILICAL HERNIA REPAIR- LEFT SHOULDER SURGERY- LEFT BREAST LUMPECTOMY- OBJECTIVE VITALS HEIGHT/LENGTH: 64 IN (162.56 CM), WEIGHT: 161.5 LBS (73.41 KGS), BMI: 27.7, TEMPERATURE: 98.3 ?F (36.83 ?C), PULSE: 83 BPM, RESPIRATORY RATE: 16 BREATHS/MIN, BLOOD PRESSURE: 132/62 MMHG, PULSE OXIMETRY: 97 %. PHYSICAL EXAM CONSTITUTIONAL: VITAL SIGNS REVIEWED AND NOTED. WELL DEVELOPED, WELL NOURISHED, AND IN NO ACUTE DISTRESS. ALERT AND ORIENTED X3. RESPIRATORY: EVEN RESPIRATIONS WITHOUT USE OF ACCESSORY MUSCLES. NO INTERCOASTAL RETRACTIONS NOTED. EVEN AND NON LABORED RESPIRATION. INTEGUMENTARY (HAIR, SKIN): NO ERYTHEMA. NO SWELLING OR TENDERNESS. SEE WOUND ASSESSMENT. SKIN WARM AND DRY. NO RASHES. NEUROLOGICAL: SENSATION: SYMMETRIC FUNCTION BY INFORMAL OBSERVATION. PSYCHIATRIC: ELLIS FIELDS [id number] 1940 ORIENTATION TO TIME, PLACE AND PERSON: NORMAL AFFECT WITH NORMAL THOUGHT PATTERN. ADDITIONAL INFORMATION THE PATIENT'S POTENTIAL TO HEAL IS: FAIR. WOUND ASSESSMENT(S) WOUND #5 RIGHT BACK - LOWER IS A FULL THICKNESS LACERATION ACQUIRED ON 12/02/2024 AND HAS RECEIVED A STATUS OF NOT HEALED. INITIAL WOUND ENCOUNTER MEASUREMENTS ARE 0.4CM LENGTH X 1CM WIDTH X 0.1 CM DEPTH, WITH AN AREA OF 0.4 SQ CM AND A VOLUME OF 0.04 CUBIC CM. PREVIOUS MEASUREMENTS FROM 12/15/2024 ARE 1CM LENGTH X 1CM WIDTH X 0.1CM DEPTH, WITH AN AREA OF 1 SQ CM AND A VOLUME OF 0.1 CUBIC CM. ADIPOSE IS EXPOSED. NO TUNNELING HAS BEEN NOTED. NO SINUS TRACT HAS BEEN NOTED. NO UNDERMINING HAS BEEN NOTED. THERE IS A SCANT AMOUNT OF SEROSANGUINEOUS DRAINAGE NOTED WHICH HAS NO ODOR. THE PATIENT REPORTS A WOUND PAIN OF LEVEL 0/10. THE WOUND MARGIN IS ATTACHED WOUND BED HAS NO, GRANULATION, YES SLOUGH, NO ESCHAR, NO EPITHELIALIZATION. THE PERIWOUND SKIN TEXTURE IS NORMAL. THE PERIWOUND SKIN MOISTURE IS NORMAL. THE PERIWOUND SKIN COLOR IS NORMAL. THE TEMPERATURE OF THE PERIWOUND SKIN IS WNL. ADDITIONAL INFORMATION OTHER DEVITALIZED TISSUE PRESENT: BIOFILM ASSESSMENT ACTIVE PROBLEMS ICD-10 (ENCOUNTER DIAGNOSIS) L98.429 - NON-PRESSURE CHRONIC ULCER OF BACK WITH UNSPECIFIED SEVERITY (ENCOUNTER DIAGNOSIS) L29.9 - PRURITUS, UNSPECIFIED GENERAL NOTES TWO SMALL ESCHARS RIGHT LOWER BACK STABLE, NO SIGN OF INFECTION THE FOLLOWING FACTORS HAVE BEEN IDENTIFIED THAT MAY AFFECT WOUND HEALING: CHRONIC PRURITIS LOCATION INABILITY TO DO DRESSING CHANGES GOALS: REDUCE ITCHING WOUND HEALING PREVENT RECURRENCE PLAN: CONTINUE DRESSING CHANGES WITH DUODERM, CLOBETASOL FOR ITCHING, FOLLOW UP IN 1 WEEK FOR RECHECK. PLAN WOUND ORDERS: WOUND #5 RIGHT BACK - LOWER TOPICAL TREATMENTS OTHER ORDER: - CLOBETASOL NEEDED. DRESSING ORDERS APPLY DRESSING(S) AND SECURE WITH: - HYDROCOLLOID, TEGADERM TO SECURE EDGES. REPLACE IF IT STARTS TO ROLL, OTHER AVILA LEAVE IN PLACE. DRESSING CHANGE FREQUENCY LEAVE DRESSING INTACT UNTIL YOUR NEXT WOUND CENTER APPOINTMENT. KEEP DRY. - CHANGE DRESSING IF IT ROLLS ELLIS FIELDS [id number] 1940 UP OR FALLS OFF. ADDITIONAL ORDERS: DIETARY INCREASE THE PROTEIN IN YOUR DIET. - AIDS IN WOUND HEALING. FOLLOW-UP APPOINTMENTS RETURN APPOINTMENT 1 WEEK SCRIBING ATTESTATION I ATTEST, THE NURSE, THAT I SCRIBED THESE ORDERS FOR THE WOUND CARE PROVIDER. PROVIDER REVIEW AND ATTESTATION: REVIEWED AND EVALUATED LABS. REVIEWED HOSPITAL RECORDS. DISCUSSED THE PLAN OF CARE @ BEDSIDE WITH - THE PATIENT I AGREE AND ATTEST TO THE ABOVE INFORMATION PROVIDED FROM OTHER LICENSED PROFESSIONALS. PLAN OF CARE: 01. ENSURE/ESTABLISH OPTIMAL BLOOD FLOW : - REVIEWED, NOT APPLICABLE 02. ASSESS FOR/TREAT INFECTION : - EVALUATE FOR SIGNS AND SYMPTOMS OF INFECTION AND DOCUMENT FINDINGS. STATUS: CONTINUED DATE: 12/23/2024 03. DEBRIDE WEEKLY OR MORE OFTEN PRN : - EVALUATE PATIENT IN CENTER WEEKLY TO ASSESS WOUND BED AND MARGINS FOR NEED FOR DEBRIDEMENT. STATUS: CONTINUED DATE: 12/23/2024 04. OPTIMIZE GLUCOSE CONTROL AND NUTRITION : - ORDER/REVIEW PERTINENT LABS TO EVALUATE RENAL FUNCTION, GLUCOSE CONTROL, AND NUTRITIONAL STATUS. STATUS: CONTINUED DATE: 12/23/2024 - COMPLETE A NUTRITION RISK ASSESSMENT. STATUS: COMPLETED DATE: 11/16/2024 05. OFFLOADING PLAN : - REVIEWED, NOT APPLICABLE 06. OPTIMIZE HOST FACTORS: - ASSESS AND REVIEW PATIENT HISTORY FOR WOUND ETIOLOGY, CO-MORBID CONDITIONS, MEDICATION REGIME, AND SMOKING HISTORY. STATUS: CONTINUED DATE: 12/23/2024 07. DRESSING SELECTION : - EVALUATE FOR DRESSING-RELATED FACTORS, SUCH AVAILABILITY, WEAR TIME, ADAPTABILITY AND USE TO BETTER OPTIMIZE WOUND HEALING AND PATIENT COMPLIANCE. STATUS: CONTINUED DATE: 12/23/2024 08. ADVANCED MODALITIES : - SET TREATMENT GOALS ACCORDING TO PATIENT AND/OR CAREGIVER?S ABILITY/ COMPLIANCE. STATUS: CONTINUED DATE: 12/23/2024 09. FALL PREVENTION : - COMPLETE FALL ASSESSMENT. STATUS: COMPLETED DATE: 11/16/2024 10. PAIN MANAGEMENT : - COMPLETE PAIN ASSESSMENT STATUS: COMPLETED DATE: 11/16/2024 11. MEASURABLE GOALS FOR WOUND HEALING AND/OR HYPERBARIC OXYGEN THERAPY : - WOUND CLOSURE STATUS: CONTINUED DATE: 12/23/2024 12. DURATION/FREQUENCY OF WOUND CARE VISITS : - 1X WEEKLY FOR 30 DAYS ELLIS FIELDS [id number] 1940 STATUS: CONTINUED DATE: 12/23/2024 ELECTRONIC SIGNATURE(S) SIGNED BY: DATE: JADEN VILLANUEVA MD 12/23/2024 16:18:43 (PT) ENTERED BY: JADEN VILLANUEVA MD ON 12/23/2024 16:13:44 (PT) ELLIS FIELDS [id number] 1940
== END ==
PROVIDERS: Family Provider Family Medicine; PCP Family Medicine; Referring Provider Family Medicine; Visit Provider Surgery
DX: S31.010A Laceration without foreign body of lower back and pelvis without penetration into retroperitoneum, initial encounter (principal); L29.9 Pruritus, unspecified
CPT/HCPCS: 99213

== ENCOUNTER → 2024-12-29 13:58 | Outpatient (CLI) | payer MEDICARE, SELFPAY ==
[2024-08-11 15:35] VITALS: BMI 25.0
== END ==
PROVIDERS: Family Provider Family Medicine; PCP Family Medicine; Referring Provider Family Medicine; Visit Provider Surgery
DX: Z09 Encounter for follow-up examination after completed treatment for conditions other than malignant neoplasm (principal); Z87.2 Personal history of diseases of the skin and subcutaneous tissue; L98.429 Non-pressure chronic ulcer of back with unspecified severity
CPT/HCPCS: 99213

== ENCOUNTER → 2024-12-31 10:57 | Outpatient (CLI) | payer MEDICARE, SELFPAY ==
[2024-08-11 15:35] VITALS: BMI 25.0
[2024-12-31 12:36] LABS: BUN Creatinine Ratio 21.4 (6-22); Blood Urea Nitrogen 15 mg/dL (7-17); Calcium 9.4 mg/dL (8.4-10.2); Carbon Dioxide 26 mmol/L (22-32); Chloride 103 mmol/L (98-107); Estimated Glomerular Filt Rate > 60 mL/min (>60); Glucose 84 mg/dL (80-110); HEMOLYSIS < 15 (0-50); Potassium 4.3 mmol/L (3.4-5.1); Sodium 139 mmol/L (137-145)
== END ==
PROVIDERS: Family Provider Family Medicine; PCP Family Medicine; Referring Provider Family Medicine; Visit Provider Family Medicine
DX: I10 Essential (primary) hypertension (principal); E78.2 Mixed hyperlipidemia
CPT/HCPCS: 36415; 80048

== ENCOUNTER 2025-01-14 15:45 | Emergency (ER) | payer MEDICARE, SELFPAY ==
[2024-08-11 15:35] VITALS: BMI 25.0
[2025-01-14 16:12] VITALS: BP 125/79; PULSE 80; RESP 18; TEMP 36.9; O2SAT 97; BMI 26.6
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
[2025-01-14 17:08] VITALS: PULSE 77; RESP 17; TEMP 36.6; O2SAT 94
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
[2025-01-14 19:25] VITALS: BP 125/60; PULSE 77; RESP 18; TEMP 36.6; O2SAT 95
== END 2025-01-14 19:25 | disposition home or self-care (01) ==
PROVIDERS: Emergency Provider Physician Assistant; Family Provider Family Medicine; PCP Family Medicine
DX: S06.0XAA Concussion with loss of consciousness status unknown, initial encounter (principal); S22.010A Wedge compression fracture of first thoracic vertebra, initial encounter for closed fracture; H61.22 Impacted cerumen, left ear; V43.52XA Car driver injured in collision with other type car in traffic accident, initial encounter; Y92.410 Unspecified street and highway as the place of occurrence of the external cause
CPT/HCPCS: 69210; 70450; 71045; 72125; 99281; 99283; 99284

== ENCOUNTER → 2025-03-24 10:38 | Outpatient (CLI) | payer MEDICARE, SELFPAY ==
[2024-08-11 15:35] VITALS: BMI 25.0
[2025-03-24 11:56] LABS: TSH w/ Reflex to FT4 0.04 uIU/mL (0.47-4.68)
[2025-03-24 12:28] LABS: Free T4, Direct Thyroxine 2.58 ng/dL (0.78-2.19)
== END ==
PROVIDERS: Family Provider Family Medicine; PCP Family Medicine; Referring Provider Family Medicine; Visit Provider Family Medicine
DX: E89.0 Postprocedural hypothyroidism (principal)
CPT/HCPCS: 36415; 84439; 84443

== ENCOUNTER 2025-04-14 11:21 | Emergency (ER) | payer MEDICARE, SELFPAY ==
[2024-08-11 15:35] VITALS: BMI 25.0
[2025-04-14 11:26] VITALS: BP 116/57; PULSE 74; RESP 18; TEMP 36.6; O2SAT 97; BMI 25.2
--- NOTE | 2025-04-14 11:35 | DI.CT.S_ITS ---
PROCEDURE: CT HEAD/BRAIN WO CON INDICATIONS: fall TECHNIQUE: Noncontrast 4.5 mm thick angled axial sections acquired from the foramen magnum to the vertex, with coronal and sagittal reformats. For radiation dose reduction, the following was used: automated exposure control, adjustment of mA and/or kV according to patient size. COMPARISON: [facility], CT, CT HEAD/BRAIN WO CON, 01/14/2025, 16:35. FINDINGS: Image quality: Diagnostic. CSF spaces: Basal cisterns are patent. No extra-axial fluid collections. The ventricles are symmetric in size and shape. Brain: No intracranial bleeds or mass effect. There is cerebral volume loss, with resultant ventricular and sulcal prominence. There are periventricular and deep white matter chronic small vessel ischemic changes. There is intracranial internal carotid artery atherosclerosis. Skull and face: Calvarium and visualized facial bones appear intact, without suspicious lesions. Sinuses: Visualized sinuses and mastoids are clear. IMPRESSION: No acute intracranial pathology. Dictated by: Troy Rosales M.D. on 04/14/2025 at 12:24 Approved by: Troy Rosales M.D. on 04/14/2025 at 12:25
--- NOTE | 2025-04-14 11:35 | DI.CT.S_ITS ---
PROCEDURE: CT CERVICAL SPINE WO CON INDICATIONS: fall TECHNIQUE: Noncontrast 3 mm thick sections acquired from the skull base to the T4 level. Sagittal and coronal reformats were then constructed. For radiation dose reduction, the following was used: automated exposure control, adjustment of mA and/or kV according to patient size. COMPARISON: [facility], CT, CT CERVICAL SPINE WO CON, 01/14/2025, 16:35. FINDINGS: Image quality: Excellent. Bones: No acute fractures or dislocations. Multilevel degenerative changes of the cervical spine. Visualized superior ribs are intact. Stable T1 compression deformity. Stable mild anterior wedging of T2. Soft tissues: Prevertebral soft tissues are normal in thickness. No paravertebral hematomas. No apical pneumothoraces. IMPRESSION: No acute displaced fracture or traumatic subluxation. Stable T1 compression deformity. Dictated by: Troy Rosales M.D. on 04/14/2025 at 12:33 Approved by: Troy Rosales M.D. on 04/14/2025 at 12:37
--- NOTE | 2025-04-14 11:35 | DI.CT.S_ITS ---
PROCEDURE: CT FACIAL BONES WO CON INDICATIONS: fall TECHNIQUE: Noncontrast 2.5 mm thick axial images acquired from the mandible through the frontal sinuses, with coronal and sagittal reformatting. For radiation dose reduction, the following was used: automated exposure control, adjustment of mA and/or kV according to patient size. COMPARISON: None. FINDINGS: Image quality: Excellent. Bones and teeth: Orbital delgado are intact. Sinus delgado show no fracture or deformity. Nasal bones and septum are intact. Visualized portions of the mandible demonstrate no fractures or subluxation. Zygomatic arches are intact. Pterygoid plates are intact. Visualized portions of the skull base and auditory canals are intact. Sinuses: Paranasal sinuses are aerated, without fluid levels, mucosal thickening, or mucoceles. Mastoid air cells are aerated. Soft tissues: No edema, masses, or fluid collections. No enlarged lymph nodes. No soft tissue lacerations or debris. Vascular: Visualized vascular structures appear normal in the absence of contrast. Bony vascular foramina and canals are intact. IMPRESSION: No acute facial fractures are seen. Dictated by: Troy Rosales M.D. on 04/14/2025 at 12:25 Approved by: Troy Rosales M.D. on 04/14/2025 at 12:33
--- NOTE | 2025-04-14 11:40 | DI.RAD.S_ITS ---
PROCEDURE: XR WRIST RT MIN 3V INDICATIONS: fall TECHNIQUE: 4 views of the wrist were acquired. COMPARISON: None. FINDINGS: Bones: No fractures or dislocations. No suspicious bony lesions. Soft tissues: No suspicious soft tissue calcifications. IMPRESSION: No acute osseous abnormality. If pain persists with conservative management, consider repeat x-ray in 10-14 days or cross-sectional imaging. Dictated by: Troy Rosales M.D. on 04/14/2025 at 12:22 Approved by: Troy Rosales M.D. on 04/14/2025 at 12:23
--- NOTE | 2025-04-14 14:14 | ED_ITS ---
HPI - Fall <Veronica Marley PA-C - Last Filed: 04/14/25 19:34> General Chief Complaint: Fall Stated Complaint: Fell cut on Left middle finger hit head, Time Seen by Provider: 04/14/25 14:09 Source: patient Mode of arrival: Wheelchair History of Present Illness HPI Narrative: Ms. Busch is a very pleasant 85-year-old female with a past medical history of hypertension, hyperlipidemia, chronic back pain, hearing loss who presents to the emergency department for a trip and fall that occurred prior to arrival now with a left hand laceration. Patient states that she was walking on an uneven sidewalk when she tripped on an elevated ledge causing her to fall forward landing on her face. She sustained a laceration on her left palm just below the pinky that is her biggest concern. She did also hit her face and sustained a swollen left upper lip and an abrasion on her nasal bridge. She also has a left knee abrasion. She is having some mild pain of both wrists but most prominent on the left hand. She denies loss of consciousness, nausea or vomiting, visual disturbance, chest pain, abdominal pain, rib pain, pain with deep breath, neck pain, back pain. She is ambulatory without assistance. No blood thinner use. Related Data Home Medications ?Medication ?Instructions ?Recorded ?Confirmed cefuroxime axetil 500 mg tablet 500 mg PO BID PRN 07/3004/18/25 Previous Rx's ?Medication ?Instructions ?Recorded Disabled Parking Permit #1 ea 08/14/23 mupirocin 2 % topical ointment 1 applic topical BID #2 2 grams 03/12/24 lubiprostone 24 mcg capsule 24 mcg PO BID #60 caps pantoprazole 40 mg tablet,delayed 40 mg PO DAILY #90 t abs 04/21/24 release gabapentin 100 mg capsule 100 mg PO BID #90 caps 08/31 venlafaxine 150 mg 150 mg PO BEDTIME #90 caps 1 11/14/23 capsule,extended release 24 hr fluticasone propionate 50 1 spray intranasal Q12H #16 grams 09/25/24 mcg/actuation nasal spray,suspension (Flonase Allergy Relief) levothyroxine 100 mcg capsule 100 mcg PO DAILY #90 cap s 03/28/25 Allergies Allergy/AdvReac Type Severity Reaction Status Date / Time ciprofloxacin (From Cipro) Allergy Severe Severe Verified 04/14/25 11:26 diarrhea cyclobenzaprine Allergy Severe I Verified 04/14/25 11:26 couldn't get out of bed for days hydrocodone Allergy Unknown Patient Verified 04/14/25 11:26 can't remember oxycodone Allergy Unknown Patient Verified 04/14/25 11:26 can't remember bacitracin Allergy ITCHING Verified 04/14/25 17:31 alendronate sodium (From AdvReac Severe Esophageal Verified 04/14/25 11:26 Fosamax) ulcer and severe bleeding amoxicillin (From Augmentin) AdvReac Severe Severe Verified 04/14/25 11:26 diarrhea clavulanic acid (From AdvReac Severe Severe Verified 04/14/25 11:26 Augmentin) diarrhea risedronate sodium (From AdvReac Severe esophageal Verified 04/14/25 11:26 Actonel) ulcer and severe bleeding sulfamethoxazole (From AdvReac Verified 04/14/25 11:26 Bactrim) trimethoprim (From Bactrim) AdvReac Verified 04/14/25 11:26 Review of Systems <Veronica Marley PA-C - Last Filed: 04/14/25 19:34> Review of Systems ROS Unobtainable: All systems reviewed & are unremarkable except as noted in HPI and below Patient History <Veronica Marley PA-C - Last Filed: 04/14/25 19:34> Medical History Post-surgical hypothyroidism SI (sacroiliac) joint dysfunction Lumbar degenerative disc disease Lumbar facet arthropathy Lumbar spondylosis Obstructive sleep apnea Stress incontinence of urine Lichen sclerosus Cough Difficulty swallowing liquids Dermatitis Headache Fractures (~2018) Gastric ulcer (~2000) Skin cancer (~2000) Subarachnoid hemorrhage Hyperlipidemia (~1962) Depression Ankylosing spondylitis Asthma Allergies Carpal tunnel syndrome Chicken pox Anemia Heavy menstrual period (~1984) Endometriosis (~1984) Esophageal bleeding (~2007) GI bleeding (~2007) Keratoacanthoma (~2012) Osteoarthritis History of depression History of TIA (transient ischemic attack) (~2017) Surgical History History of umbilical hernia repair Anesthesia History of ulcer disease (~2006) Status post appendectomy Status post bilateral hip replacements (~2001) Family History Father Skin cancer Mother Diabetes mellitus History of heart disease Hyperlipidemia Brother Diabetes mellitus Hyperlipidemia Grandfather Diabetes mellitus Social History household members: none second hand exposure: Yes (only in public places and I was when I was a child.) alcohol intake: current substance use type: does not use alcohol intake frequency: holidays/special occasions only Exam <Veronica Marley PA-C - Last Filed: 04/14/25 19:34> Narrative Exam Narrative: GENERAL: 85 year old patient appears stated age. Well-developed patient, in no acute distress. HEAD: Atraumatic. Normocephalic. EYES: PERRL. Extraocular motions intact. No scleral icterus. No injection or drainage. ENT: Superficial abrasion on superior nasal bridge. Left superior lip with 2 mm laceration on the dry/mucosal border and edema and ecchymosis of the left upper lip. No intraoral lacerations or loose teeth. No epistaxis, no septal hematoma. Nose without bleeding, purulent drainage. Throat without erythema, tonsillar hypertrophy or exudate. Airway patent. NECK: Trachea midline. Cervical ROM intact. CARDIOVASCULAR: Regular rate and rhythm. RESPIRATORY: ?Nonlabored respirations. ?Speaking in clear, full sentences. ?Clear to auscultation. Breath sounds equal bilaterally. No wheezes, rales, or rhonchi. ? GASTROINTESTINAL: Abdomen soft, non-tender, nondistended. EXTREMITIES: Flap laceration on the left palm just proximal to the 5th MCP jonny int line. Isolated flexion and extension intact of the left 5th digit of the D IP, PIP, MCP. Brisk cap refill. Full range of motion of the left hand and left wrist. Strong radial pulses bilaterally. No anatomical snuffbox tenderness bilaterally. Superficial abrasion left knee, full range of motion left knee. BACK: Nontender without deformity or crepitance. No flank tenderness. NEURO: AOx3. ?Clear speech. ?Moves all 4 extremities appropriately. SKIN: Facial nasal bridge abrasion, small left upper lip laceration, left palm laceration, left knee abrasion described above. Skin is warm and dry overall. Initial Vital Signs Initial Vital Signs: Vital Signs Temperature 97.8 F 04/14/25 11:26 Pulse Rate 74 04/14/25 11:26 Respiratory Rate 18 04/14/25 11:26 Blood Pressure 116/57 L 04/14/25 11:26 Pulse Oximetry 97 04/14/25 11:26 Oxygen Delivery Method Room Air 04/14/25 11:26 <Hebert Hernández MD - Last Filed: 04/25/25 21:06> Initial Vital Signs Initial Vital Signs: Vital Signs Temperature 97.8 F 04/14/25 11:26 Pulse Rate 74 04/14/25 11:26 Respiratory Rate 18 04/14/25 11:26 Blood Pressure 116/57 L 04/14/25 11:26 Pulse Oximetry 97 04/14/25 11:26 Oxygen Delivery Method Room Air 04/14/25 11:26 Procedures <RIGO Bray Last Filed: 04/14/25 19:34> Laceration Repair Laceration 1: Site: hand (palm, just proximal to 5th MCP) Side (If applicable): left Size (cm): 2 Description: linear and flap Depth: simple, single layer Local Anesthetic: lidocaine 1% and with epi Amount of anesthesia used (mL): 3 Pre-repair: wound explored, irrigated extensively (cleansed with betadine) and deep structures intact Skin layer closed with: nylon Skin layer suture size: 4-0 Number of sutures: 4 Technique: simple, interrupted Course <Veronica Marley PA-C - Last Filed: 04/14/25 19:34> Orders Ordered: Discontinued Medications Acetaminophen (Acetaminophen 325 Mg Tablet) 650 mg PO NOW ONE Stop: 04/14/25 14:31 Last Admin: 04/14/25 14:39 Dose: 650 mg Documented By: CARITO Bacitracin (Bacitracin Oint 0.9 Gm Pckt) 1 applic TOP NOW ONE Stop: 04/14/25 17:18 Last Admin: 04/14/25 17:29 Dose: Not Given Documented By: CARLOS Cephalexin HCl (Cephalexin 250 Mg Capsule) 500 mg PO NOW ONE Stop: 04/14/25 17:53 Last Admin: 04/14/25 18:01 Dose: 500 mg Documented By: CARLOS Diphtheria/Tetanus/Acell Pertussis (Tet,Diph,Pertuss(Acell),Vac/Pf 0.5 Ml Syringe) 0.5 ml IM .ONCE ONE Stop: 04/14/25 14:31 Last Admin: 04/14/25 14:39 Dose: 0.5 ml Documented By: CARITO Lidocaine/Epinephrine (Lidocaine 1% W/Epi 10ml) 5 ml INJ INTRA-OP ONE Stop: 04/14/25 14:30 Last Admin: 04/14/25 15:55 Dose: 5 ml Documented By: CARLOS Vital Signs Vital signs: Vital Signs - 8 hr 04/14/25 17:57 Pulse Rate 77 Blood Pressure 138/65 Pulse Oximetry 97 Oxygen Delivery Method Room Air <Hebert Hernández MD - Last Filed: 04/25/25 21:06> Orders Ordered: Discontinued Medications Acetaminophen (Acetaminophen 325 Mg Tablet) 650 mg PO NOW ONE Stop: 04/14/25 14:31 Last Admin: 04/14/25 14:39 Dose: 650 mg Documented By: CARITO Bacitracin (Bacitracin Oint 0.9 Gm Pckt) 1 applic TOP NOW ONE Stop: 04/14/25 17:18 Last Admin: 04/14/25 17:29 Dose: Not Given Documented By: CARLOS Cephalexin HCl (Cephalexin 250 Mg Capsule) 500 mg PO NOW ONE Stop: 04/14/25 17:53 Last Admin: 04/14/25 18:01 Dose: 500 mg Documented By: CARLOS Diphtheria/Tetanus/Acell Pertussis (Tet,Diph,Pertuss(Acell),Vac/Pf 0.5 Ml Syringe) 0.5 ml IM .ONCE ONE Stop: 04/14/25 14:31 Last Admin: 04/14/25 14:39 Dose: 0.5 ml Documented By: CARITO Lidocaine/Epinephrine (Lidocaine 1% W/Epi 10ml) 5 ml INJ INTRA-OP ONE Stop: 04/14/25 14:30 Last Admin: 04/14/25 15:55 Dose: 5 ml Documented By: CARLOS Vital Signs Vital signs: Vital Signs - 8 hr 04/14/25 17:57 Pulse Rate 77 Blood Pressure 138/65 Pulse Oximetry 97 Oxygen Delivery Method Room Air MDM - Fall <Veronica Marley PA-C - Last Filed: 04/14/25 19:34> Medical Records Attestation: I reviewed the patient's medical records. Imaging Data CT scan - head: Radiologist's Impression: PROCEDURE: CT HEAD/BRAIN WO CON INDICATIONS: fall TECHNIQUE: Noncontrast 4.5 mm thick angled axial sections acquired from the foramen magnum to the vertex, with coronal and sagittal reformats. For radiation dose reduction, the following was used: automated exposure control, adjustment of mA and/or kV according to patient size. COMPARISON: [facility], CT, CT HEAD/BRAIN WO CON, 01/14/2025, 16:35. FINDINGS: Image quality: Diagnostic. CSF spaces: Basal cisterns are patent. No extra-axial fluid collections. The ventricles are symmetric in size and shape. Brain: No intracranial bleeds or mass effect. There is cerebral volume loss, with resultant ventricular and sulcal prominence. There are periventricular and deep white matter chronic small vessel ischemic changes. There is intracranial internal carotid artery atherosclerosis. Skull and face: Calvarium and visualized facial bones appear intact, without suspicious lesions. Sinuses: Visualized sinuses and mastoids are clear. IMPRESSION: No acute intracranial pathology. Dictated by: Troy oRsales M.D. on 04/14/2025 at 12:24 Approved by: Troy Rosales M.D. on 04/14/2025 at 12:25 MDM Narrative Medical decision making narrative: 85-year-old female with a past medical history of hypertension, hyperlipidemia, chronic back pain, hearing loss who presents to the emergency department for a trip and fall that occurred prior to arrival now with a left hand laceration. Differential diagnosis includes but is not limited to facial abrasion, fracture, ICH, concussion, closed head injury, left hand laceration, fracture, etc. On exam patient is in no acute distress, nontoxic appearing, vital signs within normal limits. She has a left hand palmar laceration that will require sutures. We will update Tdap. Small upper lip laceration and nasal bridge abrasion and left knee abrasion we will only need wound care. CT head, neck, face obtained in triage reveal no acute traumatic injuries. Right wrist x-ray obtained in triage is also negative however patient is having left wrist and left hand x- rays we will add these on. We will treat pain with Tylenol. Left wrist x-ray and left hand x-ray revealed no acute osseous abnormality. Patient's left hand laceration was repaired using 4 simple interrupted sutures and a nonadherent dressing was applied. Bacitracin was not applied as patient reports that she is local allergic reaction to this. Therefore recommended Vaseline/Aquaphor application at home for nasal bridge and lip wounds. Five day course of Keflex prescribed for wound infection prevention, 1st dose was given in the ED. wWe did discuss proper wound care and signs and symptoms to return to the ED for. Recommended suture removal in 10-14 days. Patient verbalized understanding of all information is agreeable with the plan, she is eager for discharge home, ambulatory and stable for discharge at this time. Discharge Plan Departure Patient Disposition: Home Clinical Impression: Ground-level fall Laceration of hand, left Qualifiers: Encounter type: initial encounter Foreign body presence: without foreign body Qualified Code(s): S61.412A - Laceration without foreign body of left hand, initial encounter Abrasion of nose Qualifiers: Encounter type: initial encounter Qualified Code(s): S00.31XA - Abrasion of nose, initial encounter Laceration of lip Qualifiers: Encounter type: initial encounter Qualified Code(s): S01.511A - Laceration without foreign body of lip, initial encounter Instructions: DI for Laceration Repair, DI for Closed Head Injury Activity Restrictions/Additional Instructions: Dear Narayan, Thank you for coming to the emergency department. I am very sorry that you sustained a fall and injuries today. Your imaging did not reveal any broken bones. You did have stitches placed in your left hand. I would also like you to apply Aquaphor and or Vaseline to the abrasion on your nose and lip. Please apply ice to help with your swollen lip. Today you had a laceration to your left hand. We have placed 4 sutures. They need to be removed in 10-14 days. You may do this in your doctor's office, the [id number], or here if necessary. Please keep the dressing on your wound clean, dry, and intact for the next 24 hours. After this time, you may remove the dressing and gently clean the wound with soap and water, then pat dry. Keep the wound clean and covered. Avoid soaking the wound in any water such as a bath, pool, or the ocean. If you develop any signs of wound infection such as increased redness, pus drainage, streaking redness, or fevers, please return to the ER immediately for evaluation. Once sutures are removed and the wound has healed, apply sunscreen daily to reduce the appearance of scars. We updated your tetanus shot today. A short course of antibiotics has been sent to your pharmacy to help prevent wound infection. Please complete the full course. Please follow up with your primary care doctor within the next 2-3 days for ER follow-up. (If you do not have a PCP you can call [phone]. ?to schedule an appointment with an [facility] Primary Care Provider) IF YOU DEVELOP ANY NEW OR WORSENING SYMPTOMS, RETURN TO THE ER! Please read the attached instructions, they highlight more specific treatments and interventions for you at home. Thank you for letting me participate in your care, Veronica Marley PA-C Prescriptions: No Action fluticasone propionate [Flonase Allergy Relief] 50 mcg/actuation spray,suspension 1 spray intranasal Q12H Qty: 16 0RF Rx Instructions: administer into each nostril (DME) Disabled Parking Permit See Rx Instructions .Route .MEDSUPPLY Qty: 1 0RF Rx Instructions: Valid for 6 months gabapentin 100 mg capsule 100 mg PO BID Qty: 90 0RF Rx Instructions: 100mg QAM and 200mg QHS venlafaxine 150 mg capsule,extended release 24hr 150 mg PO BEDTIME Qty: 90 3RF levothyroxine 100 mcg capsule 100 mcg PO DAILY Qty: 90 1RF mupirocin 2 % ointment 1 applic topical BID Qty: 22 1RF lubiprostone 24 mcg capsule 24 mcg PO BID Qty: 60 1RF pantoprazole 40 mg tablet,delayed release (DR/EC) 40 mg PO DAILY Qty: 90 3RF cefuroxime axetil 500 mg tablet 500 mg PO BID PRN Referrals: Justin Arevalo MD [Primary Care Provider, Family Practice] Stand Alone Forms: Patient Portal/API ED Sign-out <Hebert Hernández MD - Last Filed: 04/25/25 21:06> Cosign ED Attending Cosignature Attestation: I was immediately available in the department for consultation. ?This documentation has been reviewed and I agree with assessment and plan. Supervised by Hebert Hernández MD
--- NOTE | 2025-04-14 14:22 | DI.RAD.S_ITS ---
PROCEDURE: XR WRIST LT MIN 3V INDICATIONS: fall TECHNIQUE: 4 views of the wrist were acquired. COMPARISON: [facility], CR, XR WRIST RT MIN 3V, 04/14/2025, 11:37. FINDINGS: Bones: No fractures or dislocations. No suspicious bony lesions. Soft tissues: No suspicious soft tissue calcifications. IMPRESSION: No acute osseous abnormality. If pain persists with conservative management, consider repeat x-ray in 10-14 days or cross-sectional imaging. Dictated by: Troy Rosales M.D. on 04/14/2025 at 16:29 Approved by: Troy Rosales M.D. on 04/14/2025 at 16:30
--- NOTE | 2025-04-14 14:22 | DI.RAD.S_ITS ---
PROCEDURE: XR HAND LT MIN 3V INDICATIONS: fall TECHNIQUE: 3 views of the hand(s) acquired. COMPARISON: None. FINDINGS: Bones: No fractures or dislocations. Carpal bones are normally aligned. No suspicious bony lesions. Decreased osseous mineralization. Soft tissues: No suspicious soft tissue calcifications. IMPRESSION: No acute osseous abnormality. If pain persists with conservative management, consider repeat x-ray in 10-14 days or cross-sectional imaging. Dictated by: Troy Rosales M.D. on 04/14/2025 at 16:30 Approved by: Troy Rosales M.D. on 04/14/2025 at 16:31
[2025-04-14] MEDS: TET,DIPH,PERTUSS(ACELL),VAC/PF 0.5 ML SYRINGE IM (14:39)
[2025-04-14] MEDS: ACETAMINOPHEN 325 MG TABLET 650 MG PO (14:39)
[2025-04-14] MEDS: LIDOCAINE 1% W/EPI 10ML 5 ML INJ (15:55)
[2025-04-14 17:57] VITALS: BP 138/65; PULSE 77; O2SAT 97
--- NOTE | 2025-04-14 18:07 | PC.NURSE ---
Pt expressed multiple times throughout stay how she was disappointed in wait times and felt that her age played a factor into why she was forced to wait. Pt informed that wait times are not influenced by age but rather patient acuity. Pt informed that provider has been unavailable due to transfers, sick pts, procedures, phone calls, ... However, RN reassured pt that she will be seen as soon as she can. Veronica SIERRA informed of pts frustration. RN tried to explain pt acuity and how/why provider would need to be pulled in different directions--pt stated she did not appreciate examples of why she would not be prioritized. RN reiterated she was not trying to put pt down but rather inform pt on how the ER operates. RN listened and attempted to provide reassurance to pt as to why previous stays at hospitals have been undesirable however RN cannot speak for previous experiences--attempt to educate pt on processes within the ER did not seem to be well understood or appreciated. RN informed on wait time throughout stay to the best of RN's ability. Pt appeared in now distress throughout stay. Respriations regular and unlabored and bleeding controlled throughout stay.
== END 2025-04-14 18:18 | disposition home or self-care (01) ==
PROVIDERS: Emergency Provider Physician Assistant; PCP Family Medicine
DX: S61.412A Laceration without foreign body of left hand, initial encounter (principal); S01.511A Laceration without foreign body of lip, initial encounter; S00.31XA Abrasion of nose, initial encounter; S09.90XA Unspecified injury of head, initial encounter; M25.532 Pain in left wrist; M25.531 Pain in right wrist; W01.0XXA Fall on same level from slipping, tripping and stumbling without subsequent striking against object, initial encounter; Z23 Encounter for immunization
CPT/HCPCS: 12001; 70450; 70486; 72125; 73110; 73130; 90471; 99283; 99284; 90715

== ENCOUNTER → 2025-04-18 09:41 | Outpatient (CLI) | payer MEDICARE, SELFPAY ==
[2024-08-11 15:35] VITALS: BMI 25.0
[2025-04-18 10:22] LABS: Add Manual Diff / Slide Review NO; Hematocrit 41.5 % (36-46); Hemoglobin 13.5 g/dL (12.0-16.0); Lymphocytes Absolute Auto 900 /uL (1100-4500); Mean Corpuscular HGB Conc 32.6 % (30-36); Mean Corpuscular Hemoglobin 26.7 PG (26-34); Mean Corpuscular Volume 82.0 fL (80-100); Platelet Count 166 X10^3/uL (150-400)
[2025-04-18 10:46] LABS: INR 1.0 (0.9-1.3); Prothrombin Time 11.7 SECONDS (9.4-12.5)
[2025-04-18 10:49] LABS: PTT Partial Thromboplastin Tim 28 SECONDS (25.1-36.5)
== END ==
PROVIDERS: PCP Family Medicine; Referring Provider Family Medicine; Visit Provider Family Medicine
DX: T14.8XXA Other injury of unspecified body region, initial encounter (principal); W19.XXXA Unspecified fall, initial encounter
CPT/HCPCS: 36415; 85025; 85610; 85730

== ENCOUNTER → 2025-04-28 15:09 | Outpatient (CLI) | payer MEDICARE, SELFPAY ==
[2024-08-11 15:35] VITALS: BMI 25.0
--- NOTE | 2025-04-28 15:10 | DI.RAD.S_ITS ---
PROCEDURE: XR HAND LT MIN 3V INDICATIONS: Left hand pain continued after fall TECHNIQUE: 3 views of the hand(s) acquired. COMPARISON: [facility], CR, XR HAND LT MIN 3V, 04/14/2025, 14:17. FINDINGS: Bones: No fracture identified. Diffuse osteoporosis noted. Joints: Mild distal radial ulnar STT and moderate 1st CMC and MCP degeneration noted. There is also moderate degeneration in the interphalangeal joints. Soft tissues: No soft tissue abnormality. IMPRESSION: No fracture. Dictated by: Earl Carl M.D. on 04/29/2025 at 9:42 Approved by: aErl Carl M.D. on 04/29/2025 at 9:44
== END ==
LOC: RAD 15:10
PROVIDERS: PCP Family Medicine; Referring Provider Nurse Practitioner Family; Visit Provider Nurse Practitioner Family
DX: M18.12 Unilateral primary osteoarthritis of first carpometacarpal joint, left hand (principal); M19.042 Primary osteoarthritis, left hand; M81.0 Age-related osteoporosis without current pathological fracture; M79.642 Pain in left hand
CPT/HCPCS: 73130

== ENCOUNTER → 2025-06-17 14:54 | Outpatient (CLI) | payer MEDICARE, SELFPAY ==
[2024-08-11 15:35] VITALS: BMI 25.0
[2025-06-17 17:19] LABS: TSH w/ Reflex to FT4 0.02 uIU/mL (0.47-4.68)
[2025-06-17 18:11] LABS: Free T4, Direct Thyroxine 1.64 ng/dL (0.78-2.19)
== END ==
PROVIDERS: PCP Family Medicine; Referring Provider Family Medicine; Visit Provider Family Medicine
DX: E03.9 Hypothyroidism, unspecified (principal)
CPT/HCPCS: 36415; 84439; 84443

== ENCOUNTER 2025-07-15 10:45 | Outpatient (RCR) | payer MEDICARE, SELFPAY ==
[2024-08-11 15:35] VITALS: BMI 25.0
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
--- NOTE | 2025-05-12 14:22 | PT.OTN ---
Current Diagnoses Dorsalgia, unspecified (05/12/25) Physical Therapy Treatment Note PT OP: Lower Back/Lower Extremity Start: 05/12/25 13:00 Freq: Status: Active Protocol: Document 05/12/25 13:00 AB (Rec: 05/12/25 13:48 AB [id number]) Out-Patient Physical Therapy Visit Information Visit Information Visit Type Treatment Note Visit Start Time 13:02 Visit Stop Time 13:47 Visit Number 7 Number of FORM PRESSER Visits 1 OP-PT Subjective Patient Comments Patient Comments Patient reports she had her hand checked and it is not broken even though it feels like it is. SLS L LE 2,2, 2 sec R LE 12 sec without UE use Therapeutic Exercises Standing Exercises sit to stand with band Standing Exercise HEP for X 5 only once a day (reports pain on 8th rep) Name Side bilateral Resistance Level 3 band Reps/Minutes X 2 X 8 and X 2 Comments VC for hip hinge and to keep tension on band hip ext with band Standing Exercise with UE use Name Side bilateral Resistance level 2 band tied above knees Reps/Minutes X 15 Comments verbal cues side stepping with band Standing Exercise with UE use Name Resistance level 2 band above knees Reps/Minutes X 4 L and R 10ft Comments VC to avoid toeing out glute med isometric Standing Exercise HEP Name Reps/Minutes 60 sec each LE X 1 Comments Verbal and visual cues Neuro Re-Education Treatment Balance Activities Hurdles Details Hurdles/foam Equipment // bars Comments Forward, CGA Tandem Details fwd retro with head turns 10 feet X 3 fwd 3 retro Equipment // bars Comments CGA Foam Details X1 horizontal/vertical, eyes closed, also tapping 6 inc step from foam Surface AirEx Comments CGA Physical Therapy Assessment Goals Two Impairment Pt reports diplopia at 35 cm during convergence testing Developmental Education Instructor Goal (LTG) Pt to improve convergence testing by at least 15 cm by not noting diplopia until <20 cm in order to demonstrate improved convergence and decreased visual motion sensitivity. LTG Duration 05/15/25 One Impairment Score of 41.88% on the ABC scale indicates increased fear of falling Short Term Goal (STG Pt to score >65% on the ABC score in order to indicate ) a decrease in fear of falling and improved confidence in her balance STG Duration 04/14/25 Assessment Summary Assessment Patient reports feeling less sore than start of session , but sit to stand was limited by knee pain. Physical Therapy Plan Frequency and Duration Frequency of 2x/Week Treatment Plan of Care Start 03/15/25 Date Plan of Care End 05/15/25 Date Next Visit Focus/Plan Next Note Type Treatment Note
--- NOTE | 2025-05-19 15:48 | PT-OP ANOTE ---
Pt did not show to her 05/19/25 appointment. Therapist phoned patient and left a voicemail detailing missed appointment, reminder to call is unable to attend, and date/time of next scheduled visit.
--- NOTE | 2025-05-20 09:47 | PT.OPPOC ---
Physical, Occupational & Speech Therapy At [facility] Current Diagnoses Dorsalgia, unspecified (05/20/25) Visit Care Team Role Provider Type Justin Arevalo MD Attending Provider Physician Family Provider Primary Care Provider Referring Provider Specialty: Family Practice Address: [address] [place] [address], [id number] Email: [email or web address] Plan Of Care PT OP: Lower Back/Lower Extremity Start: 05/12/25 13:00 Freq: Status: Active Protocol: Document 05/20/25 09:04 DCW (Rec: 05/20/25 09:46 DCW [id number]) Out-Patient Physical Therapy Visit Information Visit Information Visit Type Progress Note Visit Start Time 09:04 Visit Stop Time 09:45 Visit Number 8 Number of APPLICATION PACKAGER Visits 0 Progress Note Due 06/19/25 Evaluation Information Evaluation Date 03/15/25 OP-PT Subjective Patient Comments Patient Comments Pt reports she has follow-up with ENT on 05/31 in [place]. Overall, she does feel like her balance has improved, she is less concerned about falling. Functional Tests Functional Gait Assessment Score Other Convergence Name of Test Convergence Testing Comment Diplopia at 19 cm Gym Equipment Shuttle Balance Red Details WBOS Neuro Re-Education Treatment Vestibular Rehabilitation Convergence Details Pencil Push-ups Other Activities Testing Details FGA Physical Therapy Assessment Impairments Impairments Balance,Functional Activities,Functional Mobility, Vestibular,Visual Motor Goals Two Impairment Pt reports diplopia at 35 cm during convergence testing [facility] Goal (LTG) Pt to improve convergence testing by at least 15 cm by not noting diplopia until <20 cm in order to demonstrate improved convergence and decreased visual motion sensitivity. LTG Duration Met One Impairment Score of 41.88% on the ABC scale indicates increased fear of falling [facility] Goal (LTG) Pt to score >65% on the ABC score in order to indicate a decrease in fear of falling and improved confidence in her balance LTG Duration 07/20/25 Assessment Summary Assessment Pt showing some improvement overall. FGA score unchanged, however was not too bad to start with. Convergence greatly improved, met that goal. Pt continues to experience some fear of falling, however confidence is improving. Will likely continue from a few more weeks of skilled therapy focusing on balance and strengthening. Physical Therapy Plan Frequency and Duration Frequency of 2x/Week Treatment Plan of Care Start 05/20/25 Date Plan of Care End 07/20/25 Date Therapeutic Interventions Therapeutic Balance Training,Canalithic Repositioning,Coordination Interventions Training,Home Exercise Program,Joint Mobilizations, Manual Therapy,Neuromuscular Re-education,Patient/ Caregiver Education,Self-Care/Home Management,Soft Tissue Mobilization,Therapeutic Activities,Therapeutic Exercises Next Visit Focus/Plan Next Note Type Treatment Note Plan of Care Dates Plan of Care Start Date 05/20/25 Plan of Care End Date 07/20/25 Electronically Signed by: Johnson Woodward, PT 05/20/25 0947 If you are in agreement with this Plan of Care, please return a signed and dated copy. I have reviewed this Plan of Care and certify that the skilled therapy services above are required to meet the patient?s needs. Physician Signature Date Printed Name and Credentials Clinical Instructor Signature Printed Name and Credentials
--- NOTE | 2025-05-24 10:29 | PT.OTN ---
Current Diagnoses Dorsalgia, unspecified (05/24/25) Physical Therapy Treatment Note PT OP: Lower Back/Lower Extremity Start: 05/12/25 13:00 Freq: Status: Active Protocol: Document 05/24/25 09:03 AB (Rec: 05/24/25 10:00 AB [id number]) Out-Patient Physical Therapy Visit Information Visit Information Visit Type Treatment Note Visit Start Time 09:04 Visit Stop Time 10:49 Visit Number 9 Number of SPECIAL EVENTS DRIVER Visits 1 Progress Note Due 06/19/25 OP-PT Subjective Patient Comments Patient Comments Patient reports she is still sore from when she fell out of bed early Friday morning. Patient reports she broke the child's gate on the bed. Patient comments she thinks she is sleep walking. Patient reports she is pretty sure she told [facility] about the fall, comments she was upset about the fall and started with a test previous session. Therapeutic Exercises Sitting Exercises hip stretches Sitting Exercise 1. figure 4 2. piriformis ( from hooklying to HEP) Name Reps/Minutes 60 sec each stretch each LE seated then hooklying Comments verbal cues seated hip abd with band Sitting Exercise Seated hip abduction isometric hold Name Side bilateral Resistance level 4 band Reps/Minutes one min X 1 Standing Exercises sit to stand with band Side bilateral Resistance Level 4 band Reps/Minutes X 10 2 Comments VC for hip hinge and to keep tension on band calf stretches Standing Exercise gastroc and soleus on EARL and stairs Name Reps/Minutes X2 each on EARL Comments Verbal cues Neuro Re-Education Treatment Balance Activities ambulation on mat Details mat then mat with therapads and foam pad under Comments CGA without device Hurdles Details Hurdles/foam Equipment // bars Reps/Duration 10 feet X 6 Comments Forward, CGA Tandem Details fwd retro with head turns 10 feet X 3 fwd 3 retro Equipment // bars Comments CGA Cone taps Details Cone toe-taps Surface AirEx Equipment // bar Comments cga Dynamic gait Details Hallway ambulation Comments Horizontal/vertical head turns Tilt Board Details Tilt Board Comments DF/PF, Lateral SLS Details SLS Equipment // bars Foam Details X1 horizontal/vertical, eyes closed, also tapping 6 inc step from foam Surface AirEx Comments CGA Physical Therapy Assessment Goals Two Impairment Pt reports diplopia at 35 cm during convergence testing Insurance Case Manager Goal (LTG) Pt to improve convergence testing by at least 15 cm by not noting diplopia until <20 cm in order to demonstrate improved convergence and decreased visual motion sensitivity. LTG Duration Met One Impairment Score of 41.88% on the ABC scale indicates increased fear of falling Insurance Case Manager Goal (LTG) Pt to score >65% on the ABC score in order to indicate a decrease in fear of falling and improved confidence in her balance LTG Duration 07/20/25 Assessment Summary Assessment Later Pat reports she was embarrassed by the fall and maybe didn't tell [facility](PT) las session. Improved karina to sit to stand with band this session. End of session patient reports feeling SI area is off which has happened in the past. Patient advised to make MD aware. Physical Therapy Plan Frequency and Duration Frequency of 2x/Week Treatment Plan of Care Start 05/20/25 Date Plan of Care End 07/20/25 Date Next Visit Focus/Plan Next Note Type Treatment Note Next Visit Plan Further balance testing (DGI), assess hip function/ mobility
--- NOTE | 2025-05-27 12:16 | PT.OTN ---
Current Diagnoses Dorsalgia, unspecified (05/27/25) Physical Therapy Treatment Note PT OP: Lower Back/Lower Extremity Start: 05/12/25 13:00 Freq: Status: Active Protocol: Document 05/27/25 10:45 AB (Rec: 05/27/25 11:34 AB [id number]) Out-Patient Physical Therapy Visit Information Visit Information Visit Type Treatment Note Visit Start Time 10:49 Visit Stop Time 11:33 Visit Number 10 Number of STRINGS TEACHER Visits 2 Progress Note Due 06/19/25 OP-PT Subjective Patient Comments Patient Comments Patient reports she is good, last session was good. Patient reports she just has her usual pain. 9 sec L 6 sec R Therapeutic Exercises Sitting Exercises hip stretches Sitting Exercise 1. figure 4 2. piriformis Name Reps/Minutes 60 sec each stretch each LE seated then hooklying Comments verbal cues seated hip abd with band Sitting Exercise Seated hip abduction isometric hold Name Side bilateral Resistance level 4 band Reps/Minutes one min X 1 Comments review Standing Exercises sit to stand with band Side bilateral Resistance Level 4 band Reps/Minutes X 16 X 2 Comments monitored for pain, VC to keep tension on band hip ext with band Standing Exercise with UE use Name Side bilateral Resistance level 2 band tied above knees Reps/Minutes X 15 Comments verbal cues glute med isometric Standing Exercise HEP Name Reps/Minutes 60 sec each LE X 1 Comments Verbal and visual cues Neuro Re-Education Treatment Balance Activities Hurdles Details Hurdles/foam Equipment // bars Reps/Duration 10 feet X 6 Comments Forward, CGA Tandem Details fwd retro 10 feet X 3 fwd 3 retro Equipment // bars Comments CGA SLS Details SLS Equipment // bars Comments CGA with and without head turns Foam Details horizontal hesd turn eyes closed, also tapping 6 inc step from foam Surface AirEx Comments CGA, in stagger and Romberg for eyes closed, head mvt Physical Therapy Assessment Goals Two Impairment Pt reports diplopia at 35 cm during convergence testing Care Home Goal (LTG) Pt to improve convergence testing by at least 15 cm by not noting diplopia until <20 cm in order to demonstrate improved convergence and decreased visual motion sensitivity. LTG Duration Met One Impairment Score of 41.88% on the ABC scale indicates increased fear of falling Real Estate Intern Goal (LTG) Pt to score >65% on the ABC score in order to indicate a decrease in fear of falling and improved confidence in her balance LTG Duration 07/20/25 Assessment Summary Assessment Patient reports back pain is the same end of session. Patient ed exercises such as sit to stand benefit balance and also back pain. No complaints of inc back pain throughout session. Physical Therapy Plan Frequency and Duration Frequency of 2x/Week Treatment Plan of Care Start 05/20/25 Date Plan of Care End 07/20/25 Date Next Visit Focus/Plan Next Note Type Treatment Note Next Visit Plan Further balance testing (DGI), assess hip function/ mobility
--- NOTE | 2025-06-08 17:16 | PT.OTN ---
Current Diagnoses Dorsalgia, unspecified (06/09/25) Physical Therapy Treatment Note PT OP: Lower Back/Lower Extremity Start: 05/12/25 13:00 Freq: Status: Active Protocol: Document 06/09/25 17:15 AB (Rec: 06/08/25 11:43 AB [id number]) Out-Patient Physical Therapy Visit Information Visit Information Visit Type Treatment Note Visit Start Time 10:49 Visit Stop Time 11:34 Visit Number 11 Number of SENIOR DESIGN ENGINEERING SPECIALIST Visits 3 Progress Note Due 06/19/25 OP-PT Subjective Patient Comments Patient Comments Patient reports she woke up with back pain Friday after cleaning Friday, moving boxes and vacuuming all day until about 3:00 PM. Patient rates back pain 02/05 start of session. Hip Goniometric Range of Motion Hip ROM Limitations Comments Left hip PROM sidelying lacking 8 deg from neutral R hip PROM sidelying lacking 12 deg from neutral Therapeutic Exercises Sitting Exercises hip stretches Sitting Exercise 1. figure 4 2. piriformis(Hooklying) 3. added Mod Name Narayan HEP Side bilateral Reps/Minutes initiates position seated wincing reporting back pain performed supine * Comments * this session 60 sec each LE each stretch Standing Exercises sit to stand with band Side bilateral Resistance Level 4 band Comments Patient ed mechanics of sit to stand, self tactile cues for hip hinge Therapeutic Activity Therapeutic Activity supine to and from sit Comments * Patient initiates sit to supine with a reverse sit up Verbal and visual cues for log roll L and R multiple trials 9 min Physical Therapy Assessment Goals Two Impairment Pt reports diplopia at 35 cm during convergence testing Utilities And Maintenance Supervisor Goal (LTG) Pt to improve convergence testing by at least 15 cm by not noting diplopia until <20 cm in order to demonstrate improved convergence and decreased visual motion sensitivity. LTG Duration Met One Impairment Score of 41.88% on the ABC scale indicates increased fear of falling Detention Goal (LTG) Pt to score >65% on the ABC score in order to indicate a decrease in fear of falling and improved confidence in her balance LTG Duration 07/20/25 Assessment Summary Assessment BP post c/o dizziness post sit to stand BP taken when dizziness resolved 103/57 HR 73 seated L UE, then standing 97/51 HR 74 BPM Patient reports back pain is much less post stretches. Comments feeling uneven in her pelvis ( thought one side of table was higher), but it is less post stretches, and didn't have that sensation prev session. R hip with dec PROM ext> L, R AI PI noted. Patient rates back pain 10/08 end of session Physical Therapy Plan Frequency and Duration Frequency of 2x/Week Treatment Plan of Care Start 05/20/25 Date Plan of Care End 07/20/25 Date Next Visit Focus/Plan Next Note Type Treatment Note Next Visit Plan Further balance testing (DGI), assess hip function/ mobility
--- NOTE | 2025-06-09 16:10 | PT.OTN ---
Addendum entered and electronically signed by Lana Gong 06/09/25 17:18: Error signed late Original Note: Current Diagnoses Dorsalgia, unspecified (06/09/25) Physical Therapy Treatment Note PT OP: Lower Back/Lower Extremity Start: 05/12/25 13:00 Freq: Status: Active Protocol: Document 06/08/25 10:48 AB (Rec: 06/08/25 11:43 AB [id number]) Out-Patient Physical Therapy Visit Information Visit Information Visit Type Treatment Note Visit Start Time 10:49 Visit Stop Time 11:34 Visit Number 11 Number of HEADING MACHINE OPERATOR Visits 3 Progress Note Due 06/19/25 OP-PT Subjective Patient Comments Patient Comments Patient reports she woke up with back pain Friday after cleaning Friday, moving boxes and vacuuming all day until about 3:00 PM. Patient rates back pain / start of session. Hip Goniometric Range of Motion Hip ROM Limitations Comments Left hip PROM sidelying lacking 8 deg from neutral R hip PROM sidelying lacking 12 deg from neutral Therapeutic Exercises Sitting Exercises hip stretches Sitting Exercise 1. figure 4 2. piriformis(Hooklying) 3. added Mod Name Narayan HEP Side bilateral Reps/Minutes initiates position seated wincing reporting back pain performed supine * Comments * this session 60 sec each LE each stretch Standing Exercises sit to stand with band Side bilateral Resistance Level 4 band Comments Patient ed mechanics of sit to stand, self tactile cues for hip hinge Therapeutic Activity Therapeutic Activity supine to and from sit Comments * Patient initiates sit to supine with a reverse sit up Verbal and visual cues for log roll L and R multiple trials 9 min Physical Therapy Assessment Goals Two Impairment Pt reports diplopia at 35 cm during convergence testing School Superintendent Goal (LTG) Pt to improve convergence testing by at least 15 cm by not noting diplopia until <20 cm in order to demonstrate improved convergence and decreased visual motion sensitivity. LTG Duration Met One Impairment Score of 41.88% on the ABC scale indicates increased fear of falling School Superintendent Goal (LTG) Pt to score >65% on the ABC score in order to indicate a decrease in fear of falling and improved confidence in her balance LTG Duration 07/20/25 Assessment Summary Assessment BP post c/o dizziness post sit to stand BP taken when dizziness resolved 103/57 HR 73 seated L UE, then standing 97/51 HR 74 BPM Patient reports back pain is much less post stretches. Comments feeling uneven in her pelvis ( thought one side of table was higher), but it is less post stretches, and didn't have that sensation prev session. R hip with dec PROM ext> L, R AI PI noted. Patient rates back pain 10/08 end of session Physical Therapy Plan Frequency and Duration Frequency of 2x/Week Treatment Plan of Care Start 05/20/25 Date Plan of Care End 07/20/25 Date Next Visit Focus/Plan Next Note Type Treatment Note Next Visit Plan Further balance testing (DGI), assess hip function/ mobility
--- NOTE | 2025-06-09 16:17 | PT.OTN ---
Current Diagnoses Dorsalgia, unspecified (06/09/25) Physical Therapy Treatment Note PT OP: Lower Back/Lower Extremity Start: 05/12/25 13:00 Freq: Status: Active Protocol: Document 06/09/25 15:20 DCW (Rec: 06/09/25 16:16 DCW [id number]) Out-Patient Physical Therapy Visit Information Visit Information Visit Type Treatment Note Visit Start Time 15:20 Visit Stop Time 16:00 Visit Number 12 Number of ORACLE CONSULTANT Visits 0 Progress Note Due 06/19/25 Evaluation Information Evaluation Date 03/15/25 OP-PT Subjective Patient Comments Patient Comments Reports her back is still bothering her, but much better after her PT appointment yesterday. Pt unsure of what caused the pain, just thinks she was doing a lot of bending over and picking things up. Therapeutic Exercises Supine Exercises Pelvic realignment Supine Exercise Name Pelvic realignment exercises - adductor ball squeeze, one leg pelvic lift, Side bilateral Reps/Minutes 3 hold x5 each bilaterally Manual Therapy Treatment Consent Patient gave verbal Yes consent for manual treatment Soft Tissue Mobilization T/L Spine Body Location T/L paraspinals R>L Mobilization Type Strumming,Sustained Pressure,Trigger Point Release Other Other Manual Resisted L hip flexion, R hip extension for pelvis Treatments alignment Physical Therapy Assessment Impairments Impairments Balance,Functional Activities,Functional Mobility, Vestibular,Visual Motor Goals Two Impairment Pt reports diplopia at 35 cm during convergence testing Career Placement Specialist Goal (LTG) Pt to improve convergence testing by at least 15 cm by not noting diplopia until <20 cm in order to demonstrate improved convergence and decreased visual motion sensitivity. LTG Duration Met One Impairment Score of 41.88% on the ABC scale indicates increased fear of falling Retirement Goal (LTG) Pt to score >65% on the ABC score in order to indicate a decrease in fear of falling and improved confidence in her balance LTG Duration 07/20/25 Assessment Summary Assessment Pt felt much better following pelvic realignment exercises, good response to treatment. Provided with handout for HEP. Will benefit from continued focus on balance, strengthening, STM, and mobility. Physical Therapy Plan Frequency and Duration Frequency of 2x/Week Treatment Plan of Care Start 05/20/25 Date Plan of Care End 07/20/25 Date Therapeutic Interventions Therapeutic Balance Training,Canalithic Repositioning,Coordination Interventions Training,Home Exercise Program,Joint Mobilizations, Manual Therapy,Neuromuscular Re-education,Patient/ Caregiver Education,Self-Care/Home Management,Soft Tissue Mobilization,Therapeutic Activities,Therapeutic Exercises Next Visit Focus/Plan Next Note Type Treatment Note Next Visit Plan Balance, strengthening, mobility.
--- NOTE | 2025-06-17 14:46 | PT.OPPN ---
Current Diagnoses Dorsalgia, unspecified (06/17/25) Physical Therapy Progress Note PT OP: Lower Back/Lower Extremity Start: 05/12/25 13:00 Freq: Status: Active Protocol: Document 06/17/25 14:00 DCW (Rec: 06/17/25 14:46 DCW [id number]) Out-Patient Physical Therapy Visit Information Visit Information Visit Type Progress Note Visit Start Time 14:00 Visit Stop Time 14:45 Visit Number 13 Number of EDITOR PUBLICATIONS Visits 0 Progress Note Due 07/17/25 Evaluation Information Evaluation Date 03/15/25 Gym Equipment Shuttle Recovery Unilateral Squats Resistance 50# Bilateral Squats Resistance 75# Therapeutic Ball Hip/knee flexion Exercise Details Resisted hip/knee flexion Ball Size/Color Red - 55 cm Lv 2 T-band LTR Exercise Details LTR Ball Size/Color Red - 55 cm Body Position Supine Therapeutic Exercises Supine Exercises Bridging Supine Exercise Name Bridging Sitting Exercises LAQ Sitting Exercise LAQ Name Side bilateral Resistance 4# Standing Exercises Hamstring Curls Standing Exercise HS curls Name Side bilateral Resistance 4# calf stretches Standing Exercise gastroc and soleus on EARL Name Side bilateral Reps/Minutes x2 each on EARL Comments Verbal cues Hip Extension Standing Exercise Hip Extension Name Side bilateral Resistance Green Equipment Used // bars Other Exercises Resisted Ambulation Other Exercise Name Resisted side-stepping Resistance Green Equipment Used // bars Manual Therapy Treatment Consent Patient gave verbal Yes consent for manual treatment Soft Tissue Mobilization T/L Spine Body Location T/L paraspinals R>L Mobilization Type Strumming,Sustained Pressure,Trigger Point Release Body Position Sidelying Physical Therapy Assessment Impairments Impairments Balance,Functional Activities,Functional Mobility, Vestibular,Visual Motor Goals Two Impairment Pt reports diplopia at 35 cm during convergence testing Usp Goal (LTG) Pt to improve convergence testing by at least 15 cm by not noting diplopia until <20 cm in order to demonstrate improved convergence and decreased visual motion sensitivity. LTG Duration Met One Impairment Score of 41.88% on the ABC scale indicates increased fear of falling Chief Dispatcher Goal (LTG) Pt to score >65% on the ABC score in order to indicate a decrease in fear of falling and improved confidence in her balance LTG Duration 07/20/25 Assessment Summary Assessment Pt demonstrating improvement with overall balance and activity tolerance, is still limited by her back and hip pain, but feeling like she can better participate in activities, did some gardening this week for a total of ~2.5 hours, but did need to take a few breaks. continue focusing on STM, strength, activity tolerance, and mobility. Physical Therapy Plan Frequency and Duration Frequency of 2x/Week Treatment Plan of Care Start 05/20/25 Date Plan of Care End 07/20/25 Date Therapeutic Interventions Therapeutic Balance Training,Canalithic Repositioning,Coordination Interventions Training,Home Exercise Program,Joint Mobilizations, Manual Therapy,Neuromuscular Re-education,Patient/ Caregiver Education,Self-Care/Home Management,Soft Tissue Mobilization,Therapeutic Activities,Therapeutic Exercises Next Visit Focus/Plan Next Note Type Treatment Note Next Visit Plan Balance, strengthening, mobility.
--- NOTE | 2025-06-23 13:06 | PT.OTN ---
Current Diagnoses Dorsalgia, unspecified (06/23/25) Physical Therapy Treatment Note PT OP: Lower Back/Lower Extremity Start: 05/12/25 13:00 Freq: Status: Active Protocol: Document 06/23/25 12:20 DCW (Rec: 06/23/25 13:04 DCW [id number]) Out-Patient Physical Therapy Visit Information Visit Information Visit Type Treatment Note Visit Start Time 12:20 Visit Stop Time 13:00 Visit Number 14 Number of VULCANIZER Visits 0 Progress Note Due 07/17/25 Evaluation Information Evaluation Date 03/15/25 OP-PT Subjective Patient Comments Patient Comments Pt reports she has been doing gardening work 1-2 hours at a time, hurts a little bit while doing it, but does not linger afterward. Gym Equipment Shuttle Recovery Unilateral Squats Resistance 50# Bilateral Squats Resistance 75# Therapeutic Exercises Supine Exercises Bridging Supine Exercise Name Bridging Sitting Exercises Hip Abduction Sitting Exercise Hip Abduction Name Side bilateral Resistance Lv 3 Hamstring Curls Sitting Exercise Hamstring Curls Name Side bilateral Resistance Lv 3 Standing Exercises Pallof Press Standing Exercise Pallof Press Name Side bilateral Resistance Blue Manual Therapy Treatment Consent Patient gave verbal Yes consent for manual treatment Soft Tissue Mobilization T/L Spine Body Location T/L paraspinals R>L Mobilization Type Strumming,Sustained Pressure,Trigger Point Release Body Position Sidelying Manual Traction LE Details L LE - Long-axis traction Body Position Supine Physical Therapy Assessment Impairments Impairments Balance,Functional Activities,Functional Mobility, Vestibular,Visual Motor Goals Two Impairment Pt reports diplopia at 35 cm during convergence testing Blood Bank Laboratory Technologist Goal (LTG) Pt to improve convergence testing by at least 15 cm by not noting diplopia until <20 cm in order to demonstrate improved convergence and decreased visual motion sensitivity. LTG Duration Met Assessment Summary Assessment Continues to respond well to PT, feeling better in her legs and back, which has been making her feel more stable. Continue focus on balance, strength, and mobility. Physical Therapy Plan Frequency and Duration Frequency of 2x/Week Treatment Plan of Care Start 05/20/25 Date Plan of Care End 07/20/25 Date Therapeutic Interventions Therapeutic Balance Training,Canalithic Repositioning,Coordination Interventions Training,Home Exercise Program,Joint Mobilizations, Manual Therapy,Neuromuscular Re-education,Patient/ Caregiver Education,Self-Care/Home Management,Soft Tissue Mobilization,Therapeutic Activities,Therapeutic Exercises Next Visit Focus/Plan Next Note Type Treatment Note Next Visit Plan Balance, strengthening, mobility.
--- NOTE | 2025-06-28 11:30 | PT.OTN ---
Current Diagnoses Dorsalgia, unspecified (06/28/25) Physical Therapy Treatment Note PT OP: Lower Back/Lower Extremity Start: 05/12/25 13:00 Freq: Status: Active Protocol: Document 06/28/25 10:45 DCW (Rec: 06/28/25 11:30 DCW [id number]) Out-Patient Physical Therapy Visit Information Visit Information Visit Type Treatment Note Visit Start Time 10:45 Visit Stop Time 11:30 Visit Number 15 Number of EXHIBIT ELECTRICIAN Visits 0 Progress Note Due 07/17/25 Evaluation Information Evaluation Date 03/15/25 Gym Equipment Shuttle Recovery Unilateral Squats Resistance 50# Reps/Time Stopped d/t right knee pain Bilateral Squats Resistance 75# Therapeutic Ball Hip/knee flexion Exercise Details Resisted hip/knee flexion Ball Size/Color Red - 55 cm Lv 3 T-band LTR Exercise Details LTR Ball Size/Color Red - 55 cm Body Position Supine Therapeutic Exercises Supine Exercises Bridging Supine Exercise Name Bridging Standing Exercises heel raise Standing Exercise PF Name Side bilateral Equipment Used EARL Reps/Minutes X 10 calf stretches Standing Exercise gastroc and soleus on EARL Name Side bilateral Reps/Minutes x2 each on EARL Comments Verbal cues Hip Extension Standing Exercise Hip Extension Name Side bilateral Resistance Green Equipment Used // bars Other Exercises Resisted Ambulation Other Exercise Name Resisted side-stepping Resistance Green Equipment Used // bars Manual Therapy Treatment Consent Patient gave verbal Yes consent for manual treatment Soft Tissue Mobilization T/L Spine Body Location T/L paraspinals R>L Mobilization Type Strumming,Sustained Pressure,Trigger Point Release Body Position Sidelying Manual Traction LE Details L LE - Long-axis traction Body Position Supine Neuro Re-Education Treatment Balance Activities Tandem Details Tandem Ambulation Equipment // bars Physical Therapy Assessment Goals Two Impairment Pt reports diplopia at 35 cm during convergence testing Chemical Cell Changer Goal (LTG) Pt to improve convergence testing by at least 15 cm by not noting diplopia until <20 cm in order to demonstrate improved convergence and decreased visual motion sensitivity. LTG Duration Met One Impairment Score of 41.88% on the ABC scale indicates increased fear of falling Chemical Cell Changer Goal (LTG) Pt to score >65% on the ABC score in order to indicate a decrease in fear of falling and improved confidence in her balance LTG Duration 07/20/25 Assessment Summary Assessment Pt noting improvement with all gait activities, feeling much more stable, impressed with tandem gait improvements. Pt responding well to therapy, although is still struggling with increased T/L spine tone. Continue focus on strength, balance, and gait. Physical Therapy Plan Frequency and Duration Frequency of 2x/Week Treatment Plan of Care Start 05/20/25 Date Plan of Care End 07/20/25 Date Therapeutic Interventions Therapeutic Balance Training,Canalithic Repositioning,Coordination Interventions Training,Home Exercise Program,Joint Mobilizations, Manual Therapy,Neuromuscular Re-education,Patient/ Caregiver Education,Self-Care/Home Management,Soft Tissue Mobilization,Therapeutic Activities,Therapeutic Exercises Next Visit Focus/Plan Next Note Type Treatment Note Next Visit Plan Balance, strengthening, mobility.
--- NOTE | 2025-07-01 12:28 | PT.OTN ---
Current Diagnoses Dorsalgia, unspecified (07/01/25) Physical Therapy Treatment Note PT OP: Lower Back/Lower Extremity Start: 05/12/25 13:00 Freq: Status: Active Protocol: Document 07/01/25 10:42 AB (Rec: 07/01/25 12:27 AB [id number]) Out-Patient Physical Therapy Visit Information Visit Information Visit Type Treatment Note Visit Start Time 10:48 Visit Stop Time 11:33 Visit Number 16 Number of SAMPLE COLOR MAKER Visits 1 Progress Note Due 07/17/25 OP-PT Subjective Patient Comments Patient Comments Patient reports Alexx working on the spasm glute/SI helped but is still sore. Patient rates pain glute/SI area 6. Patient reports she has felt these have been spasms since the nerve ablation. Therapeutic Exercises Supine Exercises stretches Supine Exercise Name 1. fig 4 2. piriformis opp sh 3. Modified Narayan Reps/Minutes 60 sec each stretch ech LE Comments verbal and tact Sidelying Exercises reverse clamshell Reps/Minutes X 15 each LE Comments verbal and tactile cues clamshell Reps/Minutes X 15 each LE Comments verbal and tactile cues Manual Therapy Treatment Consent Patient gave verbal Yes consent for manual treatment Soft Tissue Mobilization glute piriformis Mobilization Type Cross-Friction,Rolling Intensity/Depth Moderate Body Position Sidelying T/L Spine Body Location lower thoracic to lumbar Si B Mobilization Type Cross-Friction,Sustained Pressure Intensity/Depth Deep Body Position Sidelying Manual Techniques R AI L PI Comments 6 X 6 sec for pubic shotgun and R AI L PI Physical Therapy Assessment Goals Two Impairment Pt reports diplopia at 35 cm during convergence testing Long-Term Goal (LTG) Pt to improve convergence testing by at least 15 cm by not noting diplopia until <20 cm in order to demonstrate improved convergence and decreased visual motion sensitivity. LTG Duration Met One Impairment Score of 41.88% on the ABC scale indicates increased fear of falling Director Of Compliance Goal (LTG) Pt to score >65% on the ABC score in order to indicate a decrease in fear of falling and improved confidence in her balance LTG Duration 07/20/25 Assessment Summary Assessment Pat reports having no pain end of session, reports feeling settled and describes this as feeling like body isn't tipping side to side when walking. Physical Therapy Plan Frequency and Duration Frequency of 2x/Week Treatment Plan of Care Start 05/20/25 Date Plan of Care End 07/20/25 Date Next Visit Focus/Plan Next Note Type Treatment Note Next Visit Plan Balance, strengthening, mobility.
--- NOTE | 2025-07-05 11:28 | PT.OTN ---
Current Diagnoses Dorsalgia, unspecified (07/05/25) Physical Therapy Treatment Note PT OP: Lower Back/Lower Extremity Start: 05/12/25 13:00 Freq: Status: Active Protocol: Document 07/05/25 10:45 DCW (Rec: 07/05/25 11:28 DCW [id number]) Out-Patient Physical Therapy Visit Information Visit Information Visit Type Treatment Note Visit Start Time 10:45 Visit Stop Time 11:30 Visit Number 17 Number of BILINGUAL CUSTOMER SERVICE SPECIALIST Visits 0 Progress Note Due 07/17/25 Evaluation Information Evaluation Date 03/15/25 OP-PT Subjective Patient Comments Patient Comments I think I'm doing better, my glutes don't feel as sore . Gym Equipment Shuttle Balance Red Details WBOS, Staggered Therapeutic Ball Hip/knee flexion Exercise Details Resisted hip/knee flexion Ball Size/Color Blue - 45 cm Lv 3 T-band LTR Exercise Details LTR Ball Size/Color Blue - 45 cm Body Position Supine Therapeutic Exercises Supine Exercises stretches Supine Exercise Name Single KtC, Figure-4 Side bilateral Neuro Re-Education Treatment Balance Activities Hurdles Details Hurdles/foam Equipment // bars Comments Forward, Side-stepping Tandem Details Tandem Stance Equipment // bars SLS Details SLS Equipment // bars Comments CGA with and without head turns Foam Details Head turns, EO/EC Surface AirEx Physical Therapy Assessment Impairments Impairments Balance,Functional Activities,Functional Mobility, Vestibular,Visual Motor Goals Two Impairment Pt reports diplopia at 35 cm during convergence testing Plastics Patternmaker Goal (LTG) Pt to improve convergence testing by at least 15 cm by not noting diplopia until <20 cm in order to demonstrate improved convergence and decreased visual motion sensitivity. LTG Duration Met One Impairment Score of 41.88% on the ABC scale indicates increased fear of falling Plastics Patternmaker Goal (LTG) Pt to score >65% on the ABC score in order to indicate a decrease in fear of falling and improved confidence in her balance LTG Duration 07/20/25 Assessment Summary Assessment Pt doing very well, likely approaching discharge. Pt would likely benefit from focus on LE strengthening, will do well with education and demonstration on transition to strengthening exercises she can do at [employer] gym. Physical Therapy Plan Frequency and Duration Frequency of 2x/Week Treatment Plan of Care Start 05/20/25 Date Plan of Care End 07/20/25 Date Therapeutic Interventions Therapeutic Balance Training,Canalithic Repositioning,Coordination Interventions Training,Home Exercise Program,Joint Mobilizations, Manual Therapy,Neuromuscular Re-education,Patient/ Caregiver Education,Self-Care/Home Management,Soft Tissue Mobilization,Therapeutic Activities,Therapeutic Exercises Next Visit Focus/Plan Next Note Type Treatment Note Next Visit Plan Balance, strengthening, mobility.
--- NOTE | 2025-07-08 11:31 | PT.OTN ---
Current Diagnoses Dorsalgia, unspecified (07/08/25) Physical Therapy Treatment Note PT OP: Lower Back/Lower Extremity Start: 05/12/25 13:00 Freq: Status: Active Protocol: Document 07/08/25 10:45 DCW (Rec: 07/08/25 11:31 DCW [id number]) Out-Patient Physical Therapy Visit Information Visit Information Visit Type Treatment Note Visit Start Time 10:45 Visit Stop Time 11:30 Visit Number 17 Number of HEADER BOSS Visits 0 Progress Note Due 07/17/25 Evaluation Information Evaluation Date 03/15/25 OP-PT Subjective Patient Comments Patient Comments I'm feeling good, it's like everything is still in place. I'm walking better, not afraid that I'm going to fall down. Gym Equipment Therapeutic Ball LTR Exercise Details LTR Ball Size/Color Blue - 45 cm Body Position Supine Therapeutic Exercises Supine Exercises stretches Supine Exercise Name Hamstring stretch, Single KtC, Figure-4 Side bilateral Manual Therapy Treatment Consent Patient gave verbal Yes consent for manual treatment Soft Tissue Mobilization glute piriformis Mobilization Type Cross-Friction,Rolling Intensity/Depth Moderate Body Position Sidelying T/L Spine Body Location lower thoracic to lumbar SI B Mobilization Type Cross-Friction,Sustained Pressure Intensity/Depth Deep Body Position Sidelying Physical Therapy Assessment Impairments Impairments Balance,Functional Activities,Functional Mobility, Vestibular,Visual Motor Goals Two Impairment Pt reports diplopia at 35 cm during convergence testing Professor Of Biblical Studies Goal (LTG) Pt to improve convergence testing by at least 15 cm by not noting diplopia until <20 cm in order to demonstrate improved convergence and decreased visual motion sensitivity. LTG Duration Met One Impairment Score of 41.88% on the ABC scale indicates increased fear of falling Professor Of Biblical Studies Goal (LTG) Pt to score >65% on the ABC score in order to indicate a decrease in fear of falling and improved confidence in her balance LTG Duration 07/20/25 Assessment Summary Assessment Pt doing well, likely discharging next visit, feels comfortable with current level of function. Pt Requests an idea of exercises she can do at [facility] after discharge, will provide handout next visit. Physical Therapy Plan Frequency and Duration Frequency of 2x/Week Treatment Plan of Care Start 05/20/25 Date Plan of Care End 07/20/25 Date Therapeutic Interventions Therapeutic Balance Training,Canalithic Repositioning,Coordination Interventions Training,Home Exercise Program,Joint Mobilizations, Manual Therapy,Neuromuscular Re-education,Patient/ Caregiver Education,Self-Care/Home Management,Soft Tissue Mobilization,Therapeutic Activities,Therapeutic Exercises Next Visit Focus/Plan Next Note Type Discharge Summary Next Visit Plan Balance, strengthening, mobility.
--- NOTE | 2025-07-15 11:24 | PT.OPDS ---
Current Diagnoses Dorsalgia, unspecified (07/15/25) Visit Care Team Role Provider Type Justin Arevalo MD Attending Provider Physician Family Provider Primary Care Provider Referring Provider Specialty: Family Practice Address: [address] [place] [address], [facility] Email: [email or web address] Visit Number Visit Number 18 Discharge Summary PT OP: Lower Back/Lower Extremity Start: 05/12/25 13:00 Freq: Status: Active Protocol: Document 07/15/25 10:45 DCW (Rec: 07/15/25 11:24 DCW [id number]) Out-Patient Physical Therapy Visit Information Visit Information Visit Type Discharge Summary Visit Start Time 10:45 Visit Stop Time 11:15 Visit Number 18 Number of ENGINEER/CONDUCTOR Visits 0 Progress Note Due 07/17/25 Evaluation Information Evaluation Date 03/15/25 OP-PT Subjective Patient Comments Patient Comments Pt happy with current functional level, hoping to get exercises to do when she goes to [facility] to work out. Gym Equipment Cable Column (Body Solid) Hip Adduction Resistance 50# Hip Abduction Resistance 30# Leg Curl Resistance 50# Leg Extension Resistance 30# Shuttle Recovery Unilateral Squats Resistance 50# Shuttle Recovery Stable Platform Bilateral Squats Resistance 75# Shuttle Recovery Stable Platform Therapeutic Exercises Standing Exercises Overhead Press Resistance 2# Abduction Resistance 3# Flexion Resistance 3# Biceps Curls Resistance 5# Physical Therapy Assessment Impairments Impairments Balance,Functional Activities,Functional Mobility, Vestibular,Visual Motor Goals Two Impairment Pt reports diplopia at 35 cm during convergence testing Survey Coordinator Goal (LTG) Pt to improve convergence testing by at least 15 cm by not noting diplopia until <20 cm in order to demonstrate improved convergence and decreased visual motion sensitivity. LTG Duration Met One Impairment Score of 41.88% on the ABC scale indicates increased fear of falling Survey Coordinator Goal (LTG) Pt to score >65% on the ABC score in order to indicate a decrease in fear of falling and improved confidence in her balance LTG Duration 07/20/25 Assessment Summary Assessment Pt feeling much better about her balance, happy with HEP, and now feels good about joining local gym, Pt doing well in all areas, appropriate for discharge at this time. Physical Therapy Plan Frequency and Duration Frequency of 2x/Week Treatment Plan of Care Start 05/20/25 Date Plan of Care End 07/20/25 Date Therapeutic Interventions Therapeutic Balance Training,Canalithic Repositioning,Coordination Interventions Training,Home Exercise Program,Joint Mobilizations, Manual Therapy,Neuromuscular Re-education,Patient/ Caregiver Education,Self-Care/Home Management,Soft Tissue Mobilization,Therapeutic Activities,Therapeutic Exercises Discharge Physical Therapy Discharge Comments Discharge to independent [facility] Next Visit Focus/Plan Next Note Type Discharge Summary
== END 2025-07-18 09:35 | disposition home or self-care (01) ==
LOC: PHYS 10:45
PROVIDERS: Family Provider Family Medicine; PCP Family Medicine; Referring Provider Family Medicine; Visit Provider Family Medicine
DX: M54.9 Dorsalgia, unspecified (principal)
CPT/HCPCS: 97110; 97112; 97140; 97162; 97530; 97535

== ENCOUNTER → 2025-08-01 07:53 | Outpatient (CLI) | payer MEDICARE, SELFPAY ==
[2024-08-11 15:35] VITALS: BMI 25.0
[2025-08-01 08:41] LABS: Add Manual Diff / Slide Review NO; Hematocrit 38.8 % (36-46); Hemoglobin 13.1 g/dL (12.0-16.0); Lymphocytes Absolute Auto 1000 /uL (1100-4500); Mean Corpuscular HGB Conc 33.7 % (30-36); Mean Corpuscular Hemoglobin 27.5 PG (26-34); Mean Corpuscular Volume 81.6 fL (80-100); Platelet Count 187 X10^3/uL (150-400)
[2025-08-01 08:44] LABS: Appearance Urine UA CLEAR; Bilirubin Urine UA NEGATIVE (NEGATIVE); Color Urine UA YELLOW; Glucose Urine UA NEGATIVE (Negative); Ketones Urine UA TRACE (NEGATIVE); Leukocyte Esterase Urine UA NEGATIVE (NEGATIVE); Nitrite Urine UA NEGATIVE (Negative); Occult Blood Urine UA NEGATIVE (Negative); Protein Urine UA NEGATIVE (Negative); Specific Gravity Urine UA 1.010 (1.000-1.035); Urobilinogen Urine UA 1.0 E.U./dL (0.2)
[2025-08-01 08:45] LABS: pH Urine UA 6.5 (4.5-8.0)
[2025-08-01 08:47] LABS: Culture Indicated Urine Cult Not Indicated
[2025-08-01 09:02] LABS: Alanine Aminotransferase 17 IU/L (<35); Albumin 4.0 g/dL (3.5-5.0); Albumin Globulin Ratio 1.5 (1.0-2.8); Alkaline Phosphatase 72 U/L (38-126); Blood Urea Nitrogen 13 mg/dL (7-17); Calcium 8.8 mg/dL (8.4-10.2); Carbon Dioxide 25 mmol/L (22-32); Chloride 104 mmol/L (98-107); Estimated Glomerular Filt Rate > 60 mL/min (>60); Globulin 2.7 g/dL (1.7-4.1); Glucose 107 mg/dL (70-99); HEMOLYSIS 19 (0-50); Potassium 4.8 mmol/L (3.4-5.1); Sodium 136 mmol/L (137-145); Total Protein 6.7 g/dL (6.3-8.2)
[2025-08-02 21:08] LABS: Calcium 8.9 mg/dL (8.7-10.3); Parathyroid Hormone, Intact 32 pg/mL (15-65)
== END ==
PROVIDERS: PCP Family Medicine; Referring Provider Family Medicine; Visit Provider Family Medicine
DX: E89.0 Postprocedural hypothyroidism (principal); N30.01 Acute cystitis with hematuria; K22.10 Ulcer of esophagus without bleeding; E55.9 Vitamin D deficiency, unspecified
CPT/HCPCS: 36415; 80053; 81001; 82310; 83970; 85025

== ENCOUNTER → 2025-08-17 07:30 | Outpatient (CLI) | payer MEDICARE, OTHER, SELFPAY ==
[2024-08-11 15:35] VITALS: BMI 25.0
== END ==
LOC: CAR 10-28 07:31
PROVIDERS: PCP Family Medicine; Referring Provider Family Medicine; Visit Provider Family Medicine
DX: R00.2 Palpitations (principal); E89.0 Postprocedural hypothyroidism; N30.01 Acute cystitis with hematuria; K22.10 Ulcer of esophagus without bleeding; E55.9 Vitamin D deficiency, unspecified
CPT/HCPCS: 93242

== ENCOUNTER → 2025-08-17 13:01 | Outpatient (CLI) | payer MEDICARE, SELFPAY ==
[2024-08-11 15:35] VITALS: BMI 25.0
[2025-08-17 15:25] LABS: TSH w/ Reflex to FT4 0.08 uIU/mL (0.47-4.68)
[2025-08-17 15:52] LABS: Free T4, Direct Thyroxine 1.78 ng/dL (0.78-2.19)
== END ==
PROVIDERS: PCP Family Medicine; Referring Provider Family Medicine; Visit Provider Family Medicine
DX: I10 Essential (primary) hypertension (principal); E89.0 Postprocedural hypothyroidism; R41.3 Other amnesia; E78.2 Mixed hyperlipidemia; F33.9 Major depressive disorder, recurrent, unspecified; K21.9 Gastro-esophageal reflux disease without esophagitis
CPT/HCPCS: 36415; 84439; 84443

== ENCOUNTER → 2025-09-25 09:49 | Outpatient (CLI) | payer MEDICARE, SELFPAY ==
[2024-08-11 15:35] VITALS: BMI 25.0
--- NOTE | 2025-09-25 09:50 | DI.CT.S_ITS ---
PROCEDURE: CT SOFT TISSUE NECK WO CON INDICATIONS: thyroidectomy follow up and swallowing difficulty TECHNIQUE: Non-contrast 3.0 mm axial sections acquired from the sella to the aortic arch. Additional oblique axial 3.0 mm sections acquired through the pharynx. 3 mm thick coronal and sagittal reformats were generated. For radiation dose reduction, the following was used: automated exposure control. COMPARISON: [facility], CT, CT SOFT TISSUE NECK WO CON, 11/18/2024, 15:23. FINDINGS: Image quality: Excellent. Lymph nodes: No enlarged lymph nodes seen throughout the neck. Vessels: Non-opacified vessels appear normal in caliber. Neck spaces: Asymmetric decreased aeration of the left piriform sinus, nonspecific. No visible soft tissue mass. The oropharynx, nasopharynx, and pharynx demonstrate no visible mucosal lesions. The vocal cords, false vocal cords, epiglottis, vallecula, and tongue base all appear normal. Extramucosal spaces appear unremarkable. Glands: The parotid and submandibular glands appear normal, without stones. Thyroid gland is surgically absent. No suspicious soft tissue in the thyroid bed. . Bones: Degenerative appearing anterior wedge compression fractures of T1 and T2. Multilevel disc height loss throughout the cervical and visible thoracic spine. Miscellaneous: Visualized brain and orbits appear normal. Lung apices appear clear. Superficial soft tissues appear normal. IMPRESSION: Nonspecific decreased aeration of the left piriform sinus. Correlate clinically and consider direct visualization to exclude occult soft tissue lesions. Thyroidectomy without CT findings of complication. Modified barium swallow if not previously performed could be considered. Dictated by: Reva Owusu M.D. on 09/25/2025 at 13:53 Approved by: Reva Owusu M.D. on 09/25/2025 at 13:59
== END ==
LOC: CT 09:50
PROVIDERS: PCP Family Medicine; Referring Provider Family Medicine; Visit Provider Family Medicine
DX: E89.0 Postprocedural hypothyroidism (principal); R13.10 Dysphagia, unspecified; Z98.890 Other specified postprocedural states; Z90.89 Acquired absence of other organs
CPT/HCPCS: 70490